=== PATIENT | male | born 1940 | race Caucasian/White ===

== ENCOUNTER → 2020-09-29 10:10 | Outpatient (BNVA) | payer MEDICARE, OTHER, SELFPAY | PROVIDERS: PCP Pediatrics; Referring Provider Pediatrics; Visit Provider Urology | DX: N40.1 Benign prostatic hyperplasia with lower urinary tract symptoms (principal); R33.9 Retention of urine, unspecified; R97.20 Elevated prostate specific antigen [PSA]; N32.0 Bladder-neck obstruction; R35.1 Nocturia; N52.9 Male erectile dysfunction, unspecified; E11.9 Type 2 diabetes mellitus without complications | CPT/HCPCS: Q3014 ==

== ENCOUNTER 2021-10-18 11:06 | Outpatient (REF) | payer MEDICARE, OTHER, SELFPAY ==
--- NOTE | ~2021-10-18 | XR_ITS ---
EXAMINATION: BILATERAL KNEE. CLINICAL INFORMATION: Bilateral primary osteoarthritis of knee. COMPARISON: None TECHNIQUE: 4 views right knee and 4 views left knee. FINDINGS: Right knee: There is mild loss of medial and patellofemoral compartment joint space right knee with superior patellar spurring and mild suprapatellar joint effusion. No loose bodies or bony erosive changes seen. The soft tissues are normal. Left knee: There is mild loss of tricompartment joint space more severe in the medial compartment with periarticular spurring in medial and lateral compartments. No abnormal joint effusion seen. There are no loose bodies or bony erosive changes. XR/XR knee LT 3V IMPRESSION: Degenerative arthritic changes bilateral knee joints Mild suprapatellar joint effusion right knee with its anterior superior patellar spurring.
--- NOTE | ~2021-10-18 | XR_ITS ---
EXAMINATION: BILATERAL KNEE. CLINICAL INFORMATION: Bilateral primary osteoarthritis of knee. COMPARISON: None TECHNIQUE: 4 views right knee and 4 views left knee. FINDINGS: Right knee: There is mild loss of medial and patellofemoral compartment joint space right knee with superior patellar spurring and mild suprapatellar joint effusion. No loose bodies or bony erosive changes seen. The soft tissues are normal. Left knee: There is mild loss of tricompartment joint space more severe in the medial compartment with periarticular spurring in medial and lateral compartments. No abnormal joint effusion seen. There are no loose bodies or bony erosive changes. XR/XR knee RT 2V IMPRESSION: Degenerative arthritic changes bilateral knee joints Mild suprapatellar joint effusion right knee with its anterior superior patellar spurring.
[2021-10-18 12:51] LABS: MANUAL DIFF FLAG NO
[2021-10-18 13:22] LABS: Basophils Percent Auto 0.3 % (0-2); Eosinophils Percent Auto 0.3 % (0-4); Hematocrit 40.3 % (42.0-52.0); Hemoglobin 12.7 g/dl (14.0-18.0); Imm Gran Abs Auto 0.05 X10*3/uL (0.00-0.03); Imm Gran Pct Auto 0.7 % (0.0-0.4); Lymphocytes Percent Auto 14.1 % (20-40); Mean Corpuscular HGB Conc 31.5 g/dl (31.0-36.0); Mean Corpuscular Hemoglobin 32.2 pg (27.0-33.0); Monocytes Absolute Auto 0.7 X10*3/uL (0.1-1.2); Monocytes Percent Auto 9.8 % (2-11); Neutrophils Absolute Auto 5.4 x10*3/uL (2.0-8.3); Neutrophils Percent Auto 74.8 % (45-73); Platelet Count 150 X10*3/uL (160-400); Red Blood Count 3.95 X10*6/uL (4.60-5.80); Red Cell Distribution Width 14.7 % (11.0-16.0); White Blood Count 7.2 X10*3/uL (4.8-10.8)
[2021-10-18 13:45] LABS: C Reactive Protein 0.34 mg/dL (< or = 0.50)
[2021-10-18 13:58] LABS: Erythrocyte Sedimentation Rate 23 MM/HR (0-15)
== END 2021-10-18 11:07 | disposition home or self-care (01) ==
LOC: HO.XRAY 11:06
PROVIDERS: PCP Pediatrics; Visit Provider Internal Medicine Rheumatology
DX: M06.00 Rheumatoid arthritis without rheumatoid factor, unspecified site (principal); M17.0 Bilateral primary osteoarthritis of knee; D50.9 Iron deficiency anemia, unspecified
CPT/HCPCS: 36415; 73560; 73562; 85025; 85652; 86140; 99212

== ENCOUNTER → 2021-10-29 09:58 | Outpatient (BNVA) | payer MEDICARE, OTHER, SELFPAY | PROVIDERS: PCP Pediatrics; Visit Provider Orthopaedic Surgery | DX: M17.12 Unilateral primary osteoarthritis, left knee (principal) | CPT/HCPCS: 99202 ==

== ENCOUNTER 2021-11-15 08:11 | Outpatient (RCR) | payer MEDICARE, OTHER, SELFPAY ==
--- NOTE | ~2021-11-15 | XR_ITS ---
EXAMINATION: XR FOOT, RIGHT CLINICAL INFORMATION: Nonhealing wound of the fourth toe COMPARISON: None TECHNIQUE: AP, lateral, and oblique views of the right foot. FINDINGS: Bone alignment is normal. No fracture or dislocation is seen. No x-ray evidence of osteomyelitis is seen. There is arthritis at the first MTP joint. There is a plantar calcaneal spur. There is soft tissue arterial calcification. XR/XR foot RT 2V IMPRESSION: No fracture or x-ray evidence of osteomyelitis seen.
[2021-11-15 10:32] LABS: MANUAL DIFF FLAG NO
[2021-11-15 10:59] LABS: Basophils Absolute Auto 0.1 X10*3/uL (0.0-0.2); Basophils Percent Auto 0.7 % (0-2); Eosinophils Absolute Auto 0.1 X10*3/uL (0.0-0.4); Eosinophils Percent Auto 1.1 % (0-4); Hematocrit 39.4 % (42.0-52.0); Hemoglobin 12.5 g/dl (14.0-18.0); Imm Gran Abs Auto 0.07 X10*3/uL (0.00-0.03); Lymphocytes Absolute Auto 1.8 X10*3/uL (1.2-4.9); Lymphocytes Percent Auto 25.4 % (20-40); Mean Corpuscular HGB Conc 31.7 g/dl (31.0-36.0); Mean Corpuscular Hemoglobin 32.9 pg (27.0-33.0); Mean Corpuscular Volume 103.7 fL (80.0-98.0); Mean Platelet Volume 11.7 fL (9.4-12.4); Monocytes Absolute Auto 0.8 X10*3/uL (0.1-1.2); Monocytes Percent Auto 10.9 % (2-11); Neutrophils Absolute Auto 4.4 x10*3/uL (2.0-8.3); Neutrophils Percent Auto 60.9 % (45-73); Platelet Count 153 X10*3/uL (160-400); Red Cell Distribution Width 14.9 % (11.0-16.0); White Blood Count 7.2 X10*3/uL (4.8-10.8)
[2021-11-15 11:42] LABS: Erythrocyte Sedimentation Rate 14 MM/HR (0-15)
[2021-11-15 11:56] LABS: Anion Gap 14 (12-20); Blood Urea Nitrogen 12 mg/dL (9-16); C Reactive Protein 0.29 mg/dL (< or = 0.50); Calcium 8.9 mg/dL (8.4-10.2); Carbon Dioxide 29 mmol/L (22-29); Chloride 106 mmol/L (96-108); Estimated Glomerular Filt Rate > 60; Glucose Random 110 mg/dL (60-115); Potassium 3.6 mmol/L (3.3-5.1); Sodium 145 mmol/L (135-145)
[2021-11-15 14:15] LABS: Estimated Average Glucose 128 mg/dL; Hemoglobin A1C 148.6945 umol/L; Hemoglobin A1c % 6.1 %
== END 2021-12-02 11:00 | disposition home or self-care (01) ==
LOC: HO.WCC 08:11
PROVIDERS: PCP Pediatrics; Visit Provider Physician Assistant
DX: E11.621 Type 2 diabetes mellitus with foot ulcer (principal); E11.51 Type 2 diabetes mellitus with diabetic peripheral angiopathy without gangrene; L97.514 Non-pressure chronic ulcer of other part of right foot with necrosis of bone; L03.115 Cellulitis of right lower limb; I10 Essential (primary) hypertension; I48.91 Unspecified atrial fibrillation; Z79.899 Other long term (current) drug therapy; Z79.01 Long term (current) use of anticoagulants; Z79.2 Long term (current) use of antibiotics; Z87.891 Personal history of nicotine dependence; Z79.84 Long term (current) use of oral hypoglycemic drugs
CPT/HCPCS: 11044; 36415; 73620; 80048; 83036; 84134; 85025; 85652; 86140; 99213

== ENCOUNTER 2021-11-23 10:06 | Emergency (ER) | payer MEDICARE, OTHER, SELFPAY ==
--- NOTE | ~2021-11-23 | CT_ITS ---
EXAMINATION: CT FOOT WITHOUT CONTRAST, RIGHT CLINICAL INFORMATION: Concern for deep tissue infection. COMPARISON: 11/15/2021 TECHNIQUE: Multidetector volumetric imaging was obtained through the right foot without contrast. Multiplanar reformatted images in coronal and sagittal orientations were submitted. This CT examination was performed using dose optimization techniques as appropriate, variously including the following: *Automated exposure control *Adjustment of mA and/or kV according to patient size (this includes techniques or standardized protocols for targeted exams where dose is matched to indication/reason for exam; i.e. extremities or head) *Use of iterative reconstruction technique DLP: 157 mGy-cm FINDINGS: There is soft tissue swelling at the ankle with associated subcutaneous edema, most pronounced laterally and medially. Additional swallowing and subcutaneous fat stranding are evident in the dorsal aspect of the midfoot and plantar aspect of the forefoot as well as the plantar/medial aspect of the great toe. There is associated skin thickening in these regions. No appreciable fluid collections are identified. No significant joint effusions. No subcutaneous gas. There is mild talocrural osteoarthritis with small marginal osteophytes. Additional mild osteoarthritis is evident in the subtalar joint. There is mild multifocal osteoarthritis in the tarsometatarsal joints, more pronounced at the 3rd, 4th, and 5th TMT joints. Moderate osteoarthritis in the 1st MTP joint is characterized by nonuniform joint space narrowing with articular cortical irregularity and marginal osteophytes. Multifocal osteoarthritis in the interphalangeal joints is most notable at the DIP joints of the 2nd and 3rd digits. No areas of focal osteolysis are identified. Bone mineralization appears normal. Small enthesopathic spurs are present at the Achilles tendon insertion and plantar fascial origin on the calcaneus. Calcific atherosclerosis is evident throughout the arteries of the foot and ankle. Intrinsic foot musculature is diffusely atrophic and fatty replaced. Peroneus brevis tendinopathy is evident at the lateral malleolus. No acute tendon tears are identified. CT/CT foot RT wo con IMPRESSION: 1. Multifocal soft tissue swelling and subcutaneous fat stranding at the ankle and foot. No fluid collections or subcutaneous gas to indicate deep infection. No CT findings of osteomyelitis or septic arthritis. 2. Multifocal osteoarthritis in the ankle and foot. 3. Atrophy of the intrinsic foot musculature.
[2021-11-23 10:16] VITALS: BP 177/99; PULSE 108; RESP 18; TEMP 36.9; O2SAT 95; BMI 31.0
--- NOTE | 2021-11-23 10:48 | ED_ITS ---
HPI - Wound/Laceration General Chief Complaint: Wound/Laceration Stated Complaint: r foot toe infection Time Seen by Provider: 11/23/21 10:47 Source: patient and family (sister) Mode of arrival: ambulatory Limitations: no limitations History of Present Illness HPI narrative: Patient is a 81 year old male presenting to the emergency department today with right foot swelling and infection. Patient states that he is a diabetic and has been seeing his embedded developer and the wound clinic for his right foot infection. Patient states that he was last on antibiotics early next week and has not been on any since. Patient states that the wound center sent him here to make sure the infection is not in his bones. Patient denies any dizziness, lightheadedness, abdominal pain, nausea, vomiting, fever, chills, blurry vision, double vision, loss of vision, chest pain, difficulty breathing, shortness of breath, back pain, night sweats, pain with urination, increased urinary frequency, increased urinary urgency, blood in his urine or stool, syncope or a near syncopal episode, recent trauma or falls, bowel incontinence, bladder incontinence, bowel retention, bladder retention, or any other complaints at this time. Associated symptoms: pain Related Data Home Medications Medication Instructions Recorded Confirmed blood sugar diagnostic #10 ea 09/29/20 digoxin 250 mcg (0.25 mg) tablet 250 mcg PO DAILY 09/29/20 diltiazem HCl 240 mg 240 mg PO DAILY 09/29/20 capsule,extended release 24 hr glipizide 2.5 mg tablet, extended 2.5 mg PO DAILY 09/29/20 release 24 hr hydrochlorothiazide 25 mg tablet 25 mg PO DAILY 09/29/20 lancets #100 ea 09/29/20 lisinopril 40 mg tablet 40 mg PO DAILY 09/29/20 metformin 1,000 mg tablet 1,000 mg PO BID 09/29/20 metoprolol succinate 50 mg 50 mg PO DAILY 09/29/20 tablet,extended release 24 hr omeprazole 20 mg capsule,delayed 20 mg PO DAILY 09/29/20 release rosuvastatin 20 mg tablet 20 mg PO DAILY 09/29/20 warfarin 3 mg tablet 3 mg PO DAILY 09/29/20 hydroxychloroquine 200 mg tablet 200 mg PO BID 10/18/21 10/18/21 (Plaquenil) loratadine 10 mg tablet (Allergy 10 mg PO DAILY 10/18/21 10/18/21 Relief (loratadine)) prednisone 5 mg tablet 5 mg PO BID tab 10/18/21 10/18/21 tamsulosin 0.4 mg capsule 0.4 mg PO DAILY 10/29/21 Previous Rx's Medication Instructions Recorded tamsulosin 0.4 mg capsule 0.4 mg PO BID 90 Days #180 cap 10/18/21 cephalexin 500 mg capsule 500 mg PO Q6H 7 Days #28 cap 11/23/21 hydrocodone 5 mg-acetaminophen 325 1 tab PO DAILY PRN #4 tab 11/23/21 mg tablet Allergies Allergy/AdvReac Type Severity Reaction Status Date / Time levofloxacin [From Levaquin] Allergy Severe impaired Verified 11/23/21 10:16 kidney function canagliflozin [From Invokana] Allergy Intermediate Unknown Verified 11/23/21 1 0:16 clindamycin Allergy Intermediate Heartburn Verified 11/23/21 10:16 penicillins Allergy Intermediate blisters Uncoded 10/18/21 11:46 Review of Systems Constitutional: Constitutional: Reports no additional constitutional complaints, Denies chills, Denies fever(s) and Denies night sweats Eyes: Eyes: Reports no additional eye complaints, Denies blurry vision, Denies change in vision, Denies diplopia, Denies eye discharge, Denies loss of vision and Denies eye pain ENT: Denies dizziness Cardiovascular: Cardiovascular: Reports no additional cardiovascular com plaints, Denies chest pain, Denies lightheadedness, Denies Loss of Consciousness and Denies dyspnea Respiratory: Respiratory: Reports no additional respiratory complaints and Denies dyspnea Gastrointestinal: Gastrointestinal: Reports no additional gastrointestinal complaints, Denies abdominal pain, Denies melena, Denies hematochezia, Denies change in bowel habits and Denies change in stool character Genitourinary: Genitourinary: Reports no additional male genitourinary complaints, Denies hematuria, Denies oliguria, Denies difficulty urinating, Denies dysuria, Denies urinary frequency, Denies urinary hesitancy, Denies urinary incontinence and Denies urinary urgency Musculoskeletal: Musculoskeletal: Reports no additional musculoskeletal complaints, Denies numbness and Denies tingling Comments: right foot swelling, redness, warmth Integumentary/Breasts: Comments: redness, warmth, swelling to the right foot Neurologic: Denies dizziness, Denies loss of vision, Denies numbness and Denies tingling Psychiatric: Psychiatric: Reports no additional psychiatric complaints Endocrine: Endocrine: Reports no additional endocrine complaints Hematologic/Lymphatic: Hematologic/Lymphatic: Reports no additional hematologic/lymphatic complaints Allergic/Immunologic: Allergic/Immunologic: Reports no additional al lergic/immunologic complaints PMFSH Past Medical History Attestation statement: The following information was validated with the patient. 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 Osteoarthritis of knees, bilateral PAD (peripheral artery disease) Seronegative rheumatoid arthritis Type 2 diabetes mellitus Surgical History History of left hip replacement Hx of left knee surgery Social History Social History Household Members Other:: lives alone Housing: House Are you a primary janitor caretaker to a significant other at home: No Do you presently have visiting nurse or other home services: No 75 years or older and lives alone: Yes Alcohol intake: current Patient Tobacco Use Status: Former Tobacco user Years Smoked: quit 55 years ago e-Cigarette/Vaping Use: Never Used service: No Current occupational status: retired Physical Exam Vital Signs: Vital Signs: Last Vital Signs Temp 98.7 F 11/23/21 15:58 Pulse 82 11/23/21 15:58 Resp 16 11/23/21 15:58 BP 179/85 H 11/23/21 15:58 Pulse Ox 96 11/23/21 15:58 BMI result Body Mass Index 31.0 Const: General: cooperative, no acute distress, alert and awake Nutritional Appearance: well nourished Orientation/consciousness: patient oriented x3 Limitations: no limitations HEENT: Head: Yes normal to inspection and Yes atraumatic Ears: hearing grossly normal bilaterally and external ears normal General nose exam: Normal external nose present, no nasal discharge noted and no epistaxis Face and sinus: Yes normal facial exam, No abrasion and No laceration Mouth: Normal oral and palatal mucosa present, no drooling and no muffled voice Eyes: General: appearance normal, both eyes and all related structures Periorbital: periorbital findings normal Eyelids: Yes eyelids normal Conjunctivae: conjunctivae normal Pupils: Equal, round and reactive pupils present EOM: EOMs intact bilaterally Neck: Neck: Yes normal visual inspection, Yes full ROM and Yes no lymphadenopathy Chest: Chest palpation & inspection: normal inspection of the chest Resp: Effort & Inspection: normal respiratory effort and able to speak in complete sentences Auscultation: clear to auscultation bilaterally Cardio: Rate: regular rate Rhythm: abnormal rhythm irregularly irregular GI: Inspection: Yes normal to inspection Skin: Other: Neuro: General: patient oriented x3 and moves all extremities Cranial nerves: Yes Equal, round and reactive pupils present Cognition (Neuro): normal cognition Motor exam (neuro): 5/5 motor strength present throughout Sensory Exam: Normal double simultaneous stimulation for sensation Coordination: [id number] test normal Extrem: General: Yes normal to inspection, Yes full ROM and Yes capillary refill normal Psych: Appearance: grossly normal Mental Status: mental status grossly normal Affect: normal affect Attitude: cooperative Thought process: Normal thought process present Thought content: Normal thought content present Insight: Good insight present (Psych) MDM - Wound/Laceration MDM Narrative Medical decision making narrative: Patient is an 81 year old male presenting to the emergency department today with right foot cellulitis. Patient's physical exam was as pictured with redness, warmth, and swelling present to the right dorsal foot. Patient's blood work showed a decreased magnesium at 1.5 but was otherwise unremarkable. Patient's EKG showed atrial fib which is chronic for the patient. Patient's right foot CT showed multifocal soft tissue swelling and subcutaneous fat stranding at the ankle and the foot with no gas or findings of osteo. I explained my physical exam findings as well as all test results to the patient and the patient's sister. I answered all questions asked by the patient and the patient's sister. Patient received IV Zosyn, IV Vancomysin, and IV magnesium. I discussed, in depth, with the patient the need for admission secondary to his failing of outpatient treatment. However, the patient was adamant that he did not fail out patient treatment because it had been a week since he was on antibiotics. Patient stated that he wanted to try another round of ABX out p atient and follow up. Patient stated that if it got any worse, he would return to the emergency department. I stressed the importance of the patient taking his medication as prescribed. I stressed the importance of the patient following up with his primary care provider, embedded developer, and insurance verification specialist. I stressed the importance of the patient returning to the emergency department immediately if his symptoms were to worsen or if he were to develop any dizziness, shortness of breath, difficulty breathing, chest pain, blurry vision, loss of vision, nausea, vomiting, abdominal pain, fever, chills, back pain, or any other complaints. Patient and the patient's sister verbalized agreement and understanding with this treatment plan and discharge. Differential Diagnosis Differential diagnosis: Unlikely laceration (cellulitis) Medical Records Attestation: I reviewed the patient's medical records. Lab Data Attestation: I reviewed the patient's lab results. Result diagrams: 11/23/21 11:19 11/23/21 11:19 Labs: Lab Results 11/23/21 11/23/21 11/23/21 Range/Units 11:18 11:19 11:19 WBC 9.2 (4.8-10.8) X10*3/uL RBC 3.57 L (4.60-5.80) X10*6/uL Hgb 11.9 L (14.0-18.0) g/dl Hct 37.3 L (42.0-52.0) % MCV 104.5 H (80.0-98.0) fL MCH 33.3 H (27.0-33.0) pg MCHC 31.9 (31.0-36.0) g/dl RDW 14.6 (11.0-16.0) % Plt Count 171 (160-400) X10*3/uL MPV 11.1 (9.4-12.4) fL Immature Gran % (Auto) 0.7 H (0.0-0.4) % Neut % (Auto) 72.1 (45-73) % Lymph % (Auto) 15.3 L (20-40) % [place] % (Auto) 10.9 (2-11) % Eos % (Auto) 0.8 (0-4) % Baso % (Auto) 0.2 (0-2) % Lymph # (Auto) 1.4 (1.2-4.9) X10*3/uL [place] # (Auto) 1.0 (0.1-1.2) X10*3/uL Eos # (Auto) 0.1 (0.0-0.4) X10*3/uL Baso # (Auto) 0.0 (0.0-0.2) X10*3/uL Abs Immat Gran (auto) 0.06 H (0.00-0.03) X10*3/uL Absolute Neuts (auto) 6.6 (2.0-8.3) x10*3/uL Absolute Nucleated RBC 0.000 (0.0-0.012) X10*3/uL Nucleated RBC % (auto) 0.0 (0.0-0.2) /100WBC Sodium 142 (135-145) mmol/L Potassium 3.6 (3.3-5.1) mmol/L Chloride 104 (96-108) mmol/L Carbon Dioxide 28 (22-29) mmol/L Anion Gap 14 (12-20) BUN 11 (9-16) mg/dL Creatinine 0.85 (0.5-1.4) mg/dL Estim Creat Clear Calc 76.5 Estimated GFR > 60 Random Glucose 89 (60-115) mg/dL Lactic Acid 0.9 (0.5-2.0) mmol/L Calcium 9.2 (8.4-10.2) mg/dL Magnesium 1.5 L (1.6-2.6) mg/dL Total Bilirubin 1.9 H (0.0-1.0) mg/dL AST 23 (5-37) U/L ALT 28 (0-40) U/L Alkaline Phosphatase 131 H (39-117) U/L Total Protein 6.4 L (6.5-8.0) g/dL Albumin 3.7 (3.5-5.0) g/dL COVID-19 (AZAR) (Negative) COVID-19 Clin Com Influenza Type A (JENN) (Negative) Influenza Type B (JENN) (Negative) Influenza A & B Note 11/23/21 11/23/21 Range/Units 11:20 11:20 WBC (4.8-10.8) X10*3/uL RBC (4.60-5.80) X10*6/uL Hgb (14.0-18.0) g/dl Hct (42.0-52.0) % MCV (80.0-98.0) fL MCH (27.0-33.0) pg MCHC (31.0-36.0) g/dl RDW (11.0-16.0) % Plt Count (160-400) X10*3/uL MPV (9.4-12.4) fL Immature Gran % (Auto) (0.0-0.4) % Neut % (Auto) (45-73) % Lymph % (Auto) (20-40) % [place] % (Auto) (2-11) % Eos % (Auto) (0-4) % Baso % (Auto) (0-2) % Lymph # (Auto) (1.2-4.9) X10*3/uL [place] # (Auto) (0.1-1.2) X10*3/uL Eos # (Auto) (0.0-0.4) X10*3/uL Baso # (Auto) (0.0-0.2) X10*3/uL Abs Immat Gran (auto) (0.00-0.03) X10*3/uL Absolute Neuts (auto) (2.0-8.3) x10*3/uL Absolute Nucleated RBC (0.0-0.012) X10*3/uL Nucleated RBC % (auto) (0.0-0.2) /100WBC Sodium (135-145) mmol/L Potassium (3.3-5.1) mmol/L Chloride (96-108) mmol/L Carbon Dioxide (22-29) mmol/L Anion Gap (12-20) BUN (9-16) mg/dL Creatinine (0.5-1.4) mg/dL Estim Creat Clear Calc Estimated GFR Random Glucose (60-115) mg/dL Lactic Acid (0.5-2.0) mmol/L Calcium (8.4-10.2) mg/dL Magnesium (1.6-2.6) mg/dL Total Bilirubin (0.0-1.0) mg/dL AST (5-37) U/L ALT (0-40) U/L Alkaline Phosphatase (39-117) U/L Total Protein (6.5-8.0) g/dL Albumin (3.5-5.0) g/dL COVID-19 (AZAR) Negative (Negative) COVID-19 Clin Com See Note Influenza Type A (JENN) Negative (Negative) Influenza Type B (JENN) Negative (Negative) Influenza A & B Note See Note Imaging Data Right foot CT scan: Attestation: I personally reviewed and interpreted this imaging study as follows: My impression: Soft tissue infection of the right foot Radiologist's impression: EXAMINATION: CT FOOT WITHOUT CONTRAST, RIGHT CLINICAL INFORMATION: Concern for deep tissue infection.? ? COMPARISON: 11/15/2021? ? ? TECHNIQUE: Multidetector volumetric imaging was obtained through the right foot without contrast. Multiplanar reformatted images in coronal and sagittal orientations were submitted. This CT examination was performed using dose optimization techniques as appropriate, variously including the following: *Automated exposure control *Adjustment of mA and/or kV according to patient size (this includes techniques or standardized protocols for targeted exams where dose is matched to indication/reason for exam; i.e. extremities or head) *Use of iterative reconstruction technique DLP: 157 mGy-cm FINDINGS: There is soft tissue swelling at the ankle with associated subcutaneous edema, most pronounced laterally and medially. Additional swallowing and subcutaneous fat stranding are evident in the dorsal aspect of the midfoot and plantar aspect of the forefoot as well as the plantar/medial aspect of the great toe. There is associated skin thickening in these regions. No appreciable fluid collections are identified. No significant joint effusions. No subcutaneous gas. There is mild talocrural osteoarthritis with small marginal osteophytes. Additional mild osteoarthritis is evident in the subtalar joint. There is mild multifocal osteoarthritis in the tarsometatarsal joints, more pronounced at the 3rd, 4th, and 5th TMT joints. Moderate osteoarthritis in the 1st MTP joint is characterized by nonuniform joint space narrowing with articular cortical irregularity and marginal osteophytes. Multifocal osteoarthritis in the interphalangeal joints is most notable at the DIP joints of the 2nd and 3rd digits. No areas of focal osteolysis are identified. Bone mineralization appears normal. Small enthesopathic spurs are present at the Achilles tendon insertion and plantar fascial origin on the calcaneus. Calcific atherosclerosis is evident throughout the arteries of the foot and ankle. Intrinsic foot musculature is diffusely atrophic and fatty replaced. Peroneus brevis tendinopathy is evident at the lateral malleolus. No acute tendon tears are identified. CT/CT foot RT wo con IMPRESSION: 1. Multifocal soft tissue swelling and subcutaneous fat stranding at the ankle and foot. No fluid collections or subcutaneous gas to indicate deep infection. No CT findings of osteomyelitis or septic arthritis. 2. Multifocal osteoarthritis in the ankle and foot. 3. Atrophy of the intrinsic foot musculature. Dictated By: n Signed By: Electronically signed by n in ECG Data Attestation: I personally reviewed and interpreted this ECG as follows: ECG interpretation date: 11/23/21 ECG interpretation time: 11:04 Prior ECG tracings: not available for review Interpretation: Vent. Rate: 093 BPM ? ? Atrial Rate: 000 BPM P-R Int: 000 ms? QRS Dur: 094 ms QT Int: 348 ms ? ? ? P-R-T Axes: 000 026 004 degrees QTc Int: 432 ms ? Atrial fibrillation Nonspecific ST abnormality Abnormal ECG No previous ECGs available ? Referred By: Paola Vieira ? Electronically Signed By:GERARDO AVILES MD Dictated By: Gerardo Aviles MD Signed By: Electronically signed by Gerardo Aviles MD 11/23/21 1503 Critical Care Time Critical Care Time Critical Care Time: Yes Total Critical Care Time: 30 Attestation: I spent 30 minutes of Critical Care Time with this patient. This does not include time spent on separately reported billable procedures. Discharge Plan Discharge Clinical Impression: Cellulitis, Hypomagnesemia Patient Disposition: Home, Self-Care Instructions: Cellulitis (DC) Additional Instructions: Follow up with your primary care provider. Return to the emergency department immediately if your symptoms worsen or if you develop any dizziness, shortness of breath, difficulty breathing, chest pain, blurry vision, loss of vision, nausea, vomiting, abdominal pain, fever, chills, back pain, or any other complaints. Prescriptions: New cephalexin 500 mg capsule 500 mg PO Q6H 7 Days Qty: 28 0RF hydrocodone-acetaminophen 5-325 mg tablet 1 tab PO DAILY PRN (Reason: pain) Qty: 4 0RF No Action tamsulosin 0.4 mg capsule 0.4 mg PO BID 90 Days Qty: 180 2RF diltiazem HCl 240 mg capsule,extended release 24hr 240 mg PO DAILY 0RF (DME) SmuleTouch Ultra Blue Test Strip Strip See Rx Instructions ea Not Applicable DAILY Qty: 10 0RF Rx Instructions: As directed (DME) lancets [facility] [place] See Rx Instructions ea .ROUTE DIRECTED Qty: 100 0RF Rx Instructions: As directed metformin 1,000 mg tablet 1,000 mg PO BID 0RF metoprolol succinate 50 mg tablet extended release 24 hr 50 mg PO DAILY 0RF digoxin 250 mcg (0.25 mg) tablet 250 mcg PO DAILY 0RF hydrochlorothiazide 25 mg tablet 25 mg PO DAILY 0RF lisinopril 40 mg tablet 40 mg PO DAILY 0RF glipizide 2.5 mg tablet extended release 24hr 2.5 mg PO DAILY 0RF rosuvastatin 20 mg tablet 20 mg PO DAILY 0RF omeprazole 20 mg capsule,delayed release(DR/EC) 20 mg PO DAILY 0RF warfarin 3 mg tablet 3 mg PO DAILY 0RF prednisone 5 mg tablet 5 mg PO BID 0RF loratadine [Allergy Relief (loratadine)] 10 mg tablet 10 mg PO DAILY 0RF hydroxychloroquine [Plaquenil] 200 mg tablet 200 mg PO BID 0RF tamsulosin 0.4 mg capsule 0.4 mg PO DAILY 0RF Referrals: [facility] [Provider Group] Kavon Grant MD [Primary Care Provider] - Print Language: Hungarian
--- NOTE | 2021-11-23 11:02 | ECG_ITS ---
Test Reason : infection on foot Blood Pressure : / mmHG Vent. Rate : 093 BPM Atrial Rate : 000 BPM P-R Int : 000 ms QRS Dur : 094 ms QT Int : 348 ms P-R-T Axes : 000 026 004 degrees QTc Int : 432 ms Atrial fibrillation Nonspecific ST abnormality Abnormal ECG No previous ECGs available Referred By: Paola Vieira Electronically Signed By:AMY AVILES MD
[2021-11-23 11:27] LABS: MANUAL DIFF FLAG NO
[2021-11-23 11:30] VITALS: BP 171/86; PULSE 88; RESP 17; TEMP 37.1; O2SAT 95
[2021-11-23 11:31] LABS: Basophils Percent Auto 0.2 % (0-2); Eosinophils Absolute Auto 0.1 X10*3/uL (0.0-0.4); Eosinophils Percent Auto 0.8 % (0-4); Hematocrit 37.3 % (42.0-52.0); Hemoglobin 11.9 g/dl (14.0-18.0); Imm Gran Abs Auto 0.06 X10*3/uL (0.00-0.03); Imm Gran Pct Auto 0.7 % (0.0-0.4); Lymphocytes Absolute Auto 1.4 X10*3/uL (1.2-4.9); Lymphocytes Percent Auto 15.3 % (20-40); Mean Corpuscular HGB Conc 31.9 g/dl (31.0-36.0); Mean Corpuscular Hemoglobin 33.3 pg (27.0-33.0); Mean Corpuscular Volume 104.5 fL (80.0-98.0); Mean Platelet Volume 11.1 fL (9.4-12.4); Monocytes Percent Auto 10.9 % (2-11); Neutrophils Absolute Auto 6.6 x10*3/uL (2.0-8.3); Neutrophils Percent Auto 72.1 % (45-73); Platelet Count 171 X10*3/uL (160-400); Red Blood Count 3.57 X10*6/uL (4.60-5.80); Red Cell Distribution Width 14.6 % (11.0-16.0); White Blood Count 9.2 X10*3/uL (4.8-10.8)
[2021-11-23 11:39] LABS: Lactic Acid 0.9 mmol/L (0.5-2.0)
[2021-11-23] MEDS: Piperacillin Sodium/Tazobactam 4.5 GM in 0.9 % Sodium Chloride 100 ML IV (11:41)
[2021-11-23 11:44] LABS: Alanine Aminotransferase 28 U/L (0-40); Albumin Level 3.7 g/dL (3.5-5.0); Alkaline Phosphatase 131 U/L (39-117); Anion Gap 14 (12-20); Aspartate Amino Transferase 23 U/L (5-37); Bilirubin Total 1.9 mg/dL (0.0-1.0); Blood Urea Nitrogen 11 mg/dL (9-16); Calcium 9.2 mg/dL (8.4-10.2); Carbon Dioxide 28 mmol/L (22-29); Chloride 104 mmol/L (96-108); Creatinine Clr Calc Pharmacy 76.5; Estimated Glomerular Filt Rate > 60; Glucose Random 89 mg/dL (60-115); Magnesium 1.5 mg/dL (1.6-2.6); Potassium 3.6 mmol/L (3.3-5.1); Sodium 142 mmol/L (135-145); Total Protein 6.4 g/dL (6.5-8.0)
[2021-11-23 11:50] LABS: COVID-19 Test Negative (Negative); IDNOW Serial# 16C4AD1C; Influenza A Negative (Negative); Influenza B2 Negative (Negative)
[2021-11-23] MEDS: vancomycin HCL 1,000 MG, vancomycin HCL 750 MG in 0.9 % Sodium Chloride 500 ML 267.5 MG IV (12:12)
[2021-11-23] MEDS: Morphine Sulfate 4 MG/ML CARTRIDGE IVPUSH (12:38)
[2021-11-23] MEDS: ondansetron HCL 4 MG/2 ML VIAL IVPUSH (12:38)
[2021-11-23 13:30] VITALS: BP 174/92; PULSE 92; RESP 19; TEMP 37.1; O2SAT 92
[2021-11-23] MEDS: Magnesium Sulfate/D5W 1 GM/100 ML PIGGYBACK IV (15:29)
[2021-11-23 15:58] VITALS: BP 179/85; PULSE 82; RESP 16; TEMP 37.1; O2SAT 96
== END 2021-11-23 16:45 | disposition home or self-care (01) ==
PROVIDERS: Physician Assistant Medical; Emergency Provider Emergency Medicine; PCP Pediatrics
DX: L03.115 Cellulitis of right lower limb (principal); B95.8 Unspecified staphylococcus as the cause of diseases classified elsewhere; E83.42 Hypomagnesemia; M79.671 Pain in right foot; R53.81 Other malaise; M79.89 Other specified soft tissue disorders; Z20.822 Contact with and (suspected) exposure to COVID-19; E11.22 Type 2 diabetes mellitus with diabetic chronic kidney disease; N18.9 Chronic kidney disease, unspecified; I48.20 Chronic atrial fibrillation, unspecified; Z79.899 Other long term (current) drug therapy; Z79.02 Long term (current) use of antithrombotics/antiplatelets; Z79.01 Long term (current) use of anticoagulants
CPT/HCPCS: 73700; 80053; 83605; 83735; 85025; 87040; 87147; 87205; 87502; 87635; 93005; 96365; 96366; 96368; 96374; 96375; 99283; 99285; J2270; J2405; J2543; J3370; J3475

== ENCOUNTER 2021-11-25 08:59 | Inpatient (IN) | payer MEDICARE, OTHER, SELFPAY ==
--- NOTE | ~2021-11-25 | US_ITS ---
EXAMINATION: US VENOUS ULTRASOUND WITH DOPPLER LOWER EXTREMITY, RIGHT CLINICAL INFORMATION: Right lower extremity swelling COMPARISON: None TECHNIQUE: Ultrasound of the deep veins is performed from the hip to the calf with compression sonography and color and pulse Doppler assessment. Spectral analysis with color-flow imaging is performed. FINDINGS: There is normal venous compression and respiratory variation and augmented flow. The visualized common femoral vein, superficial femoral vein, profunda femoral vein, popliteal vein, and the trifurcation region shows no evidence of deep venous thrombosis. There is no significant popliteal fossa cyst. Prominent lymph node in the right groin measuring 3.7 x 0.6 x 2.9 cm. This shows normal morphology. If the patient's symptoms persist, followup ultrasound in 5 days 7 days might be of value to exclude proximal propagation from a non-visualized calf vein. US/US venous duplex LE RT IMPRESSION: No DVT demonstrated in the right lower extremity.
--- NOTE | ~2021-11-25 | US_ITS ---
EXAMINATION: NONINVASIVE ASSESSMENT OF THE ARTERIES OF BOTH LOWER EXTREMITIES INCLUDING PVR EXAM AND BILATERAL LOWER EXTREMITY DUPLEX CLINICAL INFORMATION: Nonhealing ulcer COMPARISON: None TECHNIQUE: Ankle pulse volume recordings, ankle pressure measurements and ankle brachial indices were obtained of the lower extremity arterial system bilaterally in addition to duplex Doppler techniques with wave form analysis and measurement of velocities in the common femoral, profunda femoral, superficial femoral, popliteal, tibial and peroneal arteries. The study was performed only at rest. FINDINGS: RIGHT LEG 1. Right Ankle-Brachial Index: 1.14 (higher of the DP/PT) >0.97-1.25 = normal - no significant arterial disease 0.75-0.96 = mild peripheral arterial disease 0.5-0.74 = moderate peripheral arterial disease <0.50 = severe peripheral arterial disease <0.30 = critical arterial disease 2. Segmental Pressures (mmHg): Brachial: 158 Ankle: PT 196, DP 202 3. PVR Waveforms: Ankle: Abnormal, no dicrotic notch 4. Direct Duplex: Common femoral artery: 161 cm/s, Multiphasic Profunda femoris artery: 127 cm/s, Multiphasic Superficial femoral artery (proximal): 140 cm/s, monophasic Superficial femoral artery (mid): 251 cm/s, multiphasic Superficial femoral artery (distal): 89.1 cm/s, Multiphasic Popliteal artery: 62.3 cm/s, monophasic Mid posterior tibial artery: 58.5 cm/s, monophasic LEFT LE. Left Ankle-Brachial Index: 1.14 (higher of the DP/PT) >0.97-1.25 = normal - no significant arterial disease 0.75-0.96 = mild peripheral arterial disease 0.5-0.74 = moderate peripheral arterial disease <0.50 = severe peripheral arterial disease <0.30 = critical arterial disease 2. Segmental Pressures: Brachial: 177 Ankle: PT 201, DP unobtainable 3. PVR Waveforms: Ankle: Dampened, possibly retained dicrotic notch 4. Direct Duplex: Common femoral artery: 128 cm/s, Multiphasic Profunda femoris artery: 79.7 cm/s, Multiphasic Superficial femoral artery (proximal): 108 cm/s, Multiphasic Superficial femoral artery (mid): 210 cm/s, Multiphasic Superficial femoral artery (distal): 173 cm/s, Multiphasic Proximal Popliteal artery: 74.6 cm/s, monophasic Posterior tibial artery: 55.2 cm/s, monophasic US/US arterial duplex LE BI IMPRESSION: Right BERT 1.14 and abnormal PVR waveform is loss of dicrotic notch. Suspect elevated BERT given calcified vessels. On the right there is elevated flow velocity within the midportion of the superficial femoral artery suggesting at least a moderate stenosis at this level. Popliteal and posterior tibial waveforms are monophasic suggesting proximal disease. Left BERT 1.14, suspect elevated by calcified vessels. Question preservation of dicrotic notch, otherwise the PVR waveform is abnormal. There is elevated flow velocity at the mid and distal SFA suggesting at least a moderate stenosis. Waveforms at the popliteal artery and beyond are monophasic suggesting proximal disease as well.
[2021-11-25 09:03] VITALS: BP 152/86; PULSE 90; RESP 18; TEMP 36.8; O2SAT 95; BMI 31.0
[2021-11-25 10:31] VITALS: BMI 30.7
[2021-11-25 10:32] LABS: MANUAL DIFF FLAG NO
[2021-11-25 10:34] LABS: Basophils Percent Auto 0.2 % (0-2); Eosinophils Percent Auto 0.2 % (0-4); Hematocrit 35.5 % (42.0-52.0); Hemoglobin 11.3 g/dl (14.0-18.0); Imm Gran Abs Auto 0.05 X10*3/uL (0.00-0.03); Imm Gran Pct Auto 0.6 % (0.0-0.4); Lymphocytes Absolute Auto 0.7 X10*3/uL (1.2-4.9); Lymphocytes Percent Auto 7.5 % (20-40); Mean Corpuscular HGB Conc 31.8 g/dl (31.0-36.0); Mean Corpuscular Hemoglobin 32.8 pg (27.0-33.0); Mean Corpuscular Volume 103.2 fL (80.0-98.0); Mean Platelet Volume 10.8 fL (9.4-12.4); Monocytes Absolute Auto 0.8 X10*3/uL (0.1-1.2); Monocytes Percent Auto 8.3 % (2-11); Neutrophils Absolute Auto 7.5 x10*3/uL (2.0-8.3); Neutrophils Percent Auto 83.2 % (45-73); Platelet Count 189 X10*3/uL (160-400); Red Blood Count 3.44 X10*6/uL (4.60-5.80); Red Cell Distribution Width 14.4 % (11.0-16.0); White Blood Count 9.1 X10*3/uL (4.8-10.8)
[2021-11-25] MEDS: cefTRIAXone sodium 2 GM in 0.9 % Sodium Chloride 50 ML IV (10:56)
[2021-11-25 11:12] LABS: Anion Gap 14 (12-20); Blood Urea Nitrogen 12 mg/dL (9-16); Calcium 8.6 mg/dL (8.4-10.2); Carbon Dioxide 25 mmol/L (22-29); Chloride 104 mmol/L (96-108); Estimated Glomerular Filt Rate > 60; Glucose Random 119 mg/dL (60-115); Potassium 3.4 mmol/L (3.3-5.1); Sodium 140 mmol/L (135-145)
--- NOTE | 2021-11-25 11:13 | ED.RECABL ---
HPI - Recheck/Abnormal Lab/Rx General Chief Complaint: Recheck/Abnormal Lab/Rx Stated Complaint: ABNORMAL LABS Time Seen by Provider: 11/25/21 10:02 Source: patient Mode of arrival: ambulatory Limitations: no limitations History of Present Illness HPI narrative: Patient presents to the emergency department as he received a call that 1 of the 2 blood cultures obtained on his emergency department visit 2 days ago was positive and that he needed to come back to the emergency department. Patient has been followed by the [facility] for a right foot infection, on 11/23/2021 he was referred to the emergency department to rule out osteomyelitis. Reports at that time he received IV antibiotics, states he had a CT of his foot that did not indicate osteomyelitis, it was recommended that he be admitted into hospital, but declined admission at that time, he wanted to trial a course of antibiotics outpatient and follow-up with wound Center. He does admit worsening of the redness and swelling to his right foot and a red rash that is extending up his anterior over right martinez. denies fevers, chills, dizziness, chest pain, palpitations, shortness of breath difficulty breathing, vomiting, abdominal pain, generalized weakness. Related Data Home Medications Medication Instructions Recorded Confirmed blood sugar diagnostic #10 ea 09/29/20 digoxin 250 mcg (0.25 mg) tablet 250 mcg PO BEDTIME 09/29/20 11/25/21 diltiazem HCl 240 mg 240 mg PO DAILY 09/29/20 11/25/21 capsule,extended release 24 hr lancets #100 ea 09/29/20 lisinopril 40 mg tablet 40 mg PO DAILY 09/29/20 11/25/21 metformin 1,000 mg tablet 1,000 mg PO BID@0900,1800 09/29/20 11/25/21 metoprolol succinate 50 mg 75 mg PO DAILY@1800 09/29/20 11/25/21 tablet,extended release 24 hr omeprazole 20 mg capsule,delayed 20 mg PO DAILY 09/29/20 11/25/21 release rosuvastatin 20 mg tablet 20 mg PO DAILY@1800 09/29/20 11/25/21 hydroxychloroquine 200 mg tablet 200 mg PO BID@1200,1800 10/18/21 11/25/21 (Plaquenil) loratadine 10 mg tablet (Allergy 10 mg PO DAILY 10/18/21 11/25/21 Relief (loratadine)) prednisone 5 mg tablet 5 mg PO DAILY@1800 tab 10/18/21 11/25/21 cholecalciferol (vitamin D3) 25 25 mcg PO DAILY 11/25/21 11/25/21 mcg (1,000 unit) tablet cyanocobalamin (vitamin B-12) 1,000 mcg PO DAILY@1200 11/25/21 11/25/21 1,000 mcg tablet glipizide 5 mg tablet, extended 1 tab PO BID@0900,1800 11/25/21 11/25/21 release 24 hr prednisone 5 mg tablet 2.5 mg PO DAILY 11/25/21 11/25/21 warfarin 1 mg tablet 2 mg PO SUMOWEFRSA@1800 11/25/21 11/25/21 warfarin 1 mg tablet 3 mg PO TUTH@1800 11/25/21 11/25/21 Previous Rx's Medication Instructions Recorded tamsulosin 0.4 mg capsule 0.4 mg PO BID 90 Days #180 cap 10/18/21 cephalexin 500 mg capsule 500 mg PO Q6H 7 Days #28 cap 11/23/21 Allergies Allergy/AdvReac Type Severity Reaction Status Date / Time levofloxacin [From Levaquin] Allergy Severe impaired Verified 11/23/21 10:16 kidney function canagliflozin [From Invokana] Allergy Intermediate Unknown Verified 11/23/21 10:16 clindamycin Allergy Intermediate Heartburn Verified 11/23/21 10:16 penicillins Allergy Intermediate blisters Uncoded 10/18/21 11:46 Review of Systems Review of Systems: Constitutional: No fever. No chills. No weakness. No fatigue. Eye: No swelling. No redness. ENT: No sore throat. No rhinorrhea. No nasal congestion. No sore throat. No difficulty swallowing. Skin: Positive rash to lower extremity. Positive erythema right foot. Cardiovascular: No chest pain. No chest pressure. No palpitations. Positive pedal edema Respiratory: No shortness of breath. No cough. Gastrointestinal: No anorexia. No nausea. No vomiting. No diarrhea. No abdominal pain. Genitourinary: No burning micturition. No urinary frequency. No incontinence. Neurologic: No headache. No dizziness. No pre-syncope/ syncope. No unilateral weakness. No ataxia. No numbness. No tingling. Musculoskeletal: No muscle pain. No back pain. No joint pain. No stiffness. Hematologic: No bleeding. No bruising. Lymphatics: No enlarged lymph nodes. Endocrine: No polyuria. No polydipsia. Yes all other systems are reviewed and are negative [facility] Past Medical History Attestation statement: The following information was validated with the patient. 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 Osteoarthritis of knees, bilateral PAD (peripheral artery disease) Seronegative rheumatoid arthritis Type 2 diabetes mellitus Surgical History History of left hip replacement Hx of left knee surgery Social History Social History Household Members Other:: lives alone Housing: House Are you a primary critical care technician to a significant other at home: No Do you presently have visiting nurse or other home services: No Alcohol intake: current Patient Tobacco Use Status: Former Tobacco user Years Smoked: quit 55 years ago e-Cigarette/Vaping Use: Never Used Advance Directives: Yes Advance Directives Information Provided: No Advance Directives on File: No service: No Current occupational status: retired Physical Exam Vital Signs: Vital Signs: Last Vital Signs Temp 98.2 F 11/25/21 09:03 Pulse 82 11/25/21 13:10 Resp 16 11/25/21 13:10 BP 161/92 H 11/25/21 13:10 Pulse Ox 95 11/25/21 13:10 BMI result Body Mass Index 30.7 Vital signs have been reviewed as normal and appeared to be correct. Blood pressure normal.? Heart rate normal.? Respiration rate normal. Temperature normal.? Oxygen saturation normal. Appearance: Alert.?Oriented to person, place and time. No acute distress.?Normal affect. Eyes: Pupils equal, round and reactive to light.? ENT: Pharynx normal.?? Neck: Normal inspection.? Neck supple.?? CVS: Heart sounds normal. Normal heart rate and rhythm.? Pulses normal.?? Respiratory: No respiratory distress.? Lung sounds clear to auscultation bilaterally?? Abdomen: Soft and non-tender. Skin: Skin warm and dry.? Normal skin color.? ? Extremities: Nonpitting lower extremity edema. Right dorsal foot repeat erythema, maceration of the digits, presence of a wound in the interdigit space of 4 and 5. Petechiae type rash to the bilateral lower extremities/anterior martinez. No calf ttp? Neuro: Moves all extremities spontaneously. Sensation intact bilaterally. No motor deficits Ambulates with normal steady gait. Course Course Course Narrative: Patient is an 81-year-old male with a past medical history of atrial fibrillation, CKD, HLD, EFFIE, osteoarthritis, PAD, type 2 DM. Patient was evaluated 2 days ago in the emergency department, CT of the right foot revealed multifocal soft tissue swellings of the obtain a stat stranding but no fluid collections or subcutaneous gas to indicate infection, findings of osteomyelitis or septic arthritis. At this time 1/2 blood cultures obtained that day resulted with Gram-positive cocci. He was discharged home with a prescription for cephalexin which he reports he has been taking as prescribed not yet taken today, reportedly he had already completed a 1 week course of antibiotic prior to the cephalexin, unaware which antibiotic he was taking. Currently, he is hemodynamically stable, well appearing, does not meet SIRS criteria at this time. However, he does endorse that the redness and swelling have increased in comparison to 2 days ago. Will obtain CBC, CMP, lactic acid and repeat blood cultures, in addition will go treat with vancomycin IV, and ceftriaxone IV at this time. Disposition will be pending results. Reevaluation(s) Reevaluation #1: CBC reveals no leukocytosis, macrocytic anemia consistent with baseline. BMP is unremarkable. Lactic acid 1.0. Spoke with hospitalist service regarding admission, patient accepted for admission to Medicine Service under Gretta LOOMIS. patient updated on plan of care and is agreeable. Time: 12:25 MDM - Recheck/Abnormal Lab/Rx Lab Data Result diagrams: 11/25/21 10:28 11/25/21 10:47 Labs: Lab Results 11/25/21 11/25/21 11/25/21 Range/Units 10:28 10:47 10:47 WBC 9.1 (4.8-10.8) X10*3/uL RBC 3.44 L (4.60-5.80) X10*6/uL Hgb 11.3 L (14.0-18.0) g/dl Hct 35.5 L (42.0-52.0) % MCV 103.2 H (80.0-98.0) fL MCH 32.8 (27.0-33.0) pg MCHC 31.8 (31.0-36.0) g/dl RDW 14.4 (11.0-16.0) % Plt Count 189 (160-400) X10*3/uL MPV 10.8 (9.4-12.4) fL Immature Gran % (Auto) 0.6 H (0.0-0.4) % Neut % (Auto) 83.2 H (45-73) % Lymph % (Auto) 7.5 L (20-40) % [place] % (Auto) 8.3 (2-11) % Eos % (Auto) 0.2 (0-4) % Baso % (Auto) 0.2 (0-2) % Lymph # (Auto) 0.7 L (1.2-4.9) X10*3/uL [place] # (Auto) 0.8 (0.1-1.2) X10*3/uL Eos # (Auto) 0.0 (0.0-0.4) X10*3/uL Baso # (Auto) 0.0 (0.0-0.2) X10*3/uL Abs Immat Gran (auto) 0.05 H (0.00-0.03) X10*3/uL Absolute Neuts (auto) 7.5 (2.0-8.3) x10*3/uL Absolute Nucleated RBC 0.000 (0.0-0.012) X10*3/uL Nucleated RBC % (auto) 0.0 (0.0-0.2) /100WBC Sodium 140 (135-145) mmol/L Potassium 3.4 (3.3-5.1) mmol/L Chloride 104 (96-108) mmol/L Carbon Dioxide 25 (22-29) mmol/L Anion Gap 14 (12-20) BUN 12 (9-16) mg/dL Creatinine 0.81 (0.5-1.4) mg/dL Estim Creat Clear Calc 80.0 Estimated GFR > 60 Random Glucose 119 H (60-115) mg/dL Lactic Acid 1.0 (0.5-2.0) mmol/L Calcium 8.6 D (8.4-10.2) mg/dL Discharge Plan Discharge Clinical Impression: Cellulitis of foot Patient Disposition: Admitted As Inpatient
[2021-11-25] MEDS: vancomycin HCL 1,000 MG, vancomycin HCL 750 MG in 0.9 % Sodium Chloride 500 ML 267.5 MG IV (12:28)
[2021-11-25 13:10] VITALS: BP 161/92; PULSE 82; RESP 16; O2SAT 95
--- NOTE | 2021-11-25 13:53 | PM.IMHP ---
History of Present Illness Date of Service: 11/25/21 Attending physician on admission: Reid Fernández Chief Complaint: foot/leg pain and swelling This is a 31-year-old male presents to the emergency pain right leg. Initially began having pain between his 3rd and 4th toes and 4th and 5th toes. Then he began having redness and swelling of his foot which has progressively increased up his right leg. He was initially started on doxycycline 3 weeks ago and was then seen by his glove operator and started on Santyl and cephalexin. [facility] was [facility] the [facility]. He was sent to the emergency department on November 23 to rule out osteomyelitis. At that time CT scan of the foot showed no evidence of bone involvement. The emergency room provider recommended that he stay in the hospital for IV antibiotics due to worsening foot infection however the patient preferred to continue outpatient oral antibiotics. Since then he has had increasing pain and difficulty ambulating as well as new rash extending up his right leg. He denies any associated fever or chills. He has had to use a walker to assist in his ambulation due to the increasing pain. He was also called to return to the emergency department as 1 out of 2 blood cultures were positive however he is cultures have finalized as coag-negative Staphylococcus, likely contaminant. Today in the emergency department he has no leukocytosis, is afebrile. He was given a dose of IV vancomycin and IV ceftriaxone and the decision was made to admit him to the hospital for further management. Vaccination status-Moderna x3 Review of Systems Review of Systems: Yes all other systems are reviewed and are negative Constitutional: Constitutional: Denies chills and Denies fever(s) Cardiovascular: Cardiovascular: Denies chest pain, Denies palpitations and Denies dyspnea Respiratory: Respiratory: Denies cough and Denies dyspnea Gastrointestinal: Gastrointestinal: Denies abdominal pain, Denies diarrhea, Denies nausea and Denies vomiting Endocrine: Endocrine: Denies palpitations [facility] Medical History Chronic atrial fibrillation CKD (chronic kidney disease) stage 3, GFR 30-59 ml/min Combined hyperlipidemia 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 Osteoarthritis of knees, bilateral PAD (peripheral artery disease) Seronegative rheumatoid arthritis Type 2 diabetes mellitus Surgical History History of left hip replacement Hx of left knee surgery Social History Household Members Other:: lives alone Housing: House Are you a primary auto care center manager to a significant other at home: No Do you presently have visiting nurse or other home services: No Alcohol intake: current Patient Tobacco Use Status: Former Tobacco user Years Smoked: quit 55 years ago e-Cigarette/Vaping Use: Never Used Advance Directives: Yes Advance Directives Information Provided: No Advance Directives on File: No service: No Current occupational status: retired Meds Allergies Allergy/AdvReac Type Severity Reaction Status Date / Time levofloxacin [From Levaquin] Allergy Severe impaired Verified 11/23/21 10:16 kidney function canagliflozin [From Invokana] Allergy Intermediate Unknown Verified 11/23/21 10:16 clindamycin Allergy Intermediate Heartburn Verified 11/23/21 10:16 penicillins Allergy Intermediate blisters Uncoded 10/18/21 11:46 Active Medications: Current Medications Vancomycin HCl 1,000 mg/Vancomycin HCl 750 mg/ Sodium Chloride 535 mls @ 267.5 mls/hr IV ONCE ONE Stop: 11/25/21 13:59 Last Admin: 11/25/21 12:28 Dose: 267.5 mls/hr Documented by: Pharmacy Consult (Consult Rx Vancomycin Dosing) 1 each MISCELLANE DAILY PRN PRN Reason: Consult order Pharmacy Consult (Consult Rx Perform Med Rec) 1 each MISCELLANE ONCE PRN PRN Reason: Consult order Home Medications Medication Instructions Recorded Confirmed Last Taken Type blood sugar diagnostic #10 ea 09/29/20 Unknown History digoxin 250 mcg (0.25 mg) tablet 250 mcg PO BEDTIME 09/29/20 11/25/21 11/24/21 History diltiazem HCl 240 mg 240 mg PO DAILY 09/29/20 11/25/21 11/25/21 History capsule,extended release 24 hr lancets #100 ea 09/29/20 Unknown History lisinopril 40 mg tablet 40 mg PO DAILY 09/29/20 11/25/21 11/25/21 History metformin 1,000 mg tablet 1,000 mg PO BID@0900,1800 09/29/20 11/25/21 11/25/21 History metoprolol succinate 50 mg 75 mg PO DAILY@1800 09/29/20 11/25/21 11/24/21 History tablet,extended release 24 hr omeprazole 20 mg capsule,delayed 20 mg PO DAILY 09/29/20 11/25/21 11/25/21 History release rosuvastatin 20 mg tablet 20 mg PO DAILY@1800 09/29/20 11/25/21 Unknown History hydroxychloroquine 200 mg tablet 200 mg PO BID@1200,1800 10/18/21 11/25/21 11/24/21 History (Plaquenil) loratadine 10 mg tablet (Allergy 10 mg PO DAILY 10/18/21 11/25/21 11/25/21 History Relief (loratadine)) prednisone 5 mg tablet 5 mg PO DAILY@1800 tab 10/18/21 11/25/21 11/24/21 History cholecalciferol (vitamin D3) 25 25 mcg PO DAILY 11/25/21 11/25/21 11/25/21 History mcg (1,000 unit) tablet cyanocobalamin (vitamin B-12) 1,000 mcg PO DAILY@1200 11/25/21 11/25/21 11/24/21 History 1,000 mcg tablet glipizide 5 mg tablet, extended 1 tab PO BID@0900,1800 11/25/21 11/25/21 11/25/21 History release 24 hr prednisone 5 mg tablet 2.5 mg PO DAILY 11/25/21 11/25/21 11/25/21 History warfarin 1 mg tablet 2 mg PO SUMOWEFRSA@179911/25/21 11/25/21 11/24/21 History warfarin 1 mg tablet 3 mg PO TUTH@1800 11/25/21 11/25/21 11/24/21 History Physical Exam Vital Signs and Narrative: Vital Signs: Last Vital Signs Temp 98.2 F 11/25/21 09:03 Pulse 82 11/25/21 13:10 Resp 16 11/25/21 13:10 BP 161/92 H 11/25/21 13:10 Pulse Ox 95 11/25/21 13:10 BMI result Body Mass Index 30.7 Const: General: cooperative, comfortable, alert and awake Nutritional Appearance: overweight Orientation/consciousness: patient oriented x3 Eyes: Pupils: Equal, round and reactive pupils present EOM: EOMs intact bilaterally Resp: Effort & Inspection: normal respiratory effort and able to speak in complete sentences Auscultation: clear to auscultation bilaterally Cardio: Rate: regular rate Rhythm: abnormal rhythm irregularly irregular Heart sounds: S1 normal heart sound present and S2 normal heart sound present GI: Inspection: No distended Palpation (GI): Soft to palpation and nontender Skin: Other: Neuro: General: patient oriented x3 and CN's II-XI intact bilaterally Cranial nerves: Yes Equal, round and reactive pupils present Results Labs CBC and Chem 7: 11/25/21 10:28 11/25/21 10:47 Labs: Laboratory Results - last 24 hr 11/25/21 11/25/21 11/25/21 10:28 10:47 10:47 MCV 103.2 H MCH 32.8 MCHC 31.8 RDW 14.4 Plt Count 189 MPV 10.8 Immature Gran % (Auto) 0.6 H Neut % (Auto) 83.2 H Lymph % (Auto) 7.5 L [place] % (Auto) 8.3 Eos % (Auto) 0.2 Baso % (Auto) 0.2 Lymph # (Auto) 0.7 L [place] # (Auto) 0.8 Eos # (Auto) 0.0 Baso # (Auto) 0.0 Abs Immat Gran (auto) 0.05 H Absolute Neuts (auto) 7.5 Absolute Nucleated RBC 0.000 Nucleated RBC % (auto) 0.0 Anion Gap 14 Estim Creat Clear Calc 80.0 Estimated GFR > 60 Random Glucose 119 H Lactic Acid 1.0 Calcium 8.6 D Assessment and Plan (1) Cellulitis of foot: Status: Acute Plan This is an 81-year-old male with history of diabetes, chronic atrial fibrillation on Coumadin, seronegative rheumatoid arthritis, hypertension, hyperlipidemia who presents with 3 weeks of worsening redness and pain of his right lower extremity Right lower extremity/foot cellulitis no evidence of sepsis r/t PAD/diabetes Covering 50% of his right foot/lower leg has failed outpatient antibiotics with doxycycline/keflex CT scan from 11/23 showing no bone involvement CRP has increased from .29 to 14.6 since 11/15; ESR pending -IV antibiotics (vancomycin, ceftriaxone for now given multiple antibiotic allergies) -ID consultation -US to rule out DVT 1/2 blood cultures positive - growing coag neg staph - likely contaminant Diabetes -hold glipizide, metformin -SSI, POCs RA (pt reported AL, but notes from Rheumatology indicate history of seronegative RA) -continue Plaquenil, prednisone Chronic atrial fibrillation Heart rate controlled -continue digoxin, diltiazem, metoprolol -continue anticoagulation with Coumadin Hypertension Continue lisinopril HLD Continue statin GERD Continue omeprazole BPH Continue Flomax DVT ppx - Coumadin Healthcare proxy-son and daughter, primary is daughter Attending-Dr. Fernández Given history of diabetes and rapid progression of infection will likely require 2 midnight stay in the hospital for further management of lower extremity cellulitis with IV to prevent decompensation/progression to sepsis Quality Stroke Does the patient have a stroke diagnosis?: No VTE Prior VTE?: No VTE Risk Level:: Medical - moderate - high VTE Device Contraindication: Treatment Not Indicated VTE Drug Contraindication: N/A - Med Ordered
--- NOTE | 2021-11-25 13:55 | PHA.MEDREC ---
Pharmacy Consult ? Medication Reconciliation Pharmacy has completed the medication reconciliation. Patient no longer take bumetanide and hydroxhlorthiazide. Isosorbide mononitrate was recently stopped by his armature balancer. Patient was told not to use Santyl by wound care
[2021-11-25 14:16] LABS: Alanine Aminotransferase 33 U/L (0-40); Albumin Level 3.5 g/dL (3.5-5.0); Alkaline Phosphatase 153 U/L (39-117); Aspartate Amino Transferase 32 U/L (5-37); Bilirubin Direct 0.6 mg/dL (0.0-0.5); Bilirubin Total 1.1 mg/dL (0.0-1.0); C Reactive Protein 14.62 mg/dL (< or = 0.50); Magnesium 1.8 mg/dL (1.6-2.6); Total Protein 6.1 g/dL (6.5-8.0)
[2021-11-25 14:58] LABS: Erythrocyte Sedimentation Rate 84 MM/HR (0-15)
[2021-11-25 15:12] LABS: INTERNATIONAL NORM RATIO 2.1 (0.9-1.1); Prothrombin Time 24.8 SEC (9.9-13.0)
[2021-11-25 15:58] VITALS: BP 159/83; PULSE 87; RESP 16; TEMP 36.9; O2SAT 95
--- NOTE | 2021-11-25 16:04 | PC.NURSE ---
PATIENT WAS MEDICARE SALES REPRESENTATIVE INTO HOSPITAL ATTIRE BY THIS PCT .
[2021-11-25 16:34] LABS: COVID-19 Test Negative (Negative); IDNOW Serial# 16C4AD1C
[2021-11-25 16:43] LABS: Glucose, Whole Blood 87 mg/dL (60-115)
--- NOTE | 2021-11-25 17:59 | PC.NURSE ---
report given to beverly santiago
[2021-11-25 19:33] VITALS: BP 150/74; PULSE 100; RESP 16; O2SAT 95
[2021-11-25] MEDS: Warfarin Sodium 3 MG TABLET PO (19:35)
[2021-11-25] MEDS: Atorvastatin Calcium 80 MG TABLET 20 MG PO (19:35)
[2021-11-25] MEDS: Metoprolol Succinate ER 25 MG TAB.ER.24H 75 MG PO (19:35)
[2021-11-25] MEDS: Tamsulosin HCL 0.4 MG CAPSULE PO (20:46)
[2021-11-25] MEDS: predniSONE 5 MG TABLET PO (20:46)
[2021-11-25] MEDS: Hydroxychloroquine Sulfate 200 MG TABLET PO (20:46)
[2021-11-25] MEDS: Digoxin 0.25 MG TABLET PO (20:47)
[2021-11-25] MEDS: oxyCODONE HCl Immed Release 5 MG TABLET PO (20:49)
[2021-11-25] MEDS: Acetaminophen 325 MG TABLET 650 MG PO (20:49)
[2021-11-25 20:50] LABS: Glucose, Whole Blood 103 mg/dL (60-115)
[2021-11-25 23:43] VITALS: BP 158/79; PULSE 77; RESP 16; TEMP 36.4; O2SAT 93
[2021-11-26] MEDS: 0.9 % Sodium Chloride Flush 3 ML SYRINGE IVFLUSH ×3 (00:57→20:23)
[2021-11-26 03:31] VITALS: BP 169/97; PULSE 84; RESP 16; TEMP 36.3; O2SAT 94
[2021-11-26] MEDS: Omeprazole 20 MG CAPSULE.DR PO (06:03)
[2021-11-26 06:59] LABS: INTERNATIONAL NORM RATIO 2.2 (0.9-1.1); Prothrombin Time 25.7 SEC (9.9-13.0)
[2021-11-26 07:00] VITALS: BP 142/109; PULSE 93; RESP 18; TEMP 37.9; O2SAT 91
[2021-11-26 07:13] LABS: Anion Gap 15 (12-20); Blood Urea Nitrogen 10 mg/dL (9-16); Calcium 8.7 mg/dL (8.4-10.2); Carbon Dioxide 27 mmol/L (22-29); Chloride 106 mmol/L (96-108); Estimated Glomerular Filt Rate > 60; Glucose Random 112 mg/dL (60-115); Potassium 3.7 mmol/L (3.3-5.1); Sodium 144 mmol/L (135-145)
[2021-11-26] MEDS: oxyCODONE HCl Immed Release 5 MG TABLET PO ×3 (07:30→21:33)
[2021-11-26 07:41] LABS: Glucose, Whole Blood 104 mg/dL (60-115)
[2021-11-26] MEDS: lisinopriL 40 MG TABLET PO (08:51)
[2021-11-26] MEDS: Tamsulosin HCL 0.4 MG CAPSULE PO ×2 (08:51→19:27)
[2021-11-26] MEDS: Loratadine 10 MG TABLET PO (08:51)
[2021-11-26] MEDS: dilTIAZem HCL CD 240 MG CAP.ER.DEG PO (08:51)
[2021-11-26] MEDS: cefTRIAXone sodium 1 GM in 0.9 % Sodium Chloride 50 ML IV (10:54)
--- NOTE | 2021-11-26 11:03 | P.PNIM_ITS ---
Subjective Subjective Date of Service: 11/26/21 Interval History: seen and examined this morning follow up for right foot infection patient having intermittent leg pain denies fever or chills Review of Systems Review of Systems: Yes all other systems are reviewed and are negative Constitutional Constitutional: Denies chills and Denies fever(s) Cardiovascular Cardiovascular: Denies chest pain, Denies palpitations and Denies dyspnea Respiratory Respiratory: Denies cough and Denies dyspnea Gastrointestinal Gastrointestinal: Denies abdominal pain, Denies diarrhea, Denies nausea and Denies vomiting Endocrine Endocrine: Denies palpitations Physical Exam Vital Signs: Vital Signs: Last Vital Signs Temp 100.2 F 11/26/21 07:00 Pulse 93 11/26/21 07:00 Resp 18 11/26/21 07:00 BP 142/109 H 11/26/21 07:00 Pulse Ox 91 L 11/26/21 07:00 BMI result Body Mass Index 30.7 Const: General: cooperative, comfortable, alert and awake Nutritional Appearance: overweight Orientation/consciousness: patient oriented x3 Eyes: Pupils: Equal, round and reactive pupils present EOM: EOMs intact bilaterally Resp: Effort & Inspection: normal respiratory effort and able to speak in complete sentences Auscultation: clear to auscultation bilaterally Cardio: Rate: regular rate Rhythm: abnormal rhythm irregularly irregular Heart sounds: S1 normal heart sound present and S2 normal heart sound present GI: Inspection: No distended Palpation (GI): Soft to palpation and nontender Skin: Other: mild improvement in erythema of the right leg; right fourth toe darker appearing then yesterday Neuro: General: patient oriented x3 and CN's II-XI intact bilaterally Cranial nerves: Yes Equal, round and reactive pupils present Objective Data Active Medications Acetaminophen (Acetaminophen 325 Mg Tablet) 650 mg PO Q6H PRN PRN Reason: Pain, Mild (Pain Scale 1-3) Last Admin: 11/25/21 20:49 Dose: 650 mg Documented by: MIGUELANGEL Atorvastatin Calcium (Atorvastatin Calcium 80 Mg Tablet) 20 mg PO DAILY@1800 [facility] Last Admin: 11/25/21 19:35 Dose: 20 mg Documented by: LOBITO Cyanocobalamin (Cyanocobalamin (Vitamin B-12) 1,000 Mcg Tablet) 1,000 mcg PO DAILY@1200 [facility] Dextrose (Dextrose 50 % 25 Gm/50 Ml Syringe) 25 gm IVPUSH Q15M PRN; Protocol PRN Reason: per Hypoglycemia Standing Ord. Digoxin (Digoxin 0.25 Mg Tablet) 0.25 mg PO BEDTIME [facility] Last Admin: 11/25/21 20:47 Dose: 0.25 mg Documented by: MIGUELANGEL Diltiazem HCl (Diltiazem Hcl Cd 240 Mg Cap.Er.Deg) 240 mg PO DAILY [facility]; Protocol Last Admin: 11/26/21 08:51 Dose: 240 mg Documented by: RASHID Docusate Sodium (Docusate Sodium 100 Mg Capsule) 100 mg PO DAILY PRN PRN Reason: Constipation Glucose (Glucose Gel 15 Gm Gel..Gram.) 15 gm PO Q15M PRN; Protocol PRN Reason: per Hypoglycemia Standing Ord. Hydroxychloroquine Sulfate (Hydroxychloroquine Sulfate 200 Mg Tablet) 200 mg PO BID@1200,1800 [facility] Last Admin: 11/25/21 20:46 Dose: 200 mg Documented by: MIGUELANGEL Ceftriaxone Sodium 1 gm/ (Sodium Chloride) 50 mls @ 100 mls/hr IV Q24H [facility] Last Admin: 11/26/21 10:54 Dose: 100 mls/hr Documented by: RASHID Vancomycin HCl 1,000 mg/Vancomycin HCl 750 mg/ Sodium Chloride 535 mls @ 267.5 mls/hr IV Q24H [facility] Insulin Human Lispro (Insulin Lispro 100 Unit/Ml 3 Ml Vial) 0 unit SUBCUT QIDACHS [facility]; Protocol Last Admin: 11/26/21 07:34 Dose: Not Given Documented by: RASHID Non-Admin Reason: No Insulin Coverage Lisinopril (Lisinopril 40 Mg Tablet) 40 mg PO DAILY [facility]; Protocol Last Admin: 11/26/21 08:51 Dose: 40 mg Documented by: RASHID Loratadine (Loratadine 10 Mg Tablet) 10 mg PO DAILY [facility] Last Admin: 11/26/21 08:51 Dose: 10 mg Documented by: RASHID Metoprolol Succinate (Metoprolol Succinate Er 25 Mg Tab.Er.24h) 75 mg PO DAILY@1800 [facility]; Protocol Last Admin: 11/25/21 19:35 Dose: 75 mg Documented by: LOBITO Morphine Sulfate (Morphine Sulfate 2 Mg/Ml Cartridge) 2 mg IVPUSH Q4H PRN; Protocol PRN Reason: Pain, Severe (Pain Scale 7-10) Omeprazole (Omeprazole 20 Mg Capsule.Dr) 20 mg PO DAILY@0630 [facility] Last Admin: 11/26/21 06:03 Dose: 20 mg Documented by: LEONEL Oxycodone HCl (Oxycodone Hcl Immed Release 5 Mg Tablet) 5 mg PO Q6H PRN PRN Reason: Pain, Severe (Pain Scale 7-10) Last Admin: 11/26/21 07:30 Dose: 5 mg Documented by: RASHID Pharmacy Consult (Consult Rx Perform Med Rec) 1 each MISCELLANE ONCE PRN PRN Reason: Consult order Pharmacy Consult (Consult Rx Vancomycin Dosing) 1 each MISCELLANE DAILY PRN PRN Reason: Consult order Prednisone (Prednisone 5 Mg Tablet) 2.5 mg PO DAILY [facility] Last Admin: 11/26/21 08:52 Dose: 2.5 mg Documented by: RASHID Prednisone (Prednisone 5 Mg Tablet) 5 mg PO DAILY@1800 [facility] Last Admin: 11/25/21 20:46 Dose: 5 mg Documented by: MIGUELANGEL Sodium Chloride (0.9 % Sodium Chloride Flush 3 Ml Syringe) 3 ml IVFLUSH QSHIFT [facility] Last Admin: 11/26/21 08:53 Dose: 3 ml Documented by: RASHID Tamsulosin HCl (Tamsulosin Hcl 0.4 Mg Capsule) 0.4 mg PO BID [facility] Last Admin: 11/26/21 08:51 Dose: 0.4 mg Documented by: RASHID Warfarin Sodium (Warfarin Sodium 2 Mg Tablet) 2 mg PO SUMOWEFRSA@1800 [facility] Warfarin Sodium (Warfarin Sodium 3 Mg Tablet) 3 mg PO TUTH@1800 [facility] Last Admin: 11/25/21 19:35 Dose: 3 mg Documented by: LOBITO Labs CBC & Chem 7: 11/25/21 10:28 11/26/21 05:48 Labs: Laboratory Results - last 24 hr 11/25/21 11/25/21 11/25/21 10:28 10:47 10:47 ESR 84 H PT INR Anion Gap 14 Estim Creat Clear Calc 80.0 Estimated GFR > 60 POC Glucose Random Glucose 119 H Lactic Acid 1.0 Calcium 8.6 D Magnesium 1.8 Total Bilirubin 1.1 H Direct Bilirubin 0.6 H AST 32 ALT 33 Alkaline Phosphatase 153 H C-Reactive Protein 14.62 H Total Protein 6.1 L Albumin 3.5 COVID-19 ([facility]) COVID-19 Clin Com 11/25/21 11/25/21 11/25/21 14:57 16:07 16:37 ESR PT 24.8 H INR 2.1 H Anion Gap Estim Creat Clear Calc Estimated GFR POC Glucose 87 Random Glucose Lactic Acid Calcium Magnesium Total Bilirubin Direct Bilirubin AST ALT Alkaline Phosphatase C-Reactive Protein Total Protein Albumin COVID-19 ([facility]) Negative COVID-19 Clin Com See Note 11/25/21 11/26/21 11/26/21 20:44 05:44 05:48 ESR PT 25.7 H INR 2.2 H Anion Gap 15 Estim Creat Clear Calc 82.0 Estimated GFR > 60 POC Glucose 103 Random Glucose 112 Lactic Acid Calcium 8.7 Magnesium Total Bilirubin Direct Bilirubin AST ALT Alkaline Phosphatase C-Reactive Protein Total Protein Albumin COVID-19 ([facility]) COVID-19 Clin Com 11/26/21 07:07 ESR PT INR Anion Gap Estim Creat Clear Calc Estimated GFR POC Glucose 104 Random Glucose Lactic Acid Calcium Magnesium Total Bilirubin Direct Bilirubin AST ALT Alkaline Phosphatase C-Reactive Protein Total Protein Albumin COVID-19 ([facility]) COVID-19 Clin Com Assessment and Plan (1) Cellulitis of foot: Status: Acute (2) PAD (peripheral artery disease): Status: Acute Plan This is an 81-year-old male with history of diabetes, chronic atrial fibrillation on Coumadin, seronegative rheumatoid arthritis, hypertension, hyperlipidemia who presents with 3 weeks of worsening redness and pain of his right lower extremity Right lower extremity/foot cellulitis no evidence of sepsis r/t PAD/diabetes Covering 50% of his right foot/lower leg has failed outpatient antibiotics with doxycycline/keflex CT scan from 11/23 showing no bone involvement CRP, ESR elevated US negative for DVT -IV antibiotics (vancomycin, ceftriaxone for now given multiple antibiotic allergies) -ID consultation pending -Vascular consult pending -MRI to eval for osteo PAD wound center reports known h/o anterior tibial artery occlusion will consult vascular surgery 1/2 blood cultures positive - growing coag neg staph - likely contaminant repeat BCx pending Diabetes -hold glipizide, metformin -SSI, POCs RA (pt reported [place], but notes from Rheumatology indicate history of seronegative RA) -continue Plaquenil, prednisone Chronic atrial fibrillation Heart rate controlled INR 2.2 -continue digoxin, diltiazem, metoprolol -continue anticoagulation with Coumadin -follow INR Hypertension Continue lisinopril HLD Continue statin GERD Continue omeprazole BPH Continue Flomax DVT ppx - Coumadin Healthcare proxy-son and daughter, primary is daughter Attending-Dr. Fernández Given history of diabetes and rapid progression of infection will need ongoing inpatient hospitalization for further management of lower extremity cellulitis with IV to prevent decompensation/progression to sepsis Quality Stroke Does the patient have a stroke diagnosis?: No VTE Prior VTE?: No VTE Risk Level:: Medical - moderate - high VTE Device Contraindication: Treatment Not Indicated VTE Drug Contraindication: N/A - Med Ordered
[2021-11-26 11:10] VITALS: BP 182/96; PULSE 93; RESP 18; TEMP 36.8; O2SAT 92
--- NOTE | 2021-11-26 11:10 | P.CONGS_ITS ---
History of Present Illness Consult details Consult date: 11/26/21 Reason for consult: wound care Narrative: Very pleasant 81-year-old gentleman presents for evaluation regarding nonhealing right lower extremity ulcer. He had some erythema and cellulitis which was treated as an outpatient with doxycycline. Continue to progress and get worse. He was asked to return to the emergency room after positive blood cultures. Of note he has been seen by [facility] under the care of Dr. Worley. He has been regularly surveilled and reports that his arterial status was okay. More recently the right lower extremity has progressed and he is seeing increased erythema and discomfort and pain. He is not able to ambulate long distances and often requires the use of walker. He now presents to us for vascular evaluation. Also of note he is being maintained with Coumadin for AFib Review of Systems Review of Systems: Yes all other systems are reviewed and are negative Constitutional: Constitutional: Reports no additional constitutional complaints ENT: Reports Normal hearing present Cardiovascular: Cardiovascular: Denies chest pain, Denies chest pain at rest, Denies chest pain with activity and Denies pedal edema Respiratory: Respiratory: Denies cough Gastrointestinal: Gastrointestinal: Denies abdominal pain Musculoskeletal: Musculoskeletal: Denies abnormal gait, Denies muscle cramps and Denies radiating pain into limb Integumentary/Breasts: Skin/Breast: Denies skin ulcer and Denies wounds Neurologic: Reports Normal hearing present and Denies abnormal gait Psychiatric: Psychiatric: Reports no additional psychiatric complaints [facility] Past Medical History Medical History Chronic atrial fibrillation CKD (chronic kidney disease) stage 3, GFR 30-59 ml/min Combined hyperlipidemia 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 Osteoarthritis of knees, bilateral PAD (peripheral artery disease) Seronegative rheumatoid arthritis Type 2 diabetes mellitus Surgical History Surgical History History of left hip replacement Hx of left knee surgery Social History Social History Household Members: None Household Members Other:: lives alone Housing: House Are you a primary lawn care worker to a significant other at home: No Do you presently have visiting nurse or other home services: No Alcohol intake: current Patient Tobacco Use Status: Former Tobacco user Quit Date: 1961 Smoked: quit 55 years ago e-Cigarette/Vaping Use: Never Used Patient Interested in Nicotine Replacement: No Patient Given Instructions on How to Stop Smoking: No Second Hand Smoke Exposure: No Use of substances other than those prescribed or required for medical reasons: No Currently Displaying Signs/Symptoms of Drug Intoxication Withdrawal: No Have you been hit, kicked, punched, or otherwise hurt by someone within the past year? If so, by whom?: No Do you feel safe in your current relationship?: No Current Relationship Is there a partner from a previous relationship who is making you feel unsafe now?: No Are you made to feel afraid or neglected: No Advance Directives: Yes Advance Directives Information Provided: No Advance Directives on File: No Advance Directives Date on File: 11/25/21 Do you have thoughts of harming others: None Do you have a plan to hurt others: No Plan Recently lost weight without trying: No How much weight loss: Not applicable Eating poorly because of decreased appetite: No Nutrition screen score: 0 Nutrition Risks: No Nutritional Risk service: No Current occupational status: retired [employer] Allergies Allergy/AdvReac Type Severity Reaction Status Date / Time levofloxacin [From Levaquin] Allergy Severe impaired Verified 11/23/21 10:16 kidney function canagliflozin [From Invokana] Allergy Intermediate Unknown Verified 11/23/21 10:16 clindamycin Allergy Intermediate Heartburn Verified 11/23/21 10:16 penicillins Allergy Intermediate blisters Uncoded 10/18/21 11:46 Active Medications: Current Medications Acetaminophen (Acetaminophen 325 Mg Tablet) 650 mg PO Q6H PRN PRN Reason: Pain, Mild (Pain Scale 1-3) Last Admin: 11/25/21 20:49 Dose: 650 mg Documented by: Atorvastatin Calcium (Atorvastatin Calcium 80 Mg Tablet) 20 mg PO DAILY@1800 [facility] Last Admin: 11/25/21 19:35 Dose: 20 mg Documented by: Cyanocobalamin (Cyanocobalamin (Vitamin B-12) 1,000 Mcg Tablet) 1,000 mcg PO DAILY@1200 [facility] Dextrose (Dextrose 50 % 25 Gm/50 Ml Syringe) 25 gm IVPUSH Q15M PRN; Protocol PRN Reason: per Hypoglycemia Standing Ord. Digoxin (Digoxin 0.25 Mg Tablet) 0.25 mg PO BEDTIME [facility] Last Admin: 11/25/21 20:47 Dose: 0.25 mg Documented by: Diltiazem HCl (Diltiazem Hcl Cd 240 Mg Cap.Er.Deg) 240 mg PO DAILY [facility]; Protocol Last Admin: 11/26/21 08:51 Dose: 240 mg Documented by: Docusate Sodium (Docusate Sodium 100 Mg Capsule) 100 mg PO DAILY PRN PRN Reason: Constipation Glucose (Glucose Gel 15 Gm Gel..Gram.) 15 gm PO Q15M PRN; Protocol PRN Reason: per Hypoglycemia Standing Ord. Hydroxychloroquine Sulfate (Hydroxychloroquine Sulfate 200 Mg Tablet) 200 mg PO BID@1200,1800 [facility] Last Admin: 11/25/21 20:46 Dose: 200 mg Documented by: Ceftriaxone Sodium 1 gm/ (Sodium Chloride) 50 mls @ 100 mls/hr IV Q24H [facility] Last Admin: 11/26/21 10:54 Dose: 100 mls/hr Documented by: Vancomycin HCl 1,000 mg/Vancomycin HCl 750 mg/ Sodium Chloride 535 mls @ 267.5 mls/hr IV Q24H [facility] Insulin Human Lispro (Insulin Lispro 100 Unit/Ml 3 Ml Vial) 0 unit SUBCUT QIDACHS [facility]; Protocol Last Admin: 11/26/21 07:34 Dose: Not Given Documented by: Lisinopril (Lisinopril 40 Mg Tablet) 40 mg PO DAILY [facility]; Protocol Last Admin: 11/26/21 08:51 Dose: 40 mg Documented by: Loratadine (Loratadine 10 Mg Tablet) 10 mg PO DAILY [facility] Last Admin: 11/26/21 08:51 Dose: 10 mg Documented by: Metoprolol Succinate (Metoprolol Succinate Er 25 Mg Tab.Er.24h) 75 mg PO DAILY@1800 [facility]; Protocol Last Admin: 11/25/21 19:35 Dose: 75 mg Documented by: Morphine Sulfate (Morphine Sulfate 2 Mg/Ml Cartridge) 2 mg IVPUSH Q4H PRN; Protocol PRN Reason: Pain, Severe (Pain Scale 7-10) Omeprazole (Omeprazole 20 Mg Capsule.Dr) 20 mg PO DAILY@0630 [facility] Last Admin: 11/26/21 06:03 Dose: 20 mg Documented by: Oxycodone HCl (Oxycodone Hcl Immed Release 5 Mg Tablet) 5 mg PO Q6H PRN PRN Reason: Pain, Severe (Pain Scale 7-10) Last Admin: 11/26/21 07:30 Dose: 5 mg Documented by: Pharmacy Consult (Consult Rx Perform Med Rec) 1 each MISCELLANE ONCE PRN PRN Reason: Consult order Pharmacy Consult (Consult Rx Vancomycin Dosing) 1 each MISCELLANE DAILY PRN PRN Reason: Consult order Prednisone (Prednisone 5 Mg Tablet) 2.5 mg PO DAILY [facility] Last Admin: 11/26/21 08:52 Dose: 2.5 mg Documented by: Prednisone (Prednisone 5 Mg Tablet) 5 mg PO DAILY@1800 [facility] Last Admin: 11/25/21 20:46 Dose: 5 mg Documented by: Sodium Chloride (0.9 % Sodium Chloride Flush 3 Ml Syringe) 3 ml IVFLUSH QSHIFT [facility] Last Admin: 11/26/21 08:53 Dose: 3 ml Documented by: Tamsulosin HCl (Tamsulosin Hcl 0.4 Mg Capsule) 0.4 mg PO BID [facility] Last Admin: 11/26/21 08:51 Dose: 0.4 mg Documented by: Warfarin Sodium (Warfarin Sodium 2 Mg Tablet) 2 mg PO SUMOWEFRSA@1800 [facility] Warfarin Sodium (Warfarin Sodium 3 Mg Tablet) 3 mg PO TUTH@1800 [facility] Last Admin: 11/25/21 19:35 Dose: 3 mg Documented by: Home Medications Medication Instructions Recorded Confirmed Last Taken Type blood sugar diagnostic #10 ea 09/29/20 Unknown History digoxin 250 mcg (0.25 mg) tablet 250 mcg PO BEDTIME 09/29/20 11/25/21 11/24/21 History diltiazem HCl 240 mg 240 mg PO DAILY 09/29/20 11/25/21 11/25/21 History capsule,extended release 24 hr lancets #100 ea 09/29/20 Unknown History lisinopril 40 mg tablet 40 mg PO DAILY 09/29/20 11/25/21 11/25/21 History metformin 1,000 mg tablet 1,000 mg PO BID@0900,1800 09/29/20 11/25/21 11/25/21 History metoprolol succinate 50 mg 75 mg PO DAILY@1800 09/29/20 11/25/21 11/24/21 History tablet,extended release 24 hr omeprazole 20 mg capsule,delayed 20 mg PO DAILY 09/29/20 11/25/21 11/25/21 History release rosuvastatin 20 mg tablet 20 mg PO DAILY@1800 09/29/20 11/25/21 Unknown History hydroxychloroquine 200 mg tablet 200 mg PO BID@1200,1800 10/18/21 11/25/21 11/24/21 History (Plaquenil) loratadine 10 mg tablet (Allergy 10 mg PO DAILY 10/18/21 11/25/21 11/25/21 History Relief (loratadine)) prednisone 5 mg tablet 5 mg PO DAILY@1800 tab 10/18/21 11/25/21 11/24/21 History cholecalciferol (vitamin D3) 25 25 mcg PO DAILY 11/25/21 11/25/21 11/25/21 History mcg (1,000 unit) tablet cyanocobalamin (vitamin B-12) 1,000 mcg PO DAILY@1200 11/25/21 11/25/21 11/24/21 History 1,000 mcg tablet glipizide 5 mg tablet, extended 1 tab PO BID@0900,1800 11/25/21 11/25/21 11/25/21 History release 24 hr prednisone 5 mg tablet 2.5 mg PO DAILY 11/25/21 11/25/21 11/25/21 History warfarin 1 mg tablet 2 mg PO SUMOWEFRSA@1800 11/25/21 11/25/21 11/24/21 History warfarin 1 mg tablet 3 mg PO TUTH@1800 11/25/21 11/25/21 11/24/21 History Physical Exam Vital Signs: Vital Signs: Last Vital Signs Temp 100.2 F 11/26/21 07:00 Pulse 93 11/26/21 07:00 Resp 18 11/26/21 07:00 BP 142/109 H 11/26/21 07:00 Pulse Ox 91 L 11/26/21 07:00 BMI result Body Mass Index 30.7 Const: General: cooperative, healthy appearing and comfortable Orientation/consciousness: oriented to person, oriented to place and oriented to time HEENT: Head: Yes normal to inspection Neck: Neck: Yes normal visual inspection Carotids: no bruits Chest: Chest palpation & inspection: normal inspection of the chest Resp: Effort & Inspection: normal respiratory effort and able to speak in complete sentences Auscultation: clear to auscultation bilaterally, no crackles, no rales, no rhonchi and no wheezes Cardio: Rate: regular rate Rhythm: regular rhythm Heart sounds: S1 normal heart sound present and S2 normal heart sound present Bruits: no carotid bruits Peripheral pulses: dorsalis pedis present (Bilateral DP signals only) GI: Inspection: Yes normal to inspection Skin: Wounds: wounds noted (Right 4th toe open wound with surrounding cellulitis) Hair: normal Neuro: General: oriented to person, oriented to place and oriented to time Cranial nerves: Yes CN's II-XII intact bilaterally and Yes Normal hearing present Cognition (Neuro): normal cognition Motor exam (neuro): 5/5 motor strength present throughout Extrem: Other: venous exam: No significant superficial varicosities or spider telangiectasias, minimal edema General: No clubbing, No cyanosis and No edema Psych: Appearance: grossly normal Mental Status: mental status grossly normal Speech and movement: Normal speech and movement present Results Labs Result diagrams: 11/25/21 10:28 11/26/21 05:48 Labs: Abnormal lab results 11/25/21 11/25/21 11/25/21 Range/Units 10:28 10:47 14:57 ESR 84 H (0-15) MM/HR PT 24.8 H (9.9-13.0) SEC INR 2.1 H (0.9-1.1) Random Glucose 119 H (60-115) mg/dL Total Bilirubin 1.1 H (0.0-1.0) mg/dL Direct Bilirubin 0.6 H (0.0-0.5) mg/dL Alkaline Phosphatase 153 H (39-117) U/L C-Reactive Protein 14.62 H (< or = 0.50) mg/dL Total Protein 6.1 L (6.5-8.0) g/dL 11/26/21 Range/Units 05:44 ESR (0-15) MM/HR PT 25.7 H (9.9-13.0) SEC INR 2.2 H (0.9-1.1) Random Glucose (60-115) mg/dL Total Bilirubin (0.0-1.0) mg/dL Direct Bilirubin (0.0-0.5) mg/dL Alkaline Phosphatase (39-117) U/L C-Reactive Protein (< or = 0.50) mg/dL Total Protein (6.5-8.0) g/dL [facility] 11/25/21 11/26/21 10:47 05:48 Sodium 140 144 Potassium 3.4 3.7 Chloride 104 106 Carbon Dioxide 25 27 BUN 12 10 Creatinine 0.81 0.79 Calcium 8.6 D 8.7 Liver Function 11/25/21 Range/Units 10:47 Total Bilirubin 1.1 H (0.0-1.0) mg/dL Direct Bilirubin 0.6 H (0.0-0.5) mg/dL AST 32 (5-37) U/L ALT 33 (0-40) U/L Alkaline Phosphatase 153 H (39-117) U/L Albumin 3.5 (3.5-5.0) g/dL All other labs normal. Assessment and Plan (1) PAD (peripheral artery disease): Status: Acute Plan In short there is concern about peripheral vascular disease about the right lower extremity. In light of his history of diabetes and nonpalpable pulses I have taken the liberty of ordering repeat noninvasive arterial testing. In addition we are in the process of obtaining records from [facility] as well. We will continue to closely monitor his status with you. At the current time would continue with antibiotics and local wound care. We will follow-up after testing. Thank you for allowing us to assist in his care. If there are any questions or concerns please do not hesitate to contact us. Procedures Date of Service Date of Service: 11/26/21
[2021-11-26 11:29] LABS: Glucose, Whole Blood 140 mg/dL (60-115)
[2021-11-26] MEDS: vancomycin HCL 1,000 MG, vancomycin HCL 750 MG in 0.9 % Sodium Chloride 500 ML 267.5 MG IV (11:46)
[2021-11-26] MEDS: Cyanocobalamin (Vitamin B-12) 1,000 MCG TABLET 1000 MCG PO (11:47)
[2021-11-26] MEDS: Hydroxychloroquine Sulfate 200 MG TABLET PO ×2 (11:47→19:26)
[2021-11-26 15:13] VITALS: BP 151/78; PULSE 81; RESP 18; TEMP 37.3; O2SAT 92
--- NOTE | 2021-11-26 15:21 | W.PM.IDCN ---
History of Present Illness Data of Consult Service Date: 11/26/21 Requesting physician: Gretta Vo Primary Care Provider: Kavon Grant MD HPI Reason for consult: RLE pain He presents with RLE macular rash and pain in foot. It was reported as redness initially two days ago. 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 Osteoarthritis of knees, bilateral PAD (peripheral artery disease) Seronegative rheumatoid arthritis Type 2 diabetes mellitus Family History Family history: reviewed and not pertinent Surgical History Surgical History History of left hip replacement Hx of left knee surgery Social History Social History Household Members: None Household Members Other:: lives alone Housing: House Are you a primary ocular care aide to a significant other at home: No Do you presently have visiting nurse or other home services: No Alcohol intake: current Patient Tobacco Use Status: Former Tobacco user Quit Date: 1961 Smoked: quit 55 years ago e-Cigarette/Vaping Use: Never Used Patient Interested in Nicotine Replacement: No Patient Given Instructions on How to Stop Smoking: No Second Hand Smoke Exposure: No Use of substances other than those prescribed or required for medical reasons: No Currently Displaying Signs/Symptoms of Drug Intoxication Withdrawal: No Have you been hit, kicked, punched, or otherwise hurt by someone within the past year? If so, by whom?: No Do you feel safe in your current relationship?: No Current Relationship Is there a partner from a previous relationship who is making you feel unsafe now?: No Are you made to feel afraid or neglected: No Advance Directives: Yes Advance Directives Information Provided: No Advance Directives on File: No Advance Directives Date on File: 11/25/21 Do you have thoughts of harming others: None Do you have a plan to hurt others: No Plan Recently lost weight without trying: No How much weight loss: Not applicable Eating poorly because of decreased appetite: No Nutrition screen score: 0 Nutrition Risks: No Nutritional Risk service: No Current occupational status: retired Meds Allergies Allergy/AdvReac Type Severity Reaction Status Date / Time levofloxacin [From Levaquin] Allergy Severe impaired Verified 11/23/21 10:16 kidney function canagliflozin [From Invokana] Allergy Intermediate Unknown Verified 11/23/21 10:16 clindamycin Allergy Intermediate Heartburn Verified 11/23/21 10:16 penicillins Allergy Intermediate blisters Uncoded 10/18/21 11:46 Active Medications: Current Medications Acetaminophen (Acetaminophen 325 Mg Tablet) 650 mg PO Q6H PRN PRN Reason: Pain, Mild (Pain Scale 1-3) Last Admin: 11/25/21 20:49 Dose: 650 mg Documented by: Atorvastatin Calcium (Atorvastatin Calcium 80 Mg Tablet) 20 mg PO DAILY@1800 KELSI Last Admin: 11/25/21 19:35 Dose: 20 mg Documented by: Cyanocobalamin (Cyanocobalamin (Vitamin B-12) 1,000 Mcg Tablet) 1,000 mcg PO DAILY@1200 KELSI Last Admin: 11/26/21 11:47 Dose: 1,000 mcg Documented by: Dextrose (Dextrose 50 % 25 Gm/50 Ml Syringe) 25 gm IVPUSH Q15M PRN; Protocol PRN Reason: per Hypoglycemia Standing Ord. Digoxin (Digoxin 0.25 Mg Tablet) 0.25 mg PO BEDTIME [facility] Last Admin: 11/25/21 20:47 Dose: 0.25 mg Documented by: Diltiazem HCl (Diltiazem Hcl Cd 240 Mg Cap.Er.Deg) 240 mg PO DAILY KELSI; Protocol Last Admin: 11/26/21 08:51 Dose: 240 mg Documented by: Docusate Sodium (Docusate Sodium 100 Mg Capsule) 100 mg PO DAILY PRN PRN Reason: Constipation Glucose (Glucose Gel 15 Gm Gel..Gram.) 15 gm PO Q15M PRN; Protocol PRN Reason: per Hypoglycemia Standing Ord. Hydroxychloroquine Sulfate (Hydroxychloroquine Sulfate 200 Mg Tablet) 200 mg PO BID@1200,1800 KELSI Last Admin: 11/26/21 11:47 Dose: 200 mg Documented by: Ceftriaxone Sodium 1 gm/ (Sodium Chloride) 50 mls @ 100 mls/hr IV Q24H KELSI Last Infusion: 11/26/21 11:32 Dose: Infused Documented by: Vancomycin HCl 1,000 mg/Vancomycin HCl 750 mg/ Sodium Chloride 535 mls @ 267.5 mls/hr IV Q24H [facility] Last Infusion: 11/26/21 14:40 Dose: Infused Documented by: Insulin Human Lispro (Insulin Lispro 100 Unit/Ml 3 Ml Vial) 0 unit SUBCUT QIDACHS [facility]; Protocol Last Admin: 11/26/21 11:31 Dose: Not Given Documented by: Lisinopril (Lisinopril 40 Mg Tablet) 40 mg PO DAILY [facility]; Protocol Last Admin: 11/26/21 08:51 Dose: 40 mg Documented by: Loratadine (Loratadine 10 Mg Tablet) 10 mg PO DAILY [facility] Last Admin: 11/26/21 08:51 Dose: 10 mg Documented by: Metoprolol Succinate (Metoprolol Succinate Er 25 Mg Tab.Er.24h) 75 mg PO DAILY@1800 [facility]; Protocol Last Admin: 11/25/21 19:35 Dose: 75 mg Documented by: Morphine Sulfate (Morphine Sulfate 2 Mg/Ml Cartridge) 2 mg IVPUSH Q4H PRN; Protocol PRN Reason: Pain, Severe (Pain Scale 7-10) Omeprazole (Omeprazole 20 Mg Capsule.Dr) 20 mg PO DAILY@0630 [facility] Last Admin: 11/26/21 06:03 Dose: 20 mg Documented by: Oxycodone HCl (Oxycodone Hcl Immed Release 5 Mg Tablet) 5 mg PO Q6H PRN PRN Reason: Pain, Severe (Pain Scale 7-10) Last Admin: 11/26/21 07:30 Dose: 5 mg Documented by: Pharmacy Consult (Consult Rx Perform Med Rec) 1 each MISCELLANE ONCE PRN PRN Reason: Consult order Pharmacy Consult (Consult Rx Vancomycin Dosing) 1 each MISCELLANE DAILY PRN PRN Reason: Consult order Prednisone (Prednisone 5 Mg Tablet) 2.5 mg PO DAILY [facility] Last Admin: 11/26/21 08:52 Dose: 2.5 mg Documented by: Prednisone (Prednisone 5 Mg Tablet) 5 mg PO DAILY@1800 [facility] Last Admin: 11/25/21 20:46 Dose: 5 mg Documented by: Sodium Chloride (0.9 % Sodium Chloride Flush 3 Ml Syringe) 3 ml IVFLUSH QSHIFT [facility] Last Admin: 11/26/21 08:53 Dose: 3 ml Documented by: Tamsulosin HCl (Tamsulosin Hcl 0.4 Mg Capsule) 0.4 mg PO BID [facility] Last Admin: 11/26/21 08:51 Dose: 0.4 mg Documented by: Warfarin Sodium (Warfarin Sodium 2 Mg Tablet) 2 mg PO SUMOWEFRSA@1800 KELSI Warfarin Sodium (Warfarin Sodium 3 Mg Tablet) 3 mg PO TUTH@1800 [facility] Last Admin: 11/25/21 19:35 Dose: 3 mg Documented by: Home Medications Medication Instructions Recorded Confirmed Last Taken Type blood sugar diagnostic #10 ea 09/29/20 Unknown History digoxin 250 mcg (0.25 mg) tablet 250 mcg PO BEDTIME 09/29/20 11/25/21 11/24/21 History diltiazem HCl 240 mg 240 mg PO DAILY 09/29/20 11/25/21 11/25/21 History capsule,extended release 24 hr lancets #100 ea 09/29/20 Unknown History lisinopril 40 mg tablet 40 mg PO DAILY 09/29/20 11/25/21 11/25/21 History metformin 1,000 mg tablet 1,000 mg PO BID@0900,1800 09/29/20 11/25/21 11/25/21 History metoprolol succinate 50 mg 75 mg PO DAILY@1800 09/29/20 11/25/21 11/24/21 History tablet,extended release 24 hr omeprazole 20 mg capsule,delayed 20 mg PO DAILY 09/29/20 11/25/21 11/25/21 History release rosuvastatin 20 mg tablet 20 mg PO DAILY@1800 09/29/20 11/25/21 Unknown History hydroxychloroquine 200 mg tablet 200 mg PO BID@1200,1800 10/18/21 11/25/21 11/24/21 History (Plaquenil) loratadine 10 mg tablet (Allergy 10 mg PO DAILY 10/18/21 11/25/21 11/25/21 History Relief (loratadine)) prednisone 5 mg tablet 5 mg PO DAILY@1800 tab 10/18/21 11/25/21 11/24/21 History cholecalciferol (vitamin D3) 25 25 mcg PO DAILY 11/25/21 11/25/21 11/25/21 History mcg (1,000 unit) tablet cyanocobalamin (vitamin B-12) 1,000 mcg PO DAILY@1200 11/25/21 11/25/21 11/24/21 History 1,000 mcg tablet glipizide 5 mg tablet, extended 1 tab PO BID@0900,1800 11/25/21 11/25/21 11/25/21 History release 24 hr prednisone 5 mg tablet 2.5 mg PO DAILY 11/25/21 11/25/21 11/25/21 History warfarin 1 mg tablet 2 mg PO SUMOWEFRSA@1800 11/25/21 11/25/21 11/24/21 History warfarin 1 mg tablet 3 mg PO TUTH@1800 11/25/21 11/25/21 11/24/21 History Physical Exam Vital Signs: Vital Signs: Last Vital Signs Temp 99.1 F 11/26/21 15:13 Pulse 81 11/26/21 15:13 Resp 18 11/26/21 15:13 BP 151/78 H 11/26/21 15:13 Pulse Ox 92 11/26/21 15:13 BMI result Body Mass Index 30.7 Const: General: cooperative Eyes: General: appearance normal, both eyes and all related structures Resp: Effort & Inspection: normal respiratory effort Cardio: Rate: regular rate Rhythm: regular rhythm GI: Palpation (GI): Soft to palpation and nontender Skin: Other: right fourth toe blue plantar,no pulses palpable,some hazy redness without warmth dorsum foot and lower leg severe pain in foot Results Labs CBC & Chem 7: 11/25/21 10:28 11/26/21 05:48 Labs: BMP 11/26/21 05:48 Sodium 144 Potassium 3.7 Chloride 106 Carbon Dioxide 27 BUN 10 Creatinine 0.79 Calcium 8.7 Microbiology Microbiology Results: Microbiology 11/25/21 10:47 Blood - Venous Blood Culture - Preliminary No growth after 24 hours. 11/25/21 10:28 Blood - Venous Blood Culture - Preliminary No growth after 24 hours. Assessment and Plan (1) Foot pain, right: Status: Acute Symptoms of severe foot pain and no real contiguous redness seem as though symptoms more consistent with thrombotic vascular disease rather than bacterial cellulitis Coagulase negative staph contaminant Plan Would stop Vancomycin Would continue Ceftriaxone in case vascular event with strep Continue follow Vascular.
[2021-11-26] MEDS: Acetaminophen 325 MG TABLET 650 MG PO ×2 (15:32→21:33)
--- NOTE | 2021-11-26 16:39 | MHC.CM.PN ---
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 PT REPORTS HIS SISTER CAN TRANSPORT HIM, PCP ON FILE VERFIED, MODERNA X3 AND PT REPORTS HIS HCP IS HIS DTR ABUNDIO RITA [phone] AND SISTER TIA PAUL [phone], COPY REQUESTED. D/C PLAN: HOME VS HOME W/NEW VNA, FAMILY FOR TRANSPORT.
[2021-11-26 16:48] LABS: Glucose, Whole Blood 113 mg/dL (60-115)
[2021-11-26] MEDS: Warfarin Sodium 2 MG TABLET PO (19:25)
[2021-11-26] MEDS: Digoxin 0.25 MG TABLET PO (19:25)
[2021-11-26] MEDS: predniSONE 5 MG TABLET 2.5 MG PO (19:26)
[2021-11-26] MEDS: Metoprolol Succinate ER 25 MG TAB.ER.24H 75 MG PO (19:26)
[2021-11-26] MEDS: Atorvastatin Calcium 80 MG TABLET 20 MG PO (19:27)
[2021-11-26 19:37] VITALS: BP 181/98; PULSE 95; RESP 18; TEMP 37.1; O2SAT 94
[2021-11-26] MEDS: predniSONE 5 MG TABLET PO (20:22)
[2021-11-26 20:34] LABS: Glucose, Whole Blood 118 mg/dL (60-115)
[2021-11-26 23:38] VITALS: BP 183/88; PULSE 58; RESP 17; TEMP 36.5; O2SAT 94
[2021-11-27] VITALS (7 sets, daily range): BP systolic 137–175; BP diastolic 70–90; PULSE 74–88; RESP 17–23; TEMP 36.1–36.9; O2SAT 91–97
[2021-11-27] MEDS: 0.9 % Sodium Chloride Flush 3 ML SYRINGE IVFLUSH ×3 (01:09→16:11)
[2021-11-27] MEDS: Omeprazole 20 MG CAPSULE.DR PO (05:55)
[2021-11-27 06:06] LABS: Hematocrit 36.3 % (42.0-52.0); Hemoglobin 11.7 g/dl (14.0-18.0); Mean Corpuscular HGB Conc 32.2 g/dl (31.0-36.0); Mean Corpuscular Hemoglobin 33.1 pg (27.0-33.0); Mean Corpuscular Volume 102.5 fL (80.0-98.0); Mean Platelet Volume 11.2 fL (9.4-12.4); Platelet Count 219 X10*3/uL (160-400); Red Blood Count 3.54 X10*6/uL (4.60-5.80); White Blood Count 7.5 X10*3/uL (4.8-10.8)
[2021-11-27 06:12] LABS: INTERNATIONAL NORM RATIO 2.2 (0.9-1.1); Prothrombin Time 25.2 SEC (9.9-13.0)
[2021-11-27 06:44] LABS: Anion Gap 14 (12-20); Blood Urea Nitrogen 10 mg/dL (9-16); Calcium 8.9 mg/dL (8.4-10.2); Carbon Dioxide 29 mmol/L (22-29); Chloride 103 mmol/L (96-108); Creatinine Clr Calc Pharmacy 85.2; Estimated Glomerular Filt Rate > 60; Glucose Random 124 mg/dL (60-115); Potassium 3.7 mmol/L (3.3-5.1); Sodium 142 mmol/L (135-145)
[2021-11-27] MEDS: Acetaminophen 325 MG TABLET 650 MG PO ×2 (07:52→18:17)
[2021-11-27 07:53] LABS: Glucose, Whole Blood 96 mg/dL (60-115)
[2021-11-27] MEDS: dilTIAZem HCL CD 240 MG CAP.ER.DEG PO (07:53)
[2021-11-27] MEDS: oxyCODONE HCl Immed Release 5 MG TABLET PO ×3 (07:53→23:02)
[2021-11-27] MEDS: predniSONE 5 MG TABLET 2.5 MG PO (07:54)
[2021-11-27] MEDS: lisinopriL 40 MG TABLET PO (07:54)
[2021-11-27] MEDS: Loratadine 10 MG TABLET PO (08:00)
[2021-11-27] MEDS: Tamsulosin HCL 0.4 MG CAPSULE PO ×2 (08:00→21:00)
[2021-11-27 11:03] LABS: Vancomycin Random 9.5 mcg/mL (15-20)
[2021-11-27 11:36] LABS: Glucose, Whole Blood 171 mg/dL (60-115)
[2021-11-27] MEDS: cefTRIAXone sodium 1 GM in 0.9 % Sodium Chloride 50 ML IV (12:12)
[2021-11-27] MEDS: Insulin Lispro 100 UNIT/ML 3 ML VIAL SUBCUT ×2 (12:13→20:57)
[2021-11-27] MEDS: Hydroxychloroquine Sulfate 200 MG TABLET PO ×2 (12:13→18:10)
[2021-11-27] MEDS: Cyanocobalamin (Vitamin B-12) 1,000 MCG TABLET 1000 MCG PO (12:13)
--- NOTE | 2021-11-27 13:24 | P.PNIM_ITS ---
Subjective Subjective Date of Service: 11/27/21 Interval History: seen and examined this morning follow up for leg wound/cellulitis having leg pain no fever/chills Review of Systems Review of Systems: Yes all other systems are reviewed and are negative Constitutional Constitutional: Denies chills and Denies fever(s) Cardiovascular Cardiovascular: Denies chest pain, Denies palpitations and Denies dyspnea Respiratory Respiratory: Denies cough and Denies dyspnea Gastrointestinal Gastrointestinal: Denies abdominal pain and Denies vomiting Endocrine Endocrine: Denies palpitations Physical Exam Vital Signs: Vital Signs: Last Vital Signs Temp 97.6 F 11/27/21 11:17 Pulse 82 11/27/21 11:17 Resp 19 11/27/21 11:17 BP 165/90 H 11/27/21 11:17 Pulse Ox 94 11/27/21 11:17 BMI result Body Mass Index 30.7 Const: General: cooperative, comfortable, alert and awake Nutritional Appearance: overweight Orientation/consciousness: patient oriented x3 Eyes: Pupils: Equal, round and reactive pupils present EOM: EOMs intact bilaterally Resp: Effort & Inspection: normal respiratory effort and able to speak in complete sentences Auscultation: clear to auscultation bilaterally Cardio: Rate: regular rate Rhythm: abnormal rhythm irregularly irregular Heart sounds: S1 normal heart sound present and S2 normal heart sound present GI: Inspection: No distended Palpation (GI): Soft to palpation and nontender Skin: Other: Neuro: General: patient oriented x3 and CN's II-XI intact bilaterally Cranial nerves: Yes Equal, round and reactive pupils present Objective Data Active Medications Acetaminophen (Acetaminophen 325 Mg Tablet) 650 mg PO Q6H PRN PRN Reason: Pain, Mild (Pain Scale 1-3) Last Admin: 11/27/21 07:52 Dose: 650 mg Documented by: KARINA Atorvastatin Calcium (Atorvastatin Calcium 80 Mg Tablet) 20 mg PO DAILY@1800 KELSI Last Admin: 11/26/21 19:27 Dose: 20 mg Documented by: COLANNMARIE Cyanocobalamin (Cyanocobalamin (Vitamin B-12) 1,000 Mcg Tablet) 1,000 mcg PO DAILY@1200 KELSI Last Admin: 11/27/21 12:13 Dose: 1,000 mcg Documented by: KARINA Dextrose (Dextrose 50 % 25 Gm/50 Ml Syringe) 25 gm IVPUSH Q15M PRN; Protocol PRN Reason: per Hypoglycemia Standing Ord. Digoxin (Digoxin 0.25 Mg Tablet) 0.25 mg PO BEDTIME [facility] Last Admin: 11/26/21 19:25 Dose: 0.25 mg Documented by: CHULA Diltiazem HCl (Diltiazem Hcl Cd 240 Mg Cap.Er.Deg) 240 mg PO DAILY [facility]; Protocol Last Admin: 11/27/21 07:53 Dose: 240 mg Documented by: KARINA Docusate Sodium (Docusate Sodium 100 Mg Capsule) 100 mg PO DAILY PRN PRN Reason: Constipation Glucose (Glucose Gel 15 Gm Gel..Gram.) 15 gm PO Q15M PRN; Protocol PRN Reason: per Hypoglycemia Standing Ord. Hydroxychloroquine Sulfate (Hydroxychloroquine Sulfate 200 Mg Tablet) 200 mg PO BID@1200,1800 [facility] Last Admin: 11/27/21 12:13 Dose: 200 mg Documented by: KARINA Ceftriaxone Sodium 1 gm/ (Sodium Chloride) 50 mls @ 100 mls/hr IV Q24H [facility] Last Admin: 11/27/21 12:12 Dose: 100 mls/hr Documented by: KARINA Insulin Human Lispro (Insulin Lispro 100 Unit/Ml 3 Ml Vial) 0 unit SUBCUT QIDACHS [facility]; Protocol Last Admin: 11/27/21 12:13 Dose: 2 unit Documented by: KARINA Lisinopril (Lisinopril 40 Mg Tablet) 40 mg PO DAILY [facility]; Protocol Last Admin: 11/27/21 07:54 Dose: 40 mg Documented by: KARINA Loratadine (Loratadine 10 Mg Tablet) 10 mg PO DAILY [facility] Last Admin: 11/27/21 08:00 Dose: 10 mg Documented by: KARINA Metoprolol Succinate (Metoprolol Succinate Er 25 Mg Tab.Er.24h) 75 mg PO DAILY@1800 [facility]; Protocol Last Admin: 11/26/21 19:26 Dose: 75 mg Documented by: CHULA Morphine Sulfate (Morphine Sulfate 2 Mg/Ml Cartridge) 2 mg IVPUSH Q4H PRN; Protocol PRN Reason: Pain, Severe (Pain Scale 7-10) Omeprazole (Omeprazole 20 Mg Sophia.) 20 mg PO DAILY@0630 [facility] Last Admin: 11/27/21 05:55 Dose: 20 mg Documented by: LEONEL Oxycodone HCl (Oxycodone Hcl Immed Release 5 Mg Tablet) 5 mg PO Q6H PRN PRN Reason: Pain, Severe (Pain Scale 7-10) Last Admin: 11/27/21 07:53 Dose: 5 mg Documented by: KARINA Pharmacy Consult (Consult Rx Perform Med Rec) 1 each MISCELLANE ONCE PRN PRN Reason: Consult order Pharmacy Consult (Consult Rx Vancomycin Dosing) 1 each MISCELLANE DAILY PRN PRN Reason: Consult order Prednisone (Prednisone 5 Mg Tablet) 2.5 mg PO DAILY [facility] Last Admin: 11/27/21 07:54 Dose: 2.5 mg Documented by: KARINA Prednisone (Prednisone 5 Mg Tablet) 5 mg PO DAILY@1800 [facility] Last Admin: 11/26/21 20:22 Dose: 5 mg Documented by: CHULA Sodium Chloride (0.9 % Sodium Chloride Flush 3 Ml Syringe) 3 ml IVFLUSH QSHIFT [facility] Last Admin: 11/27/21 07:55 Dose: 3 ml Documented by: KARINA Tamsulosin HCl (Tamsulosin Hcl 0.4 Mg Capsule) 0.4 mg PO BID [facility] Last Admin: 11/27/21 08:00 Dose: 0.4 mg Documented by: KARINA Warfarin Sodium (Warfarin Sodium 2 Mg Tablet) 2 mg PO SUMOWEFRSA@1800 [facility] Last Admin: 11/26/21 19:25 Dose: 2 mg Documented by: CHULA Warfarin Sodium (Warfarin Sodium 3 Mg Tablet) 3 mg PO TUTH@1800 [facility] Last Admin: 11/25/21 19:35 Dose: 3 mg Documented by: LOBITO Labs CBC & Chem 7: 11/27/21 05:04 11/27/21 05:04 Labs: Laboratory Results - last 24 hr 11/26/21 11/26/21 11/27/21 16:37 20:25 05:04 MCV MCH MCHC RDW Plt Count MPV Absolute Nucleated RBC Nucleated RBC % (auto) PT 25.2 H INR 2.2 H Anion Gap Estim Creat Clear Calc Estimated GFR POC Glucose 113 118 H Random Glucose Calcium Random Vancomycin 11/27/21 11/27/21 11/27/21 05:04 05:04 07:26 MCV 102.5 H MCH 33.1 H MCHC 32.2 RDW 14.0 Plt Count 219 MPV 11.2 Absolute Nucleated RBC 0.000 Nucleated RBC % (auto) 0.0 PT INR Anion Gap 14 Estim Creat Clear Calc 85.2 Estimated GFR > 60 POC Glucose 96 Random Glucose 124 H Calcium 8.9 Random Vancomycin 11/27/21 11/27/21 10:00 11:19 MCV MCH MCHC RDW Plt Count MPV Absolute Nucleated RBC Nucleated RBC % (auto) PT INR Anion Gap Estim Creat Clear Calc Estimated GFR POC Glucose 171 H Random Glucose Calcium Random Vancomycin 9.5 L Microbiology Microbiology Results: Microbiology 11/25/21 10:47 Blood Culture - Preliminary Blood - Venous No growth after 48 hours. 11/25/21 10:28 Blood Culture - Preliminary Blood - Venous No growth after 48 hours. Assessment and Plan (1) Foot pain, right: Status: Acute (2) Cellulitis of foot: Status: Acute (3) PAD (peripheral artery disease): Status: Acute Plan This is an 81-year-old male with history of diabetes, chronic atrial fibrillation on Coumadin, seronegative rheumatoid arthritis, hypertension, hyperlipidemia who presents with 3 weeks of worsening redness and pain of his right lower extremity Right lower extremity/foot cellulitis no evidence of sepsis r/t PAD/diabetes has failed outpatient antibiotics with doxycycline/keflex CT scan from 11/23 showing no bone involvement. CRP, ESR elevated. Pt declined MRI US negative for DVT seen by ID, feels like more likely vascular issue, vanco d/c, recommend to continue ceftriaxone Seen by vascular surgery - obtaining outpatient records from primary vascular surgeon, repeat arterial testing obtained PAD wound center reports known h/o anterior tibial artery occlusion seen by vascular surgery, repeat arterial testing ordered - will discuss further management 1/2 blood cultures positive - growing coag neg staph - likely contaminant repeat BCx negative x48 hrs Diabetes -hold glipizide, metformin -SSI, POCs RA (pt reported MA, but notes from Rheumatology indicate history of seronegative RA) -continue Plaquenil, prednisone Chronic atrial fibrillation Heart rate controlled INR 2.2 -continue digoxin, diltiazem, metoprolol -continue anticoagulation with Coumadin -follow INR Hypertension Continue lisinopril HLD Continue statin GERD Continue omeprazole BPH Continue Flomax DVT ppx - Coumadin Healthcare proxy-son and daughter, primary is daughter Attending-Dr. Woody Given history of diabetes and rapid progression of infection will need ongoing inpatient hospitalization for further management of lower extremity cellulitis/PAD with IV to prevent decompensation/progression to sepsis as well as likely intervention by vascular surgery Quality Stroke Does the patient have a stroke diagnosis?: No VTE Prior VTE?: No VTE Risk Level:: Medical - moderate - high VTE Device Contraindication: Treatment Not Indicated VTE Drug Contraindication: N/A - Med Ordered
[2021-11-27 16:16] LABS: Glucose, Whole Blood 140 mg/dL (60-115)
[2021-11-27] MEDS: Atorvastatin Calcium 80 MG TABLET 20 MG PO (18:08)
[2021-11-27] MEDS: predniSONE 5 MG TABLET PO (18:09)
[2021-11-27] MEDS: Metoprolol Succinate ER 25 MG TAB.ER.24H 75 MG PO (18:10)
[2021-11-27] MEDS: Warfarin Sodium 2 MG TABLET PO (18:10)
[2021-11-27 20:14] LABS: Glucose, Whole Blood 151 mg/dL (60-115)
[2021-11-27] MEDS: Digoxin 0.25 MG TABLET PO (20:59)
[2021-11-28] VITALS (7 sets, daily range): BP systolic 149–182; BP diastolic 76–96; PULSE 68–88; RESP 17–20; TEMP 36.5–36.9; O2SAT 92–96
[2021-11-28] MEDS: 0.9 % Sodium Chloride Flush 3 ML SYRINGE IVFLUSH ×3 (00:16→15:19)
[2021-11-28] MEDS: Omeprazole 20 MG CAPSULE.DR PO (06:45)
[2021-11-28 07:33] LABS: INTERNATIONAL NORM RATIO 2.2 (0.9-1.1); Prothrombin Time 24.9 SEC (9.9-13.0)
[2021-11-28 07:41] LABS: Glucose, Whole Blood 117 mg/dL (60-115)
[2021-11-28 07:44] LABS: Anion Gap 14 (12-20); Blood Urea Nitrogen 14 mg/dL (9-16); Carbon Dioxide 29 mmol/L (22-29); Chloride 103 mmol/L (96-108); Estimated Glomerular Filt Rate > 60; Glucose Random 127 mg/dL (60-115); Potassium 3.8 mmol/L (3.3-5.1); Sodium 142 mmol/L (135-145)
[2021-11-28 07:54] LABS: Estimated Average Glucose 123 mg/dL; Hemoglobin A1c % 5.9 %
[2021-11-28] MEDS: Tamsulosin HCL 0.4 MG CAPSULE PO ×2 (08:00→21:46)
[2021-11-28] MEDS: predniSONE 5 MG TABLET 2.5 MG PO (09:04)
[2021-11-28] MEDS: Loratadine 10 MG TABLET PO (09:04)
[2021-11-28] MEDS: dilTIAZem HCL CD 240 MG CAP.ER.DEG PO (09:04)
[2021-11-28] MEDS: lisinopriL 40 MG TABLET PO (09:04)
[2021-11-28] MEDS: oxyCODONE HCl Immed Release 5 MG TABLET PO ×3 (09:24→21:46)
[2021-11-28] MEDS: Acetaminophen 325 MG TABLET 650 MG PO (09:25)
[2021-11-28 11:37] LABS: Glucose, Whole Blood 169 mg/dL (60-115)
[2021-11-28] MEDS: Insulin Lispro 100 UNIT/ML 3 ML VIAL SUBCUT ×2 (12:18→21:47)
[2021-11-28] MEDS: Aspirin 81 MG TAB.CHEW PO (12:19)
[2021-11-28] MEDS: Cyanocobalamin (Vitamin B-12) 1,000 MCG TABLET 1000 MCG PO (12:19)
[2021-11-28] MEDS: Hydroxychloroquine Sulfate 200 MG TABLET PO ×2 (12:19→17:34)
[2021-11-28] MEDS: cefTRIAXone sodium 1 GM in 0.9 % Sodium Chloride 50 ML IV (12:20)
--- NOTE | 2021-11-28 12:25 | P.PNIM_ITS ---
Subjective Subjective Date of Service: 11/28/21 Interval History: seen and examined this morning follow up for right leg wound/PAD/cellulitis still reporting pain, in both legs, shooting and burning no fever, chills Review of Systems Review of Systems: Yes all other systems are reviewed and are negative Constitutional Constitutional: Denies chills and Denies fever(s) Cardiovascular Cardiovascular: Denies chest pain, Denies palpitations and Denies dyspnea Respiratory Respiratory: Denies cough and Denies dyspnea Gastrointestinal Gastrointestinal: Denies abdominal pain, Denies diarrhea, Denies nausea and Denies vomiting Endocrine Endocrine: Denies palpitations Physical Exam Vital Signs: Vital Signs: Last Vital Signs Temp 98.4 F 11/28/21 11:20 Pulse 83 11/28/21 11:20 Resp 20 11/28/21 11:20 BP 164/82 H 11/28/21 11:20 Pulse Ox 95 11/28/21 11:20 BMI result Body Mass Index 30.7 Const: General: cooperative, comfortable, alert and awake Nutritional Appearance: overweight Orientation/consciousness: patient oriented x3 Eyes: Pupils: Equal, round and reactive pupils present EOM: EOMs intact bilaterally Resp: Effort & Inspection: normal respiratory effort and able to speak in complete sentences Auscultation: clear to auscultation bilaterally Cardio: Rate: regular rate Rhythm: abnormal rhythm irregularly irregular Heart sounds: S1 normal heart sound present and S2 normal heart sound present GI: Inspection: No distended Palpation (GI): Soft to palpation and nontender Skin: Other: Neuro: General: patient oriented x3 and CN's II-XI intact bilaterally Cranial nerves: Yes Equal, round and reactive pupils present Objective Data Active Medications Acetaminophen (Acetaminophen 325 Mg Tablet) 650 mg PO Q6H PRN PRN Reason: Pain, Mild (Pain Scale 1-3) Last Admin: 11/28/21 09:25 Dose: 650 mg Documented by: KARINA Aspirin (Aspirin 81 Mg Tab.Chew) 81 mg PO DAILY [facility] Last Admin: 11/28/21 12:19 Dose: 81 mg Documented by: KARINA Atorvastatin Calcium (Atorvastatin Calcium 80 Mg Tablet) 20 mg PO DAILY@1800 [facility] Last Admin: 11/27/21 18:08 Dose: 20 mg Documented by: DELILAH Cyanocobalamin (Cyanocobalamin (Vitamin B-12) 1,000 Mcg Tablet) 1,000 mcg PO DAILY@1200 [facility] Last Admin: 11/28/21 12:19 Dose: 1,000 mcg Documented by: KARINA Dextrose (Dextrose 50 % 25 Gm/50 Ml Syringe) 25 gm IVPUSH Q15M PRN; Protocol PRN Reason: per Hypoglycemia Standing Ord. Digoxin (Digoxin 0.25 Mg Tablet) 0.25 mg PO BEDTIME [facility] Last Admin: 11/27/21 20:59 Dose: 0.25 mg Documented by: DELILAH Diltiazem HCl (Diltiazem Hcl Cd 240 Mg Cap.Er.Deg) 240 mg PO DAILY [facility]; Protocol Last Admin: 11/28/21 09:04 Dose: 240 mg Documented by: KARINA Docusate Sodium (Docusate Sodium 100 Mg Capsule) 100 mg PO DAILY PRN PRN Reason: Constipation Glucose (Glucose Gel 15 Gm Gel..Gram.) 15 gm PO Q15M PRN; Protocol PRN Reason: per Hypoglycemia Standing Ord. Hydroxychloroquine Sulfate (Hydroxychloroquine Sulfate 200 Mg Tablet) 200 mg PO BID@1200,1800 [facility] Last Admin: 11/28/21 12:19 Dose: 200 mg Documented by: KARINA Ceftriaxone Sodium 1 gm/ (Sodium Chloride) 50 mls @ 100 mls/hr IV Q24H [facility] Last Admin: 11/28/21 12:20 Dose: 100 mls/hr Documented by: KARINA Insulin Human Lispro (Insulin Lispro 100 Unit/Ml 3 Ml Vial) 0 unit SUBCUT QIDACHS [facility]; Protocol Last Admin: 11/28/21 12:18 Dose: 2 unit Documented by: KARINA Lisinopril (Lisinopril 40 Mg Tablet) 40 mg PO DAILY [facility]; Protocol Last Admin: 11/28/21 09:04 Dose: 40 mg Documented by: KARINA Loratadine (Loratadine 10 Mg Tablet) 10 mg PO DAILY [facility] Last Admin: 11/28/21 09:04 Dose: 10 mg Documented by: KARINA Metoprolol Succinate (Metoprolol Succinate Er 25 Mg Tab.Er.24h) 75 mg PO DAILY@1800 [facility]; Protocol Last Admin: 11/27/21 18:10 Dose: 75 mg Documented by: DELILAH Morphine Sulfate (Morphine Sulfate 2 Mg/Ml Cartridge) 2 mg IVPUSH Q4H PRN; Protocol PRN Reason: Pain, Severe (Pain Scale 7-10) Omeprazole (Omeprazole 20 Mg Capsule.Dr) 20 mg PO DAILY@0630 [facility] Last Admin: 11/28/21 06:45 Dose: 20 mg Documented by: KUNAL Oxycodone HCl (Oxycodone Hcl Immed Release 5 Mg Tablet) 5 mg PO Q6H PRN PRN Reason: Pain, Severe (Pain Scale 7-10) Last Admin: 11/28/21 09:24 Dose: 5 mg Documented by: KARINA Pharmacy Consult (Consult Rx Perform Med Rec) 1 each MISCELLANE ONCE PRN PRN Reason: Consult order Pharmacy Consult (Consult Rx Vancomycin Dosing) 1 each MISCELLANE DAILY PRN PRN Reason: Consult order Prednisone (Prednisone 5 Mg Tablet) 2.5 mg PO DAILY [facility] Last Admin: 11/28/21 09:04 Dose: 2.5 mg Documented by: KARINA Prednisone (Prednisone 5 Mg Tablet) 5 mg PO DAILY@1800 [facility] Last Admin: 11/27/21 18:09 Dose: 5 mg Documented by: DELILAH Sodium Chloride (0.9 % Sodium Chloride Flush 3 Ml Syringe) 3 ml IVFLUSH QSHIFT [facility] Last Admin: 11/28/21 09:05 Dose: 3 ml Documented by: KARINA Tamsulosin HCl (Tamsulosin Hcl 0.4 Mg Capsule) 0.4 mg PO BID [facility] Last Admin: 11/28/21 08:00 Dose: 0.4 mg Documented by: KARINA Labs CBC & Chem 7: 11/27/21 05:04 11/28/21 05:47 Labs: Laboratory Results - last 24 hr 11/27/21 11/27/21 11/28/21 16:10 19:59 05:47 PT 24.9 H INR 2.2 H Anion Gap Estim Creat Clear Calc Estimated GFR POC Glucose 140 H 151 H Random Glucose Estimat Average Glucose Hemoglobin A1c % Calcium 11/28/21 11/28/21 11/28/21 05:47 05:47 07:20 PT INR Anion Gap 14 Estim Creat Clear Calc 82.0 Estimated GFR > 60 POC Glucose 117 H Random Glucose 127 H Estimat Average Glucose 123 Hemoglobin A1c % 5.9 Calcium 9.0 11/28/21 11:19 PT INR Anion Gap Estim Creat Clear Calc Estimated GFR POC Glucose 169 H Random Glucose Estimat Average Glucose Hemoglobin A1c % Calcium Microbiology Microbiology Results: Microbiology 11/25/21 10:47 Blood Culture - Preliminary Blood - Venous No growth after 48 hours. 11/25/21 10:28 Blood Culture - Preliminary Blood - Venous No growth after 48 hours. Assessment and Plan (1) PAD (peripheral artery disease): Status: Acute (2) Cellulitis of foot: Status: Acute Plan This is an 81-year-old male with history of diabetes, chronic atrial fibrillation on Coumadin, seronegative rheumatoid arthritis, hypertension, hyperlipidemia who presents with 3 weeks of worsening redness and pain of his right lower extremity Right lower extremity/foot cellulitis. erythema improving no evidence of sepsis r/t PAD/diabetes has failed outpatient antibiotics with doxycycline/keflex CT scan from 11/23 showing no bone involvement. CRP, ESR elevated. Pt unable to complete MRI US negative for DVT seen by ID, feels like more likely vascular issue, vanco d/c, recommend to continue ceftriaxone Seen by vascular surgery - obtaining outpatient records from primary vascular surgeon, will need surgical intervention PAD wound center reports known h/o anterior tibial artery occlusion seen by vascular surgery, repeat arterial testing showing LE disease - will need intervention vascular surgery following started on Aspirin will hold coumadin in preparation for surgical intervention 1/2 blood cultures positive - growing coag neg staph - likely contaminant repeat BCx negative x48 hrs Diabetes -hold glipizide, metformin -SSI, POCs probably diabetic neuropathy started on low dose gabapentin monitor for effect, up titrate prn RA (pt reported [place], but notes from Rheumatology indicate history of seronegative RA) -continue Plaquenil, prednisone Chronic atrial fibrillation Heart rate controlled -continue digoxin, diltiazem, metoprolol -hold anticoagulation in preparation for possible procedure Hypertension Continue lisinopril HLD Continue statin GERD Continue omeprazole BPH Continue Flomax DVT ppx - Coumadin on hold, unable to tolerate SCDs due to leg pain Healthcare proxy-son and daughter, primary is daughter Attending-Dr. Bong Mena - currently resides also, may need STR depending on length of hospital stay/surgery required Given history of diabetes and rapid progression of infection will need ongoing inpatient hospitalization for further management of lower extremity cellulitis/PAD with IV to prevent decompensation/progression to sepsis as well as likely intervention by vascular surgery Quality Stroke Does the patient have a stroke diagnosis?: No VTE Prior VTE?: No VTE Risk Level:: Medical - moderate - high VTE Device Contraindication: Treatment Not Indicated VTE Drug Contraindication: N/A - Med Ordered
[2021-11-28] MEDS: Gabapentin 100 MG CAPSULE PO (13:54)
[2021-11-28 16:45] LABS: Glucose, Whole Blood 133 mg/dL (60-115)
[2021-11-28] MEDS: Atorvastatin Calcium 80 MG TABLET 20 MG PO (17:34)
[2021-11-28] MEDS: predniSONE 5 MG TABLET PO (17:35)
[2021-11-28] MEDS: Metoprolol Succinate ER 25 MG TAB.ER.24H 75 MG PO (17:35)
[2021-11-28 21:32] LABS: Glucose, Whole Blood 171 mg/dL (60-115)
[2021-11-28] MEDS: Digoxin 0.25 MG TABLET PO (21:46)
[2021-11-29] VITALS (7 sets, daily range): BP systolic 143–177; BP diastolic 71–92; PULSE 60–90; RESP 17–18; TEMP 36.2–36.7; O2SAT 90–95
[2021-11-29] MEDS: 0.9 % Sodium Chloride Flush 3 ML SYRINGE IVFLUSH ×4 (00:32→20:54)
[2021-11-29] MEDS: Omeprazole 20 MG CAPSULE.DR PO (05:58)
[2021-11-29 06:15] LABS: INTERNATIONAL NORM RATIO 1.9 (0.9-1.1)
[2021-11-29 07:46] LABS: Glucose, Whole Blood 104 mg/dL (60-115)
[2021-11-29] MEDS: lisinopriL 40 MG TABLET PO (08:49)
[2021-11-29] MEDS: Tamsulosin HCL 0.4 MG CAPSULE PO ×2 (08:49→20:53)
[2021-11-29] MEDS: dilTIAZem HCL CD 240 MG CAP.ER.DEG PO (08:49)
[2021-11-29] MEDS: oxyCODONE HCl Immed Release 5 MG TABLET PO ×3 (08:49→20:53)
[2021-11-29] MEDS: Loratadine 10 MG TABLET PO (08:49)
[2021-11-29] MEDS: Gabapentin 100 MG CAPSULE PO ×2 (08:49→20:54)
[2021-11-29] MEDS: Aspirin 81 MG TAB.CHEW PO (08:49)
[2021-11-29] MEDS: predniSONE 5 MG TABLET 2.5 MG PO (08:50)
--- NOTE | 2021-11-29 11:13 | HO.PM.IMPN ---
Subjective Subjective Date of Service: 11/29/21 Review of Systems Follow up foot cellulitis redness is better still with some pain to tie on palpation Physical Exam Vital Signs: Vital Signs: Last Vital Signs Temp 97.9 F 11/29/21 07:14 Pulse 83 11/29/21 07:14 Resp 18 11/29/21 07:14 BP 165/92 H 11/29/21 07:14 Pulse Ox 92 11/29/21 07:14 BMI result Body Mass Index 30.7 Appearing in no acute distress lung sounds are clear to auscultation heart regular rate rhythm, clear S1, S2 positive bowel sounds, abdomen is soft, nontender neuro patient is alert x3, no focal deficits right food 4th toe necrotic Objective Data Active Medications Acetaminophen (Acetaminophen 325 Mg Tablet) 650 mg PO Q6H PRN PRN Reason: Pain, Mild (Pain Scale 1-3) Last Admin: 11/28/21 09:25 Dose: 650 mg Documented by: KARINA Aspirin (Aspirin 81 Mg Tab.Chew) 81 mg PO DAILY [facility] Last Admin: 11/29/21 08:49 Dose: 81 mg Documented by: MATT Atorvastatin Calcium (Atorvastatin Calcium 80 Mg Tablet) 20 mg PO DAILY@1800 [facility] Last Admin: 11/28/21 17:34 Dose: 20 mg Documented by: DELILAH Cyanocobalamin (Cyanocobalamin (Vitamin B-12) 1,000 Mcg Tablet) 1,000 mcg PO DAILY@1200 [facility] Last Admin: 11/28/21 12:19 Dose: 1,000 mcg Documented by: KARIAN Dextrose (Dextrose 50 % 25 Gm/50 Ml Syringe) 25 gm IVPUSH Q15M PRN; Protocol PRN Reason: per Hypoglycemia Standing Ord. Digoxin (Digoxin 0.25 Mg Tablet) 0.25 mg PO BEDTIME [facility] Last Admin: 11/28/21 21:46 Dose: 0.25 mg Documented by: DELILAH Diltiazem HCl (Diltiazem Hcl Cd 240 Mg Cap.Er.Deg) 240 mg PO DAILY [facility]; Protocol Last Admin: 11/29/21 08:49 Dose: 240 mg Documented by: MATT Docusate Sodium (Docusate Sodium 100 Mg Capsule) 100 mg PO DAILY PRN PRN Reason: Constipation Gabapentin (Gabapentin 100 Mg Capsule) 100 mg PO BID [facility] Last Admin: 11/29/21 08:49 Dose: 100 mg Documented by: MATT Glucose (Glucose Gel 15 Gm Gel..Gram.) 15 gm PO Q15M PRN; Protocol PRN Reason: per Hypoglycemia Standing Ord. Hydroxychloroquine Sulfate (Hydroxychloroquine Sulfate 200 Mg Tablet) 200 mg PO BID@1200,1800 [facility] Last Admin: 11/28/21 17:34 Dose: 200 mg Documented by: DELILAH Ceftriaxone Sodium 1 gm/ (Sodium Chloride) 50 mls @ 100 mls/hr IV Q24H [facility] Last Infusion: 11/28/21 13:04 Dose: 100 mls/hr Documented by: KARINA Insulin Human Lispro (Insulin Lispro 100 Unit/Ml 3 Ml Vial) 0 unit SUBCUT QIDACHS [facility]; Protocol Last Admin: 11/29/21 07:52 Dose: Not Given Documented by: MATT Non-Admin Reason: No Insulin Coverage Lisinopril (Lisinopril 40 Mg Tablet) 40 mg PO DAILY [facility]; Protocol Last Admin: 11/29/21 08:49 Dose: 40 mg Documented by: MATT Loratadine (Loratadine 10 Mg Tablet) 10 mg PO DAILY [facility] Last Admin: 11/29/21 08:49 Dose: 10 mg Documented by: MATT Metoprolol Succinate (Metoprolol Succinate Er 25 Mg Tab.Er.24h) 75 mg PO DAILY@1800 [facility]; Protocol Last Admin: 11/28/21 17:35 Dose: 75 mg Documented by: DELILAH Morphine Sulfate (Morphine Sulfate 2 Mg/Ml Cartridge) 2 mg IVPUSH Q4H PRN; Protocol PRN Reason: Pain, Severe (Pain Scale 7-10) Omeprazole (Omeprazole 20 Mg Capsule.) 20 mg PO DAILY@0630 [facility] Last Admin: 11/29/21 05:58 Dose: 20 mg Documented by: LEONEL Oxycodone HCl (Oxycodone Hcl Immed Release 5 Mg Tablet) 5 mg PO Q6H PRN PRN Reason: Pain, Severe (Pain Scale 7-10) Last Admin: 11/29/21 08:49 Dose: 5 mg Documented by: MATT Pharmacy Consult (Consult Rx Perform Med Rec) 1 each MISCELLANE ONCE PRN PRN Reason: Consult order Pharmacy Consult (Consult Rx Vancomycin Dosing) 1 each MISCELLANE DAILY PRN PRN Reason: Consult order Prednisone (Prednisone 5 Mg Tablet) 2.5 mg PO DAILY [facility] Last Admin: 11/29/21 08:50 Dose: 2.5 mg Documented by: MATT Prednisone (Prednisone 5 Mg Tablet) 5 mg PO DAILY@1800 [facility] Last Admin: 11/28/21 17:35 Dose: 5 mg Documented by: DELILAH Sodium Chloride (0.9 % Sodium Chloride Flush 3 Ml Syringe) 3 ml IVFLUSH QSHIFT [facility] Last Admin: 11/29/21 08:51 Dose: 3 ml Documented by: MATT Tamsulosin HCl (Tamsulosin Hcl 0.4 Mg Capsule) 0.4 mg PO BID [facility] Last Admin: 11/29/21 08:49 Dose: 0.4 mg Documented by: MATT Labs CBC & Chem 7: 11/27/21 05:04 11/28/21 05:47 Labs: Laboratory Results - last 24 hr 11/28/21 11/28/21 11/28/21 11:19 16:37 21:18 PT INR POC Glucose 169 H 133 H 171 H 11/29/21 11/29/21 05:38 07:11 PT 22.0 H INR 1.9 H POC Glucose 104 Assessment and Plan (1) PAD (peripheral artery disease): Status: Acute (2) Cellulitis of foot: Status: Acute Plan This is an 81-year-old male with history of diabetes, chronic atrial fibrillation on Coumadin, seronegative rheumatoid arthritis, hypertension, hyperlipidemia who presents with 3 weeks of worsening redness and pain of his right lower extremity Right lower extremity/foot cellulitis. erythema improving , r/t PAD/diabetes has failed outpatient antibiotics with doxycycline/keflex CT scan from 11/23 showing no bone involvement. CRP, ESR elevated US negative for DVT Seen by vascular surgery, plan for angio tomorrow if inr reaches 1.5 NPO after midnight continue Rocephin PAD wound center reports known h/o anterior tibial artery occlusion seen by vascular surgery, repeat arterial testing showing LE disease started on Aspirin will hold coumadin in preparation for surgical intervention 1/2 blood cultures positive - growing coag neg staph repeat BCx negative x48 hrs Diabetes SSI, POCs probably diabetic neuropathy started on low dose gabapentin monitor for effect, up titrate prn RA (pt reported [place], but notes from Rheumatology indicate history of seronegative RA) continue Plaquenil, prednisone Chronic atrial fibrillation Heart rate controlled continue digoxin, diltiazem, metoprolol hold anticoagulation in preparation for possible procedure Hypertension Continue lisinopril HLD Continue statin GERD Continue omeprazole BPH Continue Flomax DVT ppx Coumadin on hold, unable to tolerate SCDs due to leg pain Healthcare proxy-son and daughter, primary is daughter Attending-Dr. Fernández Given history of diabetes and rapid progression of infection will need ongoing inpatient hospitalization for further management of lower extremity cellulitis/PAD with IV to prevent decompensation/progression to sepsis as well as likely intervention by vascular surgery Quality Stroke Does the patient have a stroke diagnosis?: No VTE Prior VTE?: No VTE Risk Level:: Medical - moderate - high VTE Device Contraindication: Treatment Not Indicated VTE Drug Contraindication: N/A - Med Ordered
[2021-11-29 11:30] LABS: Glucose, Whole Blood 155 mg/dL (60-115)
[2021-11-29] MEDS: cefTRIAXone sodium 1 GM in 0.9 % Sodium Chloride 50 ML IV (11:55)
[2021-11-29] MEDS: Hydroxychloroquine Sulfate 200 MG TABLET PO ×2 (11:56→17:53)
[2021-11-29] MEDS: Cyanocobalamin (Vitamin B-12) 1,000 MCG TABLET 1000 MCG PO (11:56)
[2021-11-29] MEDS: Acetaminophen 325 MG TABLET 650 MG PO ×2 (11:56→17:55)
[2021-11-29] MEDS: Insulin Lispro 100 UNIT/ML 3 ML VIAL SUBCUT ×2 (11:56→20:52)
[2021-11-29 15:29] LABS: Glucose, Whole Blood 136 mg/dL (60-115)
--- NOTE | 2021-11-29 17:29 | HO.VASCPN ---
Subjective Subjective Date of Service: 11/29/21 Patient reports: no new complaints and still having pain Interval history: Patient seen and examined. No significant events overnight. Events over the weekend noted. The patient was taken off of Coumadin. In addition noninvasive arterial testing has been performed. I also was able to review a copy of the arterial testing from [facility] as well. Physical Exam Vital Signs: Vital Signs: Last Vital Signs Temp 97.9 F 11/29/21 15:49 Pulse 90 11/29/21 15:49 Resp 18 11/29/21 15:49 BP 177/91 H 11/29/21 15:49 Pulse Ox 91 L 11/29/21 15:49 BMI result Body Mass Index 30.7 Const: General: cooperative, healthy appearing and no acute distress Orientation/consciousness: oriented to person, oriented to place and oriented to time HEENT: Head: Yes normal to inspection Neck: Carotids: no bruits Chest: Chest palpation & inspection: normal inspection of the chest Resp: Effort & Inspection: normal respiratory effort and able to speak in complete sentences Auscultation: clear to auscultation bilaterally Cardio: Rate: regular rate Heart sounds: S1 normal heart sound present and S2 normal heart sound present GI: Inspection: Yes normal to inspection Skin: General skin exam: no rashes or lesions noted Wounds: wounds noted (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 I have discussed the pathophysiology of peripheral vascular disease with the patient. I have also discussed risk factor modification. I have reviewed the patient's arterial testing which reveals right side SFA disease. the patient would benefit from a rightleg endovascular peripheral angiogram with possible angioplasty, stent, and/or atherectomy. This has been discussed in detail with the patient along with risks, benefits, and complications. This includes but is not limited to bleeding, infection, heart attack, need for emergent surgical repair, limb ischemia, blood vessel damage, bleeding, puncture, kidney injury, bruising, allergic reaction, and skin reaction. The patient demonstrates a clear understanding. We will schedule for tomorrow morning. Time Spent With Patient Time: Total time spent is greater than 50% in coordination of care (as documented) at patient's floor/unit and/or counseling patient: Procedures Date of Service Date of Service: 11/29/21 Quality Stroke Does the patient have a stroke diagnosis?: No VTE Prior VTE?: No VTE Risk Level:: Medical - moderate - high VTE Device Contraindication: Treatment Not Indicated VTE Drug Contraindication: N/A - Med Ordered
[2021-11-29] MEDS: Metoprolol Succinate ER 25 MG TAB.ER.24H 75 MG PO (17:52)
[2021-11-29] MEDS: Atorvastatin Calcium 80 MG TABLET 20 MG PO (17:52)
[2021-11-29] MEDS: predniSONE 5 MG TABLET PO (17:53)
[2021-11-29 20:04] LABS: Glucose, Whole Blood 194 mg/dL (60-115)
[2021-11-29] MEDS: Digoxin 0.25 MG TABLET PO (20:53)
[2021-11-30] VITALS (10 sets, daily range): BP systolic 139–198; BP diastolic 78–102; PULSE 71–90; RESP 17–20; TEMP 36.3–36.8; O2SAT 92–97
[2021-11-30] MEDS: 0.9 % Sodium Chloride 1,000 ML 100 ML IVCONT ×2 (06:08→20:01)
--- NOTE | 2021-11-30 06:14 | PC.NURSE ---
Patient transported to [facility] via w/c with chef de cuisine as per sss call, report given and they would like him for 0630. ivf initiated as per md orders at 0600. noted iv site is a 22 angio and sss rn made aware. pt alert, calm, and cooperative to procedure.
[2021-11-30 06:32] LABS: INTERNATIONAL NORM RATIO 1.5 (0.9-1.1); Prothrombin Time 16.8 SEC (9.9-13.0)
[2021-11-30 07:30] LABS: Glucose, Whole Blood 118 mg/dL (60-115)
--- NOTE | 2021-11-30 09:27 | P.PNIM_ITS ---
Subjective Subjective Date of Service: 11/30/21 Review of Systems Follow up foot cellulitis with necrotic toe redness is better still with some pain to foot especially necrotic area Physical Exam Vital Signs: Vital Signs: Last Vital Signs Temp 98.3 F 11/30/21 07:37 Pulse 75 11/30/21 07:37 Resp 18 11/30/21 07:37 BP 186/80 H 11/30/21 07:37 Pulse Ox 96 11/30/21 07:37 BMI result Body Mass Index 30.7 Appearing in no acute distress lung sounds are clear to auscultation heart regular rate rhythm, clear S1, S2 positive bowel sounds, abdomen is soft, nontender neuro patient is alert x3, no focal deficits right foot 4th toe necrosis Objective Data Active Medications Acetaminophen (Acetaminophen 325 Mg Tablet) 650 mg PO Q6H PRN PRN Reason: Pain, Mild (Pain Scale 1-3) Last Admin: 11/29/21 17:55 Dose: 650 mg Documented by: MATT Amlodipine Besylate (Amlodipine Besylate 5 Mg Tablet) 5 mg PO DAILY [facility]; Protocol Aspirin (Aspirin 81 Mg Tab.Chew) 81 mg PO DAILY [facility] Last Admin: 11/29/21 08:49 Dose: 81 mg Documented by: MATT Atorvastatin Calcium (Atorvastatin Calcium 80 Mg Tablet) 20 mg PO DAILY@1800 [facility] Last Admin: 11/29/21 17:52 Dose: 20 mg Documented by: MATT Cyanocobalamin (Cyanocobalamin (Vitamin B-12) 1,000 Mcg Tablet) 1,000 mcg PO DAILY@1200 [facility] Last Admin: 11/29/21 11:56 Dose: 1,000 mcg Documented by: MATT Dextrose (Dextrose 50 % 25 Gm/50 Ml Syringe) 25 gm IVPUSH Q15M PRN; Protocol PRN Reason: per Hypoglycemia Standing Ord. Digoxin (Digoxin 0.25 Mg Tablet) 0.25 mg PO BEDTIME [facility] Last Admin: 11/29/21 20:53 Dose: 0.25 mg Documented by: ODRISAga Diltiazem HCl (Diltiazem Hcl Cd 240 Mg Cap.Er.Deg) 240 mg PO DAILY [facility]; Protocol Last Admin: 11/29/21 08:49 Dose: 240 mg Documented by: MATT Docusate Sodium (Docusate Sodium 100 Mg Capsule) 100 mg PO DAILY PRN PRN Reason: Constipation Gabapentin (Gabapentin 100 Mg Capsule) 100 mg PO BID [facility] Last Admin: 11/29/21 20:54 Dose: 100 mg Documented by: ODRISM Glucose (Glucose Gel 15 Gm Gel..Gram.) 15 gm PO Q15M PRN; Protocol PRN Reason: per Hypoglycemia Standing Ord. Hydromorphone HCl (Hydromorphone Hcl 1 Mg/Ml Syringe) 1 mg IVPUSH Q4H PRN; Protocol PRN Reason: Pain, Mild (Pain Scale 1-3) Hydroxychloroquine Sulfate (Hydroxychloroquine Sulfate 200 Mg Tablet) 200 mg PO BID@1200,1800 [facility] Last Admin: 11/29/21 17:53 Dose: 200 mg Documented by: MATT Ceftriaxone Sodium 1 gm/ (Sodium Chloride) 50 mls @ 100 mls/hr IV Q24H [facility] Last Infusion: 11/29/21 13:14 Dose: 0 mls/hr Documented by: MATT Sodium Chloride (Ns) 1,000 mls @ 100 mls/hr IVCONT .Q10H [facility] Last Admin: 11/30/21 06:08 Dose: 100 mls/hr Documented by: LEONEL Insulin Human Lispro (Insulin Lispro 100 Unit/Ml 3 Ml Vial) 0 unit SUBCUT QIDACHS [facility]; Protocol Last Admin: 11/30/21 09:25 Dose: Not Given Documented by: MATT Non-Admin Reason: Off Unit: Surgery Lisinopril (Lisinopril 40 Mg Tablet) 40 mg PO DAILY [facility]; Protocol Last Admin: 11/29/21 08:49 Dose: 40 mg Documented by: MATT Loratadine (Loratadine 10 Mg Tablet) 10 mg PO DAILY [facility] Last Admin: 11/29/21 08:49 Dose: 10 mg Documented by: MATT Metoprolol Succinate (Metoprolol Succinate Er 25 Mg Tab.Er.24h) 75 mg PO DAILY@1800 [facility]; Protocol Last Admin: 11/29/21 17:52 Dose: 75 mg Documented by: MATT Omeprazole (Omeprazole 20 Mg Capsule.) 20 mg PO DAILY@0630 [facility] Last Admin: 11/30/21 06:08 Dose: Not Given Documented by: LEONEL Non-Admin Reason: NPO Oxycodone HCl (Oxycodone Hcl Immed Release 5 Mg Tablet) 5 mg PO Q4H PRN PRN Reason: Pain, Severe (Pain Scale 7-10) Last Admin: 11/29/21 20:53 Dose: 5 mg Documented by: BRAULIO Pharmacy Consult (Consult Rx Perform Med Rec) 1 each MISCELLANE ONCE PRN PRN Reason: Consult order Pharmacy Consult (Consult Rx Vancomycin Dosing) 1 each MISCELLANE DAILY PRN PRN Reason: Consult order Prednisone (Prednisone 5 Mg Tablet) 2.5 mg PO DAILY [facility] Last Admin: 11/29/21 08:50 Dose: 2.5 mg Documented by: MATT Prednisone (Prednisone 5 Mg Tablet) 5 mg PO DAILY@1800 [facility] Last Admin: 11/29/21 17:53 Dose: 5 mg Documented by: MATT Sodium Chloride (0.9 % Sodium Chloride Flush 3 Ml Syringe) 3 ml IVFLUSH QSHIFT [facility] Last Admin: 11/30/21 09:25 Dose: Not Given Documented by: MATT Non-Admin Reason: Off Unit: Surgery Tamsulosin HCl (Tamsulosin Hcl 0.4 Mg Capsule) 0.4 mg PO BID [facility] Last Admin: 11/29/21 20:53 Dose: 0.4 mg Documented by: BRAULIO Labs CBC & Chem 7: 11/27/21 05:04 11/28/21 05:47 Labs: Laboratory Results - last 24 hr 11/29/21 11/29/21 11/29/21 11:26 15:24 19:59 PT INR POC Glucose 155 H 136 H 194 H 11/30/21 11/30/21 05:43 07:20 PT 16.8 H INR 1.5 H POC Glucose 118 H Assessment and Plan (1) PAD (peripheral artery disease): Status: Acute (2) Cellulitis of foot: Status: Acute Plan This is an 81-year-old male with history of diabetes, chronic atrial fibrillation on Coumadin, seronegative rheumatoid arthritis, hypertension, hyperlipidemia who presents with 3 weeks of worsening redness and pain of his right lower extremity Right lower extremity/foot cellulitis. erythema improving , r/t PAD/diabetes has failed outpatient antibiotics with doxycycline/keflex CT scan from 11/23 showing no bone involvement. US negative for DVT S/P Aortogram with right lower extremity runoff, Atherectomy and stent placement of right SFA on 11/30/21 Discussed with vascular surgery, will likely need amputation of toe this week, continue to hold coumadin PAD wound center reports known h/o anterior tibial artery occlusion seen by vascular surgery, repeat arterial testing showing LE disease started on Aspirin continue to hold coumadin in preparation for surgical intervention 1/2 blood cultures positive - growing coag neg staph repeat BCx negative x48 hrs Diabetes SSI, POCs probably diabetic neuropathy started on low dose gabapentin monitor for effect, up titrate prn RA continue plaquenil and prednisone Chronic atrial fibrillation Heart rate controlled continue digoxin, diltiazem, metoprolol hold anticoagulation in preparation for procedure Hypertension Continue lisinopril HLD Continue statin GERD Continue omeprazole BPH Continue Flomax DVT ppx Coumadin on hold, unable to tolerate SCDs due to leg pain Attending-Dr. Fernández full code Patient requires continued hospitalization for treatment of necrotic toe, status post angioplasty with likely amputation of right foot 4th toe this week as per vascular surgeon that will need to be done while inpatient. Quality Stroke Does the patient have a stroke diagnosis?: No VTE Prior VTE?: No VTE Risk Level:: Medical - moderate - high VTE Device Contraindication: Treatment Not Indicated VTE Drug Contraindication: N/A - Med Ordered
[2021-11-30] MEDS: iohexoL 300 MG/ML 100 ML INFUS..BTL IV (09:57)
--- NOTE | 2021-11-30 10:58 | W.PM.OPN ---
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 Ultrasound-guided left common femoral access 2. Aortogram with right lower extremity runoff 3. Atherectomy and stent placement of right SFA Surgeon:Diallo Ernst M.D., FACS, RPVI Health Care Administrator:None Anesthesia: Local with moderate conscious sedation. Total intraservice moderate sedation time was 80 minutes. I monitored the patient's level of consciousness and physiologic status continuously throughout the procedure. Specimens:none Drains:none Estimated blood loss: Less than 10 ml Implant: Medtronic Impact DCB 6 x 40; Medtronic Ev 3 stent 6 x 120 Indications: 81-year-old diabetic gentleman with nonhealing right foot 4th toe. It has actually become gangrenous. Noninvasive testing was concerning for SFA disease. He now presents for endovascular intervention The patient has signed the informed consent after reviewing risks, complications, benefits, and alternatives previously discussed with the patient. The patient was given the opportunity to ask any additional questions or voice any concerns. All questions were answered to the patient's satisfaction. Procedure in detail: Patient was brought to the angiography suite prior to which a time-out was called for patient identification and site verification. Bilateral groins were prepped and draped in the standard surgical fashion. Under ultrasound guidance left common femoral was punctured with micro puncture needle and wire. Subsequently a precision 5 [place]ian sheath was then placed. Bentson wire was advanced to the level of the aorta. 5 [place]ian Flush catheter was brought up and parked at the level of the renal arteries. Aortogram was then undertaken. Catheter was brought down to the level of the iliac bifurcation. Iliacs were subsequently imaged. Catheter was then brought in up and over to the right side SFA. Runoff study was then undertaken. It was discovered that he had significant SFA disease. At this point we exchanged out for an 035 advantage wire. We subsequently placed in up and over 6 [place]ian destination sheath. Once in position we exchanged out for 6 [place]ian spider wire. We subsequently made multiple unidirectional passes through the SFA with a Hawk 1 atherectomy device. Once this was accomplished we noticed towards the distal SFA near the knee there was still residual high-grade stenosis. We placed a 6 x 40 DCB. This was brought into position in under 3 minutes and insufflated for a total of 3 minutes in duration. Once this was accomplished we placed a 6 x 120 stent in the right SFA. This was in the mid SFA. We post dilated with a 6 x 120 balloon. Completion angiogram demonstrated excellent result catheter wire sheath was brought back to the ipsilateral side. StarClose closure device was then deployed. Interpretation of films: 1. Ultrasound demonstrates appropriate femoral puncture. Image of which was saved. 2. Aortogram demonstrates appropriate caliber aorta. Minimal disease. Appropriate take-off of the renals. 3. Iliac images demonstrate no significant disease high tortuosity 4. Right Leg Common femoral artery: No significant disease Profundus Femoris: No significant disease Superficial femoral artery: Multiple calcified lesions throughout the entire length of the SFA high-grade stenosis in the mid to distal SFA Popliteal artery (p1,p2,p3): Patent with no significant disease Anterior tibial artery: Patent to ankle Peroneal artery: Patent to mid calf Posterior tibial artery: Patent to ankle Dorsalis pedis/plantar arch: Incomplete Conclusion: 1. Successful atherectomy and stent of right SFA and use of DCB 2. Anticoagulation status: Continue with aspirin and Coumadin This note is constructed using voice recognition software. While every effort has been made to ensure accuracy, living specialist errors may have been included. Thank you for allowing me to participate in the care of your patient. Yours sincerely, Diallo Ernst MD, FACS, R.P.V.I.
[2021-11-30 11:34] LABS: Glucose, Whole Blood 132 mg/dL (60-115)
[2021-11-30] MEDS: cefTRIAXone sodium 1 GM in 0.9 % Sodium Chloride 50 ML IV (11:47)
[2021-11-30] MEDS: Hydroxychloroquine Sulfate 200 MG TABLET PO ×2 (11:50→18:05)
[2021-11-30] MEDS: Cyanocobalamin (Vitamin B-12) 1,000 MCG TABLET 1000 MCG PO (11:51)
[2021-11-30 16:33] LABS: Glucose, Whole Blood 125 mg/dL (60-115)
[2021-11-30 17:02] LABS: Glucose, Whole Blood 117 mg/dL (60-115)
[2021-11-30] MEDS: predniSONE 5 MG TABLET PO (18:04)
[2021-11-30] MEDS: Metoprolol Succinate ER 25 MG TAB.ER.24H 75 MG PO (18:05)
[2021-11-30] MEDS: Atorvastatin Calcium 80 MG TABLET 20 MG PO (18:05)
[2021-11-30] MEDS: oxyCODONE HCl Immed Release 5 MG TABLET PO (18:06)
[2021-11-30 19:56] LABS: Glucose, Whole Blood 157 mg/dL (60-115)
[2021-11-30] MEDS: Gabapentin 100 MG CAPSULE PO (20:02)
[2021-11-30] MEDS: Digoxin 0.25 MG TABLET PO (20:02)
[2021-11-30] MEDS: Tamsulosin HCL 0.4 MG CAPSULE PO (20:02)
[2021-11-30] MEDS: 0.9 % Sodium Chloride Flush 3 ML SYRINGE IVFLUSH (20:04)
[2021-12-01] VITALS (8 sets, daily range): BP systolic 137–166; BP diastolic 71–88; PULSE 69–90; RESP 17–20; TEMP 36.2–36.9; O2SAT 93–96
[2021-12-01] MEDS: 0.9 % Sodium Chloride 1,000 ML 100 ML IVCONT (03:29)
[2021-12-01] MEDS: oxyCODONE HCl Immed Release 5 MG TABLET PO ×4 (03:32→19:50)
[2021-12-01] MEDS: Omeprazole 20 MG CAPSULE.DR PO (06:33)
[2021-12-01 06:46] LABS: INTERNATIONAL NORM RATIO 1.3 (0.9-1.1); Prothrombin Time 15.2 SEC (9.9-13.0)
[2021-12-01 06:51] LABS: Hematocrit 39.1 % (42.0-52.0); Hemoglobin 12.5 g/dl (14.0-18.0); Mean Corpuscular Hemoglobin 33.1 pg (27.0-33.0); Mean Corpuscular Volume 103.4 fL (80.0-98.0); Mean Platelet Volume 10.9 fL (9.4-12.4); Platelet Count 297 X10*3/uL (160-400); Red Blood Count 3.78 X10*6/uL (4.60-5.80); Red Cell Distribution Width 13.9 % (11.0-16.0)
[2021-12-01 07:02] LABS: Anion Gap 12 (12-20); Blood Urea Nitrogen 16 mg/dL (9-16); Calcium 8.7 mg/dL (8.4-10.2); Carbon Dioxide 28 mmol/L (22-29); Chloride 105 mmol/L (96-108); Creatinine Clr Calc Pharmacy 84.1; Estimated Glomerular Filt Rate > 60; Glucose Random 99 mg/dL (60-115); Sodium 141 mmol/L (135-145)
[2021-12-01 07:50] LABS: Glucose, Whole Blood 96 mg/dL (60-115)
[2021-12-01] MEDS: Aspirin 81 MG TAB.CHEW PO (08:40)
[2021-12-01] MEDS: Gabapentin 100 MG CAPSULE PO ×2 (08:41→19:44)
[2021-12-01] MEDS: Loratadine 10 MG TABLET PO (08:41)
[2021-12-01] MEDS: Tamsulosin HCL 0.4 MG CAPSULE PO ×2 (08:41→19:44)
[2021-12-01] MEDS: dilTIAZem HCL CD 240 MG CAP.ER.DEG PO (08:41)
[2021-12-01] MEDS: amLODIPine Besylate 5 MG TABLET PO (08:41)
[2021-12-01] MEDS: predniSONE 5 MG TABLET 2.5 MG PO (08:41)
[2021-12-01] MEDS: lisinopriL 40 MG TABLET PO (08:42)
[2021-12-01] MEDS: cefTRIAXone sodium 1 GM in 0.9 % Sodium Chloride 50 ML IV (09:16)
--- NOTE | 2021-12-01 10:35 | HO.VASCPN ---
Subjective Subjective Date of Service: 12/01/21 Patient reports: no new complaints and feels better Interval history: Patient doing well. No significant events overnight. States that his right lower extremity feels warmer. He has had no interval issues. Pain well controlled. Physical Exam Vital Signs: Vital Signs: Last Vital Signs Temp 98.1 F 12/01/21 03:30 Pulse 90 12/01/21 03:30 Resp 18 12/01/21 03:30 BP 148/88 H 12/01/21 03:30 Pulse Ox 96 12/01/21 03:30 O2 Del Method 12/01/21 03:30 O2 Flow Rate 90 11/29/21 15:49 BMI result Body Mass Index 30.7 Const: General: cooperative, healthy appearing and no acute distress Orientation/consciousness: oriented to person, oriented to place and oriented to time HEENT: Head: Yes normal to inspection Neck: Carotids: no bruits Chest: Chest palpation & inspection: normal inspection of the chest Resp: Effort & Inspection: normal respiratory effort and able to speak in complete sentences Auscultation: clear to auscultation bilaterally Cardio: Rate: regular rate Heart sounds: S1 normal heart sound present and S2 normal heart sound present GI: Inspection: Yes normal to inspection Skin: Wounds: wounds noted (Right 4th toe gangrene) Neuro: General: oriented to person, oriented to place, oriented to time and CN's II-XI intact bilaterally Extrem: General: Yes normal to inspection, Yes full ROM and Yes no clubbing, cyanosis or edema Psych: Appearance: grossly normal and well kempt Speech and movement: Normal speech and movement present Affect: normal affect Progress Note: A&P Assessment and plan (1) PAD (peripheral artery disease): Status: Acute Assessment and Plan: Patient has done well with endovascular intervention of the right lower extremity. The patient had atherectomy and stenting of the SFA. His right 4th toe has gangrene. He will require right 4th toe amputation. Risks benefits complications were discussed in detail with the patient patient agreed and would like to move forward will schedule for tomorrow. Time Spent With Patient Time: Total time spent is greater than 50% in coordination of care (as documented) at patient's floor/unit and/or counseling patient: Procedures Date of Service Date of Service: 12/01/21 Quality Stroke Does the patient have a stroke diagnosis?: No VTE Prior VTE?: No VTE Risk Level:: Medical - moderate - high VTE Device Contraindication: Treatment Not Indicated VTE Drug Contraindication: N/A - Med Ordered
[2021-12-01] MEDS: HYDROmorphone HCl 1 MG/ML SYRINGE IVPUSH (11:09)
--- NOTE | 2021-12-01 11:14 | P.PNIM_ITS ---
Subjective Subjective Date of Service: 12/01/21 Interval History: cc: black toe interval history:diffuse joint pain Cardiovascular Cardiovascular: Reports no additional cardiovascular complaints Respiratory Respiratory: Reports no additional respiratory complaints Physical Exam Vital Signs: Vital Signs: Last Vital Signs Temp 98.1 F 12/01/21 03:30 Pulse 90 12/01/21 03:30 Resp 18 12/01/21 03:30 BP 148/88 H 12/01/21 03:30 Pulse Ox 96 12/01/21 03:30 O2 Del Method 12/01/21 03:30 O2 Flow Rate 90 11/29/21 15:49 BMI result Body Mass Index 30.7 Appearing in no acute distress lung sounds are clear to auscultation heart regular rate rhythm, clear S1, S2 positive bowel sounds, abdomen is soft, nontender neuro patient is alert x3, no focal deficits right foot 4th toe necrosis Objective Data Active Medications Acetaminophen (Acetaminophen 325 Mg Tablet) 650 mg PO Q6H PRN PRN Reason: Pain, Mild (Pain Scale 1-3) Last Admin: 11/29/21 17:55 Dose: 650 mg Documented By: MATT Amlodipine Besylate (Amlodipine Besylate 5 Mg Tablet) 5 mg PO DAILY [facility]; Protocol Last Admin: 12/01/21 08:41 Dose: 5 mg Documented By: RASHID Aspirin (Aspirin 81 Mg Tab.Chew) 81 mg PO DAILY [facility] Last Admin: 12/01/21 08:40 Dose: 81 mg Documented By: RASHID Atorvastatin Calcium (Atorvastatin Calcium 80 Mg Tablet) 20 mg PO DAILY@1800 [facility] Last Admin: 11/30/21 18:05 Dose: 20 mg Documented By: MATT Cyanocobalamin (Cyanocobalamin (Vitamin B-12) 1,000 Mcg Tablet) 1,000 mcg PO DAILY@1200 [facility] Last Admin: 11/30/21 11:51 Dose: 1,000 mcg Documented By: MATT Dextrose (Dextrose 50 % 25 Gm/50 Ml Syringe) 25 gm IVPUSH Q15M PRN; Protocol PRN Reason: per Hypoglycemia Standing Ord. Digoxin (Digoxin 0.25 Mg Tablet) 0.25 mg PO BEDTIME [facility] Last Admin: 11/30/21 20:02 Dose: 0.25 mg Documented By: DAVID Diltiazem HCl (Diltiazem Hcl Cd 240 Mg Cap.Er.Deg) 240 mg PO DAILY [facility]; Protocol Last Admin: 12/01/21 08:41 Dose: 240 mg Documented By: RASHID Docusate Sodium (Docusate Sodium 100 Mg Capsule) 100 mg PO DAILY PRN PRN Reason: Constipation Gabapentin (Gabapentin 100 Mg Capsule) 100 mg PO BID [facility] Last Admin: 12/01/21 08:41 Dose: 100 mg Documented By: RASHID Glucose (Glucose Gel 15 Gm Gel..Gram.) 15 gm PO Q15M PRN; Protocol PRN Reason: per Hypoglycemia Standing Ord. Hydromorphone HCl (Hydromorphone Hcl 1 Mg/Ml Syringe) 1 mg IVPUSH Q4H PRN; Protocol PRN Reason: Pain, Mild (Pain Scale 1-3) Last Admin: 12/01/21 11:09 Dose: 1 mg Documented By: ALEXIS Hydroxychloroquine Sulfate (Hydroxychloroquine Sulfate 200 Mg Tablet) 200 mg PO BID@1200,1800 [facility] Last Admin: 11/30/21 18:05 Dose: 200 mg Documented By: MATT Ceftriaxone Sodium 1 gm/ (Sodium Chloride) 50 mls @ 100 mls/hr IV Q24H [facility] Last Admin: 12/01/21 09:16 Dose: 100 mls/hr Documented By: RASHID Sodium Chloride (Ns) 1,000 mls @ 100 mls/hr IVCONT .Q10H [facility] Last Admin: 12/01/21 03:29 Dose: 100 mls/hr Documented By: DAVID Insulin Human Lispro (Insulin Lispro 100 Unit/Ml 3 Ml Vial) 0 unit SUBCUT QIDACHS [facility]; Protocol Last Admin: 12/01/21 07:58 Dose: Not Given Documented By: ALEXIS Non-Admin Reason: No Insulin Coverage Lisinopril (Lisinopril 40 Mg Tablet) 40 mg PO DAILY [facility]; Protocol Last Admin: 12/01/21 08:42 Dose: 40 mg Documented By: RASHID Loratadine (Loratadine 10 Mg Tablet) 10 mg PO DAILY [facility] Last Admin: 12/01/21 08:41 Dose: 10 mg Documented By: RSAHID Metoprolol Succinate (Metoprolol Succinate Er 25 Mg Tab.Er.24h) 75 mg PO DAILY@1800 [facility]; Protocol Last Admin: 11/30/21 18:05 Dose: 75 mg Documented By: MATT Morphine Sulfate (Morphine Sulfate 4 Mg/Ml Cartridge) 4 mg IVPUSH Q2H PRN; Protocol PRN Reason: Pain, Severe (Pain Scale 7-10) Omeprazole (Omeprazole 20 Mg Capsule.Dr) 20 mg PO DAILY@0630 [facility] Last Admin: 12/01/21 06:33 Dose: 20 mg Documented By: DAVID Oxycodone HCl (Oxycodone Hcl Immed Release 5 Mg Tablet) 5 mg PO Q4H PRN PRN Reason: Pain, Severe (Pain Scale 7-10) Last Admin: 12/01/21 08:49 Dose: 5 mg Documented By: RASHID Pharmacy Consult (Consult Rx Perform Med Rec) 1 each MISCELLANE ONCE PRN PRN Reason: Consult order Pharmacy Consult (Consult Rx Vancomycin Dosing) 1 each MISCELLANE DAILY PRN PRN Reason: Consult order Prednisone (Prednisone 5 Mg Tablet) 2.5 mg PO DAILY [facility] Last Admin: 12/01/21 08:41 Dose: 2.5 mg Documented By: RASHID Prednisone (Prednisone 5 Mg Tablet) 5 mg PO DAILY@1800 [facility] Last Admin: 11/30/21 18:04 Dose: 5 mg Documented By: MATT Sodium Chloride (0.9 % Sodium Chloride Flush 3 Ml Syringe) 3 ml IVFLUSH QSHIFT [facility] Last Admin: 11/30/21 20:04 Dose: 3 ml Documented By: DAVID Tamsulosin HCl (Tamsulosin Hcl 0.4 Mg Capsule) 0.4 mg PO BID [facility] Last Admin: 12/01/21 08:41 Dose: 0.4 mg Documented By: RASHID Labs CBC & Chem 7: 12/01/21 06:13 12/01/21 06:13 Labs: Laboratory Results - last 24 hr 11/30/21 11/30/21 11/30/21 11:04 16:08 16:47 MCV MCH MCHC RDW Plt Count MPV Absolute Nucleated RBC Nucleated RBC % (auto) PT INR Anion Gap Estim Creat Clear Calc Estimated GFR POC Glucose 132 H 125 H 117 H Random Glucose Calcium 11/30/21 12/01/21 12/01/21 19:51 06:13 06:13 MCV 103.4 H MCH 33.1 H MCHC 32.0 RDW 13.9 Plt Count 297 D MPV 10.9 Absolute Nucleated RBC 0.000 Nucleated RBC % (auto) 0.0 PT INR Anion Gap 12 Estim Creat Clear Calc 84.1 Estimated GFR > 60 POC Glucose 157 H Random Glucose 99 Calcium 8.7 12/01/21 12/01/21 06:13 07:31 MCV MCH MCHC RDW Plt Count MPV Absolute Nucleated RBC Nucleated RBC % (auto) PT 15.2 H INR 1.3 H Anion Gap Estim Creat Clear Calc Estimated GFR POC Glucose 96 Random Glucose Calcium Microbiology Microbiology Results: Microbiology 11/25/21 10:47 Blood Culture - Final Blood - Venous No growth after 5 days. 11/25/21 10:28 Blood Culture - Final Blood - Venous No growth after 5 days. Assessment and Plan (1) PAD (peripheral artery disease): Status: Acute (2) Cellulitis of foot: Status: Acute Plan This is an 81-year-old male with history of diabetes, chronic atrial fibrillation on Coumadin, seronegative rheumatoid arthritis, hypertension, hy perlipidemia who presents with 3 weeks of worsening redness and pain of his right lower extremity Right lower extremity/foot cellulitis. erythema improving , due to PAD/diabetes has failed outpatient antibiotics with doxycycline/keflex CT scan from 11/23 showing no bone involvement. US negative for DVT S/P Aortogram with right lower extremity runoff, Atherectomy and stent placement of right SFA on 11/30/21 plan for toe amputation on 12/02/21 asa, statin Diabetes SSI, POCs probably diabetic neuropathy started on low dose gabapentin monitor for effect, up titrate prn RA continue plaquenil and prednisone Chronic atrial fibrillation Heart rate controlled continue digoxin, diltiazem, metoprolol hold anticoagulation in preparation for procedure Hypertension Continue lisinopril HLD Continue statin GERD Continue omeprazole BPH Continue Flomax DVT ppx Coumadin on hold, unable to tolerate SCDs due to leg pain full code Patient requires continued hospitalization for treatment of necrotic toe, status post angioplasty with plan for amputation of right foot 4th toe that will need to be done while inpatient. Quality Stroke Does the patient have a stroke diagnosis?: No VTE Prior VTE?: No VTE Risk Level:: Medical - moderate - high VTE Device Contraindication: Treatment Not Indicated VTE Drug Contraindication: N/A - Med Ordered
[2021-12-01 11:34] LABS: Glucose, Whole Blood 108 mg/dL (60-115)
[2021-12-01] MEDS: Cyanocobalamin (Vitamin B-12) 1,000 MCG TABLET 1000 MCG PO (14:11)
[2021-12-01] MEDS: Hydroxychloroquine Sulfate 200 MG TABLET PO ×2 (14:11→19:44)
[2021-12-01] MEDS: Acetaminophen 325 MG TABLET 650 MG PO (14:15)
[2021-12-01 15:30] LABS: Glucose, Whole Blood 168 mg/dL (60-115)
[2021-12-01] MEDS: Insulin Lispro 100 UNIT/ML 3 ML VIAL SUBCUT ×2 (16:34→21:33)
[2021-12-01] MEDS: Atorvastatin Calcium 80 MG TABLET 20 MG PO (16:35)
[2021-12-01] MEDS: 0.9 % Sodium Chloride Flush 3 ML SYRINGE IVFLUSH (16:35)
[2021-12-01] MEDS: predniSONE 5 MG TABLET PO (16:36)
[2021-12-01] MEDS: Metoprolol Succinate ER 25 MG TAB.ER.24H 75 MG PO (16:37)
[2021-12-01] MEDS: Digoxin 0.25 MG TABLET PO (19:46)
[2021-12-01 20:08] LABS: Glucose, Whole Blood 206 mg/dL (60-115)
[2021-12-02] VITALS (15 sets, daily range): BP systolic 106–191; BP diastolic 57–98; PULSE 64–85; RESP 14–18; TEMP -12.9–37.1; O2SAT 91–96
[2021-12-02] MEDS: 0.9 % Sodium Chloride Flush 3 ML SYRINGE IVFLUSH ×3 (01:35→15:30)
[2021-12-02] MEDS: oxyCODONE HCl Immed Release 5 MG TABLET PO ×4 (04:00→20:26)
[2021-12-02] MEDS: HYDROmorphone HCl 1 MG/ML SYRINGE IVPUSH (06:05)
[2021-12-02] MEDS: Omeprazole 20 MG CAPSULE.DR PO (06:06)
[2021-12-02 06:27] LABS: Hematocrit 39.4 % (42.0-52.0); Hemoglobin 12.5 g/dl (14.0-18.0); Mean Corpuscular HGB Conc 31.7 g/dl (31.0-36.0); Mean Corpuscular Hemoglobin 32.8 pg (27.0-33.0); Mean Corpuscular Volume 103.4 fL (80.0-98.0); Mean Platelet Volume 11.1 fL (9.4-12.4); Platelet Count 284 X10*3/uL (160-400); Red Blood Count 3.81 X10*6/uL (4.60-5.80); Red Cell Distribution Width 13.8 % (11.0-16.0); White Blood Count 9.8 X10*3/uL (4.8-10.8)
[2021-12-02 06:38] LABS: INTERNATIONAL NORM RATIO 1.2 (0.9-1.1); Prothrombin Time 13.6 SEC (9.9-13.0)
[2021-12-02 06:41] LABS: Anion Gap 13 (12-20); Blood Urea Nitrogen 19 mg/dL (9-16); Calcium 8.8 mg/dL (8.4-10.2); Carbon Dioxide 26 mmol/L (22-29); Chloride 106 mmol/L (96-108); Estimated Glomerular Filt Rate > 60; Glucose Fasting 100 mg/dL (60-99); Potassium 4.1 mmol/L (3.3-5.1); Sodium 141 mmol/L (135-145)
[2021-12-02 07:37] LABS: Glucose, Whole Blood 120 mg/dL (60-115)
[2021-12-02] MEDS: Gabapentin 100 MG CAPSULE PO ×2 (08:03→20:25)
[2021-12-02] MEDS: Tamsulosin HCL 0.4 MG CAPSULE PO ×2 (08:03→20:25)
[2021-12-02] MEDS: amLODIPine Besylate 5 MG TABLET PO (08:03)
[2021-12-02] MEDS: dilTIAZem HCL CD 240 MG CAP.ER.DEG PO (08:03)
[2021-12-02] MEDS: Acetaminophen 325 MG TABLET 650 MG PO (08:04)
[2021-12-02 10:51] LABS: Glucose, Whole Blood 101 mg/dL (60-115)
--- NOTE | 2021-12-02 10:53 | P.PNIM_ITS ---
Subjective Subjective Date of Service: 12/02/21 Interval History: cc: black toe interval history: joint pain Cardiovascular Cardiovascular: Reports no additional cardiovascular complaints Respiratory Respiratory: Reports no additional respiratory complaints Physical Exam Vital Signs: Vital Signs: Last Vital Signs Temp 98.2 F 12/02/21 10:23 Pulse 73 12/02/21 10:23 Resp 18 12/02/21 10:23 BP 186/98 H 12/02/21 10:23 Pulse Ox 96 12/02/21 10:23 O2 Del Method 12/02/21 10:23 O2 Flow Rate 90 11/29/21 15:49 BMI result Body Mass Index 30.7 Appearing in no acute distress lung sounds are clear to auscultation heart regular rate rhythm, clear S1, S2 positive bowel sounds, abdomen is soft, nontender neuro patient is alert x3, no focal deficits right foot 4th toe necrosis Objective Data Active Medications Acetaminophen (Acetaminophen 325 Mg Tablet) 650 mg PO Q6H PRN PRN Reason: Pain, Mild (Pain Scale 1-3) Last Admin: 12/02/21 08:04 Dose: 650 mg Documented By: ALEXIS Amlodipine Besylate (Amlodipine Besylate 5 Mg Tablet) 5 mg PO DAILY [facility]; Protocol Last Admin: 12/02/21 08:03 Dose: 5 mg Documented By: ALEXIS Aspirin (Aspirin 81 Mg Tab.Chew) 81 mg PO DAILY [facility] Last Admin: 12/02/21 08:12 Dose: Not Given Documented By: ALEXIS Non-Admin Reason: NPO Atorvastatin Calcium (Atorvastatin Calcium 80 Mg Tablet) 20 mg PO DAILY@1800 [facility] Last Admin: 12/01/21 16:35 Dose: 20 mg Documented By: DELILAH Cyanocobalamin (Cyanocobalamin (Vitamin B-12) 1,000 Mcg Tablet) 1,000 mcg PO DAILY@1200 [facility] Last Admin: 12/01/21 14:11 Dose: 1,000 mcg Documented By: ALEXIS Dextrose (Dextrose 50 % 25 Gm/50 Ml Syringe) 25 gm IVPUSH Q15M PRN; Protocol PRN Reason: per Hypoglycemia Standing Ord. Digoxin (Digoxin 0.25 Mg Tablet) 0.25 mg PO BEDTIME [facility] Last Admin: 12/01/21 19:46 Dose: 0.25 mg Documented By: DELILAH Diltiazem HCl (Diltiazem Hcl Cd 240 Mg Cap.Er.Deg) 240 mg PO DAILY [facility]; Protocol Last Admin: 12/02/21 08:03 Dose: 240 mg Documented By: ALEXIS Docusate Sodium (Docusate Sodium 100 Mg Capsule) 100 mg PO DAILY PRN PRN Reason: Constipation Gabapentin (Gabapentin 100 Mg Capsule) 100 mg PO BID [facility] Last Admin: 12/02/21 08:03 Dose: 100 mg Documented By: ALEXIS Glucose (Glucose Gel 15 Gm Gel..Gram.) 15 gm PO Q15M PRN; Protocol PRN Reason: per Hypoglycemia Standing Ord. Hydromorphone HCl (Hydromorphone Hcl 1 Mg/Ml Syringe) 1 mg IVPUSH Q4H PRN; Protocol PRN Reason: Pain, Mild (Pain Scale 1-3) Last Admin: 12/02/21 06:05 Dose: 1 mg Documented By: SHERRY Hydroxychloroquine Sulfate (Hydroxychloroquine Sulfate 200 Mg Tablet) 200 mg PO BID@1200,1800 [facility] Last Admin: 12/01/21 19:44 Dose: 200 mg Documented By: DELILAH Ceftriaxone Sodium 1 gm/ (Sodium Chloride) 50 mls @ 100 mls/hr IV Q24H [facility] Last Infusion: 12/01/21 11:14 Dose: 0 mls/hr Documented By: ALEXIS Insulin Human Lispro (Insulin Lispro 100 Unit/Ml 3 Ml Vial) 0 unit SUBCUT QIDACHS [facility]; Protocol Last Admin: 12/02/21 07:59 Dose: Not Given Documented By: ALEXIS Non-Admin Reason: NPO Lisinopril (Lisinopril 40 Mg Tablet) 40 mg PO DAILY [facility]; Protocol Last Admin: 12/02/21 08:12 Dose: Not Given Documented By: ALEXIS Non-Admin Reason: NPO Loratadine (Loratadine 10 Mg Tablet) 10 mg PO DAILY [facility] Last Admin: 12/02/21 08:12 Dose: Not Given Documented By: ALEXIS Non-Admin Reason: NPO Metoprolol Succinate (Metoprolol Succinate Er 25 Mg Tab.Er.24h) 75 mg PO DAILY@1800 [facility]; Protocol Last Admin: 12/01/21 16:37 Dose: 75 mg Documented By: DELILAH Morphine Sulfate (Morphine Sulfate 4 Mg/Ml Cartridge) 4 mg IVPUSH Q2H PRN; Protocol PRN Reason: Pain, Severe (Pain Scale 7-10) Omeprazole (Omeprazole 20 Mg Capsule.Dr) 20 mg PO DAILY@0630 [facility] Last Admin: 12/02/21 06:06 Dose: 20 mg Documented By: SHERRY Oxycodone HCl (Oxycodone Hcl Immed Release 5 Mg Tablet) 5 mg PO Q4H PRN PRN Reason: Pain, Severe (Pain Scale 7-10) Last Admin: 12/02/21 08:04 Dose: 5 mg Documented By: ALEXIS Pharmacy Consult (Consult Rx Perform Med Rec) 1 each MISCELLANE ONCE PRN PRN Reason: Consult order Pharmacy Consult (Consult Rx Vancomycin Dosing) 1 each MISCELLANE DAILY PRN PRN Reason: Consult order Prednisone (Prednisone 5 Mg Tablet) 2.5 mg PO DAILY [facility] Last Admin: 12/02/21 08:12 Dose: Not Given Documented By: ALEXIS Non-Admin Reason: NPO Prednisone (Prednisone 5 Mg Tablet) 5 mg PO DAILY@1800 [facility] Last Admin: 12/01/21 16:36 Dose: 5 mg Documented By: DELILAH Sodium Chloride (0.9 % Sodium Chloride Flush 3 Ml Syringe) 3 ml IVFLUSH QSHIFT [facility] Last Admin: 12/02/21 08:12 Dose: 3 ml Documented By: ALEXIS Tamsulosin HCl (Tamsulosin Hcl 0.4 Mg Capsule) 0.4 mg PO BID [facility] Last Admin: 12/02/21 08:03 Dose: 0.4 mg Documented By: ALEXIS Labs CBC & Chem 7: 12/02/21 05:50 12/02/21 05:50 Labs: Laboratory Results - last 24 hr 12/01/21 12/01/21 12/01/21 11:24 15:02 19:54 MCV MCH MCHC RDW Plt Count MPV Absolute Nucleated RBC Nucleated RBC % (auto) PT INR Anion Gap Estim Creat Clear Calc Estimated GFR POC Glucose 108 168 H 206 H Fasting Glucose Calcium 12/02/21 12/02/21 12/02/21 05:50 05:50 05:50 MCV 103.4 H MCH 32.8 MCHC 31.7 RDW 13.8 Plt Count 284 MPV 11.1 Absolute Nucleated RBC 0.000 Nucleated RBC % (auto) 0.0 PT 13.6 H INR 1.2 H Anion Gap 13 Estim Creat Clear Calc 82.0 Estimated GFR > 60 POC Glucose Fasting Glucose 100 H Calcium 8.8 12/02/21 12/02/21 07:20 10:42 MCV MCH MCHC RDW Plt Count MPV Absolute Nucleated RBC Nucleated RBC % (auto) PT INR Anion Gap Estim Creat Clear Calc Estimated GFR POC Glucose 120 H 101 Fasting Glucose Calcium Assessment and Plan (1) PAD (peripheral artery disease): Status: Acute (2) Cellulitis of foot: Status: Acute Plan This is an 81-year-old male with history of diabetes, chronic atrial fib rillation on Coumadin, seronegative rheumatoid arthritis, hypertension, hyperlipidemia who presents with 3 weeks of worsening redness and pain of his right lower extremity Right lower extremity/foot cellulitis. erythema improving , due to PAD/diabetes has failed outpatient antibiotics with doxycycline/keflex CT scan from 11/23 showing no bone involvement. US negative for DVT S/P Aortogram with right lower extremity runoff, Atherectomy and stent placement of right SFA on 11/30/21 plan for toe amputation today 12/02/21 asa, statin Diabetes SSI, POCs probably diabetic neuropathy started on low dose gabapentin RA continue plaquenil and prednisone Chronic atrial fibrillation Heart rate controlled continue digoxin, diltiazem, metoprolol hold anticoagulation in preparation for procedure Hypertension Continue lisinopril HLD Continue statin GERD Continue omeprazole BPH Continue Flomax DVT ppx Coumadin on hold, unable to tolerate SCDs due to leg pain full code Patient requires continued hospitalization for treatment of necrotic toe, status post angioplasty with plan for amputation of right foot 4th toe that will need to be done while inpatient. Quality Stroke Does the patient have a stroke diagnosis?: No VTE Prior VTE?: No VTE Risk Level:: Medical - moderate - high VTE Device Contraindication: Treatment Not Indicated VTE Drug Contraindication: N/A - Med Ordered
--- NOTE | 2021-12-02 11:35 | P.CONAN_ITS ---
HPI - Anesthesia Eval Consult details Narrative: 81yo male patient for Right 4th toe amputation PMFSH Active Problems Active Problems: All Active Problems (Updated 11/26/21 @ 15:25 by Carmen Zeng MD) Foot pain, right (Acute) Cellulitis of foot (Acute) Osteoarthritis of left knee (Acute) USP use of drug (Acute) Iron deficiency anemia (Acute) Osteoarthritis of knees, bilateral (Acute) Combined hyperlipidemia (Acute) Chronic atrial fibrillation (Acute) PAD (peripheral artery disease) (Acute) Type 2 diabetes mellitus (Acute) CKD (chronic kidney disease) stage 3, GFR 30-59 ml/min (Acute) Seronegative rheumatoid arthritis (Acute) Incomplete emptying of bladder due to benign prostatic hyperplasia (Acute) Elevated PSA (Acute) Past Medical History Medical History Chronic atrial fibrillation CKD (chronic kidney disease) stage 3, GFR 30-59 ml/min Combined hyperlipidemia Foot pain, right Iron deficiency anemia USP use of drug Osteoarthritis of knees, bilateral PAD (peripheral artery disease) Seronegative rheumatoid arthritis Type 2 diabetes mellitus Family History Family history of problems with anesthesia: No Surgical History Surgical History History of left hip replacement Hx of left knee surgery History of Problems with Anesthesia: No Social History Social History Household Members: None Household Members Other:: lives alone Housing: House Are you a primary home care giver to a significant other at home: No Do you presently have visiting nurse or other home services: No Alcohol intake: current Alcohol intake frequency: 0-2 drinks per day Patient Tobacco Use Status: Former Tobacco user Quit Date: 1961 Smoked: quit 55 years ago e-Cigarette/Vaping Use: Never Used Patient Interested in Nicotine Replacement: No Patient Given Instructions on How to Stop Smoking: No Second Hand Smoke Exposure: No Use of substances other than those prescribed or required for medical reasons: No Currently Displaying Signs/Symptoms of Drug Intoxication Withdrawal: No Have you been hit, kicked, punched, or otherwise hurt by someone within the past year? If so, by whom?: No Do you feel safe in your current relationship?: No Current Relationship Is there a partner from a previous relationship who is making you feel unsafe now?: No Are you made to feel afraid or neglected: No Are you DNR?: No Advance Directives: Yes Advance Directives Information Provided: No Advance Directives on File: No Advance Directives Date on File: 11/25/21 Do you have thoughts of harming others: None Do you have a plan to hurt others: No Plan Recently lost weight without trying: No How much weight loss: Not applicable Eating poorly because of decreased appetite: No Nutrition screen score: 0 Nutrition Risks: No Nutritional Risk service: No Current occupational status: retired Meds Allergies Allergy/AdvReac Type Severity Reaction Status Date / Time levofloxacin [From Levaquin] Allergy Severe impaired Verified 11/23/21 10:16 kidney function canagliflozin [From Invokana] Allergy Intermediate Unknown Verified 11/23/21 10:16 clindamycin Allergy Intermediate Heartburn Verified 11/23/21 10:16 penicillins Allergy Intermediate blisters Uncoded 10/18/21 11:46 Active Medications: Current Medications Acetaminophen (Acetaminophen 325 Mg Tablet) 650 mg PO Q6H PRN PRN Reason: Pain, Mild (Pain Scale 1-3) Last Admin: 12/02/21 08:04 Dose: 650 mg Amlodipine Besylate (Amlodipine Besylate 5 Mg Tablet) 5 mg PO DAILY KELSI; Protoc ol Last Admin: 12/02/21 08:03 Dose: 5 mg Aspirin (Aspirin 81 Mg Tab.Chew) 81 mg PO DAILY [facility] Last Admin: 12/02/21 08:12 Dose: Not Given Atorvastatin Calcium (Atorvastatin Calcium 80 Mg Tablet) 20 mg PO DAILY@1800 [facility] Last Admin: 12/01/21 16:35 Dose: 20 mg Cyanocobalamin (Cyanocobalamin (Vitamin B-12) 1,000 Mcg Tablet) 1,000 mcg PO DAILY@1200 [facility] Last Admin: 12/01/21 14:11 Dose: 1,000 mcg Dextrose (Dextrose 50 % 25 Gm/50 Ml Syringe) 25 gm IVPUSH Q15M PRN; Protocol PRN Reason: per Hypoglycemia Standing Ord. Digoxin (Digoxin 0.25 Mg Tablet) 0.25 mg PO BEDTIME [facility] Last Admin: 12/01/21 19:46 Dose: 0.25 mg Diltiazem HCl (Diltiazem Hcl Cd 240 Mg Cap.Er.Deg) 240 mg PO DAILY KELSI; Protocol Last Admin: 12/02/21 08:03 Dose: 240 mg Docusate Sodium (Docusate Sodium 100 Mg Capsule) 100 mg PO DAILY PRN PRN Reason: Constipation Gabapentin (Gabapentin 100 Mg Capsule) 100 mg PO BID [facility] Last Admin: 12/02/21 08:03 Dose: 100 mg Glucose (Glucose Gel 15 Gm Gel..Gram.) 15 gm PO Q15M PRN; Protocol PRN Reason: per Hypoglycemia Standing Ord. Hydromorphone HCl (Hydromorphone Hcl 1 Mg/Ml Syringe) 1 mg IVPUSH Q4H PRN; Protocol PRN Reason: Pain, Mild (Pain Scale 1-3) Last Admin: 12/02/21 06:05 Dose: 1 mg Hydroxychloroquine Sulfate (Hydroxychloroquine Sulfate 200 Mg Tablet) 200 mg PO BID@1200,1800 [facility] Last Admin: 12/01/21 19:44 Dose: 200 mg Ceftriaxone Sodium 1 gm/ (Sodium Chloride) 50 mls @ 100 mls/hr IV Q24H [facility] Last Infusion: 12/01/21 11:14 Dose: Infused Insulin Human Lispro (Insulin Lispro 100 Unit/Ml 3 Ml Vial) 0 unit SUBCUT QIDACHS [facility]; Protocol Last Admin: 12/02/21 07:59 Dose: Not Given Lisinopril (Lisinopril 40 Mg Tablet) 40 mg PO DAILY [facility]; Protocol Last Admin: 12/02/21 08:12 Dose: Not Given Loratadine (Loratadine 10 Mg Tablet) 10 mg PO DAILY [facility] Last Admin: 12/02/21 08:12 Dose: Not Given Metoprolol Succinate (Metoprolol Succinate Er 25 Mg Tab.Er.24h) 75 mg PO DAILY@1800 [facility]; Protocol Last Admin: 12/01/21 16:37 Dose: 75 mg Morphine Sulfate (Morphine Sulfate 4 Mg/Ml Cartridge) 4 mg IVPUSH Q2H PRN; Protocol PRN Reason: Pain, Severe (Pain Scale 7-10) Omeprazole (Omeprazole 20 Mg Capsule.Dr) 20 mg PO DAILY@0630 [facility] Last Admin: 12/02/21 06:06 Dose: 20 mg Oxycodone HCl (Oxycodone Hcl Immed Release 5 Mg Tablet) 5 mg PO Q4H PRN PRN Reason: Pain, Severe (Pain Scale 7-10) Last Admin: 12/02/21 08:04 Dose: 5 mg Pharmacy Consult (Consult Rx Perform Med Rec) 1 each MISCELLANE ONCE PRN PRN Reason: Consult order Pharmacy Consult (Consult Rx Vancomycin Dosing) 1 each MISCELLANE DAILY PRN PRN Reason: Consult order Prednisone (Prednisone 5 Mg Tablet) 2.5 mg PO DAILY [facility] Last Admin: 12/02/21 08:12 Dose: Not Given Prednisone (Prednisone 5 Mg Tablet) 5 mg PO DAILY@1800 [facility] Last Admin: 12/01/21 16:36 Dose: 5 mg Sodium Chloride (0.9 % Sodium Chloride Flush 3 Ml Syringe) 3 ml IVFLUSH QSHIFT [facility] Last Admin: 12/02/21 08:12 Dose: 3 ml Tamsulosin HCl (Tamsulosin Hcl 0.4 Mg Capsule) 0.4 mg PO BID [facility] Last Admin: 12/02/21 08:03 Dose: 0.4 mg Home Medications Medication Instructions Recorded Confirmed Last Taken Type blood sugar diagnostic #10 ea 09/29/20 Unknown History digoxin 250 mcg (0.25 mg) tablet 250 mcg PO BEDTIME 09/29/20 11/25/21 11/24/21 History diltiazem HCl 240 mg 240 mg PO DAILY 09/29/20 11/25/21 11/25/21 History capsule,extended release 24 hr lancets #100 ea 09/29/20 Unknown History lisinopril 40 mg tablet 40 mg PO DAILY 09/29/20 11/25/21 11/25/21 History metformin 1,000 mg tablet 1,000 mg PO BID@0900,1800 09/29/20 11/25/21 11/25/21 History metoprolol succinate 50 mg 75 mg PO DAILY@1800 09/29/20 11/25/21 11/24/21 Hist ory tablet,extended release 24 hr omeprazole 20 mg capsule,delayed 20 mg PO DAILY 09/29/20 11/25/21 11/25/21 History release rosuvastatin 20 mg tablet 20 mg PO DAILY@1800 09/29/20 11/25/21 Unknown History hydroxychloroquine 200 mg tablet 200 mg PO BID@1200,1800 10/18/21 11/25/21 11/24/21 History (Plaquenil) loratadine 10 mg tablet (Allergy 10 mg PO DAILY 10/18/21 11/25/21 11/25/21 History Relief (loratadine)) prednisone 5 mg tablet 5 mg PO DAILY@1800 10/18/21 11/25/21 11/24/21 History cholecalciferol (vitamin D3) 25 25 mcg PO DAILY 11/25/21 11/25/21 11/25/21 History mcg (1,000 unit) tablet cyanocobalamin (vitamin B-12) 1,000 mcg PO DAILY@1200 11/25/21 11/25/21 11/24/21 History 1,000 mcg tablet glipizide 5 mg tablet, extended 1 tab PO BID@0900,1800 11/25/21 11/25/21 11/25/21 History release 24 hr prednisone 5 mg tablet 2.5 mg PO DAILY 11/25/21 11/25/21 11/25/21 History warfarin 1 mg tablet 2 mg PO SUMOWEFRSA@1800 11/25/21 11/25/21 11/24/21 History warfarin 1 mg tablet 3 mg PO TUTH@1800 11/25/21 11/25/21 11/24/21 History Exam Exam Date and Time: December 02, 2021 1135 Height,Weight and Vital Signs: Height 5 ft 8 in Weight 91.8 kg Last Vital Signs Temp 98.2 F 12/02/21 10:23 Pulse 73 12/02/21 10:23 Resp 18 12/02/21 10:23 BP 186/98 H 12/02/21 10:23 Pulse Ox 96 12/02/21 10:23 O2 Del Method 12/02/21 10:23 O2 Flow Rate 90 11/29/21 15:49 Pertinent Lab Results Pertinent Lab Results: Laboratory Tests 11/25/21 11/25/21 11/25/21 10:28 10:28 10:47 WBC 9.1 RBC 3.44 L Hgb 11.3 L Hct 35.5 L MCV 103.2 H MCH 32.8 MCHC 31.8 RDW 14.4 Plt Count 189 MPV 10.8 Immature Gran % (Auto) 0.6 H Neut % (Auto) 83.2 H Lymph % (Auto) 7.5 L [place] % (Auto) 8.3 Eos % (Auto) 0.2 Baso % (Auto) 0.2 Lymph # (Auto) 0.7 L [place] # (Auto) 0.8 Eos # (Auto) 0.0 Baso # (Auto) 0.0 Abs Immat Gran (auto) 0.05 H Absolute Neuts (auto) 7.5 Absolute Nucleated RBC 0.000 Nucleated RBC % (auto) 0.0 ESR 84 H PT INR Sodium 140 Potassium 3.4 Chloride 104 Carbon Dioxide 25 Anion Gap 14 BUN 12 Creatinine 0.81 Estim Creat Clear Calc 80.0 Estimated GFR > 60 POC Glucose Random Glucose 119 H Fasting Glucose Estimat Average Glucose Hemoglobin A1c % Lactic Acid Calcium 8.6 D Magnesium 1.8 Total Bilirubin 1.1 H Direct Bilirubin 0.6 H AST 32 ALT 33 Alkaline Phosphatase 153 H C-Reactive Protein 14.62 H Total Protein 6.1 L Albumin 3.5 Random Vancomycin COVID-19 (AZAR) COVID-19 Clin Com 11/25/21 11/25/21 11/25/21 10:47 14:57 16:07 WBC RBC Hgb Hct MCV MCH MCHC RDW Plt Count MPV Immature Gran % (Auto) Neut % (Auto) Lymph % (Auto) [place] % (Auto) Eos % (Auto) Baso % (Auto) Lymph # (Auto) [place] # (Auto) Eos # (Auto) Baso # (Auto) Abs Immat Gran (auto) Absolute Neuts (auto) Absolute Nucleated RBC Nucleated RBC % (auto) ESR PT 24.8 H INR 2.1 H Sodium Potassium Chloride Carbon Dioxide Anion Gap BUN Creatinine Estim Creat Clear Calc Estimated GFR POC Glucose Random Glucose Fasting Glucose Estimat Average Glucose Hemoglobin A1c % Lactic Acid 1.0 Calcium Magnesium Total Bilirubin Direct Bilirubin AST ALT Alkaline Phosphatase C-Reactive Protein Total Protein Albumin Random Vancomycin COVID-19 (AZAR) Negative COVID-19 Clin Com See Note 11/25/21 11/25/21 11/26/21 16:37 20:44 05:44 WBC RBC Hgb Hct MCV MCH MCHC RDW Plt Count MPV Immature Gran % (Auto) Neut % (Auto) Lymph % (Auto) [place] % (Auto) Eos % (Auto) Baso % (Auto) Lymph # (Auto) [place] # (Auto) Eos # (Auto) Baso # (Auto) Abs Immat Gran (auto) Absolute Neuts (auto) Absolute Nucleated RBC Nucleated RBC % (auto) ESR PT 25.7 H INR 2.2 H Sodium Potassium Chloride Carbon Dioxide Anion Gap BUN Creatinine Estim Creat Clear Calc Estimated GFR POC Glucose 87 103 Random Glucose Fasting Glucose Estimat Average Glucose Hemoglobin A1c % Lactic Acid Calcium Magnesium Total Bilirubin Direct Bilirubin AST ALT Alkaline Phosphatase C-Reactive Protein Total Protein Albumin Random Vancomycin COVID-19 (AZAR) COVID-19 [employer] 11/26/21 11/26/21 11/26/21 05:48 07:07 11:12 WBC RBC Hgb Hct MCV MCH MCHC RDW Plt Count MPV Immature Gran % (Auto) Neut % (Auto) Lymph % (Auto) [place] % (Auto) Eos % (Auto) Baso % (Auto) Lymph # (Auto) [place] # (Auto) Eos # (Auto) Baso # (Auto) Abs Immat Gran (auto) Absolute Neuts (auto) Absolute Nucleated RBC Nucleated RBC % (auto) ESR PT INR Sodium 144 Potassium 3.7 Chloride 106 Carbon Dioxide 27 Anion Gap 15 BUN 10 Creatinine 0.79 Estim Creat Clear Calc 82.0 Estimated GFR > 60 POC Glucose 104 140 H Random Glucose 112 Fasting Glucose Estimat Average Glucose Hemoglobin A1c % Lactic Acid Calcium 8.7 Magnesium Total Bilirubin Direct Bilirubin AST ALT Alkaline Phosphatase C-Reactive Protein Total Protein Albumin Random Vancomycin COVID-19 (AZAR) COVID-19 [employer] 11/26/21 11/26/21 11/27/21 16:37 20:25 05:04 WBC RBC Hgb Hct MCV MCH MCHC RDW Plt Count MPV Immature Gran % (Auto) Neut % (Auto) Lymph % (Auto) [place] % (Auto) Eos % (Auto) Baso % (Auto) Lymph # (Auto) [place] # (Auto) Eos # (Auto) Baso # (Auto) Abs Immat Gran (auto) Absolute Neuts (auto) Absolute Nucleated RBC Nucleated RBC % (auto) ESR PT 25.2 H INR 2.2 H Sodium Potassium Chloride Carbon Dioxide Anion Gap BUN Creatinine Estim Creat Clear Calc Estimated GFR POC Glucose 113 118 H Random Glucose Fasting Glucose Estimat Average Glucose Hemoglobin A1c % Lactic Acid Calcium Magnesium Total Bilirubin Direct Bilirubin AST ALT Alkaline Phosphatase C-Reactive Protein Total Protein Albumin Random Vancomycin COVID-19 (AZAR) COVID-19 [employer] 11/27/21 11/27/21 11/27/21 05:04 05:04 07:26 WBC 7.5 RBC 3.54 L Hgb 11.7 L Hct 36.3 L MCV 102.5 H MCH 33.1 H MCHC 32.2 RDW 14.0 Plt Count 219 MPV 11.2 Immature Gran % (Auto) Neut % (Auto) Lymph % (Auto) [place] % (Auto) Eos % (Auto) Baso % (Auto) Lymph # (Auto) [place] # (Auto) Eos # (Auto) Baso # (Auto) Abs Immat Gran (auto) Absolute Neuts (auto) Absolute Nucleated RBC 0.000 Nucleated RBC % (auto) 0.0 ESR PT INR Sodium 142 Potassium 3.7 Chloride 103 Carbon Dioxide 29 Anion Gap 14 BUN 10 Creatinine 0.76 Estim Creat Clear Calc 85.2 Estimated GFR > 60 POC Glucose 96 Random Glucose 124 H Fasting Glucose Estimat Average Glucose Hemoglobin A1c % Lactic Acid Calcium 8.9 Magnesium Total Bilirubin Direct Bilirubin AST ALT Alkaline Phosphatase C-Reactive Protein Total Protein Albumin Random Vancomycin COVID-19 (AZAR) COVID-19 [employer] 11/27/21 11/27/21 11/27/21 10:00 11:19 16:10 WBC RBC Hgb Hct MCV MCH MCHC RDW Plt Count MPV Immature Gran % (Auto) Neut % (Auto) Lymph % (Auto) [place] % (Auto) Eos % (Auto) Baso % (Auto) Lymph # (Auto) [place] # (Auto) Eos # (Auto) Baso # (Auto) Abs Immat Gran (auto) Absolute Neuts (auto) Absolute Nucleated RBC Nucleated RBC % (auto) ESR PT INR Sodium Potassium Chloride Carbon Dioxide Anion Gap BUN Creatinine Estim Creat Clear Calc Estimated GFR POC Glucose 171 H 140 H Random Glucose Fasting Glucose Estimat Average Glucose Hemoglobin A1c % Lactic Acid Calcium Magnesium Total Bilirubin Direct Bilirubin AST ALT Alkaline Phosphatase C-Reactive Protein Total Protein Albumin Random Vancomycin 9.5 L COVID-19 (AZAR) COVID-19 [employer] 11/27/21 11/28/21 11/28/21 19:59 05:47 05:47 WBC RBC Hgb Hct MCV MCH MCHC RDW Plt Count MPV Immature Gran % (Auto) Neut % (Auto) Lymph % (Auto) [place] % (Auto) Eos % (Auto) Baso % (Auto) Lymph # (Auto) [place] # (Auto) Eos # (Auto) Baso # (Auto) Abs Immat Gran (auto) Absolute Neuts (auto) Absolute Nucleated RBC Nucleated RBC % (auto) ESR PT 24.9 H INR 2.2 H Sodium 142 Potassium 3.8 Chloride 103 Carbon Dioxide 29 Anion Gap 14 BUN 14 Creatinine 0.79 Estim Creat Clear Calc 82.0 Estimated GFR > 60 POC Glucose 151 H Random Glucose 127 H Fasting Glucose Estimat Average Glucose Hemoglobin A1c % Lactic Acid Calcium 9.0 Magnesium Total Bilirubin Direct Bilirubin AST ALT Alkaline Phosphatase C-Reactive Protein Total Protein Albumin Random Vancomycin COVID-19 (AZAR) COVID-19 Clin Com 11/28/21 11/28/21 11/28/21 05:47 07:20 11:19 WBC RBC Hgb Hct MCV MCH MCHC RDW Plt Count MPV Immature Gran % (Auto) Neut % (Auto) Lymph % (Auto) [place] % (Auto) Eos % (Auto) Baso % (Auto) Lymph # (Auto) [place] # (Auto) Eos # (Auto) Baso # (Auto) Abs Immat Gran (auto) Absolute Neuts (auto) Absolute Nucleated RBC Nucleated RBC % (auto) ESR PT INR Sodium Potassium Chloride Carbon Dioxide Anion Gap BUN Creatinine Estim Creat Clear Calc Estimated GFR POC Glucose 117 H 169 H Random Glucose Fasting Glucose Estimat Average Glucose 123 Hemoglobin A1c % 5.9 Lactic Acid Calcium Magnesium Total Bilirubin Direct Bilirubin AST ALT Alkaline Phosphatase C-Reactive Protein Total Protein Albumin Random Vancomycin COVID-19 (AZAR) COVID-19 [employer] 11/28/21 11/28/21 11/29/21 16:37 21:18 05:38 WBC RBC Hgb Hct MCV MCH MCHC RDW Plt Count MPV Immature Gran % (Auto) Neut % (Auto) Lymph % (Auto) [place] % (Auto) Eos % (Auto) Baso % (Auto) Lymph # (Auto) [place] # (Auto) Eos # (Auto) Baso # (Auto) Abs Immat Gran (auto) Absolute Neuts (auto) Absolute Nucleated RBC Nucleated RBC % (auto) ESR PT 22.0 H INR 1.9 H Sodium Potassium Chloride Carbon Dioxide Anion Gap BUN Creatinine Estim Creat Clear Calc Estimated GFR POC Glucose 133 H 171 H Random Glucose Fasting Glucose Estimat Average Glucose Hemoglobin A1c % Lactic Acid Calcium Magnesium Total Bilirubin Direct Bilirubin AST ALT Alkaline Phosphatase C-Reactive Protein Total Protein Albumin Random Vancomycin COVID-19 (AZAR) COVID-19 Clin Com 11/29/21 11/29/21 11/29/21 07:11 11:26 15:24 WBC RBC Hgb Hct MCV MCH MCHC RDW Plt Count MPV Immature Gran % (Auto) Neut % (Auto) Lymph % (Auto) [place] % (Auto) Eos % (Auto) Baso % (Auto) Lymph # (Auto) [place] # (Auto) Eos # (Auto) Baso # (Auto) Abs Immat Gran (auto) Absolute Neuts (auto) Absolute Nucleated RBC Nucleated RBC % (auto) ESR PT INR Sodium Potassium Chloride Carbon Dioxide Anion Gap BUN Creatinine Estim Creat Clear Calc Estimated GFR POC Glucose 104 155 H 136 H Random Glucose Fasting Glucose Estimat Average Glucose Hemoglobin A1c % Lactic Acid Calcium Magnesium Total Bilirubin Direct Bilirubin AST ALT Alkaline Phosphatase C-Reactive Protein Total Protein Albumin Random Vancomycin COVID-19 (AZAR) COVID-19 Clin Com 11/29/21 11/30/21 11/30/21 19:59 05:43 07:20 WBC RBC Hgb Hct MCV MCH MCHC RDW Plt Count MPV Immature Gran % (Auto) Neut % (Auto) Lymph % (Auto) [place] % (Auto) Eos % (Auto) Baso % (Auto) Lymph # (Auto) [place] # (Auto) Eos # (Auto) Baso # (Auto) Abs Immat Gran (auto) Absolute Neuts (auto) Absolute Nucleated RBC Nucleated RBC % (auto) ESR PT 16.8 H INR 1.5 H Sodium Potassium Chloride Carbon Dioxide Anion Gap BUN Creatinine Estim Creat Clear Calc Estimated GFR POC Glucose 194 H 118 H Random Glucose Fasting Glucose Estimat Average Glucose Hemoglobin A1c % Lactic Acid Calcium Magnesium Total Bilirubin Direct Bilirubin AST ALT Alkaline Phosphatase C-Reactive Protein Total Protein Albumin Random Vancomycin COVID-19 (AZAR) COVID-19 Clin Com 11/30/21 11/30/21 11/30/21 11:04 16:08 16:47 WBC RBC Hgb Hct MCV MCH MCHC RDW Plt Count MPV Immature Gran % (Auto) Neut % (Auto) Lymph % (Auto) [place] % (Auto) Eos % (Auto) Baso % (Auto) Lymph # (Auto) [place] # (Auto) Eos # (Auto) Baso # (Auto) Abs Immat Gran (auto) Absolute Neuts (auto) Absolute Nucleated RBC Nucleated RBC % (auto) ESR PT INR Sodium Potassium Chloride Carbon Dioxide Anion Gap BUN Creatinine Estim Creat Clear Calc Estimated GFR POC Glucose 132 H 125 H 117 H Random Glucose Fasting Glucose Estimat Average Glucose Hemoglobin A1c % Lactic Acid Calcium Magnesium Total Bilirubin Direct Bilirubin AST ALT Alkaline Phosphatase C-Reactive Protein Total Protein Albumin Random Vancomycin COVID-19 (AZAR) COVID-19 Clin Com 11/30/21 12/01/21 12/01/21 19:51 06:13 06:13 WBC 10.0 RBC 3.78 L Hgb 12.5 L Hct 39.1 L MCV 103.4 H MCH 33.1 H MCHC 32.0 RDW 13.9 Plt Count 297 D MPV 10.9 Immature Gran % (Auto) Neut % (Auto) Lymph % (Auto) [place] % (Auto) Eos % (Auto) Baso % (Auto) Lymph # (Auto) [place] # (Auto) Eos # (Auto) Baso # (Auto) Abs Immat Gran (auto) Absolute Neuts (auto) Absolute Nucleated RBC 0.000 Nucleated RBC % (auto) 0.0 ESR PT INR Sodium 141 Potassium 4.0 Chloride 105 Carbon Dioxide 28 Anion Gap 12 BUN 16 Creatinine 0.77 Estim Creat Clear Calc 84.1 Estimated GFR > 60 POC Glucose 157 H Random Glucose 99 Fasting Glucose Estimat Average Glucose Hemoglobin A1c % Lactic Acid Calcium 8.7 Magnesium Total Bilirubin Direct Bilirubin AST ALT Alkaline Phosphatase C-Reactive Protein Total Protein Albumin Random Vancomycin COVID-19 (AZAR) COVID-19 Clin Com 12/01/21 12/01/21 12/01/21 06:13 07:31 11:24 WBC RBC Hgb Hct MCV MCH MCHC RDW Plt Count MPV Immature Gran % (Auto) Neut % (Auto) Lymph % (Auto) [place] % (Auto) Eos % (Auto) Baso % (Auto) Lymph # (Auto) [place] # (Auto) Eos # (Auto) Baso # (Auto) Abs Immat Gran (auto) Absolute Neuts (auto) Absolute Nucleated RBC Nucleated RBC % (auto) ESR PT 15.2 H INR 1.3 H Sodium Potassium Chloride Carbon Dioxide Anion Gap BUN Creatinine Estim Creat Clear Calc Estimated GFR POC Glucose 96 108 Random Glucose Fasting Glucose Estimat Average Glucose Hemoglobin A1c % Lactic Acid Calcium Magnesium Total Bilirubin Direct Bilirubin AST ALT Alkaline Phosphatase C-Reactive Protein Total Protein Albumin Random Vancomycin COVID-19 ([facility]AR) COVID-19 Clin Com 12/01/21 12/01/21 12/02/21 15:02 19:54 05:50 WBC RBC Hgb Hct MCV MCH MCHC RDW Plt Count MPV Immature Gran % (Auto) Neut % (Auto) Lymph % (Auto) [place] % (Auto) Eos % (Auto) Baso % (Auto) Lymph # (Auto) [place] # (Auto) Eos # (Auto) Baso # (Auto) Abs Immat Gran (auto) Absolute Neuts (auto) Absolute Nucleated RBC Nucleated RBC % (auto) ESR PT 13.6 H INR 1.2 H Sodium Potassium Chloride Carbon Dioxide Anion Gap BUN Creatinine Estim Creat Clear Calc Estimated GFR POC Glucose 168 H 206 H Random Glucose Fasting Glucose Estimat Average Glucose Hemoglobin A1c % Lactic Acid Calcium Magnesium Total Bilirubin Direct Bilirubin AST ALT Alkaline Phosphatase C-Reactive Protein Total Protein Albumin Random Vancomycin COVID-19 (AZAR) COVID-19 Clin Com 12/02/21 12/02/21 12/02/21 05:50 05:50 07:20 WBC 9.8 RBC 3.81 L Hgb 12.5 L Hct 39.4 L MCV 103.4 H MCH 32.8 MCHC 31.7 RDW 13.8 Plt Count 284 MPV 11.1 Immature Gran % (Auto) Neut % (Auto) Lymph % (Auto) [place] % (Auto) Eos % (Auto) Baso % (Auto) Lymph # (Auto) [place] # (Auto) Eos # (Auto) Baso # (Auto) Abs Immat Gran (auto) Absolute Neuts (auto) Absolute Nucleated RBC 0.000 Nucleated RBC % (auto) 0.0 ESR PT INR Sodium 141 Potassium 4.1 Chloride 106 Carbon Dioxide 26 Anion Gap 13 BUN 19 H Creatinine 0.79 Estim Creat Clear Calc 82.0 Estimated GFR > 60 POC Glucose 120 H Random Glucose Fasting Glucose 100 H Estimat Average Glucose Hemoglobin A1c % Lactic Acid Calcium 8.8 Magnesium Total Bilirubin Direct Bilirubin AST ALT Alkaline Phosphatase C-Reactive Protein Total Protein Albumin Random Vancomycin COVID-19 ([facility]AR) COVID-19 Clin Com 12/02/21 10:42 WBC RBC Hgb Hct MCV MCH MCHC RDW Plt Count MPV Immature Gran % (Auto) Neut % (Auto) Lymph % (Auto) [place] % (Auto) Eos % (Auto) Baso % (Auto) Lymph # (Auto) [place] # (Auto) Eos # (Auto) Baso # (Auto) Abs Immat Gran (auto) Absolute Neuts (auto) Absolute Nucleated RBC Nucleated RBC % (auto) ESR PT INR Sodium Potassium Chloride Carbon Dioxide Anion Gap BUN Creatinine Estim Creat Clear Calc Estimated GFR POC Glucose 101 Random Glucose Fasting Glucose Estimat Average Glucose Hemoglobin A1c % Lactic Acid Calcium Magnesium Total Bilirubin Direct Bilirubin AST ALT Alkaline Phosphatase C-Reactive Protein Total Protein Albumin Random Vancomycin COVID-19 (AZAR) COVID-19 Clin Com Narrative Narrative: Date of Service: 11/23/21 Procedure(s): ECG 12 lead EKG Vent. Rate : 093 BPM ? ? Atrial Rate : 000 BPM ?? P-R Int : 000 ms? QRS Dur : 094 ms ? ? QT Int : 348 ms ? ? ? P-R-T Axes : 000 026 004 degrees ?? QTc Int : 432 ms ? Atrial fibrillation Nonspecific ST abnormality Abnormal ECG No previous ECGs available Airway Mallampati Class: III TM Dist: >3cm Neck ROM: Full Loose/Missing/Broken Teeth: No (Permanent bridge) Heart: Irregularly irregular Lungs: CTAB Assessment and Plan Assessment Anesthesia Assessment: Anesthesia Plan Discussed and Chart Reviewed Final Anesthetic Review Family History of Problems with Anesthesia: No History of Problems with Anesthesia: No NPO: Yes ASA Class: III Final Preanesthetic Review: No Changes in Pt Med Stat, Meds/Allgs Chart Reviewed, Consent Obtained/Reviewed and Anes Risks/Benef Reviewed Patient Risk: Intermediate Procedure Risk: Low Assessment/Block/Sedation in SS: Assess/Block/Sedation-SS Anesthetic Plan Anesthetic Plan: GA Disposition: Standard PACU and Inp. Admit - Standard Bed
--- NOTE | 2021-12-02 12:06 | MHC.SHP ---
Pre-Procedural Eval Section A Date of Service: 12/02/21 The patient is an INPATIENT: Yes Changes since office visit: Yes Patient answered all questions The History & Physical has been completed within 30 days and I have reviewed it.: Yes Section B Chief Complaint: CELLULITIS RIGHT LEG PVD Allergies: Allergies Allergy/AdvReac Type Severity Reaction Status Date / Time levofloxacin [From Levaquin] Allergy Severe impaired Verified 11/23/21 10:16 kidney function canagliflozin [From Invokana] Allergy Intermediate Unknown Verified 11/23/21 10:16 clindamycin Allergy Intermediate Heartburn Verified 11/23/21 10:16 penicillins Allergy Intermediate blisters Uncoded 10/18/21 11:46 Plan I have reviewed the history and physical and performed a pertinent physical examination on my patient. No changes have occurred unless specified.
[2021-12-02] MEDS: cefTRIAXone sodium 1 GM in 0.9 % Sodium Chloride 50 ML IV (14:33)
[2021-12-02] MEDS: Lactated Ringers 1,000 ML 50 ML IVCONT ×2 (14:38→15:28)
[2021-12-02 15:48] LABS: Glucose, Whole Blood 138 mg/dL (60-115)
--- NOTE | 2021-12-02 16:20 | W.PM.OPN ---
Operative Note Operative Note Date of Service: 12/02/21 Narrative: Operative note by [facility] Preoperative diagnosis: Right 4th toe gangrene Postoperative diagnosis: Same Procedure: Right 4th toe amputation Surgeon:Diallo Ernst M.D. Radiology Interventional Physician: None Anesthesia: General Specimens: 1 Drains: None Estimated blood loss: Minimal Indications: 81-year-old gentleman with a history of peripheral vascular disease and diabetes presents for amputation of the right 4th toe. Of note he has undergone endovascular intervention. He now presents for amputation. The patient has signed the informed consent after reviewing risks, complications, benefits, and alternatives previously discussed with the patient. The patient was given the opportunity to ask any additional questions or voice any concerns. All questions were answered to the patient's satisfaction. Procedure in detail: Patient was brought to the operating room prior to which a time-out was called for patient identification site verification right lower extremity was prepped and draped in standard surgical fashion over the right 4th toe fishmouth incision was carried out to the bone scan down to the metatarsal head. The toe was removed in its entirety. Hemostasis was achieved with electrocautery. Wound was thoroughly irrigated out. Deep layer was reapproximated using 2 0 poly Sorb. Superficial layer with a 2 0 nylon in a mattress fashion Xeroform and a sterile dressing were applied. At the end of the case sponge instrument counts were correct. Patient tolerated the procedure well. Returned to recovery with stable vitals. This note is constructed using voice recognition software. While every effort has been made to ensure accuracy, consultant internship errors may have been included. Thank you for allowing me to participate in the care of your patient. Yours sincerely, Diallo Ernst MD, FACS, R.P.V.I.
[2021-12-02] MEDS: predniSONE 5 MG TABLET PO (17:29)
[2021-12-02] MEDS: Atorvastatin Calcium 80 MG TABLET 20 MG PO (17:30)
[2021-12-02] MEDS: Warfarin Sodium 2 MG TABLET PO (17:30)
[2021-12-02] MEDS: Hydroxychloroquine Sulfate 200 MG TABLET PO (17:30)
[2021-12-02] MEDS: Metoprolol Succinate ER 25 MG TAB.ER.24H 75 MG PO (17:31)
[2021-12-02 19:12] LABS: Glucose, Whole Blood 242 mg/dL (60-115)
[2021-12-02] MEDS: Digoxin 0.25 MG TABLET PO (20:25)
[2021-12-02] MEDS: Insulin Lispro 100 UNIT/ML 3 ML VIAL SUBCUT (20:26)
[2021-12-03] VITALS: RESP 18
[2021-12-03] MEDS: 0.9 % Sodium Chloride Flush 3 ML SYRINGE IVFLUSH ×2 (00:44→09:01)
[2021-12-03 03:17] VITALS: BP 170/79; PULSE 88; RESP 18; TEMP 36.8; O2SAT 95
[2021-12-03 04:00] VITALS: RESP 18
[2021-12-03] MEDS: Omeprazole 20 MG CAPSULE.DR PO (06:07)
[2021-12-03 06:19] LABS: Hematocrit 38.8 % (42.0-52.0); Hemoglobin 12.1 g/dl (14.0-18.0); Mean Corpuscular HGB Conc 31.2 g/dl (31.0-36.0); Mean Corpuscular Hemoglobin 32.4 pg (27.0-33.0); Mean Platelet Volume 11.6 fL (9.4-12.4); Platelet Count 285 X10*3/uL (160-400); Red Blood Count 3.73 X10*6/uL (4.60-5.80); Red Cell Distribution Width 13.6 % (11.0-16.0); White Blood Count 9.4 X10*3/uL (4.8-10.8)
[2021-12-03 06:48] LABS: Anion Gap 14 (12-20); Blood Urea Nitrogen 21 mg/dL (9-16); Calcium 8.6 mg/dL (8.4-10.2); Carbon Dioxide 25 mmol/L (22-29); Chloride 105 mmol/L (96-108); Estimated Glomerular Filt Rate > 60; Glucose Fasting 169 mg/dL (60-99); Potassium 4.4 mmol/L (3.3-5.1); Sodium 140 mmol/L (135-145)
[2021-12-03 07:23] VITALS: BP 193/93; PULSE 77; RESP 18; TEMP 36.6; O2SAT 94
[2021-12-03 07:44] LABS: Glucose, Whole Blood 167 mg/dL (60-115)
[2021-12-03] MEDS: Insulin Lispro 100 UNIT/ML 3 ML VIAL SUBCUT ×2 (08:52→12:13)
[2021-12-03] MEDS: predniSONE 5 MG TABLET 2.5 MG PO (08:53)
[2021-12-03] MEDS: lisinopriL 40 MG TABLET PO (08:53)
[2021-12-03] MEDS: amLODIPine Besylate 10 MG TABLET PO (08:53)
[2021-12-03] MEDS: Aspirin 81 MG TAB.CHEW PO (08:53)
[2021-12-03] MEDS: Gabapentin 100 MG CAPSULE PO (08:53)
[2021-12-03] MEDS: Loratadine 10 MG TABLET PO (08:53)
[2021-12-03] MEDS: dilTIAZem HCL CD 240 MG CAP.ER.DEG PO (08:53)
[2021-12-03] MEDS: Tamsulosin HCL 0.4 MG CAPSULE PO (08:53)
[2021-12-03] MEDS: oxyCODONE HCl Immed Release 5 MG TABLET PO (09:18)
--- NOTE | 2021-12-03 09:36 | HO.VASCPN ---
Subjective Subjective Date of Service: 12/03/21 Patient reports: no new complaints and feels better Interval history: Patient is postop day 1 status post right 4th toe amp. He has had no interval issues. Appears to be doing relatively well. Pain well controlled. Now for follow-up. Physical Exam Vital Signs: Vital Signs: Last Vital Signs Temp 97.8 F 12/03/21 07:23 Pulse 77 12/03/21 07:23 Resp 18 12/03/21 07:23 BP 193/93 H 12/03/21 07:23 Pulse Ox 94 12/03/21 07:23 O2 Del Method 12/03/21 07:23 O2 Flow Rate 2 12/03/21 07:23 BMI result Body Mass Index 30.7 Const: General: cooperative, healthy appearing and no acute distress Orientation/consciousness: oriented to person, oriented to place and oriented to time HEENT: Head: Yes normal to inspection Neck: Carotids: no bruits Chest: Chest palpation & inspection: normal inspection of the chest Resp: Effort & Inspection: normal respiratory effort and able to speak in complete sentences Auscultation: clear to auscultation bilaterally Cardio: Rate: regular rate Heart sounds: S1 normal heart sound present and S2 normal heart sound present GI: Inspection: Yes normal to inspection Skin: General skin exam: no rashes or lesions noted Wounds: amputation site (Dressing changed amputation site appears to be healing well) Neuro: General: oriented to person, oriented to place, oriented to time and CN's II-XI intact bilaterally Extrem: General: Yes normal to inspection, Yes full ROM and Yes no clubbing, cyanosis or edema Psych: Appearance: grossly normal and well kempt Speech and movement: Normal speech and movement present Affect: normal affect Progress Note: A&P Assessment and plan (1) PAD (peripheral artery disease): Status: Acute Assessment and Plan: In short patient is doing well status post right 4th toe amputation. Stable from my perspective for discharge. He will be maintained on aspirin and Coumadin. He will need no Keflex for 7-10 days upon discharge as he does have mild superficial cellulitis. He can follow up with us in approximately 2 weeks time for suture removal. Thank you for allowing us to assist in his care. If there are any questions or concerns please do not hesitate to contact us. Time Spent With Patient Time: Total time spent is greater than 50% in coordination of care (as documented) at patient's floor/unit and/or counseling patient: Procedures Date of Service Date of Service: 12/03/21 Quality Stroke Does the patient have a stroke diagnosis?: No VTE Prior VTE?: No VTE Risk Level:: Medical - moderate - high VTE Device Contraindication: Treatment Not Indicated VTE Drug Contraindication: N/A - Med Ordered
[2021-12-03 09:59] LABS: INTERNATIONAL NORM RATIO 1.2 (0.9-1.1); Prothrombin Time 13.5 SEC (9.9-13.0)
--- NOTE | 2021-12-03 11:02 | P.DS_ITS ---
DS: Providers Provider Date of Service: 12/03/21 Date of admission: 11/25/21 13:40 Primary care physician: Kavon Grant MD Consults: 11/25/21 13:45 Consult to Infectious Diseases Routine Consulting Provider: Carmen Zeng Reason for consultation: left leg pain, redness , rash Has provider been notified: No 11/26/21 09:03 Consult to Vascular Surgery Routine Consulting Provider: Diallo Ernst Reason for consultation: right leg infection, h/o PAD, tibial artery occlusion Has provider been notified: No DS: Diagnosis Discharge Diagnosis (1) PAD (peripheral artery disease): Status: Acute DS: Summary Hospital Course Hospital Course: from initial hpi: Chief Complaint: foot/leg pain and swelling This is a 31-year-old male presents to the emergency pain right leg.? Initially began having pain between his 3rd and 4th toes and 4th and 5th toes.? Then he began having redness and swelling of his foot which has progressively increased up his right leg.? He was initially started on doxycycline 3 weeks ago and was then seen by his bottom stop attacher and started on Santyl and cephalexin.? [facility].? He was sent to the emergency department on November 23 to rule out osteomyelitis.? At that time CT scan of the foot showed no evidence of bone involvement.? The emergency room provider recommended that he stay in the hospital for IV antibiotics due to worsening foot infection however the patient preferred to continue outpatient oral antibiotics.? Since then he has had increasing pain and difficulty ambulating as well as new rash extending up his right leg.? He denies any associated fever or chills.? He has had to use a walker to assist in his ambulation due to the increasing pain.? He was also called to return to the emergency department as 1 out of 2 blood cultures were positive however he is cultures have finalized as coag-negative Staphylococcus, likely contaminant.? Today in the emergency department he has no leukocytosis, is afebrile.? He was given a dose of IV vancomycin and IV ceftriaxone and the decision was made to admit him to the hospital for further management.? hospital course: patient was admitted for right lower extremity foot cellulitis due to peripheral arterial disease and diabetes. He underwent angiography which showed significant stenosis, underwent arthrectomy and stent placement. He underwent 4th toe amputation on 12/02/2021. He was treated empirically with IV ceftriaxone, plan is to continue 10 more days of p.o. Keflex on discharge. He will follow up with vascular surgery. For his diabetes he will continue on insulin, for his rheumatoid arthritis continue plaquing on prednisone. For his chronic atrial fibrillation he will continue digoxin, diltiazem, metoprolol, his Coumadin is to be restarted and INR monitored. For his hypertension, this was uncontrolled, he will continue lisinopril and Cardizem and metoprolol, amlodipine has been added. First hyperlipidemia continue statin, for his GERD he will continue omeprazole, for his BPH he will continue Flomax. Time Spent with Patient Time attestation: Total time spent providing and/or coordinating discharge services: Discharge coordination time: Greater than 30 minutes Quality: Safe Use of Opioids Does Pt have an Active Cancer Diagnosis on the Problem List?: No Quality: Stroke Does the patient have a stroke diagnosis?: No Physical Exam Vital Signs: Vital Signs: Last Vital Signs Temp 97.8 F 12/03/21 07:23 Pulse 77 12/03/21 07:23 Resp 18 12/03/21 07:23 BP 193/93 H 12/03/21 07:23 Pulse Ox 94 12/03/21 07:23 O2 Del Method 12/03/21 07:23 O2 Flow Rate 2 12/03/21 07:23 BMI result Body Mass Index 30.7 Const: General: cooperative, healthy appearing and no acute distress Orientation/consciousness: oriented to person, oriented to place and oriented to time HEENT: Head: Yes normal to inspection Neck: Carotids: no bruits Chest: Chest palpation & inspection: normal inspection of the chest Resp: Effort & Inspection: normal respiratory effort and able to speak in complete sentences Auscultation: clear to auscultation bilaterally Cardio: Rate: regular rate Heart sounds: S1 normal heart sound present and S2 normal heart sound present GI: Inspection: Yes normal to inspection Skin: General skin exam: no rashes or lesions noted Wounds: amputation site (Dressing changed amputation site appears to be healing well) Neuro: General: oriented to person, oriented to place, oriented to time and CN's II-XI intact bilaterally Extrem: General: Yes normal to inspection, Yes full ROM and Yes no clubbing, cyanosis or edema Psych: Appearance: grossly normal and well kempt Speech and movement: Normal speech and movement present Affect: normal affect DS: Data Data Completed and Pending Pending studies at discharge: Pending at discharge 12/02/21 13:22 Surgical [PTH] Routine Labs on day of discharge: Laboratory Results - last 24 hr 12/02/21 12/02/21 12/03/21 15:12 18:46 05:46 WBC 9.4 RBC 3.73 L Hgb 12.1 L Hct 38.8 L MCV 104.0 H MCH 32.4 MCHC 31.2 RDW 13.6 Plt Count 285 MPV 11.6 Absolute Nucleated RBC 0.000 Nucleated RBC % (auto) 0.0 PT INR Sodium Potassium Chloride Carbon Dioxide Anion Gap BUN Creatinine Estim Creat Clear Calc Estimated GFR POC Glucose 138 H 242 H Fasting Glucose Calcium 12/03/21 12/03/21 12/03/21 05:46 07:29 09:41 WBC RBC Hgb Hct MCV MCH MCHC RDW Plt Count MPV Absolute Nucleated RBC Nucleated RBC % (auto) PT 13.5 H INR 1.2 H Sodium 140 Potassium 4.4 Chloride 105 Carbon Dioxide 25 Anion Gap 14 BUN 21 H Creatinine 0.78 Estim Creat Clear Calc 83.0 Estimated GFR > 60 POC Glucose 167 H Fasting Glucose 169 H D Calcium 8.6 Discharge Plan Discharge Patient Disposition: Home Health Service Discharge Diagnosis: toe gangrene Referrals: Kavon Grant MD [Primary Care Provider] - 1 Week Discharge Medications: New amlodipine 10 mg Tablet 10 mg PO DAILY Qty: 30 0RF Protocol: Hold for SBP< HOLD for SBP < : 90 oxycodone 5 mg Tablet 5 mg PO Q4H PRN (Reason: Pain, Severe (Pain Scale 7-10)) Qty: 20 0RF Rx Instructions: Partial Fill upon patient request. Continued tamsulosin 0.4 mg capsule 0.4 mg PO BID 90 Days Qty: 180 2RF glipizide 5 mg tablet extended release 24 hr 1 tab PO BID@0900,1800 prednisone 5 mg tablet 2.5 mg PO DAILY warfarin 1 mg tablet 2 mg PO SUMOWEFRSA@1800 warfarin 1 mg tablet 3 mg PO TUTH@1800 cyanocobalamin (vitamin B-12) 1,000 mcg Tablet 1,000 mcg PO DAILY@1200 cholecalciferol (vitamin D3) 25 mcg (1,000 unit) Tablet 25 mcg PO DAILY diltiazem HCl 240 mg capsule,extended release 24hr 240 mg PO DAILY (DME) blood sugar diagnostic Strip See Rx Instructions Not Applicable DAILY Qty: 10 Rx Inst[facility]: [facility] See Rx Instructions .ROUTE DIRECTED Qty: 100 Rx Instructions: As directed metformin 1,000 mg tablet 1,000 mg PO BID@0900,1800 metoprolol succinate 50 mg tablet extended release 24 hr 75 mg PO DAILY@1800 digoxin 250 mcg (0.25 mg) tablet 250 mcg PO BEDTIME lisinopril 40 mg tablet 40 mg PO DAILY rosuvastatin 20 mg tablet 20 mg PO DAILY@1800 omeprazole 20 mg capsule,delayed release(DR/EC) 20 mg PO DAILY prednisone 5 mg tablet 5 mg PO DAILY@1800 loratadine [Allergy Relief (loratadine)] 10 mg tablet 10 mg PO DAILY hydroxychloroquine [Plaquenil] 200 mg tablet 200 mg PO BID@1200,1800 Changed cephalexin 500 mg capsule 500 mg PO BID 10 Days Qty: 28 0RF Discharge Orders: Discharge Order (Routine); Ordered 12/03/21 Ordered By: Zoran Lyles Diet: advance to usual diet Activity on Discharge: As tolerated Stand Alone Forms: Patient Portal Discharge page Activity Restrictions/Additional Instructions: Wound care upon discharge: xeroform, 4x4 (rolled up to fit within the toe space) and Kerlix wrap to be changed every other day. Please call Dr. Ernst at [phone] for 2 week follow up for suture removal Care Plan Goals: recovery Health Concerns: toe amputation, htn Plan of Treatment: keflex for 10 days, follow up vascular, added amlodipne for better bp control Assessment: see above
--- NOTE | 2021-12-03 11:06 | W.MHC.F2F ---
Service Date Service Date: 12/03/21 Encounter Date of encounter: 12/03/21 Reasons for Services Signs and symptoms assessed: weakness Reason for custodial: wound care, monitoring of PT/INR, medication management, medication treatment and teach disease management Homebound: Leaving the home is medically contraindicated at this time without the asist of a device and/or another person due th the listed conditions above and below. Reason homebound: unsteady gait / fall risk Certification: Based on the above findings, I certify that this patient is confined to the home and needs intermittent custodial care, physical therapy and/or speech therapy, or continues to need occupational therapy. The patient is under my care, and I have initiated the establishment of the plan of care. The patient will be followed by a physician who will periodically review the plan of care.
[2021-12-03 11:19] VITALS: BP 136/65; PULSE 86; RESP 18; TEMP 36.8; O2SAT 92
--- NOTE | 2021-12-03 11:54 | MHC.CM.PN ---
PT WILL DC HOME TODAY WITH [facility]
[2021-12-03 11:55] LABS: Glucose, Whole Blood 286 mg/dL (60-115)
[2021-12-03 12:00] VITALS: BP 136/65; PULSE 86; RESP 18; TEMP 36.8; O2SAT 92
[2021-12-03] MEDS: Hydroxychloroquine Sulfate 200 MG TABLET PO (12:13)
[2021-12-03] MEDS: Cyanocobalamin (Vitamin B-12) 1,000 MCG TABLET 1000 MCG PO (12:13)
--- NOTE | 2021-12-03 13:43 | HO.POSTANES ---
Post Anesthesia Evaluation Post Anesthesia Evaluation Vital Signs: Vital Signs Temp Pulse Resp BP Pulse Ox O2 Del Method O2 Flow Rate 12/03/21 12:00 98.3 F 86 18 136/65 92 Nasal Cannula 2 12/03/21 11:19 98.3 F 86 18 136/65 92 Nasal Cannula 2 12/03/21 07:23 97.8 F 77 18 193/93 H 94 Nasal Cannula 2 12/03/21 04:00 18 12/03/21 03:17 98.2 F 88 18 170/79 H 95 Nasal Cannula 2 Anesthesia: General Mental Status: Awake Pain Control: Satisfactory Nausea/Vomiting: None Hydration: Adequate Anesthesia-Related Issues: No Anes. Related Issues
== END 2021-12-03 14:21 | disposition home health service (06) | DRG 253 ==
LOC: HO.ED 13:23 → HO.EDOVER 14:12 → HO.S3 19:37
PROVIDERS: Nurse Practitioner Acute Care; Nurse Practitioner Family; Surgery Vascular Surgery; Admitting Provider Physician Assistant Medical; Emergency Provider Emergency Medicine; PCP Pediatrics; Visit Provider Internal Medicine
PROC: 047K3D1 Dilation of Right Femoral Artery with Intraluminal Device, using Drug-Coated Balloon, Percutaneous Approach (ICD-10-PCS; principal; 2021-11-30 07:30)
PROC: 0Y6V0Z0 Detachment at Right 4th Toe, Complete, Open Approach (ICD-10-PCS; principal; 2021-12-02 12:00)
DX: E11.52 Type 2 diabetes mellitus with diabetic peripheral angiopathy with gangrene (principal); I70.261 Atherosclerosis of native arteries of extremities with gangrene, right leg; L03.115 Cellulitis of right lower limb; I48.20 Chronic atrial fibrillation, unspecified; L97.518 Non-pressure chronic ulcer of other part of right foot with other specified severity; M06.00 Rheumatoid arthritis without rheumatoid factor, unspecified site; I10 Essential (primary) hypertension; E11.40 Type 2 diabetes mellitus with diabetic neuropathy, unspecified; E78.5 Hyperlipidemia, unspecified; K21.9 Gastro-esophageal reflux disease without esophagitis; N40.0 Benign prostatic hyperplasia without lower urinary tract symptoms; Z20.822 Contact with and (suspected) exposure to COVID-19; Z79.52 Long term (current) use of systemic steroids; Z79.84 Long term (current) use of oral hypoglycemic drugs; Z79.899 Other long term (current) drug therapy
CPT/HCPCS: 36415; 37227; 73700; 76937; 80048; 80053; 80076; 80202; 82947; 83036; 83605; 83735; 85025; 85027; 85610; 85652; 86140; 87040; 87147; 87205; 87502; 87635; 88305; 88311; 93005; 93923; 93925; 93971; 96365; 96366; 96367; 96368; 96374; 96375; 99152; 99153; 99283; 99285; C1714; C1725; C1760; C1769; C1884; C1887; J0696; J1100; J1170; J2270; J2405; J2543; J3010; J3370; J3475; Q9967

== ENCOUNTER → 2022-05-10 12:04 | Outpatient (BNVA) | payer MEDICARE, OTHER, SELFPAY | PROVIDERS: PCP Pediatrics; Visit Provider Internal Medicine Rheumatology | DX: M17.12 Unilateral primary osteoarthritis, left knee (principal); M06.00 Rheumatoid arthritis without rheumatoid factor, unspecified site; I73.9 Peripheral vascular disease, unspecified; Z79.899 Other long term (current) drug therapy | CPT/HCPCS: 99212 ==

== ENCOUNTER 2023-02-02 11:43 | Outpatient (AMB) | payer MEDICARE, OTHER, SELFPAY ==
--- NOTE | 2023-02-02 11:46 | A.OFFVIS_ITS ---
Intake Vital Signs 02/02/23 11:48 Height 5 ft 8 in Weight 165 lb BMI 25.1 BP 125/84 Blood Pressure Location Rt brachial Position Sitting Respiration 15 Pulse 85 Pulse Source Pulse Oximeter Temp 97.7 F Temp Source Tympanic Pulse Oximetry (%) 94 Oxygen Delivery Method Room Air Intake Visit Reasons: PMR Allergies levofloxacin [From Levaquin] Allergy (Severe, Verified 02/02/23 11:57) impaired kidney function canagliflozin [From Invokana] Allergy (Intermediate, Verified 02/02/23 11:57) Unknown clindamycin Allergy (Intermediate, Verified 02/02/23 11:57) Heartburn penicillins Allergy (Intermediate, Uncoded 02/02/23 11:57) blisters Medication List - Last Reconciled 02/02/23 by Shannan Govea RN amlodipine 10 mg See Protocol PO DAILY ascorbic acid (vitamin C) 250 mg PO DAILY atorvastatin 20 mg PO BEDTIME blood sugar diagnostic As directed cholecalciferol (vitamin D3) 25 mcg PO DAILY cyanocobalamin (vitamin B-12) 1,000 mcg PO DAILY@1200 diltiazem HCl 240 mg PO DAILY lancets As directed loratadine (Allergy Relief (loratadine)) 10 mg PO DAILY metformin 1,000 mg PO BID@0900,1800 metoprolol succinate ER 75 mg PO DAILY@1800 omeprazole 20 mg PO DAILY prednisone two tab in AM and one tab in PM rosuvastatin 20 mg PO DAILY@1800 tamsulosin 0.4 mg PO BID 90 days warfarin 2 mg PO SUMOWEFRSA@1800 warfarin 3 mg PO TUTH@1800 HPI HPI Comments History of Present Illness Details The patient returns for evaluation of his seronegative rheumatoid arthritis. He is presently taking prednisone 5 mg in the evening. Previously we had him at 2.5 mg in the morning and 5 mg in the evening. Unfortunately he has had further problems with skin infection and subsequent need for a [id number] amputation on the left. The right amputated site is healing. He has it in a prosthesis right now. The left one is still being protected but he says the skin is closed. He has been having more pain since the reduction in the prednisone. This involves pain in the hands, wrists, and shoulders. He does not have much left knee pain currently because he is not putting any weight on it. 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 Hx of left knee surgery Social History Household Members: None Household Members Other:: lives alone Housing: House Are you a primary ostomy care nurse to a significant other at home: No Do you presently have visiting nurse or other home services: No Alcohol intake: current Alcohol intake frequency: 0-2 drinks per day Patient Tobacco Use Status: Former Tobacco user Quit Date: 1961 Smoked: quit 55 years ago e-Cigarette/Vaping Use: Never Used Second Hand Smoke Exposure: No Advance Directives Date on File: 11/25/21 service: No Current occupational status: retired Review of Systems Const Details: Negative for appetite change, weight change, fever, chills, malaise and fatigue Eyes Details: Negative for vision change, dry eyes,headaches and dizziness ENT Details: Negative for hearing change, tinnitus, oral ulcer, nose bleeds and oral dryness. Card Details: Negative chest pain, edema and syncope Resp Details: Negative for SOB, cough and wheezing GI Details: Negative indigestion/heartburn, nausea, abdominal pain, bowel changes, diarrhea, constipation and bloody stool. Psych Details: Amputations have been stressful. He lives alone but has help at home. Endo Details: Negative for polyuria and polydypsia Abundio/Lymph Details: Negative for excessive bruising or bleeding. Physical Exam Vital Signs: Last Vital Signs Temp 97.7 F 02/02/23 11:48 Pulse 85 02/02/23 11:48 Resp 15 02/02/23 11:48 BP 125/84 02/02/23 11:48 Pulse Ox 94 02/02/23 11:48 Oxygen Delivery Method Room Air 02/02/23 11:48 BMI result Body Mass Index 25.1 APPEARANCE: Patient in no acute distress EYES no redness, pupils equal and reactive to light, eyelids normal JOINT EXAM: Cervical Spine:? Mild discomfort with extremes of motion.? No tenderness. Thoracic Spine:.? No scoliosis.? No tenderness on palpation. Lumbar Spine:.? Alignment normal.? Full range of motion with mild pain at the extremes.? No tenderness.? Chest Wall:.? No tenderness, swelling, increased warmth or erythema. Hands:? Right:? There is mild tenderness and swelling at the 1st 3 MCP joints.? There is no flexor tendon triggering, thenar atrophy or sensory loss.? No other areas of tenderness.? There is bony enlargement at all the PIP is, the 2nd has some soft tissue swelling and mild tenderness. There is some thenar atrophy but no sensory loss. Left:? Slight swelling at the 2nd through 4th MCPs with mild tenderness. There is also thickening of all the PIP is which are mildly tender. There is no flexor tendon triggering. There is some thenar atrophy but no sensory loss. Wrists:.? Slight pain with flexion extension at 75 degrees a mild tenderness but no the in swelling. Elbows:. Normal pain-free range of motion without tenderness, swelling, increased warmth or erythema. Shoulders:.??Mild pain with abduction 135 degrees or with more than 20 degrees of internal or external rotation. There is mild anterior and subacromial tenderness without abductor weakness, swelling or adenopathy. Hips:.? Right:? Full range of motion without pain.? Left:? Slight lateral and buttock pain with the extremes of external and internal rotation.? No groin pain with motion. Hip bursa:.? No tenderness. Knees:? Right:? He has a BKA. It is in the prosthesis. The knee is not advance it examined but the range of motion is intact and pain-free. Left: There is a brace on the thigh and extending below the knee. It has some padding and support structure. It was not removed. There is some pain with range of motion at the knee and mild tenderness. Ankles and feet were not present due to amputations ? Results Reviewed Results Reviewed: Laboratory Tests 11/25/21 12/01/21 12/03/21 10:28 06:13 05:46 WBC 9.4 Hgb 12.1 L ESR 84 H Creatinine 0.77 Labs from [facility]: April 2021: CRP 0.September: ESR 54 11/02/2022: Hemoglobin 9.6, MCV 97.9, B12 696, ferritin 15 12/14/2022: White count 6.1, hemoglobin 11.1, iron saturation 17% Assessment & Plan Assessment & Plan (1) Osteoarthritis of left knee: Code(s): M17.12 - Unilateral primary osteoarthritis, left knee (2) Osteoarthritis of hands, bilateral: Code(s): M19.041 - Primary osteoarthritis, right hand; M19.042 - Primary osteoarthritis, left hand (3) Seronegative rheumatoid arthritis: Comment: Onset 2016 - responded to prednisone Late 2019: more synovitis in hands/wrists. Prednisone increased 10/14: Sulfasalazine started - Not tolerated - headache, nausea - so it was stopped 02/2021 - hydroxychloroquine started: eye exam questionable 09/2021 - summer 2021 hydroxychloroquine held. Immunosuppressive Rx avoided due to foot infections Code(s): M06.00 - Rheumatoid arthritis without rheumatoid factor, unspecified site Plan Rheumatoid arthritis with some evidence for active ongoing synovitis in the hands. There is also some OA in the hands. He had originally presented with hip and shoulder pain in a PMR like pattern. He did better with higher doses of prednisone so we will put him back at 5 mg b.i.d. for 2 weeks and then have him drop down to 2.5 mg in the morning and 5 mg in the evening if possible. He is not a good candidate for methotrexate because of his regular use of alcohol. He says he does not want to give that up. TNF inhibitors of course carry a significant immunosuppression risk and he has only had healing of this left leg infection over the past few weeks. I will check some lab work looking at inflammatory markers, chemistries, T spot testing and hepatitis serologies. If he remains relatively strong and healthy we may consider adding a TNF inhibitor in the future once we have some reasonable assurance that his skin wounds have healed. We will check things back in 2 months. Orders: Orders Comprehensive Met. Panel Today M06.00 - Rheumatoid arthritis without rheumatoid factor, unspecified site, Z79.899 - Other rat exterminator (current) drug therapy C Reactive Protein Today M06.00 - Rheumatoid arthritis without rheumatoid factor, unspecified site, Z79.899 - Other fdc (current) drug therapy Complete Blood Count Auto Diff Today M06.00 - Rheumatoid arthritis without rheumatoid factor, unspecified site, Z79.899 - Other fdc (current) drug therapy Erythrocyte Sedimentation Rate Today M06.00 - Rheumatoid arthritis without rheumatoid factor, unspecified site, Z79.899 - Other rat exterminator (current) drug therapy Hepatitis A,B,C Profile Today M06.00 - Rheumatoid arthritis without rheumatoid factor, unspecified site, Z79.899 - Other fdc (current) drug therapy T Spot TB Today M06.00 - Rheumatoid arthritis without rheumatoid factor, unspecified site, Z79.899 - Other fdc (current) drug therapy Coding Level of Care Code Est Pt Level 3 (00648) Diagnoses Osteoarthritis of left knee M17.12 Osteoarthritis of hands, bilateral M19.041; M19.042 Seronegative rheumatoid arthritis M06.00
[2023-02-02 11:48] VITALS: BP 125/84; PULSE 85; RESP 15; TEMP 36.5; O2SAT 94; BMI 25.1
== END 2023-02-02 12:23 | disposition home or self-care (01) ==
PROVIDERS: PCP Pediatrics; Visit Provider Internal Medicine Rheumatology
DX: M17.12 Unilateral primary osteoarthritis, left knee (principal); M19.041 Primary osteoarthritis, right hand; M19.042 Primary osteoarthritis, left hand; M06.00 Rheumatoid arthritis without rheumatoid factor, unspecified site
CPT/HCPCS: 99213

== ENCOUNTER → 2023-02-02 11:43 | Outpatient (BNVA) | payer MEDICARE, OTHER, SELFPAY | PROVIDERS: PCP Pediatrics; Visit Provider Internal Medicine Rheumatology | DX: M06.00 Rheumatoid arthritis without rheumatoid factor, unspecified site (principal); M17.12 Unilateral primary osteoarthritis, left knee; M19.041 Primary osteoarthritis, right hand; M19.042 Primary osteoarthritis, left hand; Z79.899 Other long term (current) drug therapy; Z11.59 Encounter for screening for other viral diseases; Z72.89 Other problems related to lifestyle | CPT/HCPCS: 36415; 80053; 85025; 85652; 86140; 86481; 86704; 86706; 86709; 86803; 87340; 99212 ==

== ENCOUNTER 2023-02-02 12:44 | Outpatient (REF) | payer MEDICARE, OTHER, SELFPAY ==
[2023-02-02 14:44] LABS: Basophils Percent Auto 0.6 % (0-2); Eosinophils Absolute Auto 0.1 X10*3/uL (0.0-0.4); Eosinophils Percent Auto 1.3 % (0-4); Hematocrit 39.8 % (42.0-52.0); Hemoglobin 12.6 g/dl (14.0-18.0); Imm Gran Abs Auto 0.02 X10*3/uL (0.00-0.03); Imm Gran Pct Auto 0.3 % (0.0-0.4); Lymphocytes Absolute Auto 1.8 X10*3/uL (1.2-4.9); Lymphocytes Percent Auto 24.8 % (20-40); MANUAL DIFF FLAG NO; Mean Corpuscular HGB Conc 31.7 g/dl (31.0-36.0); Mean Corpuscular Hemoglobin 31.8 pg (27.0-33.0); Mean Corpuscular Volume 100.5 fL (80.0-98.0); Mean Platelet Volume 12.9 fL (9.4-12.4); Monocytes Absolute Auto 0.6 X10*3/uL (0.1-1.2); Monocytes Percent Auto 9.1 % (2-11); Neutrophils Absolute Auto 4.5 x10*3/uL (2.0-8.3); Neutrophils Percent Auto 63.9 % (45-73); Platelet Count 166 X10*3/uL (160-400); Red Blood Count 3.96 X10*6/uL (4.60-5.80); Red Cell Distribution Width 14.4 % (11.0-16.0); White Blood Count 7.1 X10*3/uL (4.8-10.8)
[2023-02-02 15:38] LABS: Erythrocyte Sedimentation Rate 30 MM/HR (0-15)
[2023-02-02 16:00] LABS: Alanine Aminotransferase 12 U/L (0-40); Alkaline Phosphatase 75 U/L (39-117); Anion Gap 15 (12-20); Aspartate Amino Transferase 13 U/L (5-37); Bilirubin Total 0.6 mg/dL (0.0-1.0); Blood Urea Nitrogen 19 mg/dL (9-16); C Reactive Protein 2.09 mg/dL (< or = 0.50); Calcium 9.3 mg/dL (8.4-10.2); Carbon Dioxide 24 mmol/L (22-29); Chloride 109 mmol/L (96-108); Estimated Glomerular Filt Rate > 60; Glucose Random 88 mg/dL (60-115); Potassium 3.9 mmol/L (3.3-5.1); Sodium 144 mmol/L (135-145); Total Protein 7.2 g/dL (6.5-8.0)
[2023-02-03 03:20] LABS: HBS Num1 0.51 mIU/mL (0-7.99); HBc Num1 0.18 S/CO (0.00-0.79); HBsAGNum1 0.36 S/CO (0.00-0.99); Hepatitis A Antibody IgM 0.16 Index (0-0.79); Hepatitis B Core Antibody Nonreactive (Nonreactive); Hepatitis B Surface Antigen Negative (Negative); ~HepC Num1 0.24 S/CO (0.00-0.79); ~Hepatitis A Antibody IgM Nonreactive (Nonreactive); ~Hepatitis B Surface Antibody NONREACTIVE (Nonreactive); ~Hepatitis C Antibody Nonreactive (Nonreactive)
[2023-02-05 04:43] LABS: TS Negative Control Passed; TS Panel A 2; TS Panel B 1; TS Positive Control Passed; TSpotTB Negative (Negative)
== END 2023-02-02 12:45 | disposition home or self-care (01) ==
LOC: HO.10HDL 12:44
PROVIDERS: Visit Provider Internal Medicine Rheumatology
DX: Z13.89 Encounter for screening for other disorder (principal)
CPT/HCPCS: 36415; 80053; 85025; 85652; 86140; 86481; 86704; 86706; 86709; 86803; 87340

== ENCOUNTER 2023-04-17 10:07 | Outpatient (AMB) | payer MEDICARE, OTHER, SELFPAY ==
--- NOTE | 2023-04-17 10:21 | MHC.OFFVIS ---
Intake Vital Signs 04/17/23 10:22 Height 5 ft 8 in BMI Reason not done Patient refused/unable BP 138/40 L Blood Pressure Location Rt brachial Position Sitting Pulse 73 Pulse Source Pulse Oximeter Temp 97 F Temp Source Skin Pulse Oximetry (%) 97 Oxygen Delivery Method Room Air Comment unable to stand Intake Visit Reasons: PMR Intake Note: Patient presents today to follow up on PMR. Patient reports he does not want to reduce prednisone. Gyroscope Repairer Required: No Accompanied by: Self / Same As Patient Allergies levofloxacin [From Levaquin] Allergy (Severe, Verified 04/17/23 10:22) impaired kidney function canagliflozin [From Invokana] Allergy (Intermediate, Verified 04/17/23 10:22) Unknown clindamycin Allergy (Intermediate, Verified 04/17/23 10:22) Heartburn penicillins Allergy (Intermediate, Uncoded 04/17/23 10:22) blisters HPI HPI Comments History of Present Illness Details The patient returns for evaluation of his seronegative rheumatoid arthritis. He did get better with putting him back on prednisone at 5 mg b.i.d.. We have tapered him down to predniosne 2.5 mg the morning and 5 mg in the evening. He notes some increase across the PIP and MCP regions in terms of pain. This seems to be manageable for him. 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 He is planning on attending physical therapy twice a week for the next 3 months to try to acquire the ability to walk. He says ther is some doubt because he has flexion contracture in the knees. The left knee that hadbeen problematic before does not seem to bother him all that much presently. He has equipped his home with lift devices on his staiirways and modified his bathroom to accommodate him. He also has an aide that comes in 2 hours a day. His sister assists with home making and shopping. He still wants to stay in the home in spite of his significant disability. [facility]LY [facility] Medical History (Updated 04/17/23 @ 10:59 by Javier Talbot MD) Foot pain, right long-term use of drug Iron deficiency anemia Osteoarthritis of knees, bilateral Combined hyperlipidemia Chronic atrial fibrillation PAD (peripheral artery disease) Type 2 diabetes mellitus CKD (chronic kidney disease) stage 3, GFR 30-59 ml/min Seronegative rheumatoid arthritis Surgical History (Updated 02/02/23 @ 13:32 by Javier Talbot MD) History of leg amputation History of left hip replacement Hx of left knee surgery Social History Household Members: None Household Members Other:: lives alone Housing: House Are you a primary senior care provider to a significant other at home: No Do you presently have visiting nurse or other home services: No 75 years or older and lives alone: Yes Alcohol intake: current Alcohol intake frequency: 0-2 drinks per day Patient Tobacco Use Status: Former Tobacco user Quit Date: 1961 Smoked: quit 55 years ago e-Cigarette/Vaping Use: Never Used Second Hand Smoke Exposure: No Advance Directives Date on File: 11/25/21 service: No Current occupational status: retired Review of Systems Const Details: Negative for appetite change, weight change, fever, chills, malaise and fatigue Eyes Details: Negative for vision change, dry eyes,headaches and dizziness ENT Details: Negative for hearing change, tinnitus, oral ulcer, nose bleeds and oral dryness. Card Details: Negative chest pain, edema and syncope Resp Details: Negative for SOB, cough and wheezing GI Details: Negative indigestion/heartburn, nausea, abdominal pain, bowel changes, diarrhea, constipation and bloody stool. Endo Details: Negative for polyuria and polydypsia Abundio/Lymph Details: Negative for excessive bruising or bleeding. Physical Exam Vital Signs: Last Vital Signs Temp 97 F 04/17/23 10:22 Pulse 73 04/17/23 10:22 BP 138/40 L 04/17/23 10:22 Pulse Ox 97 04/17/23 10:22 Oxygen Delivery Method Room Air 04/17/23 10:22 APPEARANCE: Patient in no acute distress JOINT EXAM: ??Cervical Spine:? Mild discomfort with extremes of motion.? No tenderness. Thoracic Spine:.? No scoliosis.? No tenderness on palpation. Lumbar Spine:.? Alignment normal.? Full range of motion with mild pain at the extremes.? No tenderness.? Chest Wall:.? No tenderness, swelling, increased warmth or erythema. Hands:? Right:? There is mild tenderness and swelling at the 1st 3 MCP joints.? There is no flexor tendon triggering, thenar atrophy or sensory loss.? No other areas of tenderness.? There is bony enlargement at all the PIP's, the 2nd has some soft tissue swelling and mild tenderness. There is some thenar atrophy but no sensory loss. Left:? Slight swelling at the 2nd through 4th MCPs with mild tenderness. There is also thickening of all the PIP is which are mildly tender. There is no flexor tendon triggering. There is some thenar atrophy but no sensory loss. Wrists:.? Slight pain with flexion extension at 75 degrees a mild tenderness but no the in swelling. Elbows:. Normal pain-free range of motion without tenderness, swelling, increased warmth or erythema. Shoulders:.??Mild pain with abduction 135 degrees or with more than 20 degrees of internal or external rotation. There is mild anterior and subacromial tenderness without abductor weakness, swelling or adenopathy. Hips:.? Right:? Full range of motion without pain.? Left:? Slight lateral and buttock pain with the extremes of external and internal rotation.? No groin pain with motion. Hip bursa:.? No tenderness. Knees:? Right:? He has a BKA. It is in the prosthesis. The knee is not advance it examined but the range of motion is intact and pain-free. Left: There is a brace on the thigh and extending below the knee. It has some padding and support structure. It was not removed. There is mild pain with attempts at full range of motion. There is minimal tenderness. Ankles and feet were not present due to amputations Results Reviewed Results Reviewed: Laboratory Tests 02/02/23 Unknown WBC 7.1 Hgb 12.6 L ESR 30 H Creatinine 1.05 C-Reactive Protein 2.09 H Assessment & Plan Assessment & Plan (1) On prednisone therapy: Code(s): Z79.52 - long-term (current) use of systemic steroids (2) Seronegative rheumatoid arthritis: Comment: Onset 2016 - responded to prednisone Late 2019: more synovitis in hands/wrists. Prednisone increased 10/14: Sulfasalazine started - Not tolerated - headache, nausea - so it was stopped. Methotrexate avoided due to regular alcohol use. 02/2021 - hydroxychloroquine started: eye exam questionable 09/2021 - summer 2021 hydroxychloroquine held. Immunosuppressive Rx avoided due to foot infections Code(s): M06.00 - Rheumatoid arthritis without rheumatoid factor, unspecified site Plan His seronegative RA presently is treated just with prednisone at this point. We had avoided methotrexate because he regularly drinks alcohol. A trial of sulfasalazine was met with significant side effects. 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 So the addition of a TNF inhibitor or similar immunosuppressive remains an option. I am concerned that he had bilateral foot infections earlier this year and we are trying to get him ambulatory. I think for now we will continue with just a low-dose prednisone. I will check a bone density to see if he might benefit from bisphosphonate therapy. He has already had cataracts surgery. I encouraged him to follow through with the physical therapy to see if he could get enough mobility to be Chem ambulatory. We will see him back in about 3 months. Orders: Orders XR DEXA axial skeleton Today M06.00 - Rheumatoid arthritis without rheumatoid factor, unspecified site, Z79.52 - long-term (current) use of systemic steroids Coding Level of Care Code Est Pt Level 3 (23026) Diagnoses On prednisone therapy Z79.52 Seronegative rheumatoid arthritis M06.00
[2023-04-17 10:22] VITALS: BP 138/40; PULSE 73; TEMP 36.1; O2SAT 97
== END 2023-04-17 11:05 | disposition home or self-care (01) ==
PROVIDERS: PCP Pediatrics; Visit Provider Internal Medicine Rheumatology
DX: Z79.52 Long term (current) use of systemic steroids (principal); M06.00 Rheumatoid arthritis without rheumatoid factor, unspecified site
CPT/HCPCS: 99213

== ENCOUNTER → 2023-04-17 10:07 | Outpatient (BNVA) | payer MEDICARE, OTHER, SELFPAY | PROVIDERS: PCP Pediatrics; Visit Provider Internal Medicine Rheumatology | DX: M06.00 Rheumatoid arthritis without rheumatoid factor, unspecified site (principal); Z79.52 Long term (current) use of systemic steroids | CPT/HCPCS: 99212 ==

== ENCOUNTER 2023-05-09 10:43 | Outpatient (REF) | payer MEDICARE, OTHER, SELFPAY ==
--- NOTE | ~2023-05-09 | MM_ITS ---
EXAMINATION: BONE DENSITOMETRY CLINICAL INDICATION: Rheumatoid arthritis without rheumatoid factor, unspecified site. COMPARISON: This is the patient's baseline examination. TECHNIQUE: Using a [employer] DXA System (software version: 13.1) manufactured by [employer], dual-energy x-ray absorptiometry was performed of the lumbar spine and right hip. Patient with left hip replacement. The images are of good technical quality. Summary results are attached. FINDINGS: RIGHT FEMUR, NECK: BMD 0.662 g/cm2, Z-score -1.5, T-score -3.1, osteoporosis. RIGHT FEMUR, TOTAL: BMD 0.735 g/cm2, Z-score -1.2, T-score -2.5, osteoporosis. AP SPINE L1-L4: BMD 1.200 g/cm2, Z-score 0.7, T-score -0.2, normal. IDENTIFIED RISK FACTORS: Anticonvulsant, glucocorticoids (chronic), height loss, low calcium intake, rheumatoid arthritis. HISTORY OF FRACTURE: None listed. MEDICATIONS: Multivitamin, vitamin D. MM/XR DEXA axial skeleton IMPRESSION: 1. DIAGNOSIS: Osteoporosis based on the lowest T-score value of -3.1 in the femoral neck applying World Health Organization criteria. 2. 10-YEAR FRACTURE RISK PREDICTION, FRAX: According to the guidelines, FRAX calculation should only be performed on patients in the osteopenia bone density category. Therefore, FRAX was not performed on this patient. 3. Treatment Recommendations: NOF guidelines recommend consideration for treatment in postmenopausal women and men age 50 and older presenting with the following: -A hip or vertebral (clinical or morphometric) fracture. -T-score less than or equal to -2.5 at the femoral neck or spine after appropriate evaluation to exclude secondary causes. -Low bone mass at the hip or spine and a 10-year fracture probability by FRAX of greater than or equal to 3% for hip fracture or greater than or equal to 20% for major osteoporotic fracture based on the [place] adapted WHO algorithm. 4. Other Recommendations: All treatment decisions require clinical judgment and consideration of individual patient factors, including patient preferences, comorbidities, previous drug use, risk factors not captured in the FRAX model (e.g. frailty, falls, vitamin D deficiency, increased bone turnover, interval significant decline in bone density) and possible under or overestimation of fracture risk by FRAX. Additional medical evaluation for secondary cause of low bone mineral density may be appropriate. FUTURE SCAN RECOMMENDATION: People with diagnosed cases of osteoporosis or at high risk for fracture should have regular bone mineral density tests. For patients eligible for Medicare, routine testing is allowed once every 2 years. The testing frequency can be increased to one year for patients who have rapidly progressing disease, those who are receiving or discontinuing medical therapy to restore bone mass, or have additional risk factors.
== END 2023-05-09 10:44 | disposition home or self-care (01) ==
LOC: HO.MAMMO 10:43
PROVIDERS: PCP Pediatrics; Visit Provider Internal Medicine Rheumatology
DX: Z13.820 Encounter for screening for osteoporosis (principal); M06.00 Rheumatoid arthritis without rheumatoid factor, unspecified site; Z79.52 Long term (current) use of systemic steroids
CPT/HCPCS: 77080

== ENCOUNTER 2023-08-22 10:36 | Outpatient (AMB) | payer MEDICARE, OTHER, SELFPAY ==
--- NOTE | 2023-08-22 10:41 | MHC.OFFVIS ---
Intake Vital Signs 08/22/23 10:42 Height 5 ft 8 in BMI Reason not done Patient refused/unable BP 144/80 H Blood Pressure Location Rt brachial Position Sitting Pulse 97 Pulse Source Pulse Oximeter Temp 98.1 F Temp Source Skin Pulse Oximetry (%) 96 Oxygen Delivery Method Room Air Intake Visit Reasons: RA/OA with DR Boubacar Cha Note: Patient last seen 04/17/23 presents today for follow up and test results. Advertising Campaign Manager Required: No Accompanied by: Self / Same As Patient Allergies levofloxacin [From Levaquin] Allergy (Severe, Verified 08/22/23 10:52) impaired kidney function canagliflozin [From Invokana] Allergy (Intermediate, Verified 08/22/23 10:52) Unknown clindamycin Allergy (Intermediate, Verified 08/22/23 10:52) Heartburn penicillins Allergy (Intermediate, Uncoded 08/22/23 10:52) blisters Medication List - Last Reconciled 08/22/23 by Shannon Coronado MD alendronate 70 mg PO QWEEK amlodipine 10 mg See Protocol PO DAILY ascorbic acid (vitamin C) 250 mg PO DAILY atorvastatin 10 mg PO DAILY blood sugar diagnostic As directed cholecalciferol (vitamin D3) 25 mcg PO DAILY cyanocobalamin (vitamin B-12) 1,000 mcg PO DAILY@1200 diltiazem HCl 240 mg PO DAILY furosemide 20 mg PO DAILY lancets As directed loratadine (Allergy Relief (loratadine)) 10 mg PO DAILY metformin 1,000 mg PO BID@0900,1800 metoprolol succinate ER 75 mg PO DAILY@1800 omeprazole 20 mg PO DAILY prednisone one tab in AM and 2 tabs in PM daily rosuvastatin 20 mg PO DAILY@1800 tamsulosin 0.4 mg PO BID 90 days warfarin 2 mg PO SUMOWEFRSA@1800 warfarin 2.5 - 5 mg PO DAILY HPI HPI Comments History of Present Illness Details This is an 83-year-old male with seronegative RA who presents for follow-up. Patient is doing well on prednisone 2.5 mg in the morning and 5 mg at night. He started alendronate 3 months ago and is well tolerated. He states that he has had diarrhea but that predates alendronate by many months. He is a double amputee. He Still lives at home despite significant disability.. He has done multiple modifications in his home including dip devices on his airways, he has modified his bathroom to accommodate him and he has a DIRECTOR OF PROGRAM MANAGEMENT that comes twice a week. Most recent history by Dr. Talbot 03/2023: The patient returns for evaluation of his seronegative rheumatoid arthritis. He did get better with putting him back on prednisone at 5 mg b.i.d.. We have tapered him down to predniosne 2.5 mg the morning and 5 mg in the evening. He notes some increase across the PIP and MCP regions in terms of pain. This seems to be manageable for him. 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 He is planning on attending physical therapy twice a week for the next 3 months to try to acquire the ability to walk. He says ther is some doubt because he has flexion contracture in the knees. The left knee that hadbeen problematic before does not seem to bother him all that much presently. He has equipped his home with lift devices on his staiirways and modified his bathroom to accommodate him. He also has an aide that comes in 2 hours a day. His sister assists with home making and shopping. He still wants to stay in the home in spite of his significant disability. 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 Iron deficiency anemia Osteoarthritis of knees, bilateral Combined hyperlipidemia Chronic atrial fibrillation PAD (peripheral artery disease) Type 2 diabetes mellitus CKD (chronic kidney disease) stage 3, GFR 30-59 ml/min Seronegative rheumatoid arthritis Surgical History History of leg amputation History of left hip replacement Hx of left knee surgery Social History Household Members: None Household Members Other:: lives alone Housing: House Are you a primary care worker to a significant other at home: No Do you presently have visiting nurse or other home services: No Alcohol intake: current Alcohol intake frequency: 0-2 drinks per day Patient Tobacco Use Status: Former Tobacco user Quit Date: 1961 Smoked: quit 55 years ago e-Cigarette/Vaping Use: Never Used Second Hand Smoke Exposure: No Advance Directives Date on File: 11/25/21 service: No Current occupational status: retired Review of Systems [facility] [place] Reports arthralgias and Reports stiffness Physical Exam Vital Signs: Last Vital Signs Temp 98.1 F 08/22/23 10:42 Pulse 97 08/22/23 10:42 BP 144/80 H 08/22/23 10:42 Pulse Ox 96 08/22/23 10:42 Oxygen Delivery Method Room Air 08/22/23 10:42 Const General: cooperative, healthy appearing and comfortable Nutritional Appearance: obese Orientation/consciousness: patient oriented x3 Limitations: wheelchair HEENT Head: Yes normocephalic and Yes atraumatic Mouth: moist mucous membranes Resp Effort & Inspection: normal respiratory effort and able to speak in complete sentences Skin General skin exam: no rashes or lesions noted Neuro General: patient oriented x3 Extrem Other: Osteoarthritic changes of both hands Ulnar deviation of left index finger at the PIP. Few tender PIPs, MCPs bilaterally without significant swelling Normal range of motion of elbows and shoulders without pain No knee pain, warmth or swelling bilaterally Assessment & Plan Assessment & Plan (1) Seronegative rheumatoid arthritis: Comment: Onset 2016 - responded to prednisone Late 2019: more synovitis in hands/wrists. Prednisone increased 10/14: Sulfasalazine started - Not tolerated - headache, nausea - so it was stopped. Methotrexate avoided due to regular alcohol use. 02/2021 - hydroxychloroquine started: eye exam questionable 09/2021 - summer 2021 hydroxychloroquine held. Immunosuppressive Rx avoided due to foot infections Code(s): M06.00 - Rheumatoid arthritis without rheumatoid factor, unspecified site Plan: This is an 83-year-old male with seronegative RA who presents for follow-up. This is his 1st visit with me, he used to follow-up with Dr. Talbot. Doing well on prednisone 2.5 mg in the morning and 5 mg nightly. Continue current meds. Will check labs to evaluate disease activity. Will try to taper down his prednisone on subsequent visits and add a DMARD. Follow-up in 4 months. Patient can do labs on the day of the visit (2) Osteoporosis: Comment: Tscores 04/2023: Fem neck -3.1, Femur -2.5, LS spine -0.2 Alendronate 04/2023 Code(s): M81.0 - Age-related osteoporosis without current pathological fracture Qualifiers: Osteoporosis type: age-related Presence of current pathological fracture: without current pathological fracture Qualified Code(s): M81.0 - Age-related osteoporosis without current pathological fracture Plan: Continue with alendronate. 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 Hepatitis A,B,C Profile Today Z11.59 - Encounter for screening for other viral diseases Medications: Changed From prednisone one tab in AM and two tabs in PM daily 270 tabs 2RF M06.00 - Rheumatoid arthritis without rheumatoid factor, unspecified site To prednisone one tab in AM and 2 tabs in PM daily M06.00 - Rheumatoid arthritis without rheumatoid factor, unspecified site Coding Level of Care Code Est Pt Level 5 (83540) Diagnoses Seronegative rheumatoid arthritis M06.00 Age-related osteoporosis without current pathological fracture M81.0 Osteoporosis type: age-related Presence of current pathological fracture: without current pathological fracture
[2023-08-22 10:42] VITALS: BP 144/80; PULSE 97; TEMP 36.7; O2SAT 96
== END 2023-08-22 11:19 | disposition home or self-care (01) ==
PROVIDERS: PCP Pediatrics; Visit Provider Student in an Organized Health Care Education/Training Program
DX: M06.09 Rheumatoid arthritis without rheumatoid factor, multiple sites (principal); M81.0 Age-related osteoporosis without current pathological fracture
CPT/HCPCS: 99215

== ENCOUNTER → 2023-08-22 10:36 | Outpatient (BNVA) | payer MEDICARE, OTHER, SELFPAY | PROVIDERS: PCP Pediatrics; Visit Provider Student in an Organized Health Care Education/Training Program | DX: M06.00 Rheumatoid arthritis without rheumatoid factor, unspecified site (principal); M81.0 Age-related osteoporosis without current pathological fracture | CPT/HCPCS: 36415; 80053; 85025; 85652; 86140; 86481; 86704; 86706; 86709; 86803; 87340; 99212 ==

== ENCOUNTER 2023-08-22 11:29 | Outpatient (REF) | payer MEDICARE, OTHER, SELFPAY ==
[2023-08-22 13:25] LABS: MANUAL DIFF FLAG NO
[2023-08-22 13:36] LABS: Basophils Percent Auto 0.6 % (0-2); Eosinophils Absolute Auto 0.1 X10*3/uL (0.0-0.4); Eosinophils Percent Auto 1.1 % (0-4); Hemoglobin 14.1 g/dl (14.0-18.0); Imm Gran Abs Auto 0.06 X10*3/uL (0.00-0.03); Imm Gran Pct Auto 0.8 % (0.0-0.4); Lymphocytes Absolute Auto 1.8 X10*3/uL (1.2-4.9); Mean Corpuscular HGB Conc 32.8 g/dl (31.0-36.0); Mean Corpuscular Hemoglobin 34.8 pg (27.0-33.0); Mean Corpuscular Volume 106.2 fL (80.0-98.0); Mean Platelet Volume 11.5 fL (9.4-12.4); Monocytes Absolute Auto 0.7 X10*3/uL (0.1-1.2); Monocytes Percent Auto 9.4 % (2-11); Neutrophils Absolute Auto 4.5 x10*3/uL (2.0-8.3); Neutrophils Percent Auto 63.1 % (45-73); Platelet Count 187 X10*3/uL (160-400); Red Blood Count 4.05 X10*6/uL (4.60-5.80); Red Cell Distribution Width 12.9 % (11.0-16.0); White Blood Count 7.1 X10*3/uL (4.8-10.8)
[2023-08-22 13:56] LABS: Alanine Aminotransferase 14 U/L (0-40); Alkaline Phosphatase 48 U/L (39-117); Anion Gap 13 (12-20); Aspartate Amino Transferase 12 U/L (5-37); Bilirubin Total 0.9 mg/dL (0.0-1.0); Blood Urea Nitrogen 13 mg/dL (9-16); C Reactive Protein < 0.10 mg/dL (< or = 0.50); Carbon Dioxide 27 mmol/L (22-29); Chloride 104 mmol/L (96-108); Estimated Glomerular Filt Rate > 60; Glucose Random 105 mg/dL (60-115); Potassium 3.9 mmol/L (3.3-5.1); Sodium 140 mmol/L (135-145); Total Protein 6.7 g/dL (6.5-8.0)
[2023-08-22 14:13] LABS: Erythrocyte Sedimentation Rate 6 MM/HR (0-15)
[2023-08-23 08:41] LABS: HBS Num1 0.36 mIU/mL (0-7.99); HBc Num1 0.13 S/CO (0.00-0.79); HBsAGNum1 0.34 S/CO (0.00-0.99); Hepatitis A Antibody IgM 0.17 Index (0-0.79); Hepatitis B Core Antibody Nonreactive (Nonreactive); Hepatitis B Surface Antigen Negative (Negative); ~HepC Num1 0.26 S/CO (0.00-0.79); ~Hepatitis A Antibody IgM Nonreactive (Nonreactive); ~Hepatitis B Surface Antibody NONREACTIVE (Nonreactive); ~Hepatitis C Antibody Nonreactive (Nonreactive)
[2023-08-24 21:44] LABS: TS Negative Control Passed; TS Panel A 0; TS Panel B 0; TS Positive Control Passed; TSpotTB Negative (Negative)
== END 2023-08-22 11:30 | disposition home or self-care (01) ==
LOC: HO.10HDL 11:29
PROVIDERS: Visit Provider Student in an Organized Health Care Education/Training Program
DX: Z13.89 Encounter for screening for other disorder (principal)
CPT/HCPCS: 36415; 80053; 85025; 85652; 86140; 86481; 86704; 86706; 86709; 86803; 87340

== ENCOUNTER 2024-01-23 13:22 | Outpatient (AMB) | payer MEDICARE, OTHER, SELFPAY ==
--- NOTE | 2024-01-23 13:45 | MHC.OFFVIS ---
Vital Signs 01/23/24 13:50 Height 5 ft 8 in Weight 0 oz BMI 0.0 BMI Reason not done Patient refused/unable BP 140/80 H Blood Pressure Location Rt brachial Position Sitting Pulse 89 Pulse Source Pulse Oximeter Pulse Oximetry (%) 97 Oxygen Delivery Method Room Air Comment unable to stand Intake Visit Reasons: RA/CM Intake Note: Patient presents for RA. Allergies levofloxacin [From Levaquin] Allergy (Severe, Verified 01/23/24 13:49) impaired kidney function canagliflozin [From Invokana] Allergy (Intermediate, Verified 01/23/24 13:49) Unknown clindamycin Allergy (Intermediate, Verified 01/23/24 13:49) Heartburn penicillins Allergy (Intermediate, Uncoded 08/22/23 10:52) blisters Medication List - Last Reconciled 01/23/24 by Shannon Coronado MD amlodipine 10 mg See Protocol PO DAILY ascorbic acid (vitamin C) 250 mg PO DAILY atorvastatin 10 mg PO DAILY blood sugar diagnostic As directed cholecalciferol (vitamin D3) 25 mcg PO DAILY cyanocobalamin (vitamin B-12) 1,000 mcg PO DAILY@1200 diltiazem HCl CD 240 mg PO DAILY furosemide 20 mg PO DAILY lancets As directed loratadine (Allergy Relief (loratadine)) 10 mg PO DAILY metformin 1,000 mg PO BID@0900,1800 metoprolol succinate ER 75 mg PO DAILY@1800 omeprazole 20 mg PO DAILY prednisone Take 1 tab every morning and 2 tabs every evening rosuvastatin 20 mg PO DAILY@1800 tamsulosin 0.4 mg PO BID 90 days warfarin 2 mg PO SUMOWEFRSA@1800 warfarin 2.5 - 5 mg PO DAILY HPI Comments Details: This is an 83-year-old male with seronegative RA who presents for follow-up. Patient is doing well on prednisone 2.5 mg in the morning and 5 mg at night. States that whenever he lowered his prednisone he gets significant pain and stiffness of his hands and he needs his hands to move around as he is on a wheelchair. He is bilateral amputee. He stopped alendronate weeks ago due to a dental procedure. He had a broken tooth that was corrected and he is now going to his PCP for an implant. He was told to stay off alendronate for 6-9 months Most recent history by Dr. Talbot 03/2023: The patient returns for evaluation of his seronegative rheumatoid arthritis. He did get better with putting him back on prednisone at 5 mg b.i.d.. We have tapered him down to predniosne 2.5 mg the morning and 5 mg in the evening. He notes some increase across the PIP and MCP regions in terms of pain. This seems to be manageable for him. 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 He is planning on attending physical therapy twice a week for the next 3 months to try to acquire the ability to walk. He says ther is some doubt because he has flexion contracture in the knees. The left knee that hadbeen problematic before does not seem to bother him all that much presently. He has equipped his home with lift devices on his staiirways and modified his bathroom to accommodate him. He also has an aide that comes in 2 hours a day. His sister assists with home making and shopping. He still wants to stay in the home in spite of his significant disability. 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 Iron deficiency anemia Osteoarthritis of knees, bilateral Combined hyperlipidemia Chronic atrial fibrillation PAD (peripheral artery disease) Type 2 diabetes mellitus CKD (chronic kidney disease) stage 3, GFR 30-59 ml/min Seronegative rheumatoid arthritis Surgical History History of leg amputation History of left hip replacement Hx of left knee surgery Social History Household Members: None Household Members Other:: lives alone Housing: House Are you a primary healthcare management consultant to a significant other at home: No Do you presently have visiting nurse or other home services: No 75 years or older and lives alone: Yes Alcohol intake: current Alcohol intake frequency: 0-2 drinks per day Patient Tobacco Use Status: Former Tobacco user Years Smoked: quit 55 years ago e-Cigarette/Vaping Use: Never Used Second Hand Smoke Exposure: No Advance Directives Date on File: 11/25/21 service: No Current occupational status: retired Review of Systems [facility] [place] Reports arthralgias, Reports limited range of motion and Reports stiffness Physical Exam Vital Signs: Last Vital Signs Pulse 89 01/23/24 13:50 BP 140/80 H 01/23/24 13:50 Pulse Ox 97 01/23/24 13:50 Oxygen Delivery Method Room Air 01/23/24 13:50 BMI result Body Mass Index 0.0 Const General: cooperative, healthy appearing and comfortable Nutritional Appearance: obese Orientation/consciousness: patient oriented x3 Limitations: wheelchair HEENT Head: Yes normocephalic and Yes atraumatic Resp Effort & Inspection: normal respiratory effort and able to speak in complete sentences Skin General skin exam: no rashes or lesions noted Neuro General: patient oriented x3 Extrem Other: Osteoarthritic changes of both hands Ulnar deviation of left index finger at the PIP. Significantly PIP flexion left hand No active synovitis Assessment & Plan Assessment & Plan (1) Seronegative rheumatoid arthritis: Comment: Onset 2016 - responded to prednisone Late 2019: more synovitis in hands/wrists. Prednisone increased 10/14: Sulfasalazine started - Not tolerated - headache, nausea - so it was stopped. Methotrexate avoided due to regular alcohol use. 02/2021 - hydroxychloroquine started: eye exam questionable 09/2021 - summer 2021 hydroxychloroquine held. Immunosuppressive Rx avoided due to foot infections Code(s): M06.00 - Rheumatoid arthritis without rheumatoid factor, unspecified site Category: Medical Plan: This is an 83-year-old male with seronegative RA who presents for follow-up. Doing well on prednisone 2.5 mg in the morning and 5 mg nightly. Gets significantly worsening pain and stiffness of his hands if prednisone dose is lowered. I think at this time were dealing with an osteoarthritis picture rather than rheumatoid Continue current meds Labs before next visit in 6 months (2) Osteoporosis: Comment: Tscores 04/2023: Fem neck -3.1, Femur -2.5, LS spine -0.2 Alendronate 04/2023 held 12/2023 due to dental procedure Code(s): M81.0 - Age-related osteoporosis without current pathological fracture Category: Medical Qualifiers: Osteoporosis type: age-related Presence of current pathological fracture: without current pathological fracture Qualified Code(s): M81.0 - Age-related osteoporosis without current pathological fracture Plan: Discussed long-term risk of steroids including thinning bone, development of cataracts, glaucoma, increased risk of infection, hyperglycemia Patient had cataract surgery bilaterally in the past. advised patient to follow-up regularly with rod welder to monitor for glaucoma Alendronate has been held due to a dental procedure including implants. to be resumed after 6-9 months Continue with vitamin-D. Will check vitamin-D level before next visit Plan I spent 27 minutes reviewing patient's chart, evaluating patient, ordering diagnostic workup, counseling patient and documenting in the chart Orders: Orders Comprehensive Met. Panel 6 Months M06.00 - Rheumatoid arthritis without rheumatoid factor, unspecified site C Reactive Protein 6 Months M06.00 - Rheumatoid arthritis without rheumatoid factor, unspecified site Complete Blood Count Auto Diff 6 Months M06.00 - Rheumatoid arthritis without rheumatoid factor, unspecified site Erythrocyte Sedimentation Rate 6 Months M06.00 - Rheumatoid arthritis without rheumatoid factor, unspecified site Vitamin D 25-OH (D2 and D3) 6 Months M06.00 - Rheumatoid arthritis without rheumatoid factor, unspecified site Coding Level of Care Code Est Pt Level 4 (05278) Diagnoses Seronegative rheumatoid arthritis M06.00 Age-related osteoporosis without current pathological fracture M81.0 Osteoporosis type: age-related Presence of current pathological fracture: without current pathological fracture
[2024-01-23 13:50] VITALS: BP 140/80; PULSE 89; O2SAT 97
== END 2024-01-23 14:31 | disposition home or self-care (01) ==
PROVIDERS: PCP Pediatrics; Visit Provider Student in an Organized Health Care Education/Training Program
DX: M06.00 Rheumatoid arthritis without rheumatoid factor, unspecified site (principal); M81.0 Age-related osteoporosis without current pathological fracture
CPT/HCPCS: 99214

== ENCOUNTER → 2024-01-23 13:22 | Outpatient (BNVA) | payer MEDICARE, OTHER, SELFPAY | PROVIDERS: PCP Pediatrics; Visit Provider Student in an Organized Health Care Education/Training Program | DX: M06.00 Rheumatoid arthritis without rheumatoid factor, unspecified site (principal); M81.0 Age-related osteoporosis without current pathological fracture; Z60.2 Problems related to living alone; Z79.52 Long term (current) use of systemic steroids | CPT/HCPCS: 99212 ==

== ENCOUNTER 2024-08-23 13:20 | Outpatient (AMB) | payer MEDICARE, OTHER, SELFPAY ==
--- NOTE | 2024-08-23 13:30 | A.OFFVIS_ITS ---
Vital Signs 08/23/24 13:36 Height 5 ft 8 in BMI Reason not done Patient refused/unable BP 130/80 Blood Pressure Location Lt brachial Position Sitting Pulse 84 Pulse Source Pulse Oximeter Pulse Oximetry (%) 96 Oxygen Delivery Method Room Air Intake Visit Reasons: RA/OA Intake Note: Patient presents for RA/OA. Allergies levofloxacin [From Levaquin] Allergy (Severe, Verified 08/23/24 13:34) impaired kidney function canagliflozin [From Invokana] Allergy (Intermediate, Verified 08/23/24 13:34) Unknown clindamycin Allergy (Intermediate, Verified 08/23/24 13:34) Heartburn penicillins Allergy (Intermediate, Uncoded 08/22/23 10:52) blisters Medication List - Last Reconciled 08/23/24 by Diana Underwood MD amlodipine 10 mg See Protocol PO DAILY ascorbic acid (vitamin C) 250 mg PO DAILY atorvastatin 10 mg PO DAILY blood sugar diagnostic As directed cholecalciferol (vitamin D3) 25 mcg PO DAILY cyanocobalamin (vitamin B-12) 1,000 mcg PO DAILY@1200 diltiazem HCl CD 240 mg PO DAILY furosemide 20 mg PO DAILY lancets As directed loratadine (Allergy Relief (loratadine)) 10 mg PO DAILY metformin 1,000 mg PO BID@0900,1800 metoprolol succinate ER 75 mg PO DAILY@1800 omeprazole 20 mg PO DAILY prednisone Take 1 tab every morning and 2 tabs every evening rosuvastatin 20 mg PO DAILY@1800 tamsulosin 0.4 mg PO BID 90 days warfarin 2 mg PO SUMOWEFRSA@1800 warfarin 2.5 - 5 mg PO DAILY HPI Comments Details: Patient is an 84-year-old male with diabetes complicated by bilateral below-knee amputation and CKD stage 3, hypertension, hyperlipidemia complicated by PAD, seronegative rheumatoid arthritis and osteoporosis here today for follow up Interval History: Patient last seen 01/23/[address] Coronado. At that time he was doing relatively well on 2.5 mg in the morning and 5 mg at night. He had recently stopped his alendronate prior to dental procedure. Today, Patient reports that he lost his daughter of 61 years old to ovarian cancer about a month ago. Patient currently lives alone and is . Does not have any want to talk to. With respect to his joints he is overall stable without any flares. Reports that he had an accident with a scissors both few weeks ago and has associated ecchymosis around his thigh, wanted me to check it out and see if it should be something he is concerned about. Rheumatologic History: Seronegative rheumatoid arthritis Onset 2016 - responded to prednisone Late 2019: more synovitis in hands/wrists. Prednisone increased 10/14: Sulfasalazine started - Not tolerated - headache, nausea - so it was stopped. Methotrexate avoided due to regular alcohol use. 02/2021 - hydroxychloroquine started: eye exam questionable 09/2021 - summer 2021 hydroxychloroquine held. Immunosuppressive Rx avoided due to foot infections On chronic prednisone. Attempts to reduce her prednisolone are met with flares of his disease Current Rheumatology Medication(s): Prednisone 2.5 mg b.i.d. daily [facility] Medical History Surgical absence of teeth Foot pain, right alf use of drug Iron deficiency anemia Osteoarthritis of knees, bilateral Combined hyperlipidemia Chronic atrial fibrillation PAD (peripheral artery disease) Type 2 diabetes mellitus CKD (chronic kidney disease) stage 3, GFR 30-59 ml/min Seronegative rheumatoid arthritis Surgical History History of leg amputation History of left hip replacement Hx of left knee surgery Family History (Updated 08/23/24 @ 13:36 by LANA Zuñiga) Daughter Ovarian cancer Social History Household Members: None Household Members Other:: lives alone Housing: House Are you a primary career placement services counselor to a significant other at home: No Do you presently have visiting nurse or other home services: No 75 years or older and lives alone: Yes Alcohol intake: current Alcohol intake frequency: 0-2 drinks per day Patient Tobacco Use Status: Former Tobacco user Years Smoked: quit 55 years ago e-Cigarette/Vaping Use: Never Used Second Hand Smoke Exposure: No Advance Directives Date on File: 11/25/21 service: No Current occupational status: retired Review of Systems Const Details: Review of Systems Constitutional: Denies fever, chills, weight loss ENT: Denies vision changes, eye pain or eye redness, dental caries, dry mouth GI: Denies nausea, vomiting, diarrhea, abdominal pain, change in BM Pulm: Denies SOB, MOORE, hemoptysis, wheezing Cards: Denies chest pain, palpitations Skin: Denies Raynaud's, rash, nail changes, photosensitivity, SHOE TRIMMER: Denies headaches, weakness, paresthesias, recurrent falls MSK: as per HPI All other systems reviewed and are unremarkable except noted above Physical Exam Vital Signs: Last Vital Signs Pulse 84 08/23/24 13:36 BP 130/80 08/23/24 13:36 Pulse Ox 96 08/23/24 13:36 Oxygen Delivery Method Room Air 08/23/24 13:36 Vital signs reviewed Physical Examination CONSTITUITIONAL Patient alert and cooperative. Well appearing and in no apparent painful distress HEENT Conjunctiva and sclera clear. ?Pupils equal round and reactive to light. ?No lymphadenopathy. 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 ? CHEST/RESPIRATORY SYSTEM Normal respiratory effort and able to speak in complete sentences. ?Clear to auscultation bilaterally. ?No crackles, rales, rhonchi, wheezes heard. CARDIAC SYSTEM Regular rate and rhythm. ?S1 and S2 heard no murmurs. ?Radial pulses intact bilaterally MSK Hands: ?Good mobile application development lead strength bilaterally. ?No synovitis noted to the MCPs, PIPs or DIPs. ?Several prominent Heberden's and Arcenio's nodes noted with ulnar deviation at the level of the PIPs of the right 2nd and left 2nd digit Wrists: ?Full range of motion at the wrists without pain. ?No tenderness to palpation or synovitis noted to the wrists. Elbows: Full range of motion without pain. No tenderness, weakness, swelling, increased warmth or erythema. Shoulders: Decreased active range of motion bilaterally but full passive range of motion. Hips: Not checked as patient is in wheelchair Knees: ?Full range of motion. ?No tenderness, swelling, increased warmth or erythema.?No effusion or crepitations Patient with bilateral prosthesis for below-knee amputation bilaterally SKIN Ecchymotic ring lesion noted around the right thigh. Nontender and soft to palpation Results Reviewed Results Reviewed: Laboratory Tests 08/22/23 08/23/24 11:34 14:53 WBC 7.1 7.0 RBC 4.05 L 4.03 L Hgb 14.1 14.4 Hct 43.0 43.1 Plt Count 187 175 ESR 6 Pending Sodium 140 Potassium 3.9 Chloride 104 Carbon Dioxide 27 Anion Gap 13 BUN 13 Creatinine 0.83 AST 12 ALT 14 Alkaline Phosphatase 48 C-Reactive Protein < 0.10 Assessment & Plan Assessment & Plan (1) Seronegative rheumatoid arthritis: Comment: Onset 2016 - responded to prednisone Late 2019: more synovitis in hands/wrists. Prednisone increased 10/14: Sulfasalazine started - Not tolerated - headache, nausea - so it was stopped. Methotrexate avoided due to regular alcohol use. 02/2021 - hydroxychloroquine started: eye exam questionable 09/2021 - summer 2021 hydroxychloroquine held. Immunosuppressive Rx avoided due to foot infections Code(s): M06.00 - Rheumatoid arthritis without rheumatoid factor, unspecified site Category: Medical Plan: #Seronegative RA Patient is an 84-year-old male with seronegative rheumatoid arthritis currently off chronic immunosuppression secondary to recurrent foot infections. On chronic Prednisolone therapy. At this time patient does not have any evidence of active rheumatoid arthritis. He does have significant osteoarthritic changes and deformities. We will try to decrease his prednisone from 2.5 in the morning and 5 mg in the evening to 2.5 mg b.i.d.. Plan - Prednisone 2.5mg bid - Labs today: CBC, CMP, ESR, CRP, hepatitis panel, T spot - RTC 6 months (2) Osteoporosis: Comment: Tscores 04/2023: Fem neck -3.1, Femur -2.5, LS spine -0.2 Alendronate 04/2023 held 12/2023 due to dental procedure Code(s): M81.0 - Age-related osteoporosis without current pathological fracture Category: Medical Qualifiers: Osteoporosis type: age-related Presence of current pathological fracture: without current pathological fracture Qualified Code(s): M81.0 - Age- related osteoporosis without current pathological fracture Plan: #Osteoporosis Patient with pretty significant osteoporosis involving his femur. Currently not on alendronate therapy because he is undergoing dental work. Had a long discussion with patient about his risk of fracture if he were to fall. Patient understands and is not willing to try injectables at this time. He will resume alendronate once he has complete healing Plan - Alendronate 70mg weekly - Check Vitamin D today - DEXA at next visit (3) On prednisone therapy: Code(s): Z79.52 - terminal carman (current) use of systemic steroids Category: Medical Plan: #Long-term Use of Steroids Discussed with patient the risks and benefits of steroid for managing the rheumatic condition Benefits include: - Reduced pain, improved mobility, increased participation in activities, and decreased progression of disease Risks include: - GI upset, potential ultrasound worsening or formation (especially in patients > 65 years old), elevated blood pressure/worsening hypertension, elevated blood sugar/worsening diabetes control, worsening of bone density, elevated lipids/worsening triglycerides, cataract formation, weight gain Recommended using proton pump inhibitors (PPIs) for the duration of steroid use to reduce the risk of gastric ulcers and vitamin-D daily to reduce the risk of osteoporosis Labs checked: ?A1c, T spot, hepatitis-B and C serologies Pneumocystis jiroveci prophylaxis: ?Patient with risk factors including steroids greater than 50 mg for more than 30 days, age greater than 60 years, and lung involvement from underlying rheumatic disease requires prophylaxis and will be given so (4) Encounter for monitoring bisphosphonate therapy: Code(s): Z51.81 - Encounter for therapeutic drug level monitoring; Z79.83 - alf (current) use of bisphosphonates Plan: #Long-term Use of Bisphosphonates Risks and benefits of bisphosphonates in the management of osteoporosis Benefits include improved bone density, decreased fracture risk Risks include atypical femoral fractures, GI upset, esophageal strictures Contraindicated in patients with a creatinine clearance < 30 to 35 ml/min Keep vitamin-D at least 35 ng/mL Plan I spent 45 minutes reviewing the record and labs, taking a history, examining the patient, discussing the treatment plan, counseling patient and comforting him on the loss of his daughter and documenting in the medical record Orders: Orders Complete Blood Count Auto Diff Today E55.9 - Vitamin D deficiency, unspecified, M06.00 - Rheumatoid arthritis without rheumatoid factor, unspecified site Erythrocyte Sedimentation Rate Today E55.9 - Vitamin D deficiency, unspecified, M06.00 - Rheumatoid arthritis without rheumatoid factor, unspecified site Comprehensive Met. Panel Today E55.9 - Vitamin D deficiency, unspecified, M06.00 - Rheumatoid arthritis without rheumatoid factor, unspecified site C Reactive Protein Today E55.9 - Vitamin D deficiency, unspecified, M06.00 - Rheumatoid arthritis without rheumatoid factor, unspecified site Hepatitis A,B,C Profile Today E55.9 - Vitamin D deficiency, unspecified, M06.00 - Rheumatoid arthritis without rheumatoid factor, unspecified site T Spot TB Today E55.9 - Vitamin D deficiency, unspecified, M06.00 - Rheumatoid arthritis without rheumatoid factor, unspecified site Vitamin D 25-OH Total Today E55.9 - Vitamin D deficiency, unspecified, M06.00 - Rheumatoid arthritis without rheumatoid factor, unspecified site Medications: New cholecalciferol (vitamin D3) 25 mcg PO DAILY 90 tabs 1RF E55.9 - Vitamin D deficiency, unspecified Changed From prednisone Take 1 tab every morning and 2 tabs every evening 90 tabs 2RF M06.00 - Rheumatoid arthritis without rheumatoid factor, unspecified site To prednisone 2.5 mg PO BID 180 tabs 2RF M06.00 - Rheumatoid arthritis without rheumatoid factor, unspecified site Refilled prednisone Take 1 tab every morning and 2 tabs every evening 90 tabs 2RF M06.00 - Rheumatoid arthritis without rheumatoid factor, unspecified site Coding Level of Care Code Est Pt Level 5 (38713) Complex EM visit Add On G2211 Diagnoses Seronegative rheumatoid arthritis M06.00 Age-related osteoporosis without current pathological fracture M81.0 Osteoporosis type: age-related Presence of current pathological fracture: without current pathological fracture On prednisone therapy Z79.52 Encounter for monitoring bisphosphonate therapy Z51.81; Z79.83
[2024-08-23 13:36] VITALS: BP 130/80; PULSE 84; O2SAT 96
--- OUTSIDE RECORDS SUMMARY | 2024-08-23 15:23 | XMS_ITS | Clinical Summary ---
Author Organization [facility] Facility Address [address] [address] Care Team Providers Care Miller Head Name Role Phone Kavon Grant MD Primary Care Provider + Social History Tobacco Use Types Packs/Day Years Used Date Smoking Tobacco: Never Assessed Sex and Gender Information Value Date Recorded Sex Assigned at Not on file Legal Sex Male 8:50 AM EDT Gender Identity Not on file Sexual Orientation Not on file Plan of Treatment Health Maintenance Due Date Last Done Comments Diabetes: Ophthalmology Exam 01/08/2022 Diabetes: Pedal Pulse Checked 01/08/2022 Diabetes: Sensory Foot Exam 01/08/2022 Diabetes: Visual Foot Exam 01/08/2022 Diabetes: Hemoglobin A1C 01/19/2022 10/20/2021 Influenza Vaccine (#1) 2024 , 03/10/2020, 04/25/2019, Additional history exists Pneumococcal Vaccine: 65+ Years Completed 06/09/2015, 03/30/2010, 06/26/2004 Hepatitis B Vaccine Aged Out No longe r eligible based on patient's age to complete this topic Insurance MEDICARE Member Subscriber Plan / Payer (Ef fective 2006-Present) Name:Rajiv Casanova V Member ID:[id number] Relation to Subscriber:Self Name:Rajiv Casanova V Subscriber ID:[id number] Payer ID:Not on file Group ID:Not on file Type:Not on file Address: [place] [phone] [facility] MEDICARE [facility] Care Teams Miller Head Relationship Specialty Start Date End Date Kavon Grant MD PCP - General Internal Medicine 01/06/22
== END 2024-08-23 14:26 | disposition home or self-care (01) ==
PROVIDERS: PCP Pediatrics; Visit Provider Student in an Organized Health Care Education/Training Program
DX: M06.09 Rheumatoid arthritis without rheumatoid factor, multiple sites (principal); M81.0 Age-related osteoporosis without current pathological fracture; Z79.52 Long term (current) use of systemic steroids; Z51.81 Encounter for therapeutic drug level monitoring; Z79.83 Long term (current) use of bisphosphonates
CPT/HCPCS: 99215; G2211

== ENCOUNTER 2024-08-23 13:20 | Outpatient (REF) | payer MEDICARE, SELFPAY ==
[2024-08-23 14:55] LABS: MANUAL DIFF FLAG NO
[2024-08-23 15:01] LABS: Basophils Percent Auto 0.4 % (0-2); Eosinophils Percent Auto 0.6 % (0-4); Hematocrit 43.1 % (42.0-52.0); Hemoglobin 14.4 g/dl (14.0-18.0); Imm Gran Abs Auto 0.04 X10*3/uL (0.00-0.03); Imm Gran Pct Auto 0.6 % (0.0-0.4); Lymphocytes Absolute Auto 1.4 X10*3/uL (1.2-4.9); Lymphocytes Percent Auto 19.6 % (20-40); Mean Corpuscular HGB Conc 33.4 g/dl (31.0-36.0); Mean Corpuscular Hemoglobin 35.7 pg (27.0-33.0); Mean Corpuscular Volume 106.9 fL (80.0-98.0); Mean Platelet Volume 11.1 fL (9.4-12.4); Monocytes Absolute Auto 0.5 X10*3/uL (0.1-1.2); Neutrophils Percent Auto 71.8 % (45-73); Platelet Count 175 X10*3/uL (160-400); Red Blood Count 4.03 X10*6/uL (4.60-5.80)
[2024-08-23 15:39] LABS: Erythrocyte Sedimentation Rate 16 MM/HR (0-15)
[2024-08-23 16:38] LABS: Alanine Aminotransferase 20 U/L (0-40); Anion Gap 15 (12-20); Aspartate Amino Transferase 20 U/L (5-37); Blood Urea Nitrogen 14 mg/dL (9-16); C Reactive Protein 0.37 mg/dL (< or = 0.50); Calcium 9.1 mg/dL (8.4-10.2); Carbon Dioxide 23 mmol/L (22-29); Chloride 107 mmol/L (96-108); Estimated Glomerular Filt Rate > 60; Glucose Random 96 mg/dL (60-115); Potassium 4.1 mmol/L (3.3-5.1); Sodium 141 mmol/L (135-145); Total Protein 7.1 g/dL (6.5-8.0)
--- OUTSIDE RECORDS SUMMARY | 2024-08-23 16:47 | XMS_ITS | Encounter Summary ---
Author Organization [facility] Address [address] [place] [address] Care Team Providers Care Applique Sewer Name Role Phone Ava Grant MD Primary Care Provider [phone] Encounter Details Date Type Department Care Team (Latest Contact Info) Description 05/09/2024 Anticoagulation - Warfarin Visit [facility] - [address] [phone] Uyen Campo LPN Chronic atrial fibrillation (CMS/HCC) (Primary Dx); tea blender (current) use of anticoagulants Social History Tobacco Use Types Packs/Day Years Used Date Smoking Tobacco: Former Cigarettes Q uit: 06/26/1969 Smokeless Tobacco: Never Alcohol Use Standard Drinks/Week Comments Yes 0 (1 standard drink = 0.6 oz pur e alcohol) Sex and Gender Information Value Date Recorded Sex Assigned at Not on file Legal Sex Male 2:16 PM EST Gender Identity Not on file Sexual Orientation Not on file documented as of this encounter Plan of Treatment Upcoming Encounters Date Type Department Care Team (Late st Contact Info) Description 09/02/2024 1:10 PM EDT Office Visit [facility] [address] [facility] [address] [place] [phone] Danny Koroma NP [address] [place], [place] [phone] 11/26/2024 10:45 AM EDT Office Visit Adult Medicine - [address] [phone] Ava Grant MD [address] [place], [place] [phone] documented as of this encounter Procedures Procedure Name Priority Date/Time Associated Diagnosis Comments POC PROTIME INR BLOOD Routine 05/09/2024 Chronic atrial fibrillation (CMS/HCC) tea blender (current) use of anticoagulants documented in this encounter Results * POC Protime INR Blood (05/09/2024) Lot Number INR POC 2.7 Prothrombin Time POC Exp Date Blood 05/09/2024 Historical Provider POINT OF CARE TEST ENTER/ EDIT ORDERABLES Final Result documented in this encounter Visit Diagnoses Diagnosis Chronic atrial fibrillation (CMS/HCC)- Primary Atrial fibrillation group home (current) use of anticoagulants Long-term (current) use of anticoagulants documented in this encounter Care Teams Applique Sewer Relationship Specialty Start Date End Date Ava Grant MD [facility] [place] [address] PCP - General 07/11/08 documented as of this encounter
--- OUTSIDE RECORDS SUMMARY | 2024-08-23 16:47 | XMS_ITS | Clinical Summary ---
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 Active 06-26 00:00: 00 HYP HRT AND CHR KDNY DIS W HRT FAIL AND STG 1-4/UNSP CHR KDNY Active 06-26 00:00: 00 UNSPECIFIED DIASTOLIC (CONGESTIVE) HEART FAILURE Active 06-26 00:00: 00 CHRONIC KIDNEY DISEASE, STAGE 3 UNSPECIFIED Active 06-26 00:00: 00 ANEMIA IN CHRONIC KIDNEY DISEASE Active 06-26 00:00: 00 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 Active 06-26 00:00: 00 CHRONIC ATRIAL FIBRILLATION , UNSPECIFIED Active 06-26 00:00: 00 TYPE 2 DIABETES W DIABETIC PERIPHERAL ANGIOPATH W/O GANGRENE Active 06-26 00:00: 00 RHEUMATOID ARTHRITIS WITHOUT RHEUMATOID FACTOR, UNSP SITE Active 06-26 00:00: 00 COMPLETE TRAUM AMP AT LEV BETW KN AND ANKL, R LOW LEG, SUBS Active 06-26 00:00: 00 POLYMYALGIA RHEUMATICA Active 06-26 00:00: 00 ACQUIRED ABSENCE OF LEFT LEG BELOW KNEE Active 06-26 00:00: 00 DEPRESSION, UNSPECIFIED Active 06-26 00:00: 00 ANXIETY DISORDER, UNSPECIFIED Active 06-26 00:00: 00 HYPERLIPIDEM IA, UNSPECIFIED Active 06-26 00:00: 00 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, INC SHOULDER Active 06-26 00:00: 00 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 Active 06-26 00:00: 00 OBSTRUCTIVE SLEEP APNEA (ADULT) (PEDIATRIC) Active 06-26 00:00: 00 PURE HYPERCHOLEST EROLEMIA, UNSPECIFIED Active 06-26 00:00: 00 GASTRO-ESOPH AGEAL REFLUX DISEASE WITHOUT ESOPHAGITIS Active 06-26 00:00: 00 DEFICIENCY OF OTHER SPECIFIED B GROUP VITAMINS Active 06-26 00:00: 00 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 Active 06-26 00:00: 00 UNSPECIFIED HEREDITARY CORNEAL DYSTROPHIES, UNSPECIFIED EYE Active 06-26 00:00: 00 OTH DISRD OF BONE DENSITY AND STRUCTURE, UNSPECIFIED SITE Active 06-26 00:00: 00 PERSONAL HISTORY OF NICOTINE DEPENDENCE Active 06-26 00:00: 00 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 ORAL HYPOGLYCEMIC DRUGS Active 06-26 00:00: 00 ASSISTED (CURRENT) USE OF SYSTEMIC STEROIDS Active 06-26 00:00: 00 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 ANTICOAGULAN TS Active 06-26 00:00: 00 Allergies, Adverse Reactions, Alerts Allergy Name Allergy Type Status Severity Reaction(s) Onset Date Inactive Date Treating Clinician Comments CLINDAMYCIN HCL Propensity to adverse reactions Active 2023-06 23:03: 20 LEVOFLOXACIN HYDRATE Propensity to adverse reactions Active 2023-06 23:03: 39 CANAGLIFLOZI N Propensity to adverse reactions Active 2023-06 23:03: 52 PENICILINS Propensity to adverse reactions Active 2023-06 23:04: 02 Medications Ordered Medication Name Filled Medication Name Start Date Stop Date Current Medication? Ordering Clinician Indication Dosage Frequency Signature (SIG) Comments Components amlodipine 10 mg tablet 12-03 00:00: 00 03-30 00:00 :00 No [id number] Per instruc tions Per instructio ns (route: oral) Med Classific ation: Cardiovas cular Therapy Agents cephalexin 500 mg capsule 12-03 00:00: 00 03-30 00:00 :00 No [id number] Per instruc tions Per instructio ns (route: oral) Med Classific ation: Anti-Infe ctive Agents cephalexin 500 mg capsule 12-03 00:00: 00 03-30 00:00 :00 No [id number] Per instruc tions TWICE DAILY FOR 10 DAYS Per instructio ns TWICE DAILY FOR 10 DAYS (route: oral) Med Classific ation: Anti-Infe ctive Agents ascorbate calcium (vitamin C) 500 mg tablet 2021-06 0-05 00:00: 00 07-22 23:59 :00 No [id number] 1 tablet DAILY 1 tablet DAILY (route: oral) Med Classific ation: Electroly te Balance-N utritiona l Products Cardizem CD 240 mg capsule,ext ended release 2021-06 0- 00:00: 00 08-14 23:59 :00 No [id number] 1 capsule DAILY 1 capsule DAILY (route: oral) Med Classific ation: Cardiovas cular Therapy Agents gabapentin 300 mg capsule 2021-06 0-05 00:00: 00 05-25 23:59 :00 No [id number] 1 capsule 3 TIMES DAILY 1 capsule 3 TIMES DAILY (route: oral) Med Classific ation: Central Nervous System Agents glipizide 5 mg tablet 2021-06 0-05 00:00: 00 07-22 23:59 :00 No [id number] 1 tablet DAILY 1 tablet DAILY (route: oral) Med Classific ation: Endocrine loratadine 10 mg tablet 2021-06 0-05 00:00: 00 08-14 23:59 :00 No [id number] 1 tablet DAILY 1 tablet DAILY (route: oral) Med Classific ation: Respirato ry Therapy Agents metformin 1,000 mg tablet 2021-06 0-05 00:00: 00 08-14 23:59 :00 No [id number] 1 tablet 2 TIMES DAILY 1 tablet 2 TIMES DAILY (route: oral) Med Classific ation: Endocrine metoprolol succinate ER 25 mg tablet,exte nded release 24 hr 2021-06 0-05 00:00: 00 01-18 00:00 :00 No [id number] 3 tablet BEDTIME 3 tablet BEDTIME (route: oral) Med Classific ation: Cardiovas cular Therapy Agents multivitami n tablet 2021-06 0-05 00:00: 00 08-14 23:59 :00 No [id number] 1 tablet DAILY 1 tablet DAILY (route: oral) Med Classific ation: Electroly te Balance-N utritiona l Products prednisone 2.5 mg tablet 2021-06 0-05 00:00: 00 04-27 23:59 :00 No [id number] 1 tablet DAILY 1 tablet DAILY (route: oral) Med Classific ation: Endocrine prednisone 5 mg tablet 2021-06 0-05 00:00: 00 08-14 23:59 :00 No [id number] 1 tablet EVERY PM 1 tablet EVERY PM (route: oral) Med Classific ation: Endocrine Protonix 40 mg tablet,evangelina yed release 2021-06 0-05 00:00: 00 01-18 00:00 :00 No [id number] 1 tablet DAILY 1 tablet DAILY (route: oral) Med Classific ation: Gastroint estinal Therapy Agents tamsulosin 0.4 mg capsule 2021-06 0-05 00:00: 00 01-18 00:00 :00 No [id number] 1 capsule 2 TIMES DAILY 1 capsule 2 TIMES DAILY (route: oral) Med Classific ation: Genitouri nary Therapy Tylenol Extra Strength 500 mg tablet 2021-06 0-05 00:00: 00 07-22 23:59 :00 No [id number] 2 tablet 4 TIMES DAILY 2 tablet 4 TIMES DAILY (route: oral) Med Classific ation: Analgesic , Anti-infl ammatory or Antipyret ic Vitamin B-12 1,000 mcg tablet 2021-06 0-05 00:00: 00 08-14 23:59 :00 No [id number] 1 tablet DAILY 1 tablet DAILY (route: oral) Med Classific ation: Electroly te Balance-N utritiona l Products Vitamin D3 25 mcg (1,000 unit) tablet 2021-06 0-05 00:00: 00 08-14 23:59 :00 No [id number] 1 tablet DAILY 1 tablet DAILY (route: oral) Med Classific ation: Electroly te Balance-N utritiona l Products warfarin 2.5 mg tablet 2021-06 0-05 00:00: 00 04-03 23:59 :00 No [id number] 1 tablet DAILY 1 tablet DAILY (route: oral) Med Classific ation: Hematolog ical Agents zinc 50 mg tablet 2021-06 0-05 00:00: 00 07-22 23:59 :00 No [id number] 1 tablet DAILY 1 tablet DAILY (route: oral) Med Classific ation: Electroly te Balance-N utritiona l Products warfarin 1 mg tablet 2021-06 0-10 00:00: 00 04-15 23:59 :00 No [id number] Per instruc tions DAILY Per instructio ns DAILY (route: oral) Med Classific ation: Hematolog ical Agents warfarin 1 mg tablet 2021-06 0-07 00:00: 00 04-02 23:59 :00 No [id number] 5 tablet DAILY 5 tablet DAILY (route: oral) Med Classific ation: Hematolog ical Agents warfarin 1 mg tablet 2021-06 0-08 00:00: 00 04-02 23:59 :00 No [id number] 3 tablet DAILY 3 tablet DAILY (route: oral) Med Classific ation: Hematolog ical Agents warfarin 1 mg tablet 2021-06 0-09 00:00: 00 04-03 23:59 :00 No [id number] 2 tablet DAILY 2 tablet DAILY (route: oral) Med Classific ation: Hematolog ical Agents warfarin 1 mg tablet 2021-06 0- 00:00: 00 04-21 23:59 :00 No [id number] Per instruc tions DAILY Per instructio ns DAILY (route: oral) Med Classific ation: Hematolog ical Agents warfarin 3 mg tablet 2021-06 0-28 00:00: 00 05-06 23:59 :00 No [id number] 1 tablet DAILY 1 tablet DAILY (route: oral) Med Classific ation: Hematolog ical Agents clotrimazol e 1 % topical cream 2021-06 1- 00:00: 00 07-22 23:59 :00 No [id number] Per instruc tions 3 TIMES A WEEK Per instructio ns 3 TIMES A WEEK (route: topical) Med Classific ation: Dermatolo gical Lasix 20 mg tablet 2021-06 00:00: 00 08-14 23:59 :00 No [id number] 1 tablet DAILY 1 tablet DAILY (route: oral) Med Classific ation: Cardiovas cular Therapy Agents doxycycline hyclate 100 mg tablet 2021-06 00:00: 00 06-01 23:59 :00 No [id number] 1 tablet 2 TIMES DAILY 1 tablet 2 TIMES DAILY (route: oral) Med Classific ation: Anti-Infe ctive Agents clotrimazol e 1 % topical cream 2021-06 0 00:00: 00 05-02 23:59 :00 No [id number] Per instruc tions 2 TIMES DAILY Per instructio ns 2 TIMES DAILY (route: topical) Med Classific ation: Dermatolo gical doxycycline hyclate 100 mg tablet 2021-06 00:00: 00 04-29 23:59 :00 No [id number] 1 tablet 2 TIMES DAILY 1 tablet 2 TIMES DAILY (route: oral) Med Classific ation: Anti-Infe ctive Agents warfarin 3 mg tablet 2021-06 00:00: 00 05-09 23:59 :00 No [id number] 3 mg DAILY 3 mg DAILY (route: oral) Med Classific ation: Hematolog ical Agents warfarin 1 mg tablet 2021-06 00:00: 00 05-27 23:59 :00 No [id number] 3 tablet DAILY 3 tablet DAILY (route: oral) Med Classific ation: Hematolog ical Agents gabapentin 300 mg capsule 2021-06 00:00: 00 01-18 00:00 :00 No [id number] 1 capsule 3 TIMES DAILY 1 capsule 3 TIMES DAILY (route: oral) Med Classific ation: Central Nervous System Agents warfarin 1 mg tablet 2021-06 00:00: 00 06-03 23:59 :00 No [id number] 4 mg 3 TIMES A WEEK 4 mg 3 TIMES A WEEK (route: oral) Med Classific ation: Hematolog ical Agents Bactrim DS 800 mg-160 mg tablet 2021-06- 00:00: 00 06-06 23:59 :00 No [id number] 1 tablet 2 TIMES DAILY 1 tablet 2 TIMES DAILY (route: oral) Med Classific ation: Anti-Infe ctive Agents warfarin 1 mg tablet 2021-06 2- 00:00: 00 06-07 23:59 :00 No [id number] Per instruc tions DAILY Per instructio ns DAILY (route: oral) Med Classific ation: Hematolog ical Agents warfarin 3 mg tablet 2021-06 00:00: 00 06-15 23:59 :00 No [id number] 1 tablet DAILY 1 tablet DAILY (route: oral) Med Classific ation: Hematolog ical Agents warfarin 3 mg tablet 2021-06 00:00: 00 06-21 23:59 :00 No [id number] 1 tablet DAILY 1 tablet DAILY (route: oral) Med Classific ation: Hematolog ical Agents atorvastati n 10 mg tablet 07-22 00:00: 00 08-14 23:59 :00 No [id number] 1 tablet DAILY 1 tablet DAILY (route: oral) Med Classific ation: Cardiovas cular Therapy Agents Colace 100 mg capsule 07-22 00:00: 00 01-18 00:00 :00 No [id number] 1 capsule 2 TIMES DAILY 1 capsule 2 TIMES DAILY (route: oral) Med Classific ation: Gastroint estinal Therapy Agents famotidine 20 mg tablet 07-22 00:00: 00 01-18 00:00 :00 No [id number] 1 tablet BEDTIME 1 tablet BEDTIME (route: oral) Med Classific ation: Gastroint estinal Therapy Agents gabapentin 400 mg capsule 07-22 00:00: 00 01-18 00:00 :00 No [id number] 1 capsule BEDTIME 1 capsule BEDTIME (route: oral) Med Classific ation: Central Nervous System Agents oxycodone 5 mg tablet 07-22 00:00: 00 08-14 23:59 :00 No [id number] 1 tablet NEEDED 1 tablet NEEDED (route: oral) Med Classific ation: Analgesic , Anti-infl ammatory or Antipyret ic Tylenol 325 mg tablet 07-22 00:00: 00 08-14 23:59 :00 No [id number] 2 tablet NEEDED 2 tablet NEEDED (route: oral) Med Classific ation: Analgesic , Anti-infl ammatory or Antipyret ic warfarin 2 mg tablet 07-22 00:00: 00 07-25 23:59 :00 No [id number] 1.5 tablet DAILY 1.5 tablet DAILY (route: oral) Med Classific ation: Hematolog ical Agents warfarin 2.5 mg tablet 07-25 00:00: 00 08-10 23:59 :00 No [id number] 1 tablet DAILY 1 tablet DAILY (route: oral) Med Classific ation: Hematolog ical Agents cephalexin 500 mg capsule 2 00:00: 00 08-10 23:59 :00 No [id number] 1 capsule 3 TIMES DAILY 1 capsule 3 TIMES DAILY (route: oral) Med Classific ation: Anti-Infe ctive Agents warfarin 2.5 mg tablet 08-10 00:00: 00 08-15 23:59 :00 No [id number] 1 tablet DAILY 1 tablet DAILY (route: oral) Med Classific ation: Hematolog ical Agents warfarin 2.5 mg tablet 08-15 00:00: 00 08-21 23:59 :00 No [id number] 1 tablet DAILY 1 tablet DAILY (route: oral) Med Classific ation: Hematolog ical Agents Bactrim DS 800 mg-160 mg tablet 2-24 00:00: 00 09-26 23:59 :00 No [id number] 1 tablet 2 TIMES DAILY 1 tablet 2 TIMES DAILY (route: oral) Med Classific ation: Anti-Infe ctive Agents warfarin 2.5 mg tablet 08-22 00:00: 00 08-29 23:59 :00 No [id number] 1 tablet DAILY 1 tablet DAILY (route: oral) Med Classific ation: Hematolog ical Agents warfarin 2.5 mg tablet 3-06 00:00: 00 09-07 23:59 :00 No [id number] 1 tablet DAILY 1 tablet DAILY (route: oral) Med Classific ation: Hematolog ical Agents sulfamethox azole 800 mg-trimetho prim 160 mg tablet 3-10 00:00: 00 09-16 23:59 :00 No [id number] 1 tablet 2 TIMES DAILY 1 tablet 2 TIMES DAILY (route: oral) Med Classific ation: Anti-Infe ctive Agents warfarin 2.5 mg tablet 15 00:00: 00 09-14 23:59 :00 No [id number] 1 tablet DAILY 1 tablet DAILY (route: oral) Med Classific ation: Hematolog ical Agents warfarin 2.5 mg tablet 09-14 00:00: 00 09-28 23:59 :00 No [id number] 1 tablet DAILY 1 tablet DAILY (route: oral) Med Classific ation: Hematolog ical Agents Bactrim DS 800 mg-160 mg tablet 09-26 00:00: 00 10-28 23:59 :00 No [id number] 1 tablet 2 TIMES DAILY 1 tablet 2 TIMES DAILY (route: oral) Med Classific ation: Anti-Infe ctive Agents warfarin 2.5 mg tablet 05 00:00: 00 10-12 23:59 :00 No [id number] 1 tablet DAILY 1 tablet DAILY (route: oral) Med Classific ation: Hematolog ical Agents warfarin 2.5 mg tablet 10-12 00:00: 00 10-19 23:59 :00 No [id number] 1 tablet DAILY 1 tablet DAILY (route: oral) Med Classific ation: Hematolog ical Agents warfarin 2.5 mg tablet 10-19 00:00: 00 11-02 23:59 :00 No [id number] 1 tablet DAILY 1 tablet DAILY (route: oral) Med Classific ation: Hematolog ical Agents warfarin 2.5 mg tablet - 00:00: 00 11-09 23:59 :00 No [id number] 1 tablet DAILY 1 tablet DAILY (route: oral) Med Classific ation: Hematolog ical Agents warfarin 2.5 mg tablet 11-24 00:00: 00 12-01 23:59 :00 No [id number] Per instruc tions DAILY Per instructio ns DAILY (route: oral) Med Classific ation: Hematolog ical Agents warfarin 5 mg tablet 12-01 00:00: 00 12-15 23:59 :00 No [id number] Per instruc tions DAILY Per instructio ns DAILY (route: oral) Med Classific ation: Hematolog ical Agents warfarin 2.5 mg tablet 12-15 00:00: 00 12-22 23:59 :00 No [id number] Per instruc tions DAILY Per instructio ns DAILY (route: oral) Med Classific ation: Hematolog ical Agents warfarin 2.5 mg tablet 12-15 00:00: 00 12-22 23:59 :00 No [id number] Per instruc tions DAILY Per instructio ns DAILY (route: oral) Med Classific ation: Hematolog ical Agents warfarin 2.5 mg tablet 12-22 00:00: 00 12-28 23:59 :00 No [id number] Per instruc tions DAILY Per instructio ns DAILY (route: oral) Med Classific ation: Hematolog ical Agents warfarin 5 mg tablet 12-29 00:00: 00 01-05 23:59 :00 No [id number] 0.5 tablet DAILY 0.5 tablet DAILY (route: oral) Med Classific ation: Hematolog ical Agents warfarin 2.5 mg tablet 01-05 00:00: 00 01-10 23:59 :00 No [id number] 1 tablet DAILY 1 tablet DAILY (route: oral) Med Classific ation: Hematolog ical Agents gabapentin 300 mg capsule 12-26 00:00: 00 08-14 23:59 :00 No [id number] 1 capsule NEEDED 1 capsule NEEDED (route: oral) Med Classific ation: Central Nervous System Agents metoprolol tartrate 50 mg tablet 7- 00:00: 00 08-14 23:59 :00 No [id number] 1.5 tablet DAILY 1.5 tablet DAILY (route: oral) Med Classific ation: Cardiovas cular Therapy Agents omeprazole 20 mg capsule,del ayed release 7- 00:00: 00 08-14 23:59 :00 No [id number] 1 capsule DAILY 1 capsule DAILY (route: oral) Med Classific ation: Gastroint estinal Therapy Agents Percocet 5 mg-325 mg tablet - 00:00: 00 08-14 23:59 :00 No [id number] 1 tablet NEEDED 1 tablet NEEDED (route: oral) Med Classific ation: Analgesic , Anti-infl ammatory or Antipyret ic warfarin 2.5 mg tablet - 00:00: 00 08-14 23:59 :00 No [id number] Per instruc tions DAILY Per instructio ns DAILY (route: oral) Med Classific ation: Hematolog ical Agents atorvastati n 10 mg tablet 2-21 00:00: 00 04-21 23:59 :00 No [id number] 1 tablet AT BEDTIME 1 tablet AT BEDTIME (route: oral) Med Classific ation: Cardiovas cular Therapy Agents alendronate 70 mg tablet 2-15 00:00: 00 04-21 23:59 :00 No [id number] Unavailable 1 tablet EVERY WEEK 1 tablet EVERY WEEK (route: oral) Med Classific ation: Endocrine gabapentin 300 mg capsule 1-29 00:00: 00 04-21 23:59 :00 No [id number] Per instruc tions DIRECTED Per instructio ns DIRECTED (route: oral) Med Classific ation: Central Nervous System Agents cyanocobala min (vit B-12) 1,000 mcg tablet 2-01 00:00: 00 04-21 23:59 :00 No [id number] 1 tablet DAILY 1 tablet DAILY (route: oral) Med Classific ation: Electroly te Balance-N utritiona l Products diltiazem CD 240 mg capsule,ext ended release 24 hr 2- 00:00: 00 04-21 23:59 :00 No [id number] 1 capsule DAILY 1 capsule DAILY (route: oral) Med Classific ation: Cardiovas cular Therapy Agents furosemide 20 mg tablet 2- 00:00: 00 04-21 23:59 :00 No [id number] 1 tablet DAILY 1 tablet DAILY (route: oral) Med Classific ation: Cardiovas cular Therapy Agents loratadine 10 mg capsule 2- 00:00: 00 04-21 23:59 :00 No [id number] 1 capsule DAILY 1 capsule DAILY (route: oral) Med Classific ation: Respirato ry Therapy Agents metoprolol succinate ER 50 mg tablet,exte nded release 24 hr 2- 00:00: 00 04-21 23:59 :00 No [id number] 1.5 tablet DAILY 1.5 tablet DAILY (route: oral) Med Classific ation: Cardiovas cular Therapy Agents omeprazole 20 mg capsule,del ayed release 2- 00:00: 00 04-21 23:59 :00 No [id number] 1 capsule DAILY 1 capsule DAILY (route: oral) Med Classific ation: Gastroint estinal Therapy Agents prednisone 5 mg tablet 2 00:00: 00 04-21 23:59 :00 No [id number] 1 tablet DAILY 1 tablet DAILY (route: oral) Med Classific ation: Endocrine tamsulosin 0.4 mg capsule 2- 00:00: 00 04-21 23:59 :00 No [id number] 2 capsule DAILY 2 capsule DAILY (route: oral) Med Classific ation: Genitouri nary Therapy vitamin A 3,000 mcg (10,000 unit) capsule 2- 00:00: 00 04-21 23:59 :00 No [id number] 1 capsule DAILY 1 capsule DAILY (route: oral) Med Classific ation: Electroly te Balance-N utritiona l Products Vitamin C 500 mg tablet 07-27 00:00: 00 04-21 23:59 :00 No [id number] 1 tablet DAILY 1 tablet DAILY (route: oral) Med Classific ation: Electroly te Balance-N utritiona l Products Vitamin D3 25 mcg (1,000 unit) capsule 07-27 00:00: 00 04-21 23:59 :00 No [id number] 1 capsule DAILY 1 capsule DAILY (route: oral) Med Classific ation: Electroly te Balance-N utritiona l Products warfarin 2.5 mg tablet 07-27 00:00: 00 04-21 23:59 :00 No [id number] Per instruc tions DIRECTED Per instructio ns DIRECTED (route: oral) Med Classific ation: Hematolog ical Agents amlodipine 10 mg-atorvast atin 10 mg tablet 2023-06 00:00: 00 Yes [id number] 1 tablet BEDTIME 1 tablet BEDTIME (route: oral) Med Classific ation: Cardiovas cular Therapy Agents ascorbic acid (vitamin C) 500 mg tablet 2023-06 00:00: 00 Yes [id number] 1 tablet DAILY 1 tablet DAILY (route: oral) Med Classific ation: Electroly te Balance-N utritiona l Products cholecalcif karl (vitamin D3) 25 mcg (1,000 unit) capsule 2023-06 00:00: 00 Yes [id number] 1 capsule DAILY 1 capsule DAILY (route: oral) Med Classific ation: Electroly te Balance-N utritiona l Products cyanocobala min (vit B-12) 1,000 mcg tablet 2023-06 00:00: 00 Yes [id number] 1 tablet DAILY 1 tablet DAILY (route: oral) Med Classific ation: Electroly te Balance-N utritiona l Products diltiazem CD 240 mg capsule,ext ended release 24 hr 2023-06 00:00: 00 Yes [id number] 1 capsule DAILY 1 capsule DAILY (route: oral) Med Classific ation: Cardiovas cular Therapy Agents Fosamax 70 mg tablet 2023-06 00:00: 00 Yes [id number] 1 tablet WEEKLY 1 tablet WEEKLY (route: oral) Med Classific ation: Endocrine gabapentin 300 mg capsule 2023-06 00:00: 00 Yes [id number] Per instruc tions DIRECTED Per instructio ns DIRECTED (route: oral) Med Classific ation: Central Nervous System Agents loratadine 10 mg tablet 2023-06 00:00: 00 Yes [id number] 1 tablet DAILY 1 tablet DAILY (route: oral) Med Classific ation: Respirato ry Therapy Agents Metamucil (sugar) oral powder 2023-06 00:00: 00 Yes [id number] Per instruc tions NEEDED Per instructio ns NEEDED (route: oral) Med Classific ation: Gastroint estinal Therapy Agents metformin 1,000 mg tablet 2023-06 00:00: 00 Yes [id number] 1 tablet 2 TIMES DAILY 1 tablet 2 TIMES DAILY (route: oral) Med Classific ation: Endocrine metoprolol succinate ER 50 mg tablet,exte nded release 24 hr 2023-06 00:00: 00 Yes [id number] 1.5 tablet DAILY 1.5 tablet DAILY (route: oral) Med Classific ation: Cardiovas cular Therapy Agents omeprazole 20 mg capsule,del ayed release 2023-06 00:00: 00 Yes [id number] 1 capsule DAILY 1 capsule DAILY (route: oral) Med Classific ation: Gastroint estinal Therapy Agents prednisone 5 mg tablet 2023-06 00:00: 00 Yes [id number] 1 tablet DAILY 1 tablet DAILY (route: oral) Med Classific ation: Endocrine tamsulosin 0.4 mg capsule 2023-06 00:00: 00 Yes [id number] 2 capsule DAILY 2 capsule DAILY (route: oral) Med Classific ation: Genitouri nary Therapy warfarin 2.5 mg tablet 2023-06 00:00: 00 Yes [id number] 1 tablet DAILY 1 tablet DAILY (route: oral) Med Classific ation: Hematolog ical Agents Vital Signs Vital Name Observation Time Observation Value Commen ts Temperature 2024-07-31 13:47:00.000 97.9 [degF] Temperature 2024-07-22 13:29:00.000 97.6 [degF] Temperature 2024-07-08 14:27:00.000 98.6 [degF] Temperature 2024-07-01 12:55:00.000 97.2 [degF] Temperature 2024-06-27 14:25:00.000 97.6 [degF] Temperature 2024-06-17 13:16:00.000 98.2 [degF] BMI (%) 2024-06-17 13:16:00.000 28 kg/m2 Height 2024-06-17 13:16:00.000 68 [in_us] Pulse 2024-07-31 13:47:00.000 75 /min Pulse 2024-07-22 13:29:00.000 76 /min Pulse 2024-07-08 14:27:00.000 78 /min Pulse 2024-07-01 12:55:00.000 72 /min Pulse 2024-06-27 14:25:00.000 72 /min Pulse 2024-06-17 13:16:00.000 88 /min O2 Saturation (%) 2024-07-31 13:47:00.000 95 % O2 Saturation (%) 2024-07-22 13:29:00.000 95 % O2 Saturation (%) 2024-07-08 14:27:00.000 98 % O2 Saturation (%) 2024-07-01 12:55:00.000 97 % O2 Saturation (%) 2024-06-27 14:25:00.000 98 % O2 Saturation (%) 2024-06-17 13:16:00.000 97 % Respirations 2024-07-31 13:47:00.000 17 /min Respirations 2024-07-22 13:29:00.000 17 /min Respirations 2024-07-08 14:27:00.000 17 /min Respirations 2024-07-01 12:55:00.000 17 /min Respirations 2024-06-27 14:25:00.000 17 /min Respirations 2024-06-17 13:16:00.000 16 /min Weight (lbs) 2024-06-17 13:16:00.000 190 [lb_av] Systolic Blood Pressure 2024-07-31 13:50:00.000 138 mm [Hg] Systolic Blood Pressure 2024-07-22 13:29:00.000 138 mm [Hg] Systolic Blood Pressure 2024-07-08 14:27:00.000 128 mm [Hg] Systolic Blood Pressure 2024-07-01 12:55:00.000 128 mm [Hg] Systolic Blood Pressure 2024-06-27 14:25:00.000 126 mm [Hg] Systolic Blood Pressure 2024-06-17 13:16:00.000 126 mm [Hg] Diastolic Blood Pressure 2024-07-31 13:50:00.000 72 mm [Hg] Diastolic Blood Pressure 2024-07-22 13:29:00.000 62 mm [Hg] Diastolic Blood Pressure 2024-07-08 14:27:00.000 68 mm [Hg] Diastolic Blood Pressure 2024-07-01 12:55:00.000 68 mm [Hg] Diastolic Blood Pressure 2024-06-27 14:25:00.000 62 mm [Hg] Diastolic Blood Pressure 2024-06-17 13:16:00.000 68 mm [Hg] Plan of Treatment Planned Activity Planned Date Details Comments Future Scheduled Test PHYSICAL T HERAPIST TO EVALUATE PATIENT SECONDARY TO FUNCTIONAL DEFICITS/SAFETY CONCERNS. [code = PHYSICAL THERAPIST TO EVALUATE PATIENT SECONDARY TO FUNCTIONAL DEFICITS/SAFETY CONCERNS.] Future Scheduled Test SUMMARY OF THERAPY EVAL/ASSESSMENT FINDINGS AND REASON(S) SKILLS OF A THERAPIST ARE INDICATED: PATIENT WAS SEEN FOR INITIAL START OF CARE VISIT BY PHYSICAL THERAPY AND HOME SAFETY ASSESSMENT. PATIENT WAS REFERRED SECONDARY TO A PHYSICIAN APPT ON MAY 21 WITH PCP. PATIENT WAS COMPLAINING OF HAVING DIFFICULTY AMBULATING WITH HIS PERMANENT PROSTHETIC LLE. PATIENT IS A BILATERAL BELOW KNEE AMPUTEE. RIGHT LEG X2 YEARS AGO, LEFT LEG LAST YEAR SECONDARY TO COMPLICATIONS WITH DIABETES. FOCUS OF CARE DIABETES WITH COMPLICATIONS. PATIENT REPORTS A FOLLOW-UP IN NOVEMBER WITH HIS PCP. PMH. DM WITH COMPLICATIONS, HERNIATED BELLY BUTTON, HTN, ARTHRITIS, AFIB, ANXIETY EQUIPMENT WC, POWER CHAIR, SCOOTER, COMMODE, SHOWER CHAIR, LIFELINE, RW, PATIENT COMPLAINS OF L KNEE PAIN AND PHANTOM PAIN L FOOT. PATIENT REPORTS THAT HE WAS PLANNING TO HAVE A LEFT KNEE REPLACEMENT PRIOR TO HIS FIRST INITIAL AMPUTATION AND HIS MAC AT THAT DONE DUE TO SOME COMPLICATIONS. PLOF. PATIENT HAS BEEN SEEN BY THIS CLINICIAN AND PREVIOUS EPISODES. PATIENT LIVES ALONE. PATIENT HAS A AIR GUN OPERATOR 4 HOURS PRIVATE PAY TO ASSIST WITH LAUNDRY, CLEANING AND SHOWERS. PATIENT HAS MEALS ON WHEELS AND SOME SUPPORT BY HIS SISTER WHO IS BEGINNING TO SHOW ONSET OF DEMENTIA. DAUGHTER IS IN [place] AND RECENTLY DIAGNOSED WITH CANCER AND SON IS NOT SUPPORTIVE. VACCINES INCLUDE COVID, FLU, PNEUMONIA. PATIENT SKIN IS INTACT WITH NO EVIDENCE OF BREAKDOWN. PATIENT VERBALIZES UNDERSTANDING AND IMPORTANCE OF DOING DAILY SKIN CHECKS AROUND STOP HE IS A DIABETIC AND UNDERSTANDS THE IMPORTANCE OF HIS SKIN ASSESSMENT. PATIENT ALSO HAS AIR GUN OPERATOR THOROUGHLY EXAMINED HIS SKIN WEEKLY WHEN SHOWERING. UPON DISCHARGED LAST EPISODE PATIENT WAS AMBULATING SHORT DISTANCES AND NEGOTIATING STAIRS WITH BILATERAL RAIL TO LOWER THEN. PATIENT ALSO HAS A POWER CHAIR THAT HE WAS USING 2 DOWN HIS RAMP TO THE GARAGE. PRESENTLY, PATIENT AT THIS TIME IS VERY APPREHENSIVE ABOUT AMBULATING FOR FEAR OF FALLING AND CONCERNED ABOUT GOING OUTSIDE IN HIS POWER CHAIR. PATIENT IS ABLE TO TRANSFERS WITHOUT SLIDING BOARD TO AND FROM WHEELCHAIR, TO AND FROM RECLINER LIFT WILIAN, AND TO AND FROM TOILET WITH COMMODE AND TRANSFERS TO AND FROM BED. PATIENT USES [employer] TO GET TO MEDICAL APPOINTMENTS. PATIENT IS AFRAID OF FALLING IS VERY APPREHENSIVE ABOUT TRANSFERS. PATIENT VERBALIZED UNDERSTANDING AND THE IMPORTANCE OF REPOSITIONING WERE DISCUSSED PATIENT DECLINES THE NEED FOR ADDITIONAL SERVICES WHEN OFFERED HE STATES HE IS [code = SUMMARY OF THERAPY EVAL/ASSESSMENT FINDINGS AND REASON(S) SKILLS OF A THERAPIST ARE INDICATED: PATIENT WAS SEEN FOR INITIAL START OF CARE VISIT BY PHYSICAL THERAPY AND HOME SAFETY ASSESSMENT. PATIENT WAS REFERRED SECONDARY TO A PHYSICIAN APPT ON MAY 21 WITH PCP. PATIENT WAS COMPLAINING OF HAVING DIFFICULTY AMBULATING WITH HIS PERMANENT PROSTHETIC LLE. PATIENT IS A BILATERAL BELOW KNEE AMPUTEE. RIGHT LEG X2 YEARS AGO, LEFT LEG LAST YEAR SECONDARY TO COMPLICATIONS WITH DIABETES. FOCUS OF CARE DIABETES WITH COMPLICATIONS. PATIENT REPORTS A FOLLOW-UP IN NOVEMBER WITH HIS PCP. PMH. DM WITH COMPLICATIONS, HERNIATED BELLY BUTTON, HTN, ARTHRITIS, AFIB, ANXIETY EQUIPMENT WC, POWER CHAIR, SCOOTER, COMMODE, SHOWER CHAIR, LIFELINE, RW, PATIENT COMPLAINS OF L KNEE PAIN AND PHANTOM PAIN L FOOT. PATIENT REPORTS THAT HE WAS PLANNING TO HAVE A LEFT KNEE REPLACEMENT PRIOR TO HIS FIRST INITIAL AMPUTATION AND HIS MAC AT THAT DONE DUE TO SOME COMPLICATIONS. PLOF. PATIENT HAS BEEN SEEN BY THIS CLINICIAN AND PREVIOUS EPISODES. PATIENT LIVES ALONE. PATIENT HAS A AIR GUN OPERATOR 4 HOURS PRIVATE PAY TO ASSIST WITH LAUNDRY, CLEANING AND SHOWERS. PATIENT HAS MEALS ON WHEELS AND SOME SUPPORT BY HIS SISTER WHO IS BEGINNING TO SHOW ONSET OF DEMENTIA. DAUGHTER IS IN [place] AND RECENTLY DIAGNOSED WITH CANCER AND SON IS NOT SUPPORTIVE. VACCINES INCLUDE COVID, FLU, PNEUMONIA. PATIENT SKIN IS INTACT WITH NO EVIDENCE OF BREAKDOWN. PATIENT VERBALIZES UNDERSTANDING AND IMPORTANCE OF DOING DAILY SKIN CHECKS AROUND STOP HE IS A DIABETIC AND UNDERSTANDS THE IMPORTANCE OF HIS SKIN ASSESSMENT. PATIENT ALSO HAS AIR GUN OPERATOR THOROUGHLY EXAMINED HIS SKIN WEEKLY WHEN SHOWERING. UPON DISCHARGED LAST EPISODE PATIENT WAS AMBULATING SHORT DISTANCES AND NEGOTIATING STAIRS WITH BILATERAL RAIL TO LOWER THEN. PATIENT ALSO HAS A POWER CHAIR THAT HE WAS USING 2 DOWN HIS RAMP TO THE GARAGE. PRESENTLY, PATIENT AT THIS TIME IS VERY APPREHENSIVE ABOUT AMBULATING FOR FEAR OF FALLING AND CONCERNED ABOUT GOING OUTSIDE IN HIS POWER CHAIR. PATIENT IS ABLE TO TRANSFERS WITHOUT SLIDING BOARD TO AND FROM WHEELCHAIR, TO AND FROM RECLINER LIFT WILIAN, AND TO AND FROM TOILET WITH COMMODE AND TRANSFERS TO AND FROM BED. PATIENT USES [employer]SP[employer] TO GET TO MEDICAL APPOINTMENTS. PATIENT IS AFRAID OF FALLING IS VERY APPREHENSIVE ABOUT TRANSFERS. PATIENT VERBALIZED UNDERSTANDING AND THE IMPORTANCE OF REPOSITIONING WERE DISCUSSED PATIENT DECLINES THE NEED FOR ADDITIONAL SERVICES WHEN OFFERED HE STATES HE IS ] Future Scheduled Test PHYSICAL T HERAPIST TO ASSESS BEST PRACTICE INTERVENTIONS TO ASSIST PATIENTS TO IMPROVE OR STABILIZE MEDICAL STATUS AND PREVENT RE-HOSPITALIZATION. MEASURES INCLUDING REVIEW AND IDENTIFICATION OF CONCERNS FOR THE FOLLOWING AREAS: DEPRESSION, DRUG REGIMEN, DIABETIC FOOT CARE, ENVIRONMENTAL SAFETY ISSUES AND FALLS, PRESSURE ULCERS, PAIN, AND DISEASE MANAGEMENT. [code = PHYSICAL THERAPIST TO ASSESS BEST PRACTICE INTERVENTIONS TO ASSIST PATIENTS TO IMPROVE OR STABILIZE MEDICAL STATUS AND PREVENT RE-HOSPITALIZATION. MEASURES INCLUDING REVIEW AND IDENTIFICATION OF CONCERNS FOR THE FOLLOWING AREAS: DEPRESSION, DRUG REGIMEN, DIABETIC FOOT CARE, ENVIRONMENTAL SAFETY ISSUES AND FALLS, PRESSURE ULCERS, PAIN, AND DISEASE MANAGEMENT.] Future Scheduled Test PHYSICAL T HERAPY FOR OBSERVATION AND ASSESSMENT OF PAIN, EFFECTIVENESS OF PAIN MANAGEMENT REGIMEN AND SKILLED TEACHING RELATED TO PAIN MANAGEMENT. THERAPIST TO REPORT INCREASED PAIN LEVEL TO PHYSICIAN FOR PROMPT INTERVENTION. [code = PHYSICAL THERAPY FOR OBSERVATION AND ASSESSMENT OF PAIN, EFFECTIVENESS OF PAIN MANAGEMENT REGIMEN AND SKILLED TEACHING RELATED TO PAIN MANAGEMENT. THERAPIST TO REPORT INCREASED PAIN LEVEL TO PHYSICIAN FOR PROMPT INTERVENTION.] Future Scheduled Test PHYSICAL T HERAPY TO ESTABLISH /UPGRADE/DOWNGRADE THERAPEUTIC EXERCISE PROGRAM AND INSTRUCT PATIENT/CAREGIVER ON EXERCISE PRECAUTIONS WITH WRITTEN HOME PROGRAM. MAY INCLUDE PROM, AAROM, AROM, RROM APPROPRIATE TO IMPROVE FUNCTIONAL STRENGTH AND RANGE OF MOTION. [code = PHYSICAL THERAPY TO ESTABLISH /UPGRADE/DOWNGRADE THERAPEUTIC EXERCISE PROGRAM AND INSTRUCT PATIENT/CAREGIVER ON EXERCISE PRECAUTIONS WITH WRITTEN HOME PROGRAM. MAY INCLUDE PROM, AAROM, AROM, RROM APPROPRIATE TO IMPROVE FUNCTIONAL STRENGTH AND RANGE OF MOTION.] Future Scheduled Test PHYSICAL T HERAPY TO INSTRUCT PATIENT/CAREGIVER ON SAFE TRANSFER TECHNIQUES USING PROPER BODY MECHANICS AND EQUIPMENT. [code = PHYSICAL THERAPY TO INSTRUCT PATIENT/CAREGIVER ON SAFE TRANSFER TECHNIQUES USING PROPER BODY MECHANICS AND EQUIPMENT.] Future Scheduled Test PHYSICAL T HERAPY TO INSTRUCT PATIENT/CAREGIVER ON GAIT TRAINING TECHNIQUES USING APPROPRIATE ASSISTIVE DEVICE, PROPER BODY MECHANICS TO IMPROVE MOBILITY, AND PREVENT INJURY OF PATIENT AND/OR CAREGIVER. [code = PHYSICAL THERAPY TO INSTRUCT PATIENT/CAREGIVER ON GAIT TRAINING TECHNIQUES USING APPROPRIATE ASSISTIVE DEVICE, PROPER BODY MECHANICS TO IMPROVE MOBILITY, AND PREVENT INJURY OF PATIENT AND/OR CAREGIVER.] Future Scheduled Test PHYSICAL T HERAPY TO INSTRUCT PATIENT/CAREGIVER ON BALANCE AND BALANCE STRATEGIES TO IMPROVE SAFE MOBILITY AND REDUCE RISK FOR FALL AND INJURY INCLUDING PARTICIPATION IN [facility] BALANCE SPECIALTY PROGRAM [code = PHYSICAL THERAPY TO INSTRUCT PATIENT/CAREGIVER ON BALANCE AND BALANCE STRATEGIES TO IMPROVE SAFE MOBILITY AND REDUCE RISK FOR FALL AND INJURY INCLUDING PARTICIPATION IN [facility] BALANCE SPECIALTY PROGRAM] Future Scheduled Test PHYSICAL T HERAPY TO ASSESS AND RECOMMEND HOME SAFETY ADAPTATIONS AND EDUCATE PATIENT /CAREGIVER ON FALL PREVENTION STRATEGIES. [code = PHYSICAL THERAPY TO ASSESS AND RECOMMEND HOME SAFETY ADAPTATIONS AND EDUCATE PATIENT /CAREGIVER ON FALL PREVENTION STRATEGIES.] Goal 2024-07-31 Patient Goal - T O WALK IN HIS HOME AND MOVE ABOUT EASIER WITH NEW PROSTHETIC Goal Provider Goal - PHYSICAL THERAPY EVALUATION TO BE COMPLETED WITH RECOMMENDATIONS AND/OR WRITTEN TREATMENT PLAN OF CARE ESTABLISHED FOR THE PHYSICIANS SIGNATURE Goal Provider Goal - Goal Provider Goal - PATIENT/CAREGIVER VERBALIZES UNDERSTANDING OF THE INITIAL BEST PRACTICE RECOMMENDATIONS. PHYSICIAN TO BE NOTIFIED APPROPRIATE FOR ANY CHANGES OR COMPLICATIONS THROUGHOUT THE CERTIFICATION PERIOD. Goal Provider Goal - INCREASED PAIN OR INEFFECTIVE PAIN CONTROL MEASURES WILL BE IDENTIFIED AND PROMPTLY REPORTED TO THE PHYSICIAN. PATIENT/CAREGIVER WILL DEMONSTRATE EFFECTIVE PAIN MANAGEMENT. Goal Provider Goal - PATIENT/CAREGIVER WILL PERFORM THERAPEUTIC EXERCISE/S AND DEMONSTRATE PARTICIPATION IN A HOME PROGRAM. Goal Provider Goal - PATIENT/CAREGIVER WILL DEMONSTRATE SAFE TRANSFERS USING APPROPRIATE ASSISTIVE DEVICE, BODY MECHANICS AND EQUIPMENT. Goal Provider Goal - PATIENT/CAREGIVER WILL DEMONSTRATE IMPROVED GAIT TECHNIQUES TO MINIMIZE RISK OF INJURY. Goal Provider Goal - PATIENT/CAREGIVER WILL DEMONSTRATE IMPROVED BALANCE AND REDUCE THE RISK OF FALLS AND INJURY. Goal Provider Goal - PATIENT/CAREGIVER WILL DEMONSTRATE/VERBALIZE UNDERSTANDING OF RECOMMENDATIONS TO INCREASE SAFETY IN THE HOME AND FALL PREVENTION. Reason for Visit INDEPENDENT WITH USE OF ASSISTIVE DEVICE Encounters Start Date/Time End Date/Time Encounter Type Admission Type Attending [facility] [[email or web address] Care Department Encounter ID Discharge Date Discharge Status Discharge Condition Discharge Reason Percent Goals Met 2024-06-17 00:00:00 2024-07-31 00:00:00 Outpatient MARITZA FREEMAN [facility] [id number] 2024-07-31 00:00:00 DISCHARGE TO HOME OR SELF CARE INDEPENDEN T WITH USE OF ASSISTIVE DEVICE PER CLIENT REQUEST 100.00
--- OUTSIDE RECORDS SUMMARY | 2024-08-23 16:47 | XMS_ITS | Clinical Summary ---
Author Organization [facility] Facility Address [address] [address] Care Team Providers Care Food Service Sales Representatives Name Role Phone Kavon Grant MD Primary [...] (Ef fective 2006-Present) Name:Rajiv Casanova V Member ID:[id number] Relation to Subscriber:Self Name:Rajiv Casanova V Subscriber ID:[id number] Payer ID:Not on file Group ID:Not on file Type:Not on file Address: [place] [id number] [facility] MEDICARE [facility] Care Teams Food Service Sales Representatives Relationship Specialty Start Date End Date Kavon Grant MD PCP - General Internal Medicine 01/06/22
--- OUTSIDE RECORDS SUMMARY | 2024-08-23 16:47 | XMS_ITS | Encounter Summary ---
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 [address] [facility] [address] [place] [address] Danny Koroma NP [address] [place], [place] [id number] 11/26/2024 10:45 AM EDT Office Visit Adult Medicine - [address] [phone] Ava Grant MD [address] [place], [place] [id number] documented as of this encounter Procedures Procedure Name Priority Date/Time Associated Diagnosis Comments PROTHROMBIN TIME WITH INR Routine 07/25/2024 documented in this encounter Results * Prothrombin time with INR (07/25/2024) INR 3.3 Prothrombin Time POC Blood Venous blood specimen / Unknown 07/25/2024 [facility] Provider LAB BLOOD ORDERABLES Edie l Result documented in this encounter Visit Diagnoses Diagnosis Chronic atrial fibrillation (CMS/HCC)- Primary Atrial fibrillation [facility] (current) use of anticoagulants Long-term (current) use of anticoagulants documented in this encounter Care Teams Knife Finisher Relationship Specialty Start Date End Date Ava Grant MD [address] [place] [id number] PCP - General 07/11/08 documented as of this encounter
--- OUTSIDE RECORDS SUMMARY | 2024-08-23 16:47 | XMS_ITS | Encounter Summary ---
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 Social History Tobacco [...] Description 09/02/2024 1:10 PM EDT Office Visit [facility] - [facility] [address] [facility] [address] [place] [phone] Danny Koroma NP [address] [place], [place] [phone] 11/26/2024 10:45 AM EDT Office Visit Adult Medicine - [address] [phone] Ava Grant MD [address] [place], [place] [id number] documented as of this encounter Procedures Procedure Name Priority Date/Time Associated Diagnosis Comments PROTHROMBIN TIME WITH INR Routine 08/15/2024 documented in this encounter Results * Prothrombin time with INR (08/15/2024) INR 2.4 Prothrombin Time POC Blood Venous blood specimen / Unknown 08/15/2024 Ava Grant MD LAB BLOOD ORDERABLES Final Res ult documented in this encounter Visit Diagnoses Diagnosis Chronic atrial fibrillation (CMS/HCC)- Primary 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
--- OUTSIDE RECORDS SUMMARY | 2024-08-23 16:47 | XMS_ITS | Clinical Summary ---
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) USE OF ORAL HYPOGLYCEMIC DRUGS Active 06-26 00:00: 00 CARE HOME (CURRENT) USE OF SYSTEMIC STEROIDS Active 06-26 00:00: 00 PATIENT ACCESS DIRECTOR (CURRENT) USE OF ANTICOAGULAN TS Active 06-26 [...] 12-03 00:00: 00 03-30 00:00 :00 No [id number] Per instruc tions Per instructio ns (route: oral) Med Classific ation: Cardiovas cular Therapy Agents cephalexin 500 mg capsule 12-03 00:00: 00 03-30 00:00 :00 No [id number] Per instruc tions Per instructio ns (route: oral) Med Classific ation: Anti-Infe ctive Agents cephalexin 500 mg capsule 12-03 00:00: 00 03-30 00:00 :00 No [id number] Per instruc tions TWICE DAILY FOR 10 DAYS Per instructio ns TWICE DAILY FOR 10 DAYS (route: oral) Med Classific ation: Anti-Infe ctive Agents ascorbate calcium (vitamin C) 500 mg tablet 2021-06 0-05 00:00: 00 07-22 23:59 :00 No [id number] 1 tablet DAILY 1 tablet DAILY (route: oral) Med Classific ation: Electroly te Balance-N utritiona l Products Cardizem CD 240 mg capsule,ext ended release 2021-06 0- 00:00: 00 08-14 23:59 :00 No [id number] 1 capsule DAILY 1 capsule DAILY (route: oral) Med Classific ation: Cardiovas cular Therapy Agents gabapentin 300 mg capsule 2021-06 0-05 00:00: 00 05-25 23:59 :00 No [id number] 1 capsule 3 TIMES DAILY 1 capsule 3 TIMES DAILY (route: oral) Med Classific ation: Central Nervous System Agents glipizide 5 mg tablet 2021-06 0-05 00:00: 00 07-22 23:59 :00 No [id number] 1 tablet DAILY 1 tablet DAILY (route: oral) Med Classific ation: Endocrine loratadine 10 mg tablet 2021-06 0-05 00:00: 00 08-14 23:59 :00 No [id number] 1 tablet DAILY 1 tablet DAILY (route: oral) Med Classific ation: Respirato ry Therapy Agents metformin 1,000 mg tablet 2021-06 0-05 00:00: 00 08-14 23:59 :00 No [id number] 1 tablet 2 TIMES DAILY 1 tablet 2 TIMES DAILY (route: oral) Med Classific ation: Endocrine metoprolol succinate ER 25 mg tablet,exte nded release 24 hr 2021-06 0-05 00:00: 00 01-18 00:00 :00 No [id number] 3 tablet BEDTIME 3 tablet BEDTIME (route: oral) Med Classific ation: Cardiovas cular Therapy Agents multivitami n tablet 2021-06 0-05 00:00: 00 08-14 23:59 :00 No [id number] 1 tablet DAILY 1 tablet DAILY (route: oral) Med Classific ation: Electroly te Balance-N utritiona l Products prednisone 2.5 mg tablet 2021-06 0-05 00:00: 00 04-27 23:59 :00 No [id number] 1 tablet DAILY 1 tablet DAILY (route: oral) Med Classific ation: Endocrine prednisone 5 mg tablet 2021-06 0-05 00:00: 00 08-14 23:59 :00 No [id number] 1 tablet EVERY PM 1 tablet EVERY PM (route: oral) Med Classific ation: Endocrine Protonix 40 mg tablet,evangelina yed release 2021-06 0-05 00:00: 00 01-18 00:00 :00 No [id number] 1 tablet DAILY 1 tablet DAILY (route: oral) Med Classific ation: Gastroint estinal Therapy Agents tamsulosin 0.4 mg capsule 2021-06 0-05 00:00: 00 01-18 00:00 :00 No [id number] 1 capsule 2 TIMES DAILY 1 capsule 2 TIMES DAILY (route: oral) Med Classific ation: Genitouri nary Therapy Tylenol Extra Strength 500 mg tablet 2021-06 0-05 00:00: 00 07-22 23:59 :00 No [id number] 2 tablet 4 TIMES DAILY 2 tablet 4 TIMES DAILY (route: oral) Med Classific ation: Analgesic , Anti-infl ammatory or Antipyret ic Vitamin B-12 1,000 mcg tablet 2021-06 0-05 00:00: 00 08-14 23:59 :00 No [id number] 1 tablet DAILY 1 tablet DAILY (route: oral) Med Classific ation: Electroly te Balance-N utritiona l Products Vitamin D3 25 mcg (1,000 unit) tablet 2021-06 0-05 00:00: 00 08-14 23:59 :00 No [id number] 1 tablet DAILY 1 tablet DAILY (route: oral) Med Classific ation: Electroly te Balance-N utritiona l Products warfarin 2.5 mg tablet 2021-06 0-05 00:00: 00 04-03 23:59 :00 No [id number] 1 tablet DAILY 1 tablet DAILY (route: oral) Med Classific ation: Hematolog ical Agents zinc 50 mg tablet 2021-06 0-05 00:00: 00 07-22 23:59 :00 No [id number] 1 tablet DAILY 1 tablet DAILY (route: oral) Med Classific ation: Electroly te Balance-N utritiona l Products warfarin 1 mg tablet 2021-06 0-10 00:00: 00 04-15 23:59 :00 No [id number] Per instruc tions DAILY Per instructio ns DAILY (route: oral) Med Classific ation: Hematolog ical Agents warfarin 1 mg tablet 2021-06 0-07 00:00: 00 04-02 23:59 :00 No [id number] 5 tablet DAILY 5 tablet DAILY (route: oral) Med Classific ation: Hematolog ical Agents warfarin 1 mg tablet 2021-06 0-08 00:00: 00 04-02 23:59 :00 No [id number] 3 tablet DAILY 3 tablet DAILY (route: oral) Med Classific ation: Hematolog ical Agents warfarin 1 mg tablet 2021-06 0-09 00:00: 00 04-03 23:59 :00 No [id number] 2 tablet DAILY 2 tablet DAILY (route: oral) Med Classific ation: Hematolog ical Agents warfarin 1 mg tablet 2021-06 0- 00:00: 00 04-21 23:59 :00 No [id number] Per instruc tions DAILY Per instructio ns DAILY (route: oral) Med Classific ation: Hematolog ical Agents warfarin 3 mg tablet 2021-06 0-28 00:00: 00 05-06 23:59 :00 No [id number] 1 tablet DAILY 1 tablet DAILY (route: oral) Med Classific ation: Hematolog ical Agents clotrimazol e 1 % topical cream 2021-06 1- 00:00: 00 07-22 23:59 :00 No [id number] Per instruc tions 3 TIMES A WEEK Per instructio ns 3 TIMES A WEEK (route: topical) Med Classific ation: Dermatolo gical Lasix 20 mg tablet 2021-06 00:00: 00 08-14 23:59 :00 No [id number] 1 tablet DAILY 1 tablet DAILY (route: oral) Med Classific ation: Cardiovas cular Therapy Agents doxycycline hyclate 100 mg tablet 2021-06 00:00: 00 06-01 23:59 :00 No [id number] 1 tablet 2 TIMES DAILY 1 tablet 2 TIMES DAILY (route: oral) Med Classific ation: Anti-Infe ctive Agents clotrimazol e 1 % topical cream 2021-06 0 00:00: 00 05-02 23:59 :00 No [id number] Per instruc tions 2 TIMES DAILY Per instructio ns 2 TIMES DAILY (route: topical) Med Classific ation: Dermatolo gical doxycycline hyclate 100 mg tablet 2021-06 00:00: 00 04-29 23:59 :00 No [id number] 1 tablet 2 TIMES DAILY 1 tablet 2 TIMES DAILY (route: oral) Med Classific ation: Anti-Infe ctive Agents warfarin 3 mg tablet 2021-06 00:00: 00 05-09 23:59 :00 No [id number] 3 mg DAILY 3 mg DAILY (route: oral) Med Classific ation: Hematolog ical Agents warfarin 1 mg tablet 2021-06 00:00: 00 05-27 23:59 :00 No [id number] 3 tablet DAILY 3 tablet DAILY (route: oral) Med Classific ation: Hematolog ical Agents gabapentin 300 mg capsule 2021-06 00:00: 00 01-18 00:00 :00 No [id number] 1 capsule 3 TIMES DAILY 1 capsule 3 TIMES DAILY (route: oral) Med Classific ation: Central Nervous System Agents warfarin 1 mg tablet 2021-06 00:00: 00 06-03 23:59 :00 No [id number] 4 mg 3 TIMES A WEEK 4 mg 3 TIMES A WEEK (route: oral) Med Classific ation: Hematolog ical Agents Bactrim DS 800 mg-160 mg tablet 2021-06- 00:00: 00 06-06 23:59 :00 No [id number] 1 tablet 2 TIMES DAILY 1 tablet 2 TIMES DAILY (route: oral) Med Classific ation: Anti-Infe ctive Agents warfarin 1 mg tablet 2021-06 2- 00:00: 00 06-07 23:59 :00 No [id number] Per instruc tions DAILY Per instructio ns DAILY (route: oral) Med Classific ation: Hematolog ical Agents warfarin 3 mg tablet 2021-06 00:00: 00 06-15 23:59 :00 No [id number] 1 tablet DAILY 1 tablet DAILY (route: oral) Med Classific ation: Hematolog ical Agents warfarin 3 mg tablet 2021-06 00:00: 00 06-21 23:59 :00 No [id number] 1 tablet DAILY 1 tablet DAILY (route: oral) Med Classific ation: Hematolog ical Agents atorvastati n 10 mg tablet 07-22 00:00: 00 08-14 23:59 :00 No [id number] 1 tablet DAILY 1 tablet DAILY (route: oral) Med Classific ation: Cardiovas cular Therapy Agents Colace 100 mg capsule 07-22 00:00: 00 01-18 00:00 :00 No [id number] 1 capsule 2 TIMES DAILY 1 capsule 2 TIMES DAILY (route: oral) Med Classific ation: Gastroint estinal Therapy Agents famotidine 20 mg tablet 07-22 00:00: 00 01-18 00:00 :00 No [id number] 1 tablet BEDTIME 1 tablet BEDTIME (route: oral) Med Classific ation: Gastroint estinal Therapy Agents gabapentin 400 mg capsule 07-22 00:00: 00 01-18 00:00 :00 No [id number] 1 capsule BEDTIME 1 capsule BEDTIME (route: oral) Med Classific ation: Central Nervous System Agents oxycodone 5 mg tablet 07-22 00:00: 00 08-14 23:59 :00 No [id number] 1 tablet NEEDED 1 tablet NEEDED (route: oral) Med Classific ation: Analgesic , Anti-infl ammatory or Antipyret ic Tylenol 325 mg tablet 07-22 00:00: 00 08-14 23:59 :00 No [id number] 2 tablet NEEDED 2 tablet NEEDED (route: oral) Med Classific ation: Analgesic , Anti-infl ammatory or Antipyret ic warfarin 2 mg tablet 07-22 00:00: 00 07-25 23:59 :00 No [id number] 1.5 tablet DAILY 1.5 tablet DAILY (route: oral) Med Classific ation: Hematolog ical Agents warfarin 2.5 mg tablet 07-25 00:00: 00 08-10 23:59 :00 No [id number] 1 tablet DAILY 1 tablet DAILY (route: oral) Med Classific ation: Hematolog ical Agents cephalexin 500 mg capsule 2 00:00: 00 08-10 23:59 :00 No [id number] 1 capsule 3 TIMES DAILY 1 capsule 3 TIMES DAILY (route: oral) Med Classific ation: Anti-Infe ctive Agents warfarin 2.5 mg tablet 08-10 00:00: 00 08-15 23:59 :00 No [id number] 1 tablet DAILY 1 tablet DAILY (route: oral) Med Classific ation: Hematolog ical Agents warfarin 2.5 mg tablet 08-15 00:00: 00 08-21 23:59 :00 No [id number] 1 tablet DAILY 1 tablet DAILY (route: oral) Med Classific ation: Hematolog ical Agents Bactrim DS 800 mg-160 mg tablet 2-24 00:00: 00 09-26 23:59 :00 No [id number] 1 tablet 2 TIMES DAILY 1 tablet 2 TIMES DAILY (route: oral) Med Classific ation: Anti-Infe ctive Agents warfarin 2.5 mg tablet 08-22 00:00: 00 08-29 23:59 :00 No [id number] 1 tablet DAILY 1 tablet DAILY (route: oral) Med Classific ation: Hematolog ical Agents warfarin 2.5 mg tablet 3-06 00:00: 00 09-07 23:59 :00 No [id number] 1 tablet DAILY 1 tablet DAILY (route: oral) Med Classific ation: Hematolog ical Agents sulfamethox azole 800 mg-trimetho prim 160 mg tablet 3-10 00:00: 00 09-16 23:59 :00 No [id number] 1 tablet 2 TIMES DAILY 1 tablet 2 TIMES DAILY (route: oral) Med Classific ation: Anti-Infe ctive Agents warfarin 2.5 mg tablet 15 00:00: 00 09-14 23:59 :00 No [id number] 1 tablet DAILY 1 tablet DAILY (route: oral) Med Classific ation: Hematolog ical Agents warfarin 2.5 mg tablet 09-14 00:00: 00 09-28 23:59 :00 No [id number] 1 tablet DAILY 1 tablet DAILY (route: oral) Med Classific ation: Hematolog ical Agents Bactrim DS 800 mg-160 mg tablet 09-26 00:00: 00 10-28 23:59 :00 No [id number] 1 tablet 2 TIMES DAILY 1 tablet 2 TIMES DAILY (route: oral) Med Classific ation: Anti-Infe ctive Agents warfarin 2.5 mg tablet 05 00:00: 00 10-12 23:59 :00 No [id number] 1 tablet DAILY 1 tablet DAILY (route: oral) Med Classific ation: Hematolog ical Agents warfarin 2.5 mg tablet 10-12 00:00: 00 10-19 23:59 :00 No [id number] 1 tablet DAILY 1 tablet DAILY (route: oral) Med Classific ation: Hematolog ical Agents warfarin 2.5 mg tablet 10-19 00:00: 00 11-02 23:59 :00 No [id number] 1 tablet DAILY 1 tablet DAILY (route: oral) Med Classific ation: Hematolog ical Agents warfarin 2.5 mg tablet - 00:00: 00 11-09 23:59 :00 No [id number] 1 tablet DAILY 1 tablet DAILY (route: oral) Med Classific ation: Hematolog ical Agents warfarin 2.5 mg tablet 11-24 00:00: 00 12-01 23:59 :00 No [id number] Per instruc tions DAILY Per instructio ns DAILY (route: oral) Med Classific ation: Hematolog ical Agents warfarin 5 mg tablet 12-01 00:00: 00 12-15 23:59 :00 No [id number] Per instruc tions DAILY Per instructio ns DAILY (route: oral) Med Classific ation: Hematolog ical Agents warfarin 2.5 mg tablet 12-15 00:00: 00 12-22 23:59 :00 No [id number] Per instruc tions DAILY Per instructio ns DAILY (route: oral) Med Classific ation: Hematolog ical Agents warfarin 2.5 mg tablet 12-15 00:00: 00 12-22 23:59 :00 No [id number] Per instruc tions DAILY Per instructio ns DAILY (route: oral) Med Classific ation: Hematolog ical Agents warfarin 2.5 mg tablet 12-22 00:00: 00 12-28 23:59 :00 No [id number] Per instruc tions DAILY Per instructio ns DAILY (route: oral) Med Classific ation: Hematolog ical Agents warfarin 5 mg tablet 12-29 00:00: 00 01-05 23:59 :00 No [id number] 0.5 tablet DAILY 0.5 tablet DAILY (route: oral) Med Classific ation: Hematolog ical Agents warfarin 2.5 mg tablet 01-05 00:00: 00 01-10 23:59 :00 No [id number] 1 tablet DAILY 1 tablet DAILY (route: oral) Med Classific ation: Hematolog ical Agents gabapentin 300 mg capsule 12-26 00:00: 00 08-14 23:59 :00 No [id number] 1 capsule NEEDED 1 capsule NEEDED (route: oral) Med Classific ation: Central Nervous System Agents metoprolol tartrate 50 mg tablet 7- 00:00: 00 08-14 23:59 :00 No [id number] 1.5 tablet DAILY 1.5 tablet DAILY (route: oral) Med Classific ation: Cardiovas cular Therapy Agents omeprazole 20 mg capsule,del ayed release 7- 00:00: 00 08-14 23:59 :00 No [id number] 1 capsule DAILY 1 capsule DAILY (route: oral) Med Classific ation: Gastroint estinal Therapy Agents Percocet 5 mg-325 mg tablet - 00:00: 00 08-14 23:59 :00 No [id number] 1 tablet NEEDED 1 tablet NEEDED (route: oral) Med Classific ation: Analgesic , Anti-infl ammatory or Antipyret ic warfarin 2.5 mg tablet - 00:00: 00 08-14 23:59 :00 No [id number] Per instruc tions DAILY Per instructio ns DAILY (route: oral) Med Classific ation: Hematolog ical Agents atorvastati n 10 mg tablet 2-21 00:00: 00 04-21 23:59 :00 No [id number] 1 tablet AT BEDTIME 1 tablet AT BEDTIME (route: oral) Med Classific ation: Cardiovas cular Therapy Agents alendronate 70 mg tablet 2-15 00:00: 00 04-21 23:59 :00 No [id number] Unavailable 1 tablet EVERY WEEK 1 tablet EVERY WEEK (route: oral) Med Classific ation: Endocrine gabapentin 300 mg capsule 1-29 00:00: 00 04-21 23:59 :00 No [id number] Per instruc tions DIRECTED Per instructio ns DIRECTED (route: oral) Med Classific ation: Central Nervous System Agents cyanocobala min (vit B-12) 1,000 mcg tablet 2-01 00:00: 00 04-21 23:59 :00 No [id number] 1 tablet DAILY 1 tablet DAILY (route: oral) Med Classific ation: Electroly te Balance-N utritiona l Products diltiazem CD 240 mg capsule,ext ended release 24 hr 2- 00:00: 00 04-21 23:59 :00 No [id number] 1 capsule DAILY 1 capsule DAILY (route: oral) Med Classific ation: Cardiovas cular Therapy Agents furosemide 20 mg tablet 2- 00:00: 00 04-21 23:59 :00 No [id number] 1 tablet DAILY 1 tablet DAILY (route: oral) Med Classific ation: Cardiovas cular Therapy Agents loratadine 10 mg capsule 2- 00:00: 00 04-21 23:59 :00 No [id number] 1 capsule DAILY 1 capsule DAILY (route: oral) Med Classific ation: Respirato ry Therapy Agents metoprolol succinate ER 50 mg tablet,exte nded release 24 hr 2- 00:00: 00 04-21 23:59 :00 No [id number] 1.5 tablet DAILY 1.5 tablet DAILY (route: oral) Med Classific ation: Cardiovas cular Therapy Agents omeprazole 20 mg capsule,del ayed release 2- 00:00: 00 04-21 23:59 :00 No [id number] 1 capsule DAILY 1 capsule DAILY (route: oral) Med Classific ation: Gastroint estinal Therapy Agents prednisone 5 mg tablet 2 00:00: 00 04-21 23:59 :00 No [id number] 1 tablet DAILY 1 tablet DAILY (route: oral) Med Classific ation: Endocrine tamsulosin 0.4 mg capsule 2- 00:00: 00 04-21 23:59 :00 No [id number] 2 capsule DAILY 2 capsule DAILY (route: oral) Med Classific ation: Genitouri nary Therapy vitamin A 3,000 mcg (10,000 unit) capsule 2- 00:00: 00 04-21 23:59 :00 No [id number] 1 capsule DAILY 1 capsule DAILY (route: oral) Med Classific ation: Electroly te Balance-N utritiona l Products Vitamin C 500 mg tablet 07-27 00:00: 00 04-21 23:59 :00 No [id number] 1 tablet DAILY 1 tablet DAILY (route: oral) Med Classific ation: Electroly te Balance-N utritiona l Products Vitamin D3 25 mcg (1,000 unit) capsule 07-27 00:00: 00 04-21 23:59 :00 No [id number] 1 capsule DAILY 1 capsule DAILY (route: oral) Med Classific ation: Electroly te Balance-N utritiona l Products warfarin 2.5 mg tablet 07-27 00:00: 00 04-21 23:59 :00 No [id number] Per instruc tions DIRECTED Per instructio ns DIRECTED (route: oral) Med Classific ation: Hematolog ical Agents amlodipine 10 mg-atorvast atin 10 mg tablet 2023-06 00:00: 00 Yes [id number] 1 tablet BEDTIME 1 tablet BEDTIME (route: oral) Med Classific ation: Cardiovas cular Therapy Agents ascorbic acid (vitamin C) 500 mg tablet 2023-06 00:00: 00 Yes [id number] 1 tablet DAILY 1 tablet DAILY (route: oral) Med Classific ation: Electroly te Balance-N utritiona l Products cholecalcif karl (vitamin D3) 25 mcg (1,000 unit) capsule 2023-06 00:00: 00 Yes [id number] 1 capsule DAILY 1 capsule DAILY (route: oral) Med Classific ation: Electroly te Balance-N utritiona l Products cyanocobala min (vit B-12) 1,000 mcg tablet 2023-06 00:00: 00 Yes [id number] 1 tablet DAILY 1 tablet DAILY (route: oral) Med Classific ation: Electroly te Balance-N utritiona l Products diltiazem CD 240 mg capsule,ext ended release 24 hr 2023-06 00:00: 00 Yes [id number] 1 capsule DAILY 1 capsule DAILY (route: oral) Med Classific ation: Cardiovas cular Therapy Agents Fosamax 70 mg tablet 2023-06 00:00: 00 Yes [id number] 1 tablet WEEKLY 1 tablet WEEKLY (route: oral) Med Classific ation: Endocrine gabapentin 300 mg capsule 2023-06 00:00: 00 Yes [id number] Per instruc tions DIRECTED Per instructio ns DIRECTED (route: oral) Med Classific ation: Central Nervous System Agents loratadine 10 mg tablet 2023-06 00:00: 00 Yes [id number] 1 tablet DAILY 1 tablet DAILY (route: oral) Med Classific ation: Respirato ry Therapy Agents Metamucil (sugar) oral powder 2023-06 00:00: 00 Yes [id number] Per instruc tions NEEDED Per instructio ns NEEDED (route: oral) Med Classific ation: Gastroint estinal Therapy Agents metformin 1,000 mg tablet 2023-06 00:00: 00 Yes [id number] 1 tablet 2 TIMES DAILY 1 tablet 2 TIMES DAILY (route: oral) Med Classific ation: Endocrine metoprolol succinate ER 50 mg tablet,exte nded release 24 hr 2023-06 00:00: 00 Yes [id number] 1.5 tablet DAILY 1.5 tablet DAILY (route: oral) Med Classific ation: Cardiovas cular Therapy Agents omeprazole 20 mg capsule,del ayed release 2023-06 00:00: 00 Yes [id number] 1 capsule DAILY 1 capsule DAILY (route: oral) Med Classific ation: Gastroint estinal Therapy Agents prednisone 5 mg tablet 2023-06 00:00: 00 Yes [id number] 1 tablet DAILY 1 tablet DAILY (route: oral) Med Classific ation: Endocrine tamsulosin 0.4 mg capsule 2023-06 00:00: 00 Yes [id number] 2 capsule DAILY 2 capsule DAILY (route: oral) Med Classific ation: Genitouri nary Therapy warfarin 2.5 mg tablet 2023-06 00:00: 00 Yes [id number] 1 tablet DAILY 1 tablet DAILY (route: [...] EPISODES. PATIENT LIVES ALONE. PATIENT HAS A [employer] 4 HOURS PRIVATE PAY TO ASSIST WITH LAUNDRY, CLEANING AND SHOWERS. PATIENT HAS MEALS ON WHEELS AND SOME SUPPORT BY HIS SISTER WHO IS BEGINNING TO SHOW ONSET OF DEMENTIA. DAUGHTER IS IN [place] AND RECENTLY DIAGNOSED WITH CANCER AND SON IS NOT SUPPORTIVE. VACCINES INCLUDE COVID, FLU, PNEUMONIA. PATIENT SKIN IS INTACT WITH NO EVIDENCE OF BREAKDOWN. PATIENT VERBALIZES UNDERSTANDING AND IMPORTANCE OF DOING DAILY SKIN CHECKS AROUND STOP HE IS A DIABETIC AND UNDERSTANDS THE IMPORTANCE OF HIS SKIN ASSESSMENT. PATIENT ALSO HAS SPECIALIST PH[employer]ANS THOROUGHLY EXAMINED HIS SKIN WEEKLY WHEN SHOWERING. [...] EPISODES. PATIENT LIVES ALONE. PATIENT HAS A [employer] 4 HOURS PRIVATE PAY TO ASSIST WITH LAUNDRY, CLEANING AND SHOWERS. PATIENT HAS MEALS ON WHEELS AND SOME SUPPORT BY HIS SISTER WHO IS BEGINNING TO SHOW ONSET OF DEMENTIA. DAUGHTER IS IN [place] AND RECENTLY DIAGNOSED WITH CANCER AND SON IS NOT SUPPORTIVE. VACCINES INCLUDE COVID, FLU, PNEUMONIA. PATIENT SKIN IS INTACT WITH NO EVIDENCE OF BREAKDOWN. PATIENT VERBALIZES UNDERSTANDING AND IMPORTANCE OF DOING DAILY SKIN CHECKS AROUND STOP HE IS A DIABETIC AND UNDERSTANDS THE IMPORTANCE OF HIS SKIN ASSESSMENT. PATIENT ALSO HAS SPECIALIST PHYSIC[employer]ANS THOROUGHLY EXAMINED HIS SKIN WEEKLY WHEN SHOWERING. [...] FOR FALL AND INJURY INCLUDING PARTICIPATION IN [facility] BALANCE SPECIALTY PROGRAM [code = PHYSICAL THERAPY TO INSTRUCT PATIENT/CAREGIVER ON BALANCE AND BALANCE STRATEGIES TO IMPROVE SAFE MOBILITY AND REDUCE RISK FOR FALL AND INJURY INCLUDING PARTICIPATION IN [facility] BALANCE SPECIALTY PROGRAM] Future Scheduled Test PHYSICAL [...] End Date/Time Encounter Type Admission Type Attending [facility] Care Department Encounter ID Discharge Date Discharge Status Discharge Condition Discharge Reason Percent Goals Met 2024-06-17 00:00:00 2024-07-31 00:00:00 Outpatient [facility] [id number] 2024-07-31 00:00:00 DISCHARGE TO HOME OR SELF CARE INDEPENDEN T WITH USE OF ASSISTIVE DEVICE PER CLIENT REQUEST 100.00
--- OUTSIDE RECORDS SUMMARY | 2024-08-23 16:47 | XMS_ITS | Encounter Summary ---
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 Social History Tobacco [...] Description 09/02/2024 1:10 PM EDT Office Visit [facility] [address] [facility] [address] [place] [id number] Danny Koroma NP [address] [place], [place] [id number] 11/26/2024 10:45 AM EDT Office Visit Adult Medicine - [address] [phone] Ava Grant MD [address] [place], [place] [id number] documented as of this encounter Procedures Procedure Name Priority Date/Time Associated Diagnosis Comments PROTHROMBIN TIME WITH INR Routine 08/01/2024 documented in this encounter Results * Prothrombin time with INR (08/01/2024) INR 4.1 Prothrombin Time POC Blood Venous blood specimen / Unknown 08/01/2024 Ava Grant MD LAB BLOOD ORDERABLES Final Res ult documented in this encounter Visit Diagnoses Diagnosis Chronic atrial fibrillation (CMS/HCC)- Primary Atrial fibrillation senior care (current) use of anticoagulants Long-term (current) use of anticoagulants documented in this encounter Care Teams Oil Well Shooter Relationship Specialty Start Date End Date Ava Grant MD [address] [place] [id number] PCP - General 07/11/08 documented as of this encounter
--- OUTSIDE RECORDS SUMMARY | 2024-08-23 16:47 | XMS_ITS | Encounter Summary ---
Author Organization [facility] Address [address] [place] [address] Care Team Providers Care Plate Stacker Hand Name Role Phone Ava Grant MD Primary Care Provider [phone] Encounter Details Date Type Department Care Team (Latest Contact Info) Description 08/08/2024 Anticoagulation - Warfarin Visit [facility] - [address] [phone] Uyen Campo LPN Chronic atrial fibrillation (CMS/HCC) (Primary Dx); long term (current) use of anticoagulants Social History Tobacco [...] Description 09/02/2024 1:10 PM EDT Office Visit [facility] [address] [facility] [address] [place] [phone] Danny Koroma NP [address] [place], [place] [id number] 11/26/2024 10:45 AM EDT Office Visit Adult Medicine - [address] [phone] Ava Grant MD [address] [place], [place] [phone] documented as of this encounter Procedures Procedure Name Priority Date/Time Associated Diagnosis Comments PROTHROMBIN TIME WITH INR Routine 08/08/2024 documented in this encounter Results * Prothrombin time with INR (08/08/2024) INR 2.1 Prothrombin Time POC Blood Venous blood specimen / Unknown 08/08/2024 Ava Grant MD LAB BLOOD ORDERABLES Final Res ult documented in this encounter Visit Diagnoses Diagnosis Chronic atrial fibrillation (CMS/HCC)- Primary Atrial fibrillation shelter (current) use of anticoagulants Long-term (current) use of anticoagulants documented in this encounter Care Teams Plate Stacker Hand Relationship Specialty Start Date End Date Ava Grant MD [address] [place] [id number] PCP - General 07/11/08 documented as of this encounter
--- OUTSIDE RECORDS SUMMARY | 2024-08-23 16:47 | XMS_ITS | Clinical Summary ---
Author Organization [address] [place] [address] [place] [phone] Phone Care Team Providers Care Clinical Trial Manager Name Role Phone Ava Grant MD Primary Care Provider [phone] Allergies Active Allergy Reactions Criticality Noted Date Comments Canagliflozin Other Medium 03/19/2020 Frequent urination Clindamycin GI intolerance High 03/19/2020 Levofloxacin High 12/23/2020 Multiple reactions, muscle pain, stomach ache Penicillins 07/15/2008 Medications metoprolol succinate (TOPROL-XL) 50 mg 24 hr tablet Take 1.5 tablets (75 mg total) by mouth 1 (one) time each day. 4 Active dilTIAZem CD (CARDIZEM CD) 240 mg 24 hr capsule Take 1 capsule (240 mg total) by mouth 1 (one) time each day. 4 Active psyllium husk (METAMUCIL ORAL) Take by mouth. Activ e warfarin (COUMADIN) 2.5 mg tablet TAKE 1 TO 2 TABLETS BY MOUTH EVERY DAY PER WARFARIN CLINIC. MAY CAUSE HEAVY BLEEDING. TAKE AT THE SAME TIME EVERYDAY. DO NOT CHANGE DIETARY HABITS 4 Active alendronate (FOSAMAX) 70 mg tablet Take 1 tablet (70 mg total) by mouth every 7 (seven) days. Active lancets lancets USE DIRECTED TO TEST BLOOD SUGAR ONCE DAILY EVERY DAY 3 Active lancets (OneTouch Delica Plus Lancet) 33 gauge 1 Each by Does not apply route daily. 3 Active predniSONE (DELTASONE) 5 mg tablet Take 1 tablet (5 mg total) by mouth 1 (one) time each day. 3 Active VITAMIN A ORAL Take by mouth. Active cholecalciferol (VITAMIN D-3) 25 mcg (1,000 unit) tablet Take by mouth. Ac tive UNABLE TO FIND CPAP Historical (HISTORICAL CPAP) Sig - Route: 10 cm nasal mask/ [employer] - Inhalation Active atorvastatin (LIPITOR) 10 mg tablet TAKE 1 TABLET BY MOUTH AT BEDTIME 90 tablet 4 Active ascorbic acid (VITAMIN C) 500 mg tablet TAKE 1 TABLET BY MOUTH DAILY 90 tablet 4 Active cyanocobalamin (VITAMIN B-12) 1,000 mcg tablet Take 1 tablet (1,000 mcg total) by mouth 1 (one) time each day. 90 tablet 1 4 Active OneTouch Ultra Test test strip USE DIRECTED EVERY DAY 100 strip 1 4 Active tamsulosin (FLOMAX) 0.4 mg 24 hr capsule TAKE 2 CAPSULES BY MOUTH EVERY DAY 30 MINUTES AFTER THE SAME MEAL 180 capsule 5 Active omeprazole (PriLOSEC) [address] capsule TAKE 1 CAPSULE BY MOUTH DAILY 90 capsule 5 Active loratadine (CLARITIN) 10 mg tablet Take 1 tablet (10 mg total) by mouth 1 (one) time each day. 90 tablet 5 Active metFORMIN (GLUCOPHAGE) 1,000 mg tablet TAKE 1 TABLET BY MOUTH TWICE DAILY WITH MEALS 180 tablet 1 5 Active gabapentin (NEURONTIN) 300 mg capsule TAKE 1 CAPSULE BY MOUTH TWICE DAILY AND 2 CAPSULES EVERY NIGHT AT BEDTIME 360 capsule 1 5 Active Active Problems Problem Noted Date Diagnosed Date correction (current) use of anticoagulants 2023 Chronic heart failure with p reserved ejection fraction (HFpEF) 04/16/2021 Overview (04/09/2024): - Most recent echocardiogram on 01/04/2023 showed normal biventricular size and systolic function, normal left ventricular regional wall motion with an ejection fraction of 55 to 60%, moderate right atrial and severe left atrial enlargement, mild to moderate TR with evidence of pulmonary hypertension, dilated ascending aorta at 4 cm- unchanged from prior in 2020 Last Assessment & Plan: Euvolemic today in fact, given worsening renal function recently, consider discontinuation of standing Lasix-I suspect he no longer requires it- he will be seeing his primary care in the very near future at which point this can be decided upon, I have cautiously continued it, he will be getting repeat labs as well for his primary Type 2 diabetes mellitus with vascular disease 0 03/23/2021 PAD (peripheral artery disease) 02/17/2021 Overview (04/09/2024): Carotid u/s neg 07/17 Chronic atrial fibrillation 12/08/2020 Overview (04/09/2024): -Rate controlled and on Coumadin for CVA prophylaxis -Followed by anticoagulation clinic at [facility] Last Assessment & Plan: Continue current diltiazem 240 mg daily along with metoprolol XL 75 mg daily, Coumadin for CVA prophylaxis; he notified me that his insurance no longer covers this preparation of diltiazem however, since there are so many different preparations for diltiazem, I asked him to call his insurance company to figure out which one they will cover at a reasonable xie; once I know this, I can order this new medication for refills Seronegative rheumatoid arthritis 11/24/2020 Overview (04/09/2024): Onset 2016 - responded to prednisone Late 2019: more synovitis in hands/wrists. Prednisone increased 10/14: Sulfasalazine started - Not tolerated - headache, nausea - so it was stopped 02/2021 - hydroxychloroquine started B12 deficiency 08/04/2020 Anemia 07/12/2020 Squamous cell carcinoma of arm, left 06/13/2019 Foot deformity 01/23/2018 Excessive drinking alcohol 09/15/2017 History of total hip replacement 01/18/2017 Overview (04/09/2024): Left - 2010 Polymyalgia rheumatica 01/18/2017 Overview (04/09/2024): Onset October 2016 Picture changed to look more like RA - summer 2020 Umbilical hernia 11/10/2015 BPH (benign prostatic hyperplasia) 09/03/2014 CKD (chronic kidney disease) stage 3, GFR 30-59 ml/min 09/17/2013 Overview (04/09/2024): Protienuria/ See Nephrology Dr. Harrington Corneal dystrophy, hereditary 05/20/2013 Overview (04/09/2024): Per pt MAP dystrophy. Recurrent lasting up to 2-3 weeks. Osteopenia 08/05/2011 Overview (04/09/2024): 08/07 Lumbago 01/04/2010 Overview (04/09/2024): Nadira 2008-02 [facility]) Obstructive sleep apnea 10/12/2009 Overview (04/09/2024): [facility] [place]: Date 09/15/2009; Wt 227#; BMI 35; SE 39%; SM 43%; AHI 79, REM AHI 72, Central apneas 2; Obstructive apneas 51; Mixed apneas 0; hypopneas 50. CPAP @ 10 -> AHI 6.4 02/25/2020 to 03/25/2020. CPAP@6-16/average 8.6/maximum 10. 100% compliant with using the machine for >4 hours/day. Average use is 9.75 hours a night with AHI 9.5. Type II diabetes mellitus with renal manifestati ons 07/22/2008 Overview (04/09/2024): Moderate microalbuminuria--Pretty Huynh GERD (gastroesophageal reflux disease) 200 9 Overview (04/09/2024): EGD neg 1996 EGD 05/15 HTN (hypertension) 07/15/2008 Overview (04/09/2024): Last Assessment & Plan: Suboptimally controlled on initial check but improved on my recheck and reports better blood pressures at home, for now continue current regimen but I may even consider discontinuation of Lasix given lack of need at this point; however if this is to happen, may consider switching to a thiazide diuretic for better blood pressure control Hypercholesteremia 07/15/2008 Overview (04/09/2024): Intol Lipitor Last Assessment & Plan: Continue atorvastatin 10 mg at bedtime-intolerant of higher doses Osteoarthritis 07/15/2008 Overview (04/09/2024): Knees, hips, back Left THR 09/03 Hyaluronic acid injections in left knee 2017 - Arthroscopy left knee 2018 Encounters Date Type Department Care Team Description 08/15/2024 Anticoagulation - Warfarin Visit [facility]in Clinic [address] [phone] Uyen Campo LPN Chronic atrial fibrillation (CMS/HCC) (Primary Dx); correction (current) use of anticoagulants 08/08/2024 Anticoagulation - Warfarin Visit Coumadin [address] [phone] Uyen Campo LPN Chronic atrial fibrillation (CMS/HCC) (Primary Dx); correction (current) use of anticoagulants 08/01/2024 Anticoagulation - Warfarin Visit Coumadin [address] [phone] Uyen Campo LPN Chronic atrial fibrillation (CMS/HCC) (Primary Dx); 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 07/25/2024 Anticoagulation - Warfarin Visit Coumadin [address] [phone] Uyen Campo LPN Chronic atrial fibrillation (CMS/HCC) (Primary Dx); correction (current) use of anticoagulants 07/11/2024 Anticoagulation - Warfarin Visit Coumadin [address] [phone] Uyen Campo LPN Chronic atrial fibrillation (CMS/HCC) (Primary Dx); 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 07/04/2024 Billing Patient Not Present Adult Medicine - [address] [phone] Ava Grant MD Type 2 diabetes mellitus with other diabetic kidney complication (CMS/HCC) (Primary Dx); Hypertensive heart and chronic kidney disease with heart failure and stage 1 through stage 4 chronic kidney disease, or unspecified chronic kidney disease ([facility]/HCC); Diastolic congestive heart failure, unspecified HF chronicity ([facility]/HCC); Stage 3 chronic kidney disease, unspecified whether stage 3a or 3b CKD ([facility]/HCC); Anemia in chronic kidney disease, unspecified CKD stage; Type 2 diabetes mellitus with other circulatory complications ([facility]/HCC) 07/03/2024 Telephone Adult [address] [phone] Tatiana Walters MA Forms/questionnaires (Home health certification and plan of care /) 06/28/2024 Anticoagulation - Warfarin Visit Coumadin [address] [phone] Uyen Campo LPN Chronic atrial fibrillation ([facility]/HCC) (Primary Dx); 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 06/20/2024 Telephone Adult [address] [phone] Francy Cronin MA DWO FORM (Glucose Test Strips ) 06/13/2024 Anticoagulation - Warfarin Visit Coumadin [address] [phone] Uyen Campo LPN Chronic atrial fibrillation ([facility]/HCC) (Primary Dx); correction (current) use of anticoagulants 06/11/2024 Telephone Adult [address] [phone] Ava Grant MD Referral 05/30/2024 Anticoagulation - Warfarin Visit Coumadin [address] [phone] Uyen Campo LPN Chronic atrial fibrillation ([facility]/HCC) (Primary Dx); 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 from Last 3 Months Immunizations Name Administration Dates Next Due H1N1 Inj Preservative Free 07/09/2009 Influenza trivalent, 0.5mL ( Fluad) 65yo and older 02/28/2024,04/24/2023,03/23/2021,04/25,03/16/2018,03/22/2017,03/25/2016 ,03/27/2015,04/04/2014,04/23/2013,09/12/2011,04/14/2011,03/30/2010, 9 Influenza trivalent, 0.5mL, preservative free (Fluarix; FluLaval; Fluzone) ages 6mo and older (Afluria) 3 years and older 03/10/2020 Influenza, Unspecified 07/14/2022 Moderna SARS-CoV-2 COVID-19, mRNA, LNP-S, preservative free 09/23/2020,08/26/2020 Pneumococcal conjugate 13 va lent (Prevnar 13, PCV13) 2mo and older 06/09/2015 Pneumococcal polysaccharide 23 valent (Pneumovax 23) 2yo and older 03/30/2010,06/26/2004 Td Tetanus diptheria (Tdvax) 7yo and older 04/24/2023,03/30/2010 Tdap Tetanus diptheria acell ular pertussis (Boostrix; Adacel) 7yo and older 05/20/2013 Zoster Live 08/18/2011 Zoster recombinant (Shingrix ) 19yo and older 05/05/2018,01/31/2018,12/30/2017 Surgical History Surgery Date Site/Laterality Comments TONSILLECTOMY PROCEDURE: HISTORICAL TONSILLECTOMY CATARACT EXTRACTION Bilateral PROCEDURE: HISTORICAL CATARACT REMOVAL KNEE ARTHROSCOPY W/ DEBRIDEMENT 07/2017 PROCEDURE: TN ARTHRS KNEE DEBRIDEMENT/SHAVING ARTCLR CRTLG OTHER SURGICAL HISTORY 12/21/2021 PROCEDURE: TN REVSC OPN/PRQ TIB/MIRIAN W/ANGIOPLASTY UNI OTHER SURGICAL HISTORY 12/21/2021 PROCEDURE: TN REVSC OPN/PRQ TIB/MIRIAN W/ANGIOPLASTY UNI EA VSL OTHER SURGICAL HISTORY 12/21/2021 PROCEDURE: ULTRASOUND GUIDANCE FOR VASCULAR AC OTHER SURGICAL HISTORY 01/05/2022 Right PROCEDURE: TN AMPUTATION LEG THROUGH TIBIA&FIBULA; COMMENT: Right below knee amputation OTHER SURGICAL HISTORY 06/21/2022 PROCEDURE: TN REVSC OPN/PRG FEM/POP W/ANGIOPLASTY UNI OTHER SURGICAL HISTORY 06/21/2022 PROCEDURE: TN REVSC OPN/PRQ TIB/MIRIAN W/ANGIOPLASTY UNI OTHER SURGICAL HISTORY 06/21/2022 PROCEDURE: ULTRASOUND GUIDANCE FOR VASCULAR AC OTHER SURGICAL HISTORY 06/22/2022 Left PROCEDURE: TN AMPUTATION METATARSAL W/TOE SINGLE; COMMENT: left 3rd toe BYPASS GRAFT 06/22/2022 Left PROCEDURE: TN AMPUTATION TOE METATARSOPHALANGEAL JOINT; COMMENT: left 4th toe OTHER SURGICAL HISTORY 07/01/2022 Left PROCEDURE: TN AMPUTATION LEG THROUGH TIBIA&FIBULA Medical History Medical History Date Comments Atrial fibrillation ([facility]) 07/15/2008 DX :Atrial fibrillation ([facility]); COMMENT: Katarina Rainey 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 ([facility]) 07/22/2008 DX:Type 2 diabetes amber itus with established diabetic nephropathy ([facility]); COMMENT: Moderate microalbuminuria--Babu Sleep apnea 10/12/2009 DX:Sleep apnea Hypercholesteremia 07/15/2008 DX:Hyperchole steremia; COMMENT: Intol Lipitor HTN (hypertension) 07/15/2008 DX:HTN (hyper tension) GERD (gastroesophageal reflux disease) 07/15/2008 DX:GERD (gastroesophageal reflux disease); COMMENT: EGD neg 1996 CKD (chronic kidney disease) stage 3, GFR 30-59 ml/min ([facility]) 09/17/2013 DX:CKD (chronic kidney disea se) stage 3, GFR 30-59 ml/min ([facility]); COMMENT: Protienueia/ See Nephrology Dr. Harrington History of total hip replacement 01/18/2017 DX:History of total hip replacement; COMMENT: Left - 2010 PAD (peripheral artery disease) ([facility]) 021 DX:PAD (peripheral artery disease) ([facility]) Family History Medical History Relation Name Comments No Known Problems Brother killed in accident in 1942 Ovarian cancer Daughter Arthritis Father hx giant cell a rteritis No Known Problems Maternal Grandfather No Known Problems Maternal Grandmother Other cancer Mother ? colon cancer No Known Problems Paternal Grandfather No Known Problems Paternal Grandmother No Known Problems Sister No Known Problems Son Relation Name Status Comments Brother Daughter Alive Father Maternal Grandfather Maternal Grandmother Mother Paternal Grandfather Paternal Grandmother Sister Alive Son Alive Social History Tobacco Use Types Packs/Day Years Used Date Smoking Tobacco: Former Cigarettes Q uit: 06/26/1969 Smokeless Tobacco: Never Tobacco Cessation:Counseling Given: Not Answered Alcohol Use Standard Drinks/Week Comments Yes 0 (1 standard drink = 0.6 oz pur e alcohol) Sex and Gender Information Value Date Recorded Sex Assigned at Not on file Legal Sex Male 2:16 PM EST Gender Identity Not on file Sexual Orientation Not on file Obstetrics History Last Filed Vital Signs Vital Sign Reading Time Taken Comments Blood Pressure 128/80 05/21/2024 1:11 PM EST Pulse 80 05/21/2024 1:11 PM EST Temperature 37.2 ??C (99 ??F) 05/21/2024 1:11 PM EST Respiratory Rate - - Oxygen Saturation - - Inhaled Oxygen Concentration - - Weight 86.2 kg (190 lb) 02/28/2024 1:13 PM EDT Height 170.2 cm (5' 7 ) 05/21/2024 1:11 PM EST Body Mass Index 29.76 02/28/2024 1:13 PM EDT Plan of Treatment Upcoming Encounters Date Type Department Care Team (Late st Contact Info) Description 09/02/2024 1:10 PM EDT Office Visit [facility] [address] [facility] [address] [place] [phone] Danny Koroma NP [address] [place] [address] 11/26/2024 10:45 AM EDT Office Visit Adult Medicine - [place] [address] [place] [phone] Ava Grant MD [address] [place] [address] Health Maintenance Due Date Last Done Comments Diabetes: Annual Retina Eye Exam 1950 RSV Immunization Patients 60+ Years Old (1 - 1-dose 75+ series) 02/24/2016 Social Influencers of Health Screening 06/04/2022 COVID-19 Vaccine ( season) 2024 07/07/2023, 07/03/2021, 09/23/2020, Additional history exists Depression Screening 04/24/2024 04/24/2023 Falls Risk Assessment 04/24/2024 04/24/2023 Medicare Annual Wellness Visit 04/24/2024 04/24/2023 Diabetes: Blood Sugar Control Test (HGBA1C) 11/18/2024 05/21/2024, 01/18/2024, 01/18/2024 Diabetes: Annual Urine Albumin-Creatinine Ratio (uACR) 01/17/2025 01/18/2024 Diabetes: Annual GFR (Glomerular Filtration Rate) 05/21/2025 05/21/2024, 01/18/2024, 01/18/2024 Hypertension/CHF/CAD Annual BMP Blood Test 05/21/2025 05/21/2024, 01/18/2024, 01/18/2024 Cholesterol Screening (Lipid Panel) 01/17/2029 01/18/2024, 01/18/2024 DTaP,Tdap,and Td Vaccines (4 - Td or Tdap) 04/24/2033 04/24/2023, 05/20/2013, 03/30/2010 Pneumococcal Vaccine: 50+ Years Completed 06/09/2015, 03/30/2010, 06/26/2004 Zoster Vaccines Completed 05/05/2018, 0801/2018, 12/30/2017, Additional history exists Influenza Vaccine Completed 02/28/2024, , 07/20/2022, Additional history exists Diabetes: Annual Foot Exam Discontinued HIB Vaccines Aged Out No longer eligi ble based on patient's age to complete this topic HPV Vaccines Aged Out No longer eligi ble based on patient's age to complete this topic Hepatitis A Vaccines Aged Out No long er eligible based on patient's age to complete this topic Hepatitis B Vaccines Aged Out No long er eligible based on patient's age to complete this topic IPV Vaccines Aged Out No longer eligi ble based on patient's age to complete this topic MMR Vaccines Aged Out No longer eligi ble based on patient's age to complete this topic Meningococcal ACWY Vaccine Aged Out N o longer eligible based on patient's age to complete this topic Meningococcal B Vacine Aged Out No lo nger eligible based on patient's age to complete this topic RSV Immunization Patients Under 20 months Aged Out No longer eligible based on patient's age to complete this topic Varicella Vaccines Aged Out No longer eligible based on patient's age to complete this topic Procedures Procedure Name Priority Date/Time Associated Diagnosis Comments PROTHROMBIN TIME WITH INR Routine 08/15/2024 PROTHROMBIN TIME WITH INR Routine 08/08/2024 PROTHROMBIN TIME WITH INR Routine 08/01/2024 PROTHROMBIN TIME WITH INR Routine 07/25/2024 PROTHROMBIN TIME WITH INR Routine 07/11/2024 PROTHROMBIN TIME WITH INR Routine 06/28/2024 PROTHROMBIN TIME WITH INR Routine 06/13/2024 PROTHROMBIN TIME WITH INR Routine 05/30/2024 COMPREHENSIVE METABOLIC PANEL Routine 05/21/2024 2:25 PM EST Type 2 diabetes mellitus with other diabetic kidney complication, without long-term current use of insulin ([facility]) HEMOGLOBIN A1C Routine 05/21/2024 2:25 PM EST Type 2 diabetes mellitus with other diabetic kidney complication, without long-term current use of insulin ([facility]) URINE ALBUMIN CREATININE RATIO Routine 01/18/2024 LIPID PANEL Routine 01/18/2024 DEPRESSION SCREENING Routine 04/24/2023 FALLS RISK ASSESSMENT Routine 04/24/2023 from Last 3 Months or Most Recently Relevant to Health Maintenance Results * Prothrombin time with INR (08/15/2024) Only the most recent of8 resultswithin the time period is included. INR 2.4 Prothrombin Time POC Blood Venous blood specimen / Unknown 08/15/2024 [facility] [place] LAB BLOOD ORDERABLES Final Res ult * Hemoglobin A1c (05/21/2024 2:25 PM EST) Pathologist [facility] Hemoglobin A1C 5.8 <6.5 % LAB CHEMISTRY METHOD 05/21/2024 9:31 PM EST [facility] Mean Bld Glu Estim. 120 mg/dL LAB CHEMISTRY METHOD 05/21/2024 9:31 PM [facility] Blood Venous blood specimen / Unknown Venipuncture / Unknown 05/21/2024 2:25 PM EST 05/21/2024 2:25 PM EST C Teo Grant MD LAB BLOOD ORDERABLES Final Res ult [facility] [address] [place] [address], * Comprehensive metabolic panel (05/21/2024 2:25 PM EST) [facility] Sodium 141 133 - 145 mmol/L LAB CHEMISTRY METHOD 05/21/2024 6:23 PM [facility] Potassium 4.2 3.5 - 5.5 mmol/L LAB CHEMISTRY METHOD 05/21/2024 6:23 PM [facility] Chloride 105 96 - 110 mmol/L LAB CHEMISTRY METHOD 05/21/2024 6:23 PM [facility] CO2 29 21 - 32 mmol/L LAB CHEMISTRY METHOD 05/21/2024 6:23 PM [facility] Anion Gap 7 3 - 11 LAB CHEMISTRY METHOD 05/21/2024 6:23 PM [facility] Glucose 83 70 - 100 mg/dL LAB CHEMISTRY METHOD 05/21/2024 6:23 PM [facility] BUN 18 5 - 25 mg/dL LAB CHEMISTRY METHOD 05/21/2024 6:23 PM [facility] Creatinine 1.00 0.70 - 1.30 mg/dL LAB CHEMISTRY METHOD 05/21/2024 6:23 PM EST [facility] eGFR 75 >=60 mL/min/1. 73m2 LAB CHEMISTRY METHOD 05/21/2024 6:23 PM [facility] Comment:Calculation based on the??Chronic Kidney Disease Epidemiology Collaboration (CKD-EPI) equation refit??without adjustment for race. BUN/Creatinine Ratio 18.0 LAB CHEMISTRY METHOD 05/21/2024 6:23 PM [facility] Calcium 9.7 8.5 - 10.5 mg/dL LAB CHEMISTRY METHOD 05/21/2024 6:23 PM [facility] AST (SGOT) 15 10 - 42 unit/L LAB CHEMISTRY METHOD 05/21/2024 6:23 PM [facility] ALT (SGPT) 29 10 - 60 unit/L LAB CHEMISTRY METHOD 05/21/2024 6:23 PM [facility] Alkaline Phosphatase 68 42 - 121 unit/L LAB CHEMISTRY METHOD 05/21/2024 6:23 PM [facility] Total Protein 6.9 6.0 - 8.0 g/dL LAB CHEMISTRY METHOD 05/21/2024 6:23 PM [facility] Albumin 3.8 3.2 - 5.0 g/dL LAB CHEMISTRY METHOD 05/21/2024 6:23 PM [facility] Total Bilirubin 0.9 0.0 - 1.4 mg/dL LAB CHEMISTRY METHOD 05/21/2024 6:23 PM [facility] Blood Venous blood specimen / Unknown Venipuncture / Unknown 05/21/2024 2:25 PM EST 05/21/2024 2:25 PM EST C Teo Grant MD LAB BLOOD ORDERABLES Final Res ult [facility] [address] [place] [address], * Urine Albumin Creatinine Ratio (01/18/2024) Pathologist [facility] Urine Albumin Creatinine Ratio ABSTRACTED [facility] Provider HEALTH MAINTENANCE Final Result * (ABNORMAL) Lipid panel (01/18/2024) [facility] LDL/HDL Ratio 3 0 - 4 Triglycerides 204(A) 0 - 150 mg/dL Cholesterol 189 0 - 200 mg/dL HDL 73 >=40 mg/dL LDL Cholesterol 76 0 - 100 mg/dL Blood Venous blood specimen / Unknown Result [facility] Provider LAB BLOOD ORDERABLES Edie l Result * Falls Risk Assessment (04/24/2023) [facility] Falls Risk Assessment ABSTRACTED Result [facility] Provider HEALTH MAINTENANCE Final Result * Depression Screening (04/24/2023) Pathologist [facility] Depression Screening ABSTRACTED [facility] Provider HEALTH MAINTENANCE Final Result from Last 3 Months or Most Recently Relevant to Health Maintenance Insurance MEDICARE [employer] [place] [employer]VANTAGE Advance Directives Documents on File Type Date Recorded Patient [employer] Expl anation Health Care Decision (hx) 07/05/2022 HE ALTH CARE PROXY Health Care Decision (hx) 07/05/2022 HE ALTH CARE PROXY Health Care Decision (hx) 07/05/2022 HE ALTH CARE PROXY Health Care Decision (hx) 07/05/2022 HE ALTH CARE PROXY Health Care Decision (hx) 07/05/2022 HE ALTH CARE PROXY Health Care Decision (hx) 02/14/2022 AD DUMONT DIRECTIVE Health Care Decision (hx) 01/09/2022 AD DUMONT DIRECTIVE Health Care Decision (hx) 12/23/2021 AD DUMONT DIRECTIVE Health Care Decision (hx) 12/26/2020 AD DUMONT DIRECTIVE Health Care Decision (hx) 12/26/2020 AD DUMONT DIRECTIVE Health Care Decision (hx) 12/26/2020 AD DUMONT DIRECTIVE Health Care Decision (hx) 12/26/2020 AD DUMONT DIRECTIVE Health Care Decision (hx) 12/26/2020 AD DUMONT DIRECTIVE Health Care Decision (hx) 12/26/2020 AD DUMONT DIRECTIVE Health Care Decision (hx) 12/26/2020 AD DUMONT DIRECTIVE Health Care Decision (hx) 12/26/2020 AD DUMONT DIRECTIVE Health Care Decision (hx) 12/26/2020 AD DUMONT DIRECTIVE Health Care Decision (hx) 12/26/2020 AD DUMONT DIRECTIVE Health Care Decision (hx) 12/26/2020 AD DUMONT DIRECTIVE Health Care Decision (hx) 12/26/2020 AD DUMONT DIRECTIVE Health Care Decision (hx) 12/26/2020 AD DUMONT DIRECTIVE Health Care Decision (hx) 12/26/2020 AD DUMONT DIRECTIVE Health Care Decision (hx) 12/26/2020 AD DUMONT DIRECTIVE Health Care Decision (hx) 12/26/2020 AD DUMONT DIRECTIVE Health Care Decision (hx) 12/26/2020 AD DUMONT DIRECTIVE Health Care Decision (hx) 12/26/2020 AD DUMONT DIRECTIVE Health Care Decision (hx) 12/26/2020 AD DUMONT DIRECTIVE Health Care Decision (hx) 12/26/2020 AD DUMONT DIRECTIVE Health Care Decision (hx) 12/26/2020 AD DUMONT DIRECTIVE Health Care Decision (hx) 12/26/2020 AD DUMONT DIRECTIVE Health Care Decision (hx) 12/26/2020 AD DUMONT DIRECTIVE Health Care Decision (hx) 12/26/2020 AD DUMONT DIRECTIVE Health Care Decision (hx) 12/26/2020 AD DUMONT DIRECTIVE Health Care Decision (hx) 12/26/2020 AD DUMONT DIRECTIVE Health Care Decision (hx) 12/26/2020 AD DUMONT DIRECTIVE Health Care Decision (hx) 12/26/2020 AD DUMONT DIRECTIVE Health Care Decision (hx) 12/26/2020 AD DUMONT DIRECTIVE Health Care Decision (hx) 12/26/2020 AD DUMONT DIRECTIVE Health Care Decision (hx) 12/26/2020 AD DUMONT DIRECTIVE Health Care Decision (hx) 12/26/2020 AD DUMONT DIRECTIVE Health Care Decision (hx) 12/26/2020 AD DUMONT DIRECTIVE Health Care Decision (hx) 12/26/2020 AD DUMONT DIRECTIVE Health Care Decision (hx) 12/26/2020 AD DUMONT DIRECTIVE Health Care Decision (hx) 12/26/2020 AD DUMONT DIRECTIVE Health Care Decision (hx) 08/29/2019 AD DUMONT DIRECTIVE Health Care Decision (hx) 08/29/2019 AD DUMONT DIRECTIVE Health Care Decision (hx) 08/29/2019 AD DUMONT DIRECTIVE Health Care Decision (hx) 08/29/2019 AD DUMONT DIRECTIVE Health Care Decision (hx) 08/29/2019 AD DUMONT DIRECTIVE Health Care Decision (hx) 08/29/2019 AD DUMONT DIRECTIVE Health Care Decision (hx) 08/29/2019 AD DUMONT DIRECTIVE Health Care Decision (hx) 08/29/2019 AD DUMONT DIRECTIVE Health Care Decision (hx) 08/29/2019 AD DUMONT DIRECTIVE Health Care Decision (hx) 08/29/2019 AD DUMONT DIRECTIVE Health Care Decision (hx) 08/29/2019 AD DUMONT DIRECTIVE Health Care Decision (hx) 08/29/2019 AD DUMONT DIRECTIVE Health Care Decision (hx) 08/29/2019 AD DUMONT DIRECTIVE Health Care Decision (hx) 08/29/2019 AD DUMONT DIRECTIVE Health Care Decision (hx) 08/29/2019 AD DUMONT DIRECTIVE Health Care Decision (hx) 08/29/2019 AD DUMONT DIRECTIVE Health Care Decision (hx) 08/29/2019 AD DUMONT DIRECTIVE Health Care Decision (hx) 08/29/2019 AD DUMONT DIRECTIVE Health Care Decision (hx) 08/29/2019 AD DUMONT DIRECTIVE Health Care Decision (hx) 08/29/2019 AD DUMONT DIRECTIVE Health Care Decision (hx) 08/29/2019 AD DUMONT DIRECTIVE Health Care Decision (hx) 08/29/2019 AD DUMONT DIRECTIVE Health Care Decision (hx) 08/29/2019 AD DUMONT DIRECTIVE Health Care Decision (hx) 08/29/2019 AD DUMONT DIRECTIVE Health Care Decision (hx) 08/29/2019 AD DUMONT DIRECTIVE Health Care Decision (hx) 08/29/2019 AD DUMONT DIRECTIVE Health Care Decision (hx) 08/29/2019 AD DUMONT DIRECTIVE Health Care Decision (hx) 08/29/2019 AD DUMONT DIRECTIVE Health Care Decision (hx) 08/29/2019 AD DUMONT DIRECTIVE Health Care Decision (hx) 08/29/2019 AD DUMONT DIRECTIVE Health Care Decision (hx) 08/29/2019 AD DUMONT DIRECTIVE Health Care Decision (hx) 08/29/2019 AD DUMONT DIRECTIVE Health Care Decision (hx) 08/29/2019 AD DUMONT DIRECTIVE Health Care Decision (hx) 08/29/2019 AD DUMONT DIRECTIVE Health Care Decision (hx) 08/29/2019 AD DUMONT DIRECTIVE Health Care Decision (hx) 08/29/2019 AD DUMONT DIRECTIVE Health Care Decision (hx) 08/29/2019 AD DUMONT DIRECTIVE Health Care Decision (hx) 08/29/2019 AD DUMONT DIRECTIVE Health Care Decision (hx) 08/29/2019 AD DUMONT DIRECTIVE Health Care Decision (hx) 08/29/2019 AD DUMONT DIRECTIVE Care Teams Clinical Trial Manager Relationship Specialty Start Date End Date Ava Grant MD [address] [place] [id number] PCP - General 07/11/08
[2024-08-23 17:53] LABS: Alkaline Phosphatase 65 U/L (39-117)
[2024-08-25 23:43] LABS: TS Negative Control Passed; TS Panel A 0; TS Panel B 0; TS Positive Control Passed; TSpotTB Negative (Negative)
[2024-08-26 09:00] LABS: HBS Num1 2.44 mIU/mL (0-7.99); HBc Num1 0.08 S/CO (0.00-0.79); HBsAGNum1 2.59 S/CO (0.00-0.99); Hepatitis A Antibody IgM 0.15 Index (0-0.79); Hepatitis B Core Antibody Nonreactive (Nonreactive); ~HepC Num1 0.34 S/CO (0.00-0.79); ~Hepatitis A Antibody IgM Nonreactive (Nonreactive); ~Hepatitis B Surface Antibody NONREACTIVE (Nonreactive); ~Hepatitis C Antibody Nonreactive (Nonreactive)
[2024-08-26 09:51] LABS: HBsAGNum2 Nonreactive; HBsAGNum3 Nonreactive; Hepatitis B Surface Antigen NEGATIVE (Negative)
== END 2024-08-23 13:21 | disposition home or self-care (01) ==
LOC: HO.LAB 13:20
PROVIDERS: PCP Pediatrics; Visit Provider Student in an Organized Health Care Education/Training Program
DX: M06.00 Rheumatoid arthritis without rheumatoid factor, unspecified site (principal); E55.9 Vitamin D deficiency, unspecified; M81.0 Age-related osteoporosis without current pathological fracture; Z79.52 Long term (current) use of systemic steroids; Z51.81 Encounter for therapeutic drug level monitoring; Z79.83 Long term (current) use of bisphosphonates
CPT/HCPCS: 36415; 80053; 82306; 85025; 85652; 86140; 86481; 86704; 86706; 86709; 86803; 87340; 99212

== ENCOUNTER 2025-02-19 10:52 | Outpatient (REF) | payer MEDICARE, OTHER, SELFPAY ==
[2025-02-19 18:11] LABS: MANUAL DIFF FLAG NO
[2025-02-19 18:24] LABS: Hematocrit 43.5 % (42.0-52.0); Hemoglobin 14.0 g/dl (14.0-18.0); Imm Gran Abs Auto 0.07 X10*3/uL (0.00-0.03); Imm Gran Pct Auto 0.9 % (0.0-0.4); Lymphocytes Absolute Auto 1.3 X10*3/uL (1.2-4.9); Mean Corpuscular HGB Conc 32.2 g/dl (31.0-36.0); Mean Corpuscular Hemoglobin 35.3 pg (27.0-33.0); Mean Corpuscular Volume 109.6 fL (80.0-98.0); NRBC Abs Auto 0.000 X10*3/uL (0.0-0.012); NRBC Pct Auto 0.0 /100WBC (0.0-0.2); Platelet Count 184 X10*3/uL (160-400); Red Blood Count 3.97 X10*6/uL (4.60-5.80); White Blood Count 7.7 X10*3/uL (4.8-10.8)
[2025-02-19 18:38] LABS: Alanine Aminotransferase 28 U/L (0-40); Albumin Level 4.3 g/dL (3.5-5.0); Alkaline Phosphatase 73 U/L (39-117); Anion Gap 14 (12-20); Aspartate Amino Transferase 27 U/L (5-37); Blood Urea Nitrogen 15 mg/dL (9-16); Calcium 9.2 mg/dL (8.4-10.2); Carbon Dioxide 28 mmol/L (22-29); Chloride 104 mmol/L (96-108); Estimated Glomerular Filt Rate > 60; Potassium 4.5 mmol/L (3.3-5.1); Sodium 141 mmol/L (135-145); Total Protein 7.0 g/dL (6.5-8.0)
== END 2025-02-19 10:53 | disposition home or self-care (01) ==
LOC: HO.HKASLDS 10:52
PROVIDERS: PCP Pediatrics; Visit Provider Student in an Organized Health Care Education/Training Program
DX: M06.00 Rheumatoid arthritis without rheumatoid factor, unspecified site (principal); M17.12 Unilateral primary osteoarthritis, left knee; M81.0 Age-related osteoporosis without current pathological fracture; E55.9 Vitamin D deficiency, unspecified; Z79.52 Long term (current) use of systemic steroids; Z79.899 Other long term (current) drug therapy
CPT/HCPCS: 20610; 36415; 80053; 82306; 85025; 85652; 86140; 99212; J2003; J3300

== ENCOUNTER 2025-02-19 10:52 | Outpatient (AMB) | payer MEDICARE, OTHER, SELFPAY ==
--- NOTE | 2025-02-19 10:53 | A.OFFVIS_ITS ---
Vital Signs 02/19/25 11:01 Height 5 ft 8 in BMI Reason not done Patient refused/unable BP 124/80 Blood Pressure Location Rt brachial Position Sitting Pulse 98 Pulse Source Pulse Oximeter Pulse Oximetry (%) 99 Oxygen Delivery Method Room Air Intake Visit Reasons: follow up Intake Note: Patient presents for RA/Osteoporosis follow up. Allergies levofloxacin (From Levaquin) Allergy (Severe, Verified 02/19/25 10:59) impaired kidney function canagliflozin (From Invokana) Allergy (Intermediate, Verified 02/19/25 10:59) Unknown clindamycin Allergy (Intermediate, Verified 02/19/25 10:59) Heartburn penicillins Allergy (Intermediate, Uncoded 08/22/23 10:52) blisters Medication List - Last Reconciled 02/19/25 by Diana Underwood MD amlodipine 10 mg See Protocol PO DAILY ascorbic acid (vitamin C) 250 mg PO DAILY atorvastatin 10 mg PO DAILY blood sugar diagnostic As directed cholecalciferol (vitamin D3) 25 mcg PO DAILY cyanocobalamin (vitamin B-12) 1,000 mcg PO DAILY@1200 diltiazem HCl CD 240 mg PO DAILY furosemide 20 mg PO DAILY lancets As directed loratadine (Allergy Relief (loratadine)) 10 mg PO DAILY metformin 1,000 mg PO BID@0900,1800 metoprolol succinate ER 75 mg PO DAILY@1800 omeprazole 20 mg PO DAILY prednisone 7.5 mg (3 x 2.5 mg) PO DAILY 90 days rosuvastatin 20 mg PO DAILY@1800 tamsulosin 0.4 mg PO BID 90 days warfarin 2 mg PO SUMOWEFRSA@1800 warfarin 2.5 - 5 mg PO DAILY HPI Comments Details: Patient is an 84-year-old male with diabetes complicated by bilateral below-knee amputation and CKD stage 3, hypertension, hyperlipidemia complicated by PAD, seronegative rheumatoid arthritis and osteoporosis here today for follow up Interval History: Patient last seen 08/23/24 with me - On prednisone 2.5mg bid - Doing well with respect to joints - He lost his daughter of 61 years old to ovarian cancer. Lives alone and is . Does not have any want to talk to. Today - On prednisone 7.5mg daily - Complaining of left knee pain, requesting a steroid injection Rheumatologic History: Seronegative rheumatoid arthritis Onset 2016 - responded to prednisone Late 2019: more synovitis in hands/wrists. Prednisone increased 10/14: Sulfasalazine started - Not tolerated - headache, nausea - so it was stopped. Methotrexate avoided due to regular alcohol use. 02/2021 - hydroxychloroquine started: eye exam questionable 09/2021 - summer 2021 hydroxychloroquine held. Immunosuppressive Rx avoided due to foot infections On chronic prednisone. 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 Iron deficiency anemia Osteoarthritis of knees, bilateral Combined hyperlipidemia Chronic atrial fibrillation PAD (peripheral artery disease) Type 2 diabetes mellitus CKD (chronic kidney disease) stage 3, GFR 30-59 ml/min Seronegative rheumatoid arthritis Surgical History History of leg amputation History of left hip replacement Hx of left knee surgery Family History Daughter Ovarian cancer Social History Household Members: None Household Members Other:: lives alone Housing: House Are you a primary care associate to a significant other at home: No Do you presently have visiting nurse or other home services: No 75 years or older and lives alone: Yes Alcohol intake: current Alcohol intake frequency: 0-2 drinks per day Patient Tobacco Use Status: Former Tobacco user Years Smoked: quit 55 years ago e-Cigarette/Vaping Use: Never Used Second Hand Smoke Exposure: No Advance Directives Date on File: 11/25/21 service: No Current occupational status: retired Review of Systems Const Details: Review of Systems Constitutional: Denies fever, chills, weight loss ENT: Denies vision changes, eye pain or eye redness, dental caries, dry mouth GI: Denies nausea, vomiting, diarrhea, abdominal pain, change in BM Pulm: Denies SOB, MOORE, hemoptysis, wheezing Cards: Denies chest pain, palpitations Skin: Denies Raynaud's, rash, nail changes, photosensitivity, [employer]AD: Denies headaches, weakness, paresthesias, recurrent falls MSK: as per HPI All other systems reviewed and are unremarkable except noted above Physical Exam Exam Exam: Vital signs reviewed Physical Examination CONSTITUITIONAL Patient alert and cooperative. Well appearing and in no apparent painful distress MSK Hands * Right Hand: Able to make a fist. No swelling or tenderness to palpation of the MCPs, PIPs or DIPs. * Left Hand: Able to make a fist. No swelling or tenderness to palpation of the MCPs, PIPs or DIPs. * Significant Herbedens nodes noted bilaterally and Bouchards nodes bilaterally with deformities * Squarring of the 1st CMC Wrists * Right Wrist: Full ROM to flexion and extension. No swelling or TTP * Left Wrist: Full ROM to flexion and extension. No swelling or TTP Elbows * Right Elbow: Full ROM. No swelling or TTP. No TTP of the medial epicondyle. No TTP of the lateral epicondyle * Left Elbow: Full ROM. No swelling or TTP. No TTP of the medial epicondyle. No TTP of the lateral epicondyle Shoulders * Right shoulder: Full ROM. No swelling noted. No TTP of the AC joint. No TTP of the subacromial bursa. No TTP of the posterior shoulder * Left shoulder: Full ROM. No swelling noted. No TTP of the AC joint. No TTP of the subacromial bursa. No TTP of the posterior shoulder Knees * Right knee: No swelling noted. No TTP of the knee joint line. No TTP of pes anserine bursa * Left knee: No swelling noted. TTP of the knee joint line. No TTP of pes anserine bursa. Bilateral below knee amputations SKIN No rashes Vital Signs: Last Vital Signs Pulse 98 02/19/25 11:01 BP 124/80 02/19/25 11:01 Pulse Ox 99 02/19/25 11:01 Oxygen Delivery Method Room Air 02/19/25 11:01 Office Procedures AMB Joint Injection/Aspiration Joint Injection/Aspiration Details: Procedure was explained to the patient and informed consent was obtained. ? Risks associated with the procedure were discussed with the patient including but not limited to bleeding, infection, drug reactions and reactions to the topical anesthetic. Patient made aware of signs to look out for infectious complications. The area of interest was identified and confirmed with patient. ?This was subsequently cleaned with chlorhexidine x 2. ? The area was then anesthetized using ethyl chloride spray. 40 mg Kenalog with 1 cc 1% lidocaine was injected without issue. ?Minimal to no bleeding. ?Patient tolerated procedure. Primary Site: left knee Prep: site was prepped using aseptic technique and ethochloride spray was applied Injected: 40 mg of, Kenalog, with 1 mL of and 1% plain lidocaine Approach Used: anterior Procedure: The patient tolerated the procedure well Coding 70514 - Large joint Procedure code (CPT) selection complete Office Meds lidocaine (PF) 10 mg/mL (1 %) injection solution Performing Provider: Diana Underwood MD Performing Location: [facility] Administered by: Niki Holt RN on 02/19/25 11:54 Dose Route Admin Location Dispensed Lot Number Expiration Date [facility] Substation Wireman 1 mL Infiltration left knee 2 mL [id number] 11/23/26 24231-407-25 [employer] Total Dispensed Waste 2 mL 50 % Kenalog 40 mg/mL suspension for injection Performing Provider: Diana Underwood MD Performing Location: [facility] Administered by: Nkii Holt RN on 02/19/25 11:54 Dose Route Admin Location Dispensed Lot Number Expiration Date [facility] Substation [employer] 40 mg intra-articular left knee 1 mL [id number] 02/23/27 0112-6722-77 [employer] Total Dispensed Waste 1 mL 0 % Results Reviewed Results Reviewed: Laboratory Tests 08/22/23 08/23/24 11:34 14:53 WBC 7.0 RBC 4.03 L Hgb 14.4 Hct 43.1 Plt Count 175 ESR 6 16 H Sodium 141 Potassium 4.1 Chloride 107 Carbon Dioxide 23 BUN 14 Creatinine 0.75 AST 20 ALT 20 C-Reactive Protein 0.37 25-OH Vitamin D Total 38.0 DEXA 04/2023 FINDINGS: RIGHT FEMUR, NECK: BMD 0.662 g/cm2, Z-score -1.5, T-score -3.1, osteoporosis. RIGHT FEMUR, TOTAL: BMD 0.735 g/cm2, Z-score -1.2, T-score -2.5, osteoporosis. AP SPINE L1-L4: BMD 1.200 g/cm2, Z-score 0.7, T-score -0.2, normal. Assessment & Plan Assessment & Plan (1) Seronegative rheumatoid arthritis: Comment: Onset 2016 - responded to prednisone Late 2019: more synovitis in hands/wrists. Prednisone increased 10/14: Sulfasalazine started - Not tolerated - headache, nausea - so it was stopped. Methotrexate avoided due to regular alcohol use. 02/2021 - hydroxychloroquine started: eye exam questionable 09/2021 - summer 2021 hydroxychloroquine held. Immunosuppressive Rx avoided due to foot infections Code(s): M06.00 - Rheumatoid arthritis without rheumatoid factor, unspecified site Category: Medical Plan: #Seronegative RA Patient is an 84-year-old male with seronegative rheumatoid arthritis currently off chronic immunosuppression secondary to recurrent foot infections. On chronic Prednisone therapy. At this time patient does not have any evidence of active rheumatoid arthritis. He does have significant osteoarthritic changes and deformities. Will continue prednisone dose. Attempts to wean met with return of sx Plan - Prednisone 7.5mg daily - RTC 6 months - Labs before visit: CBC, CMP, ESR, CRP, Vit D (2) Osteoporosis: Comment: DEXA 04/2023: Fem neck -3.1, Femur -2.5, LS spine -0.2 Alendronate 04/2023 held 12/2023 due to dental procedure. Stopped due to side e ffects Code(s): M81.0 - Age-related osteoporosis without current pathological fracture Category: Medical Qualifiers: Osteoporosis type: age-related Presence of current pathological fracture: without current pathological fracture Qualified Code(s): M81.0 - Age- related osteoporosis without current pathological fracture Plan: #Osteoporosis Patient with pretty significant osteoporosis involving his femur. Discontinued alendronate due to side effects Will check DEXA and make assessment of further treatment Plan - Check Vit D - DEXA (3) On prednisone therapy: Code(s): Z79.52 - FDC (current) use of systemic steroids Category: Medical Plan: #Long-term Use of Steroids Discussed with patient the risks and benefits of steroid for managing the rheumatic condition Benefits include: - Reduced pain, improved mobility, increased participation in activities, and decreased progression of disease Risks include: - GI upset, potential ultrasound worsening or formation (especially in patients > 65 years old), elevated blood pressure/worsening hypertension, elevated blood sugar/worsening diabetes control, worsening of bone density, elevated lipids/worsening triglycerides, cataract formation, weight gain Recommended using proton pump inhibitors (PPIs) for the duration of steroid use to reduce the risk of gastric ulcers and vitamin-D daily to reduce the risk of osteoporosis Labs checked: ?A1c, T spot, hepatitis-B and C serologies Pneumocystis jiroveci prophylaxis: ?Patient with risk factors including steroids greater than 50 mg for more than 30 days, age greater than 60 years, and lung involvement from underlying rheumatic disease requires prophylaxis and will be given so Plan I spent 25 minutes reviewing the record and labs, taking a history, examining the patient, discussing the treatment plan, and documenting in the medical record Orders: Orders XR DEXA axial skeleton 05/06/25 M81.0 - Age-related osteoporosis without current pathological fracture Comprehensive Met. 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 Vitamin D 25-OH Total Today E55.9 - Vitamin D deficiency, unspecified AMB Joint Injection/Aspiration Today M17.12 - Unilateral primary osteoarthritis, left knee Medications: Refilled prednisone 2.5mg in the AM 5mg in the PM 7.5 mg (3 x 2.5 mg) PO DAILY 270 tabs 1RF 90 days M06.00 - Rheumatoid arthritis without rheumatoid factor, unspecified site Coding Level of Care Code Est Pt Level 3 (61892) Complex EM visit Add On G2211 Diagnoses Seronegative rheumatoid arthritis M06.00 Age-related osteoporosis without current pathological fracture M81.0 Osteoporosis type: age-related Presence of current pathological fracture: without current pathological fracture On prednisone therapy Z79.52 CPT Codes Coding - Large joint: 69153 - Large joint ([id number])
[2025-02-19 11:01] VITALS: BP 124/80; PULSE 98; O2SAT 99
--- OUTSIDE RECORDS SUMMARY | 2025-02-19 11:46 | XMS_ITS ---
Author Name [facility] Organization Unknown Care Team Organization Name Specialty Phone Email Start Date End Da melo [facility] 02/12/2025 [facility] Organization [facility] 05/03/2022 02/12/2024
--- OUTSIDE RECORDS SUMMARY | 2025-02-19 11:46 | XMS_ITS | Clinical Summary ---
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 Active lancets lancets USE DIRECTED TO TEST BLOOD SUGAR ONCE DAILY EVERY DAY 02/29/20 23 Active predniSONE (DELTASONE) 5 mg tablet Take 1 tablet (5 mg total) by mouth 1 (one) time each day. 12/21/19 23 Active VITAMIN A ORAL Take by mouth. Active UNABLE TO FIND CPAP Historical (HISTORICAL CPAP) Sig - Route: 10 cm nasal mask/ [employer] - Inhalation Active warfarin (COUMADIN) 2.5 mg tablet TAKE 1 TO 2 TABLETS BY MOUTH EVERY DAY PER WARFARIN CLINIC. MAY CAUSE HEAVY BLEEDING. TAKE AT THE SAME TIME EVERYDAY. DO NOT CHANGE DIETARY HABITS 90 tablet 1 08/27/19 25 Active OneTouch Ultra Test test strip USE DIRECTED EVERY DAY 100 strip 1 09/21/19 25 Active cyanocobalamin (VITAMIN B-12) 1,000 mcg tablet Take 1 tablet (1,000 mcg total) by mouth 1 (one) time each day. 90 tablet 1 11/28/19 25 Active metFORMIN (GLUCOPHAGE) 1,000 mg tablet Take 1 tablet (1,000 mg total) by mouth 1 (one) time each day with breakfast. 90 tablet 1 12/04/19 25 Active dilTIAZem CD (CARDIZEM CD) 240 mg 24 hr capsule TAKE 1 CAPSULE(240 MG) BY MOUTH 1 TIME EACH DAY 90 capsule 1 12/21/19 25 Active loratadine (CLARITIN) 10 mg tablet Take 1 tablet (10 mg total) by mouth 1 (one) time each day. 90 tablet 1 12/24/19 25 Active omeprazole (PriLOSEC) [address] capsule Take 1 capsule (20 mg total) by mouth 1 (one) time each day. 90 capsule 1 12/24/19 25 Active metoprolol succinate (TOPROL-XL) 50 mg 24 hr tablet Take 1.5 tablets (75 mg total) by mouth 1 (one) time each day. 135 tablet 1 12/24/19 25 Active lancets (OneTouch Delica Plus Lancet) 33 gaugeIndicatio ns:Type 2 diabetes mellitus with vascular disease ([facility] V24, [facility] V28) Use 1 stick topically to check blood sugar once daily 100 each 1 12/24/19 25 Active tamsulosin (FLOMAX) 0.4 mg 24 hr capsule Capsules should be taken 30 minutes following the same meal each day.TAKE 2 CAPSULES BY MOUTH EVERY DAY 30 MINUTES AFTER THE SAME MEAL 180 capsule 12/24/19 25 Active gabapentin (NEURONTIN) 300 mg capsule TAKE 1 CAPSULE BY MOUTH TWICE DAILY AND 2 CAPSULES EVERY NIGHT AT BEDTIME 360 capsule 1 01/15/20 25 Active Vitamin C 500 mg tablet TAKE 1 TABLET BY MOUTH ONCE DAILY 90 tablet 1 02/04/20 25 Active atorvastatin (LIPITOR) 10 mg tablet TAKE 1 TABLET(10 MG) BY MOUTH AT BEDTIME 90 tablet 1 02/14/20 25 Active cholecalcifero l (VITAMIN D-3) 25 mcg (1,000 unit) tablet Take 1 tablet (1,000 Units total) by mouth 1 (one) time each day. 90 tablet 1 02/20/20 25 Active cholecalcifero l (VITAMIN D-3) 25 mcg (1,000 unit) tablet Take by mouth. 025 Discontinued(Re order) ascorbic acid (VITAMIN C) 500 mg tablet Take 1 tablet (500 mg total) by mouth 1 (one) time each day. 90 tablet 1 08/27/19 25 025 Discontinued atorvastatin (LIPITOR) 10 mg tablet Take 1 tablet (10 mg total) by mouth at bedtime. at bedtime. 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 He is unable to check his weight. He reports that he tries limit sodium intake that he is Meals on Wheels and sometimes meals a send have a low but higher sodium in his leg. The patient about updating an echocardiogram and he is declined at this time. Could look to add an SGLT2 inhibitor, patient has blindness as he reports he is already on a lot of medications. Orders: B-type natriuretic peptide; Future Type 2 diabetes mellitus wit h vascular disease ([facility] V24, [facility] V28) 03/23/2021 PAD (peripheral artery disease) ([facility] V24) Overview (04/09/2024): Carotid u/s neg 07/17 Chronic atrial fibrillation ([facility] V24, [facility] V28) 12/08/2020 Overview (04/09/2024): -Rate controlled and on Coumadin for CVA prophylaxis -Followed by anticoagulation clinic at [facility] Last Assessment & Plan: Continue current [...] can order this new medication for refills Assessment & Plan (09/02/2024 2:44 PM EDT): Patient is anticoagulated on warfarin for CVA prophylaxis and is on Arixtra. Patient is atrial fibrillation at the point today. He is utilizing diltiazem and Toprol for rate control condition to warfarin for CVA prophylaxis. Denies any abnormal eating. Denies any falls. Patient has a [id number] score that is elevated for age, failure, coronary artery disease, diabetes and hypertension Orders: ECG 12 lead Transthoracic echocardiogram (TTE) complete with PRN contrast, bubble, strain, and 3D order panel; Future Seronegative rheumatoid arth ritis ([facility] V24, [facility] V28) 11/24/2020 Overview (04/09/2024): Onset 2016 - responded [...] hip replacement 01/18/2017 Overview (04/09/2024): Left - 2011 Polymyalgia rheumatica ([facility] V24) 01/18/2017 Overview (04/09/2024): Onset October 2016 Picture changed to look more like RA - summer 2020 Umbilical hernia 11/10/2015 BPH (benign prostatic hyperplasia) 09/03/2014 CKD (chronic kidney disease) stage 3, GFR 30-59 ml/min ([facility] V24, [facility] V28) 09/17/2013 Overview (04/09/2024): Protienuria/ See Nephrology Dr. Harrington Corneal dystrophy, hereditary 05/20/2013 Overview (04/09/2024): Per pt MAP dystrophy. Recurrent lasting up to 2-3 weeks. Osteopenia 08/05/2011 Overview (04/09/2024): 08/07 Lumbago 01/04/2010 Overview (04/09/2024): Nadira 2008-02 Pain injection (Faparveenerg) Obstructive sleep apnea 10/12/2009 Overview (04/09/2024): [facility] Night Polysomnogram: Date 09/15/2009; Wt 227#; [...] with AHI 9.5. Type II diabetes mellitus wi th renal manifestations ([facility] V24, [facility] V28) 07/22/2008 Overview (04/09/2024): Moderate microalbuminuria--Pretty Huynh GERD (gastroesophageal reflux disease) 9 Overview (04/09/2024): EGD neg 1996 EGD [...] thiazide diuretic for better blood pressure control Assessment & Plan (09/02/2024 2:44 PM EDT): Some elevated during today. Discussed going up on his medication patient states that he takes medications and does not want anything this time. Can take pressures at home and reach out if they remain consistently elevated. Educated on the importance of diet lifestyle to help further assist in reducing blood pressure. The patient was encouraged to follow low-salt low-fat diet, make purposeful strides towards weight loss, and engage in routine aerobic exercise as tolerated. Orders: Basic metabolic panel; Future Hypercholesteremia 07/15/2008 Overview (04/09/2024): Intol Lipitor Last Assessment & Plan: Continue atorvastatin 10 mg at bedtime-intolerant of higher doses Osteoarthritis 07/15/2008 Overview (04/09/2024): Knees, hips, back Left THR 09/03 Hyaluronic acid injections in left knee 2017 - Arthroscopy left knee 2018 Encounters Date Type Department Care Team Description 02/13/2025 Anticoagulation - Warfarin Visit Coumadin Clinic [facility] [address] [place] [address] Alissa Huynh LPN Chronic atrial fibrillation (CMS/HCC V24, CMS/HCC V28) (Primary Dx); [facility] (current) use of anticoagulants 02/05/2025 Telephone Adult Medicine [facility] [address] [place] [phone] Ramona Clark LPN 01/30/2025 Anticoagulation - Warfarin Visit Coumadin Clinic - [address] [phone] Uyen Carter LPN Chronic atrial fibrillation ([facility]/HCC V24, CMS/HCC V28) (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); 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 01/27/2025 Telephone Adult [address] [phone] Ava Grant MD 01/21/2025 Telephone Adult [address] [phone] Ava Grant MD 01/16/2025 Anticoagulation - Warfarin Visit Coumadin Clinic [address] [phone] Tamiko Tovar LPN Chronic atrial fibrillation (CMS/HCC V24, CMS/HCC V28) (Primary Dx); 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 01/09/2025 Billing Patient Not Present Adult [address] [phone] Ava Grant MD Hypertensive heart and chronic kidney disease with heart failure and stage 1 through stage 4 chronic kidney disease, or unspecified chronic kidney disease (CMS/HCC V24, CMS/HCC V28) (Primary Dx); Chronic diastolic (congestive) heart failure (CMS/HCC V24, CMS/HCC V28); Type 2 diabetes mellitus with diabetic chronic kidney disease, unspecified CKD stage, unspecified whether prison insulin use (CMS/HCC V24, CMS/HCC V28); Stage 3 chronic kidney disease, unspecified whether stage 3a or 3b CKD (CMS/HCC V24, CMS/HCC V28); Anemia in chronic kidney disease, unspecified CKD stage; Chronic atrial fibrillation, unspecified (CMS/HCC V24, CMS/HCC V28) 01/08/2025 Telephone Adult [address] [phone] Eva Caraballo [place] 01/06/[address] [phone] Ava Grant MD 01/02/2025 Anticoagulation - Warfarin Visit Coumadin Clinic [address] [phone] Uyen Campo LPN Chronic atrial fibrillation (CMS/HCC V24, CMS/HCC V28) (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); 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 12/19/2024 Anticoagulation - Warfarin Visit Coumadin Clinic [address] [phone] Uyen Campo LPN Chronic atrial fibrillation (CMS/HCC V24, CMS/HCC V28) (Primary Dx); 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 12/17/2024 Telephone Adult [address] [phone] CaraballoEva [place] 12/17/2024 Telephone Adult [address] [phone] Ava Grant MD 12/12/[address] [phone] Ava Grant MD 12/09/2024 Telephone [facility] - [facility] [address] [facility] [address] [place] [phone] Sera Wills MD 11/28/2024 Anticoagulation - Warfarin Visit Coumadin [address] [phone] Uyen Campo LPN Chronic atrial fibrillation (CMS/HCC V24, CMS/HCC V28) (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); 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 11/26/2024 10:45 AM EDT Office Visit Adult [address] [phone] Ava Grant MD Type 2 diabetes mellitus with vascular disease (CMS/HCC V24, CMS/HCC V28) (Primary Dx); Obstructive sleep apnea; Chronic atrial fibrillation (CMS/HCC V24, CMS/HCC V28); Hypertension, unspecified type; Hypercholesteremia; Below-knee amputation of both lower extremities, sequela ([facility] V24) 11/25/2024 Telephone Adult Medicine - [place] [address] [place] [phone] Ava Grant MD 11/25/2024 Telephone Adult Medicine - [place] [address] [place] [phone] Ava Grant MD from Last 3 Months Immunizations Name Administration Dates Next Due H1N1 Inj Preservative Free 07/09/2009 Influenza trivalent, 0.5mL ( Fluad) 65yo and older 02/28/2024,04/24/2023,03/23/2021,04/25,03/16/2018,03/22/2017,03/25/2016 ,03/27/2015,04/04/2014,04/23/2013,12/2011,04/14/2011,03/30/2010, 9 Influenza trivalent, 0.5mL, preservative free (Fluarix; [...] REMOVAL KNEE ARTHROSCOPY W/ DEBRIDEMENT 07/2017 PROCEDURE: MO ARTHRS KNEE DEBRIDEMENT/SHAVING ARTCLR CRTLG OTHER SURGICAL HISTORY 12/21/2021 PROCEDURE: MO REVSC OPN/PRQ TIB/MIRIAN W/ANGIOPLASTY UNI OTHER SURGICAL HISTORY 12/21/2021 PROCEDURE: MO REVSC OPN/PRQ TIB/MIRIAN W/ANGIOPLASTY UNI EA VSL OTHER SURGICAL HISTORY 12/21/2021 PROCEDURE: ULTRASOUND GUIDANCE FOR VASCULAR AC OTHER SURGICAL HISTORY 01/05/2022 Right PROCEDURE: MO AMPUTATION LEG THROUGH TIBIA&FIBULA; COMMENT: Right below knee amputation OTHER SURGICAL HISTORY 06/21/2022 PROCEDURE: MO REVSC OPN/PRG FEM/POP W/ANGIOPLASTY UNI OTHER SURGICAL HISTORY 06/21/2022 PROCEDURE: MO REVSC OPN/PRQ TIB/MIRIAN W/ANGIOPLASTY UNI OTHER SURGICAL HISTORY 06/21/2022 PROCEDURE: ULTRASOUND GUIDANCE FOR VASCULAR AC OTHER SURGICAL HISTORY 06/22/2022 Left PROCEDURE: MO AMPUTATION METATARSAL W/TOE SINGLE; COMMENT: left 3rd toe BYPASS GRAFT 06/22/2022 Left PROCEDURE: MO AMPUTATION TOE METATARSOPHALANGEAL JOINT; COMMENT: left 4th toe OTHER SURGICAL HISTORY 07/01/2022 Left PROCEDURE: MO AMPUTATION LEG THROUGH TIBIA&FIBULA Medical History Medical History Date Comments Atrial fibrillation ([facility] V24, [facility] V28) 07/15/2008 DX:Atrial fibrillation ([facility]) ; COMMENT: Katarina Rainey 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 ([facility]24, [facility] V28) 07/22/2008 DX: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 ([facility]); COMMENT: Moderate microalbuminuria--Len Sleep apnea 10/12/2009 DX:Sleep apnea Hypercholesteremia 07/15/2008 DX:Hyperchole steremia; COMMENT: Intol Lipitor HTN (hypertension) 07/15/2008 DX:HTN (hyper tension) GERD (gastroesophageal reflux disease) 07/15/2008 DX:GERD (gastroesophageal reflux disease); COMMENT: EGD neg 1996 CKD (chronic kidney disease) stage 3, GFR 30-59 ml/min ([facility] V24, [facility] V28) 09/17/2013 DX:CKD (chroni c kidney disease) stage 3, GFR 30-59 ml/min ([facility]); COMMENT: Protienueia/ See Nephrology Dr. Harrington History of total hip replacement 01/18/2017 DX:History of total hip replacement; COMMENT: Left - 2011 PAD (peripheral artery disea se) ([facility] V24) 02/17/2021 DX:PAD (peripheral artery di sease) ([facility]) Family History Medical History Relation Name Comments [...] drink = 0.6 oz pur e alcohol) Housing Instability Answer Date Recorde d Are you worried that in the next 2 months you may not have stable housing? No 11/20/2024 Food Access & Nutrition Answer Date Rec orded Do you have access to a vari ety of food including fruits and vegetables? Yes 11/20/2024 Health Literacy Answer Date Recorded How often do you need to hav e someone help you when you read instructions, pamphlets, or other written material from your doctor or pharmacy? Never 11/20/2024 Caregiver: How often do you need to have someone help you when you read instructions, pamphlets, or other written material from your doctor or pharmacy? Not on file 11/20/2024 Financial Risk Answer Date Recorded How hard is it for you to pa y for the very basics like food, housing, medical care, and air conditioning / heating? Not very hard 11/20/2024 Transportation Answer Date Recorded Has the lack of transportati on kept you from meetings, work, or from getting things needed for daily living? No Has the lack of transportati on kept you from medical appointments or from getting medications? No 11/20/2024 Social Isolation Answer Date Recorded How often do you feel lonely or isolated from th ose around you? Often 11/20/2024 Food Risk Answer Date Recorded Within the past 12 months we worried whether our food would run out before we got money to buy more. Never true 11/20/2024 Within the past 12 months th e food we bought just didn't last and we didn't have money to get more. Never true 11/20/2024 Dependent Care Answer Date Recorded Do you need help finding or paying for care for your loved ones. For example, child care leader or elderly care for an older adult? No 11/20/2024 Education Answer Date Recorded Do you think completing more education or training, like finishing a GED, going to college, or learning a trade, would be helpful for you? No 11/20/2024 Employment and Income Answer Date Recor ded During the last four weeks, have you been actively looking for work? No 11/20/2024 Living Situation Answer Date Recorded What is your living situation? 0 11/20/2024 Sex and Gender Information Value Date Recorded Sex Assigned at Not on file Legal Sex Male 2:16 PM EST Gender Identity Not on file Sexual Orientation Not on file Obstetrics History Last Filed Vital Signs Vital Sign Reading Time Taken Comments Blood Pressure 148/102 11/26/2024 10:59 AM EDT Pulse 85 11/26/2024 10:59 AM EDT Temperature 37.1 C (98.7 F) 11/26/2024 10:59 AM EDT Respiratory Rate - - Oxygen Saturation 94% 09/02/2024 1:01 PM EDT Inhaled Oxygen Concentration - - Weight 86.2 kg (190 lb) 11/13/2024 1:16 PM EDT Height 172.7 cm (5' 8 ) 11/26/2024 10:59 AM EDT Body Mass Index 28.89 11/13/2024 1:16 PM EDT Plan of Treatment Upcoming Encounters Date Type Department Care Team (Late st Contact Info) Description 05/14/2025 1:30 PM EST Office Visit [facility] - [facility] [address] [facility] [address] [place] [address] Sera Wills MD [address] [place] [address] [place] [address] 06/10/2025 1:00 PM EST Office Visit Adult Medicine - [place] [address] [place] [phone] Ava Grant MD [address] [place] [address] Health Maintenance Due Date Last Done Comments Diabetes: Annual Retina Eye Exam 1950 RSV Immunization Adult Patients (1 - 1-dose 75+ series) 02/24/2016 Medicare Annual Wellness Visit 04/24/2024 04/24/2023 COVID-19 Vaccine (6 - Moderna risk season) 2024 05/21/2024, 07/07/2023, 07/03/2021, Additional history exists Influenza Vaccine (#1) 2025 , 04/24/2023, 07/20/2022, Additional history exists Diabetes: Blood Sugar Control Test (HGBA1C) 05/28/2025 11/26/2024, 05/21/2024, 01/18/2024, Additional history exists Social Influencers of Health Screening 11/20/2025 11/20/2024 Diabetes: Annual Urine Albumin-Creatinine Ratio (uACR) 11/26/2025 11/26/2024, 01/18/2024 Diabetes: Annual GFR (Glomerular Filtration Rate) 11/26/2025 11/26/2024, 05/21/2024, 01/18/2024, Additional history exists Falls Risk Assessment 11/26/2025 11/26/2024, 023 Hypertension/CHF/CAD Annual BMP Blood Test 11/26/2025 11/26/2024, 05/21/2024, 01/18/2024, Additional history exists Cholesterol Screening (Lipid Panel) 11/26/2029 11/26/2024, 01/18/2024, 01/18/2024 DTaP,Tdap,and Td Vaccines (4 - Td or Tdap) 04/24/2033 04/24/2023, 05/20/2013, 03/30/2010 Pneumococcal Vaccine: 50+ Years Completed 06/09/2015, 03/30/2010, 06/26/2004 Zoster Vaccines Completed 05/05/2018, 0801/2018, 12/30/2017, Additional history exists Depression Screening Completed 11/20/2024, 04/24/20 23 Diabetes: Annual Foot Exam Discontinued HIB Vaccines [...] age to complete this topic Meningococcal B Vaccine Aged Out No l onger eligible based on patient's age to complete this topic RSV Immunization Patients Under 20 months Aged Out No longer eligible based on patient's age to complete this topic Varicella Vaccines Aged Out No longer eligible based on patient's age to complete this topic Procedures Procedure Name Priority Date/Time Associated Diagnosis Comments PROTHROMBIN TIME WITH INR Routine 02/13/2025 PROTHROMBIN TIME WITH INR 02/13/2025 PROTHROMBIN TIME WITH INR 01/30/2025 PROTHROMBIN TIME WITH INR Routine 01/30/2025 PROTHROMBIN TIME WITH INR 01/16/2025 PROTHROMBIN TIME WITH INR Routine 01/16/2025 PROTHROMBIN TIME WITH INR Routine 01/02/2025 PROTHROMBIN TIME WITH INR Routine 12/19/2024 PROTHROMBIN TIME WITH INR Routine 11/28/2024 CBC WITH AUTO DIFFERENTIAL Routine 11/26/2024 12:34 PM EDT Chronic atrial fibrillation (CMS/HCC V24, CMS/HCC V28) Hypertension, unspecified type PAD (peripheral artery disease) (CMS/HCC V24) B-TYPE NATRIURETIC PEPTIDE Routine 11/26/2024 12:34 PM EDT Chronic heart failure with preserved ejection fraction (HFpEF) (CMS/HCC V24, CMS/HCC V28) MICROALBUMIN CREATININE URINE RATIO Routine 11/26/2024 12:34 PM EDT Type 2 diabetes mellitus with other diabetic kidney complication, without long-term current use of insulin ([facility] V24, [facility] V28) LIPID PANEL WITH REFLEX TO DIRECT LDL Routine 11/26/2024 12:34 PM EDT Type 2 diabetes mellitus with other diabetic kidney complication, without long-term current use of insulin ([facility] V24, [facility] V28) HEMOGLOBIN A1C Routine 11/26/2024 12:34 PM EDT Type 2 diabetes mellitus with other diabetic kidney complication, without long-term current use of insulin ([facility] V24, [facility] V28) COMPREHENSIVE METABOLIC PANEL Routine 11/26/2024 12:34 PM EDT Type 2 diabetes mellitus with other diabetic kidney complication, without long-term current use of insulin ([facility] V24, [facility] V28) CBC AND DIFFERENTIAL Routine 11/26/2024 12:34 PM EDT Chronic atrial fibrillation ([facility] V24, [facility] V28) Hypertension, unspecified type PAD (peripheral artery disease) ([facility] V24) DEPRESSION SCREENING Routine 04/24/2023 FALLS RISK ASSESSMENT Routine 04/24/2023 from Last 3 Months or Most Recently Relevant to Health Maintenance Results * Prothrombin time with INR (02/13/2025) Only the most recent of9 resultswithin the time period is included. INR 2.4 Prothrombin Time POC Blood Venous blood specimen / Unknown 02/13/2025 us Candy Murrell MD LAB BLOOD ORDERABLES Final Resul t * Lipid panel with reflex to direct LDL (11/26/2024 12:34 PM EDT) Cholesterol 174 0 - 200 mg/dL LAB CHEMISTRY METHOD 11/26/2024 5:14 PM EDT [facility] Triglycerides 134 0 - 150 mg/dL LAB CHEMISTRY METHOD 11/26/2024 5:14 PM EDT [facility] HDL 80 >=40 mg/dL LAB CHEMISTRY METHOD 11/26/2024 5:14 PM EDT [facility] LDL Calculated 67 0 - 100 mg/dL LAB CHEMISTRY METHOD 11/26/2024 5:14 PM EDT [facility] VLDL Cholesterol John 26.8 mg/dL LAB CHEMISTRY METHOD 11/26/2024 5:14 PM EDT [facility] Non HDL Chol. (LDL+VLDL) 94 <145 mg/dL LAB CHEMISTRY METHOD 11/26/2024 5:14 PM EDT [facility] Chol/HDL Ratio 2.2 0.0 - 4.4 LAB CHEMISTRY METHOD 11/26/2024 5:14 PM EDT [facility] Blood Venous blood specimen / Unknown Venipuncture / Unknown 11/26/2024 12:34 PM EDT 11/26/2024 12:34 PM EDT C Teo Grant MD LAB BLOOD ORDERABLES Final Res ult [facility] [address] [place] [address], * (ABNORMAL) CBC auto differential (11/26/2024 12:34 PM EDT) WBC 7.2 4.8 - 10.8 K/mcL LAB HEMETOLOGY METHOD 11/26/2024 3:11 PM EDT [facility] RBC 3.80(L) 4.50 - 5.50 M/mcL LAB HEMETOLOGY METHOD 11/26/2024 3:11 PM EDT [facility] Hemoglobin 13.3(L) 13.5 - 17.5 g/dL LAB HEMETOLOGY METHOD 11/26/2024 3:11 PM EDT [facility] Hematocrit 42.7 42.0 - 54.0 % LAB HEMETOLOGY METHOD [facility]24 [facility] M[facility] 112.7(H) 79.0 - 98.0 FL LAB HEMETOLOGY METHOD 11/26/2024 3:11 PM [facility] MCH 35.1(H) 27.0 - 32.0 pcg LAB HEMETOLOGY METHOD 11/26/2024 3:11 PM [facility] MCHC 31.1(L) 32.0 - 37.0 g/dL LAB HEMETOLOGY METHOD 11/26/2024 3:11 PM [facility] RDW 13.2 11.0 - 15.0 % LAB HEMETOLOGY METHOD 11/26/2024 3:11 PM [facility] Platelets 169 130 - 400 K/mcL LAB HEMETOLOGY METHOD 11/26/2024 3:11 PM [facility] MPV 12.2(H) 7.0 - 11.0 FL LAB HEMETOLOGY METHOD 11/26/2024 3:11 PM [facility] NRBC 0.0 <1.0 % LAB HEMETOLOGY METHOD 11/26/2024 3:11 PM [facility] NRBC Absolute 0.00 <0.10 K/mcL LAB HEMETOLOGY METHOD 11/26/2024 3:11 PM [facility] Neutrophils Relative 72.3 % LAB HEMETOLOGY METHOD [facility] Lymphocytes Relative 16.3 % LAB HEMETOLOGY METHOD 11/26/2024 3:11 PM [facility] Monocytes Relative 9.3 % LAB HEMETOLOGY METHOD 11/26/2024 3:11 PM EDT [facility] Eosinophils Relative 0.7 % LAB HEMETOLOGY METHOD 11/26/2024 3:11 PM EDT [facility] Basophils Relative 0.6 % LAB HEMETOLOGY METHOD 11/26/2024 3:11 PM EDT [facility] Immature Granulocytes Relative 0.8 % LAB HEMETOLOGY METHOD 11/26/2024 3:11 PM EDT [facility] Neutrophils Absolute 5.23 1.50 - 7.00 K/mcL LAB HEMETOLOGY METHOD 11/26/2024 3:11 PM EDT [facility] Lymphocytes Absolute 1.18 1.00 - 5.00 K/mcL LAB HEMETOLOGY METHOD 11/26/2024 3:11 PM EDT [facility] Monocytes Absolute 0.67 0.20 - 1.00 K/mcL LAB HEMETOLOGY METHOD 11/26/2024 3:11 PM EDT [facility] Eosinophils Absolute 0.05 0.00 - 0.50 K/mcL LAB HEMETOLOGY METHOD 11/26/2024 3:11 PM EDT [facility] Basophils Absolute 0.04 0.00 - 0.20 K/mcL LAB HEMETOLOGY METHOD 11/26/2024 3:11 PM EDT [facility] Immature Granulocytes Absolute 0.06(H) 0.00 - 0.03 K/mcL LAB HEMETOLOGY METHOD 11/26/2024 3:11 PM EDT [facility] Blood Venous blood specimen / Unknown Venipuncture / Unknown 11/26/2024 12:34 PM EDT 11/26/2024 12:34 PM EDT us C Teo Grant MD LAB BLOOD ORDERABLES Final Res ult [facility] [address] [place] [address], * (ABNORMAL) Microalbumin creatinine urine ratio (11/26/2024 12:34 PM EDT) [facility] Creatinine, Urine 124.0 mg/dL LAB CHEMISTRY METHOD 11/26/2024 9:32 PM EDT [facility] Microalb, Ur 370.0(H) 0.0 - 29.0 mg/L LAB CHEMISTRY METHOD 11/26/2024 9:32 PM EDT [facility] Microalb/Crea t Ratio 298(H) <30 mg/g creat LAB CHEMISTRY METHOD 11/26/2024 9:32 PM EDT [facility] Urine Urine specimen obtained by clean catch procedure / Unknown Non-blood Collection / Unknown 11/26/2024 12:34 PM EDT 11/26/2024 12:34 PM EDT us Ava Grant MD LAB URINE ORDERABLES Final Res ult Performing Organization Address City/[facility]/ZIP Co de Phone Number [facility] [address] [place] [address], [place] [phone] * B-type natriuretic peptide (11/26/2024 12:34 PM EDT) [facility] BNP 65 <=100 pcg/mL LAB CHEMISTRY METHOD 11/26/2024 7:10 PM EDT [facility] Blood Venous blood specimen / Unknown Venipuncture / Unknown 11/26/2024 12:34 PM EDT 11/26/2024 12:34 PM EDT Danny Koroma NP LAB BLOOD ORDERABLES Final Resul t Performing Organization Address [facility]/ZIP Co de Phone Number [facility] [address] [place] [address], [place] [phone] * Hemoglobin A1c (11/26/2024 12:34 PM EDT) [facility] Hemoglobin A1C 6.3 <6.5 % LAB CHEMISTRY METHOD 11/26/2024 9:43 PM [facility] Mean Bld Glu Estim. 134 mg/dL LAB CHEMISTRY METHOD 11/26/2024 9:43 PM [facility] Blood Venous blood specimen / Unknown Venipuncture / Unknown 11/26/2024 12:34 PM EDT 11/26/2024 12:34 PM EDT [facility] [place] LAB BLOOD ORDERABLES Final Res ult [facility] [address] [place] [address], [place] [phone] * (ABNORMAL) Comprehensive metabolic panel (11/26/2024 12:34 PM EDT) Sodium 140 133 - 145 mmol/L LAB CHEMISTRY METHOD 11/26/2024 5:14 PM [facility] Potassium 4.2 3.5 - 5.5 mmol/L LAB CHEMISTRY METHOD 11/26/2024 5:14 PM [facility] Chloride 105 96 - 110 mmol/L LAB CHEMISTRY METHOD 11/26/2024 5:14 PM [facility] CO2 28 21 - 32 mmol/L LAB CHEMISTRY METHOD 11/26/2024 5:14 PM [facility] Anion Gap 7 3 - 11 LAB CHEMISTRY METHOD 11/26/2024 5:14 PM [facility] Glucose 113(H) 70 - 100 mg/dL LAB CHEMISTRY METHOD 11/26/2024 5:14 PM [facility] BUN 16 5 - 25 mg/dL LAB CHEMISTRY METHOD 11/26/2024 5:14 PM [facility] Creatinine 0.87 0.70 - 1.30 mg/dL LAB CHEMISTRY METHOD 11/26/2024 5:14 PM EDT [facility] eGFR 86 >=60 mL/min/1. 73m2 LAB CHEMISTRY METHOD 11/26/2024 5:14 PM [facility] Comment:Calculation based on the Chronic Kidney Disease Epidemiology Collaboration (CKD-EPI) equation refit without adjustment for race. BUN/Creatinine Ratio 18.4 LAB CHEMISTRY METHOD 11/26/2024 5:14 PM [facility] Calcium 8.9 8.5 - 10.5 mg/dL LAB CHEMISTRY METHOD 11/26/2024 5:14 PM [facility] AST (SGOT) 15 10 - 42 unit/L LAB CHEMISTRY METHOD 11/26/2024 5:14 PM [facility] ALT (SGPT) 26 10 - 60 unit/L LAB CHEMISTRY METHOD 11/26/2024 5:14 PM [facility] Alkaline Phosphatase 76 42 - 121 unit/L LAB CHEMISTRY METHOD 11/26/2024 5:14 PM [facility] Total Protein 6.6 6.0 - 8.0 g/dL LAB CHEMISTRY METHOD 11/26/2024 5:14 PM [facility] Albumin 3.5 3.2 - 5.0 g/dL LAB CHEMISTRY METHOD 11/26/2024 5:14 PM [facility] Total Bilirubin 0.6 0.0 - 1.4 mg/dL LAB CHEMISTRY METHOD 11/26/2024 5:14 PM [facility] Blood Venous blood specimen / Unknown Venipuncture / Unknown 11/26/2024 12:34 PM EDT 11/26/2024 12:34 PM EDT us C Teo Grant MD LAB BLOOD ORDERABLES Final Res ult [facility] [address] [place] [address], * Falls Risk Assessment (04/24/2023) Falls Risk Assessment ABSTRACTED us Historical Provider HEALTH MAINTENANCE Final Result * Depression Screening (04/24/2023) HM Depression Screening ABSTRACTED us Historical Provider HEALTH MAINTENANCE Final Result from Last 3 Months or Most Recently Relevant to Health Maintenance Insurance [employer] [place] MED[place] ADVANTAGE Advance Directives Documents on File Type Date Recorded Patient Cafeteria Cashier Expl anation Health Care Decision (hx) 07/05/2022 [...] (hx) 08/29/2019 AD [place] DIRECTIVE Care Teams Textile Engraver Relationship Specialty Start Date End Date Ava Grant MD [address] [place] [id number] PCP - General 07/11/08
--- OUTSIDE RECORDS SUMMARY | 2025-02-19 11:46 | XMS_ITS | Encounter Summary ---
Author Organization [facility] Address [address] [place] [address] Care Team Providers Care Distribution Center Supervisor Name Role Phone Ava Grant MD Primary Care Provider [phone] Reason for Visit * Reason Onset Date Comments Fitting for DME 01/27/2025 Encounter Details Date Type Department Care Team (Late st Contact Info) Description 01/27/2025 Telephone Adult Medicine - [place] [address] [place] [phone] Ava Grant MD [address] [place] [address] Social History Tobacco Use Types Packs/Day Years [...] care for your loved ones. For example, children's institution attendant or elderly care for an older adult? [...] on file documented as of this encounter Progress Notes * Eva Caraballo [place] - 02/17/2025 9:46 AM EDT Faxed to [facility]: F. [phone] T. [phone] With notes. * Rozina Aviles - 01/27/2025 1:02 PM EDT [facility] calling on needs a valid prescription for pts Cpap - they sent an order that was missing documentation and a script that was missing info - they need the length of need and they need the heated humidifier Fax to [phone] - also they need the cpap unit with all of the above listed documented in this encounter Plan of Treatment Upcoming Encounters Date Type Department Care Team (Late st Contact Info) Description 05/14/2025 1:30 PM EST Office Visit [facility] - [facility] [address] [facility] [address] [place] [phone] Sera Wills MD [address] [place] [address] [place] [address] 06/10/2025 1:00 PM EST Office Visit Adult Medicine - [place] [address] [place] [address] Ava Grant MD [address] [place] [address] documented as of this encounter Visit Diagnoses Not on filedocumented in this encounter Additional Health Concerns Assessment Noted Time PHQ-9 Depression Total Score: 4 11/21/19 25 9:19 AM EDT documented as of this encounter Care Teams Distribution Center Supervisor Relationship Specialty Start Date End Date Ava Grant MD [address] [place] [address] PCP - General 07/11/08 documented as of this encounter
--- OUTSIDE RECORDS SUMMARY | 2025-02-19 11:46 | XMS_ITS | Encounter Summary ---
Author Organization [facility] Address [address] [place] [address] Care Team Providers Care Sponge Maker Name Role Phone Ava Grant MD Primary Care Provider [phone] Reason for Visit * Reason Onset Date Comments Faxed order [id number] 01/21/2025 Encounter Details Date Type Department Care Team ([facility] Contact Info) Description 01/21/2025 Telephone Adult Medicine [facility] [address] [place] [phone] Ava Grant MD [address] [place] [address] Social History Tobacco Use Types Packs/Day Years [...] care for your loved ones. For example, director child development center or elderly care for an older adult? [...] as of this encounter Progress Notes * Tona Keys - 01/21/2025 7:29 AM EDT PLEASE CLOSE MESSAGE WHEN ORDER HAS BEEN FAXED Faxed order [id number] received from [address], requesting signature from provider. Please sign andfax back to [phone]. Order in Green folder documented in this encounter Plan of Treatment Upcoming Encounters Date Type Department Care Team (Late st Contact Info) Description 05/14/2025 1:30 PM EST Office Visit [facility] - [facility] [address] [facility] [address] [place] [address] Sera Wills MD [address] [place] [address] [address] [place] [address] 06/10/2025 1:00 PM EST Office Visit Adult Medicine - [place] [address] [place] [address] Ava Grant MD [address] [place] [address] documented as of this encounter Visit Diagnoses Not on filedocumented in this encounter Additional Health Concerns Assessment Noted Time PHQ-9 Depression Total Score: 4 11/21/19 25 9:19 AM EDT documented as of this encounter Care Teams Sponge Maker Relationship Specialty Start Date End Date Ava Grant MD [address] [place] [address] PCP - General 07/11/08 documented as of this encounter
--- OUTSIDE RECORDS SUMMARY | 2025-02-19 11:46 | XMS_ITS | Clinical Summary ---
Author Organization [facility] Facility Address [address] [address] Care Team Providers Care Golf Course Assistant Name Role Phone Kavon Grant MD Primary [...] Hemoglobin A1C 01/19/2022 10/20/2021 Influenza Vaccine (#1) 2025 , 03/10/2020, 04/25/2019, Additional history exists Pneumococcal Vaccine: 50+ Years Completed 06/09/2015, 03/30/2010, 06/26/2004 Hepatitis B Vaccine Aged Out No longe r eligible based on patient's age to complete this topic Insurance Medicare Member Subscriber Plan / Payer (Ef fective 2006-Present) Name:Rajiv Casanova V Member ID:[id number] Relation to Subscriber:Self Name:Rajiv Casanova V Subscriber ID:[id number] Payer ID:Not on file Group ID:Not on file Type:Not on file Address: [place] [phone] [facility] Medicare [facility] Care Teams Golf Course Assistant Relationship Specialty Start Date End Date Kavon Grant MD PCP - General Internal Medicine 01/06/22
== END 2025-02-19 11:43 | disposition home or self-care (01) ==
LOC: HO.RHES 10:53
PROVIDERS: PCP Pediatrics; Visit Provider Student in an Organized Health Care Education/Training Program
DX: M06.09 Rheumatoid arthritis without rheumatoid factor, multiple sites (principal); M81.0 Age-related osteoporosis without current pathological fracture; Z79.52 Long term (current) use of systemic steroids; M17.12 Unilateral primary osteoarthritis, left knee
CPT/HCPCS: 20610; 99213